=== PATIENT | male | born 1990 | race African-American/Black ===

== ENCOUNTER 2021-09-04 11:38 | Inpatient (IN) | payer OTHER ==
[~2021-09-04] VITALS: Ht 162.6 cm; Wt 72.6 kg
[2021-09-04] MEDS ORDERED: TOPA50TA8 PO (11:59)
[2021-09-04] MEDS ORDERED: HYDR-3363 PO ×2 (11:59)
[2021-09-04] MEDS ORDERED: TRAZ-252 PO (11:59)
[2021-09-04] MEDS ORDERED: RIZA5TAB2 PO (11:59)
--- OUTSIDE RECORDS SUMMARY | 2021-09-04 12:33 | CCD ---
Author Author [facility] Address Unknown Phone Unavailable Support Name Relationship Address Phone [facility] Next Of Kin [address] [place] [address] Unavailable TK HARRY Next Of Kin [address] [place] [address] Re-disclosure Warning The records that you are about to access may contain information from federally-assisted alcohol or drug abuse programs. If such information is present, then the following federally mandated warning applies: This information has been disclosed to you from records protected by federal confidentiality rules (42 CFR part 2). The federal rules prohibit you from making any further disclosure of this information unless further disclosure is expressly permitted by the written consent of the person to whom it pertains or as otherwise permitted by 42 CFR part 2. A general authorization for the release of medical or other information is NOT sufficient for this purpose. The Federal rules restrict any use of the information to criminally investigate or prosecute any alcohol or drug abuse patient.The records that you are about to access may contain highly sensitive health information, the redisclosure of which is protected by Article 27-F of the [facility] Public Health law. If you continue you may have access to information: Regarding HIV / AIDS; Provided by facilities licensed or operated by the [facility] Office of Mental Health; or Provided by the [facility] Office for People With Developmental Disabilities. If such information is present, then the following [facility] mandated warning applies: This information has been disclosed to you from confidential records which are protected by state law. State law prohibits you from making any further disclosure of this information without the specific written consent of the person to whom it pertains, or as otherwise permitted by law. Any unauthorized further disclosure in violation of state law may result in a fine or fpc sentence or both. A general authorization for the release of medical or other information is NOT sufficient authorization for further disc losure. Medications No Information Insurance Providers Payer name Policy type / Coverage type Policy ID Covered democrat ID Covered democrat's relationship to gar Policy Gar Plan Information [facility] [id number] Problems, Conditions, and Diagnoses No Information Surgeries/Procedures No Information Results No Information Social History No Information
[2021-09-04 14:40] LABS: HEMATOCRIT 43.9 % (42.0-52.0); MEAN CORPUSCULAR HEMOGLOBIN 27.8 pg (27.0-33.0); MEAN CORPUSCULAR HGB CONC 31.9 g/dl (32.0-36.5); MEAN CORPUSCULAR VOLUME 87.1 fl (80.0-96.0); PLATELET COUNT, AUTOMATED 271 10^3/uL (150-450); RED BLOOD COUNT 5.04 10^6/uL (4.30-6.10); WHITE BLOOD COUNT 7.4 10^3/uL (4.0-10.0)
[2021-09-04] MEDS ORDERED: LORazepam 2 MG TAB PO STA (14:51)
[2021-09-04] MEDS ORDERED: OLANZapine ORAL DISINTEGRATING TAB 5MG PO ONE (14:55)
[2021-09-04 15:06] LABS: AMPHETAMINES LEVEL URINE NEGATIVE (NEGATIVE); BARBITURATES URINE NEGATIVE (NEGATIVE); BENZODIAZEPINES URINE NEGATIVE (NEGATIVE); CANNABINOIDS URINE NEGATIVE (NEGATIVE); COCAINE METABOLITE URINE NEGATIVE (NEGATIVE); METHADONE URINE NEGATIVE (NEGATIVE); OPIATES URINE NEGATIVE (NEGATIVE); PHENCYCLIDINE URINE NEGATIVE (NEGATIVE)
[2021-09-04 15:19] LABS: ACETAMINOPHEN LEVEL < 2.0 UG/ML (10.0-30.0); ALBUMIN 4.2 GM/DL (3.2-5.2); ALT/SGPT 32 U/L (12-78); BILIRUBIN,DIRECT 0.1 MG/DL (0.0-0.2); BILIRUBIN,TOTAL 0.6 MG/DL (0.2-1.0); BLOOD UREA NITROGEN 14 MG/DL (7-18); CALCIUM LEVEL 9.9 MG/DL (8.5-10.1); CARBON DIOXIDE LEVEL 25 MEQ/L (21-32); CHLORIDE LEVEL 111 MEQ/L (98-107); CREATININE FOR GFR 1.51 MG/DL (0.70-1.30); ETHYL ALCOHOL (ETHANOL) < 0.003 % (0.000-0.010); GLOMERULAR FILTRATION RATE > 60.0 (>60); GLUCOSE, FASTING 99 MG/DL (70-100); POTASSIUM SERUM 4.1 MEQ/L (3.5-5.1); SALICYLATE LEVEL < 1.7 MG/DL (5.0-30.0); SODIUM LEVEL 142 MEQ/L (136-145); THYROID STIMULATING HORMONE 0.297 uIU/ML (0.358-3.740); TOTAL PROTEIN 7.8 GM/DL (6.4-8.2)
--- NOTE | 2021-09-04 17:53 | REPVR ---
PROCEDURE INFORMATION: Exam: CT Head Without Contrast Exam date and time: 09/04/2021 5:30 PM Age: 30 years old Clinical indication: Pain; Headache TECHNIQUE: Imaging protocol: Computed tomography of the head without contrast. Radiation optimization: All CT scans at this facility use at least one of these dose optimization techniques: automated exposure control; mA and/or kV adjustment per patient size (includes targeted exams where dose is matched to clinical indication); or iterative reconstruction. COMPARISON: No relevant prior studies available. FINDINGS: Brain: No intracranial hemorrhage or extra-axial fluid collection. No evidence of mass effect or midline shift. Ivy-white matter differentiation is intact. Cerebral ventricles: No ventriculomegaly. Paranasal sinuses: Visualized sinuses are unremarkable. No fluid levels. Mastoid air cells: Unremarkable. Bones/joints: No acute osseus lesion or fracture. Soft tissues: Unremarkable. IMPRESSION: No acute intracranial pathology. Electronically signed by: Joseph Meyer On 09/04/2021 17:52:51 PM
[2021-09-04] MEDS ORDERED: HOME MED LIST COMPLETE! XX SCH (18:05)
[2021-09-04 19:38] LABS: RSV AMPLIFICATION NEGATIVE (NEGATIVE)
[2021-09-04] MEDS ORDERED: traZODone 50 MG TAB PO PRN (20:15)
[2021-09-04] MEDS ORDERED: ACETAMINOPHEN TAB 650MG DOSE (2X325MG) PO PRN (20:15)
[2021-09-04] MEDS ORDERED: MAALOX 30 ML SUSP *UDC PO PRN (20:15)
[2021-09-04] MEDS ORDERED: MOM 30ML SUSPENSION UDC PO PRN (20:15)
--- OUTSIDE RECORDS SUMMARY | 2021-09-04 20:27 | CCD ---
Author Author [facility] Address Unknown Phone Unavailable Support Name Relationship Address Phone [facility] Next Of Kin [address] [place] [address] Unavailable TK HARRY Next Of Kin [address] [place] [address] Re-disclosure Warning The records that you are [...] is protected by Article 27-F of the [facility] Public Health law. If you continue you may have access to information: Regarding HIV / AIDS; Provided by facilities licensed or operated by the [facility] Office of Mental Health; or Provided by the [facility] Office for People With Developmental Disabilities. If such information is present, then the following [facility] mandated warning applies: This information [...] law may result in a fine or fci sentence or both. A general authorization for the release of medical or other information is NOT sufficient authorization for further disc losure. Medications No Information Insurance Providers Payer name Policy type / Coverage type Policy ID Covered constitution party ID Covered constitution party's relationship to gar Policy Gar Plan Information [facility] [id number] [facility] [id number] Problems, Conditions, and Diagnoses No Information Surgeries/Procedures No Information Results No Information Social History No Information
[2021-09-04 22:24] VITALS: BP 157/90
[2021-09-05] VITALS (7 sets, daily range): BP systolic 72–118; BP diastolic 38–96
[2021-09-05 09:09] LABS: BASO % 0.3 % (0.0-1.0); HEMATOCRIT 44.5 % (42.0-52.0); HEMOGLOBIN 14.2 g/dl (13.5-17.5); LYMPH # 1.1 10^3/uL (1.5-5.0); LYMPH % 16.8 % (24.0-44.0); MEAN CORPUSCULAR HGB CONC 31.9 g/dl (32.0-36.5); MEAN CORPUSCULAR VOLUME 87.6 fl (80.0-96.0); MONO # 0.4 10^3/uL (0.0-0.8); MONO % 6.1 % (2.0-8.0); NEUTROPHILS # 4.9 10^3/uL (1.5-8.5); NEUTROPHILS % 76.5 % (36.0-66.0); PLATELET COUNT, AUTOMATED 264 10^3/uL (150-450); RED BLOOD COUNT 5.08 10^6/uL (4.30-6.10); WHITE BLOOD COUNT 6.4 10^3/uL (4.0-10.0)
--- NOTE | 2021-09-05 09:38 | REP ---
INDICATION: hypotension. COMPARISON: None. TECHNIQUE: Single portable AP view of the chest was performed. FINDINGS: There is no acute infiltrate or pulmonary edema. Lungs are clear. The heart is not significantly enlarged. The mediastinal silhouette is unremarkable. The visualized osseous structures are intact. IMPRESSION: No acute pulmonary disease. <Electronically signed by Dinesh Ivy > 09/05/21 [id number]
[2021-09-05 09:40] LABS: ALBUMIN 4.3 GM/DL (3.2-5.2); ALT/SGPT 29 U/L (12-78); BILIRUBIN,TOTAL 0.8 MG/DL (0.2-1.0); BLOOD UREA NITROGEN 20 MG/DL (7-18); CALCIUM LEVEL 10.1 MG/DL (8.5-10.1); CARBON DIOXIDE LEVEL 22 MEQ/L (21-32); CHLORIDE LEVEL 110 MEQ/L (98-107); CREATININE FOR GFR 2.04 MG/DL (0.70-1.30); GLOMERULAR FILTRATION RATE 50.1 (>60); GLUCOSE, FASTING 93 MG/DL (70-100); MAGNESIUM LEVEL 1.9 MG/DL (1.8-2.4); POTASSIUM SERUM 4.4 MEQ/L (3.5-5.1); SODIUM LEVEL 141 MEQ/L (136-145); TROPONIN I < 0.02 NG/ML (< 0.10)
--- NOTE | 2021-09-05 13:37 | MHHPEPDOC ---
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 Patient was in bed with his eyes closed was very minimal in his conversation disengaged in the interview PER ED REPORT: Pt was brought to [facility] by EMS after [facility] contacted EMS due to pt exhibiting signs of paranoia. Pt reports that he is originally from [facility] and that he moved to the [place] with his first . 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 Pt reports that [place] is his first duty station. Pt reports that he suffers from severe headaches and that he has been diagnosed with intracranial hemorrhage. Pt reports that he stayed in the [facility] for almost 5 days. (Which appears to be a delusion since there is no evidence of this in healthy connections). Pt reports that since that time his headaches have been debilitating. Pt reports that his is getting frustrated with him because; he has been unable to care for their son and only go to work. Pt reports that he suffers from very poor sleep and he has been put on different medications to help however, he feels that these medications are not helping at all. Pt reports that he went to [place] [employer] [facility] today because he and his were arguing about their vehicle that has been at the [facility] for 2 weeks. Pt reports that he called very early this morning because, he has been borrowing someone else's vehicle and he would like help to get the vehicle out of the shop. Pt reports that his got very agitated with him because, he called so early in the morning. Pt states "I am very passive and wanted to avoid an argument so I went to the health center to talk to someone and they sent me here". Pt is very tearful at times and states that he feels worthless and that he will very soon. Pt reports that he doesn't want to by his own hand but, "I wouldn't mind going to sleep and never waking up". Pt reports feeling as though he is one of the worst solders. At times pt is very difficult to follow and states that he often hears his father's voice, pt states "I know that it's okay to soon, it is because I hear my dad's voice". When asked if his dad voice tells pt to hurt himself pt states "no, my dad was a good man". Pt is very fixated on getting a book written in [place] which is pts primary language. Pt seems very hyper focused on it and has asked several times, tw found pt a book however, it was not written in [place]. Pt was satisfied with tw attempt at finding pt sometime to occupy his time. Pt denies HI/Self Inj/VH. Pt report erratic appetite and poor sleep. Psychiatric Review of Systems Depression (2 or more weeks): depressed mood, insomnia/hypersomnia, feelings of excess/guilt, feelings of worthlesness, difficulty concentrating, psychomotor changes, suicidal thoughts Psychosis: auditory hallucination, delusions PTSD: denies Anxiety: situational anxiety, stressor related anxiety Anxiety/ 6 months or more of: restlessness, keyed up, difficulty concentrating Past Psychiatric History Previous Psychiatric Diagnosis: Denies any diagnoses Previous Psychiatric Admissions: This is his first psychiatric admission Suicide Attempts: Denies history of self-harm Psychiatric Follow-up: [facility]. Psychiatric medications: No medications at this time. Past Medical History Medical Problems Acute kidney injury Head Injury: No Seizures: No Hospitalizations: No Surgeries: No Family Medical/Psychiatric HX Medical Problems Denies contributory history although his father is Psychiatric Disorders: No Addiction: No Suicide Attemps/Completions: No Addiction History denies Social History Childhood: Born in [place], his 3 sisters 2 brothers had both parents growing up, father is mother still alive. Abuse/Trauma: Reports the of his father was traumatic for him. Current Living Situation: Currently lives with and 4-month-old child Education: Associates degree. 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 Legal: None Marital: Second marriage has been for a year and has 2 children 1 does not live with him second child is 4 months old lives with himself and his halima calderon Mental Status Examination General Appearance: well groomed, appears stated age, hospital scubs/clothing Build: average Demeanor: withdrawn, guarded Eye Contact: poor Activity: slowed Behavior: cooperative Speech: clear, other (Has an excellent) Mood: depressed, anxious Affect: constricted, flat Thought Process: logical/linear Thought Content (Delusions): none reported, paranoia (Was not paranoid during the interview but it was reported that he was paranoid prior to admission to the unit) Thought Content (Other): guarded Thought Content (Aggressive): none reported Perception (Hallucinations): auditory Perception (Other): none reported Cognition (Impairment of): none reported Cognition(Intelligence Est.): average Oriented: Awake, Alert, Oriented times three Insight: fair Judgment: Fair Psychosis: Denies Diagnoses Unspecified psychotic disorder A-FIB/CHADSVASC A-FIB History Current/History of A-Fib/PAF?: No Current PO Anticoag Therapy: No Assessment Patient was seen this morning, at the time patient was seen with hospitalist. Morning reports that the patient has had very low blood pressure [id number]. Hospitalist was called in labs were ordered. Patient has a negative tox screen. He states that he was feeling suicidal and was seen by [facility] reporting that he wants to in his sleep he states that he has auditory hallucinations of his father's voice and has difficulty reporting any other depressive symptoms patient was quite drowsy in the interview. At th is time according to the hospitalist patient has acute kidney injury and will be admitted to the medical floor at which time psychiatric consult can be ordered to determine whether patient needs continued hospitalization on [facility] Initial Treatment Plan 1. Patient was admitted on a [9.39] status. 2. Complete history was obtained. 3. With patients permission, family will be contacted and database will be expanded. 4. Patients medication regimen will be reviewed and changed accordingly. 5. Patient will be provided with protected environment. 6. Patient will be treated with individual, group, and milieu therapies. 7. Patient will receive supportive psych-education. 8. Discharge planning will commence immediately. 9. Outpatient follow-up treatment will be strongly recommended. 10. The initial treatment plan will focus initially on: * Depression. * Risk for suicide. * Altered thoughts ESTIMATED LENGTH OF STAY: 1-3 DAYS. TIME SPENT COUNSELING AND COORDINATING INITIAL CARE: 60 minutes. Tobacco Cessation Screen Tobacco Cessation Tx Ordered?: No r/t failed trials N/A-No Antipsychotics Vital Signs Vital Signs Date Time Temp Pulse Resp B/P (MAP) Pulse Ox O2 Delivery O2 Flow Rate FiO2 09/05/21 09:48 99.0 87 20 118/96 (103) 100 Room Air Laboratory Data 24H Labs Laboratory Tests 2 09/04/21 14:08: Nucleated Red Blood Cells % (auto) 0.0, Anion Gap 6L, Glomerular Filtration Rate > 60.0, Calcium Level 9.9, Total Bilirubin 0.6, Direct Bilirubin 0.1, Aspartate Amino Transf (AST/SGOT) 14, Alanine Aminotransferase (ALT/SGPT) 32, Alkaline Phosphatase 81, Total Protein 7.8, Albumin 4.2, Albumin/Globulin Ratio 1.2, Thyroid Stimulating Hormone (TSH) 0.297L, Salicylates Level < 1.7L, Urine Opiates Screen NEGATIVE, Urine Methadone Screen NEGATIVE, Acetaminophen Level < 2.0L, Urine Barbiturates Screen NEGATIVE, Urine Phencyclidine Screen NEGATIVE, Urine Amphetamines Screen NEGATIVE, Urine Benzodiazepines Screen NEGATIVE, Urine Cocaine Metabolite Screen NEGATIVE, Urine Cannabinoids Screen NEGATIVE, Ethyl Alcohol Level < 0.003 09/04/21 18:21: Coronavirus (COVID-19)(PCR) NEGATIVE, Influenza Type A (RT-PCR) NEGATIVE, Influenza Type B (RT-PCR) NEGATIVE, Respiratory Syncytial Virus (PCR) NEGATIVE 09/05/21 08:51: Nucleated Red Blood Cells % (auto) 0.0, Anion Gap 9, Glomerular Filtration Rate 50.1L, Calcium Level 10.1, Total Bilirubin 0.8, Aspartate Amino Transf (AST/SGOT) 13, Alanine Aminotransferase (ALT/SGPT) 29, Alkaline Phosphatase 76, Total Protein 8.0, Albumin 4.3, Albumin/Globulin Ratio 1.2, Immature Granulocyte % (Auto) 0.3, Neutrophils (%) (Auto) 76.5H, Lymphocytes (%) (Auto) 16.8L, Monocytes (%) (Auto) 6.1, Eosinophils (%) (Auto) 0.0, Basophils (%) (Auto) 0.3, Neutrophils # (Auto) 4.9, Lymphocytes # (Auto) 1.1L, Monocytes # (Auto) 0.4, Eosinophils # (Auto) 0.0, Basophils # (Auto) 0.0, Lactic Acid Level 2.2*H, Magnesium Level 1.9, Troponin I < 0.02, CO-Hzg-D-Type Natriuretic Peptide 14, Free Thyroxine 1.56H CBC/BMP Laboratory Tests 09/04/21 14:08 09/05/21 08:51 Medications No Active Prescriptions or Reported Meds Allergies Coded Allergies: No Known Allergies (Unverified , 09/04/21) LEE MENENDEZ NP Sep 05, 2021 12:42
--- NOTE | 2021-09-05 13:47 | MHDSPDOC ---
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 Patient was in bed with his eyes closed was very minimal in his conversation disengaged in the interview PER ED REPORT: Pt was brought to [facility] by EMS after [facility] contacted EMS due to pt exhibiting signs of paranoia. Pt reports that he is originally from [facility] and that he moved to the [place] with his first . 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 Pt reports that he suffers from severe headaches and that he has been diagnosed with intracranial hemorrhage. Pt reports that he stayed in the [facility] for almost 5 days. (Which appears to be a delusion since there is no evidence of this in healthy connections). Pt reports that since that time his headaches have been debilitating. Pt reports that his is getting frustrated with him because; he has been unable to care for their son and only go to work. Pt reports that he suffers from very poor sleep and he has been put on different medications to help however, he feels that these medications are not helping at all. Pt reports that he went [facility] [place] [facility] because he and his were arguing about their vehicle that has been at the the medical center for 2 weeks. Pt reports that he called very early this morning because, he has been borrowing someone else's vehicle and he would like help to get the vehicle out of the shop. Pt reports that his got very agitated with him because, he called so early in the morning. Pt states "I am very passive and wanted to avoid an argument so I went to the health center to talk to someone and they sent me here". Pt is very tearful at times and states that he feels worthless and that he will very soon. Pt reports that he doesn't want to by his own hand but, "I wouldn't mind going to sleep and never waking up". Pt reports feeling as though he is one of the worst solders. At times pt is very difficult to follow and states that he often hears his father's voice, pt states "I know that it's okay to soon, it is because I hear my dad's voice". When asked if his dad voice tells pt to hurt himself pt states "no, my dad was a good man". Pt is very fixated on getting a book written in [place] which is pts primary language. Pt seems very hyper focused on it and has asked several times, tw found pt a book however, it was not written in Serbian. Pt was satisfied with tw attempt at finding pt sometime to occupy his time. Pt denies HI/Self Inj/VH. Pt report erratic appetite and poor sleep. REASON FOR ADMISSION VITAL SIGNS: See below. CONSULTANTS INVOLVED: See Medical H + P by Hospitalist TREATMENT AND PROGRESS ON THE UNIT: Patient was admitted to the [facility] on a 9.39 legal status was afforded the following treatment modalities: 1) Individual Therapy 2) Group Therapy 3) Medication Management 4) Milieu Therapy 5) Safe Environment HOSPITAL COURSE: Patient was admitted to [facility] on a 9.39 legal status for paranoia and delusions. Patient had abnormal labs critical lactic acid level, acute kidney injury injury and patient is being transferred to medical floor DISCHARGE ASSESSMENT: In today's interview, patient is alert and oriented, pt.s dress is appropriate. Hygiene and grooming is well-kempt. Patient reported having suicidal ideations, paranoia, auditory hallucinations and depression. 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 Short responses Language skills are intact Thought processes including: Coherent Thought content: Reports depression and anxiety. Reports having suicidal ideation but /homicidal ideation, planning or intent. Abstract reasoning, and computation: fair Description of associations: denies, none observed Description of abnormal or psychotic thoughts: denies, none observed. Judgment: fair Insight: fair Orientation: alert and oriented to person, place, time and situation Recent and remote memory: intact Attention span and concentration: good Language: expansive Fund of knowledge: average Mood: Depressed Mood Affect: Flat Suicide Risk Assessment: 1) Does the patient wish to be ? Yes 2) Since your admission, have you had any actual thought of killing yourself? No 3) Since your admission, have you been thinking about how you might do this? No 4) Since your admission, have you had these thoughts and had some intention of acting on them? No 5) Since your admission, have you started to work out or worked out the details of how to kill yourself? No 5A) Do you intent to carry out this plan? No and NA 6) Have you ever done anything, started anything, or prepared to do anything with any intent to ? No 6A) How long since your admission did you do any of these? NA MEDICATIONS ON DISCHARGE: See Medication Reconciliation PLAN/FOLLOWUP ARRANGEMENTS: Patient is transferred to medical unit. Unit will call for psych consult if needed The amount of time spent in the coordination of care for this patient was approximately 25 minutes. ETOH/Disorder Med Rx ETOH/DRUG DISORDER RX: N/A Vital Signs/I&Os Vital Signs Date Time Temp Pulse Resp B/P (MAP) Pulse Ox O2 Delivery O2 Flow Rate FiO2 09/05/21 09:48 99.0 87 20 118/96 (103) 100 Room Air Laboratory Data Labs 24H Laboratory Tests 2 09/04/21 14:08: Nucleated Red Blood Cells % (auto) 0.0, Anion Gap 6L, Glomerular Filtration Rate > 60.0, Calcium Level 9.9, Total Bilirubin 0.6, Direct Bilirubin 0.1, Aspartate Amino Transf (AST/SGOT) 14, Alanine Aminotransferase (ALT/SGPT) 32, Alkaline Phosphatase 81, Total Protein 7.8, Albumin 4.2, Albumin/Globulin Ratio 1.2, Thyroid Stimulating Hormone (TSH) 0.297L, Salicylates Level < 1.7L, Urine Opiates Screen NEGATIVE, Urine Methadone Screen NEGATIVE, Acetaminophen Level < 2.0L, Urine Barbiturates Screen NEGATIVE, Urine Phencyclidine Screen NEGATIVE, Urine Amphetamines Screen NEGATIVE, Urine Benzodiazepines Screen NEGATIVE, Urine Cocaine Metabolite Screen NEGATIVE, Urine Cannabinoids Screen NEGATIVE, Ethyl Alcohol Level < 0.003 09/04/21 18:21: Coronavirus (COVID-19)(PCR) NEGATIVE, Influenza Type A (RT-PCR) NEGATIVE, Influenza Type B (RT-PCR) NEGATIVE, Respiratory Syncytial Virus (PCR) NEGATIVE 09/05/21 08:51: Nucleated Red Blood Cells % (auto) 0.0, Anion Gap 9, Glomerular Filtration Rate 50.1L, Calcium Level 10.1, Total Bilirubin 0.8, Aspartate Amino Transf (AST/SGOT) 13, Alanine Aminotransferase (ALT/SGPT) 29, Alkaline Phosphatase 76, Total Protein 8.0, Albumin 4.3, Albumin/Globulin Ratio 1.2, Immature Granulocyte % (Auto) 0.3, Neutrophils (%) (Auto) 76.5H, Lymphocytes (%) (Auto) 16.8L, Monocytes (%) (Auto) 6.1, Eosinophils (%) (Auto) 0.0, Basophils (%) (Auto) 0.3, Neutrophils # (Auto) 4.9, Lymphocytes # (Auto) 1.1L, Monocytes # (Auto) 0.4, Eosinophils # (Auto) 0.0, Basophils # (Auto) 0.0, Lactic Acid Level 2.2*H, M agnesium Level 1.9, Troponin I < 0.02, OR-Ejb-R-Type Natriuretic Peptide 14, Free Thyroxine 1.56H CBC/BMP Laboratory Tests 09/04/21 14:08 09/05/21 08:51 Medications No Active Prescriptions or Reported Meds Allergies Coded Allergies: No Known Allergies (Unverified , 09/04/21) LEE MENENDEZ NP Sep 05, 2021 13:47
[2021-09-06] MEDS ORDERED: TRAZ-252 PO (11:38)
[2021-09-06] MEDS ORDERED: MECL-86 PO (11:38)
[2021-09-06] MEDS ORDERED: RAME8TAB2 PO (11:38)
--- NOTE | 2021-09-07 17:23 | ECGEPIP ---
[facility] Test Date: 2021-09-05 Pat Name: SD CASTRO Department: Room: [place] [address] Gender: Male Mothers Helper: KIRAN : 1990 Requested By: ABDULAZIZ MOCTEZUMA Order Number: [id number] Reading MD: Negrito Tim Measurements Intervals [place] Rate: 91 P: 39 SD: 140 QRS: 11 QRSD: 80 T: 14 QT: 348 QTc: 428 Interpretive Statements Normal sinus rhythm with sinus arrhythmia Nonspecific T wave abnormality Electronically Signed on 09-07-2021 17:23:19 EDT by Negrito Tim
== END 2021-09-05 12:40 | disposition other institution (70) | DRG 885 ==
LOC: M ED 11:38 → M ED INP 20:11 → M PSY 21:30
PROVIDERS: ADMIT Psychiatry & Neurology Psychiatry; ATTEND Psychiatry & Neurology Psychiatry
DX: F29 Unspecified psychosis not due to a substance or known physiological condition (principal); N17.9 Acute kidney failure, unspecified; R45.851 Suicidal ideations; Z20.822 Contact with and (suspected) exposure to COVID-19

== ENCOUNTER 2021-09-05 11:03 | Observation (INO) | payer OTHER ==
[~2021-09-05] VITALS: Ht 162.6 cm; Wt 73.3 kg
[~2021-09-05 11:03] MED LIST: HYDR-3363 PO; RIZA5TAB2 PO; TOPA50TA8 PO; TRAZ-252 PO
[2021-09-05] MEDS ORDERED: MOM 30ML SUSPENSION UDC PO PRN (11:25)
[2021-09-05] MEDS ORDERED: MAALOX 30 ML SUSP *UDC PO PRN (11:25)
[2021-09-05] MEDS ORDERED: ACETAMINOPHEN TAB 650MG DOSE (2X325MG) PO PRN (11:25)
--- NOTE | 2021-09-05 11:28 | HPEPDOC ---
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 He was admitted to [facility], and hospitalist was called for medical intake. RN informed MD that patient had vomited shortly prior to breakfast, felt lightheaded and when he lay down, his SBP measured was 70 mmHg, with repeat improvement to 100 mmHg systolic. Patient stated that he had nothing to eat or drink for almost 24 hours and felt thirsty. He denies blurred vision, chest pain, palpitations, but endorses slight headache. Lab work was ordered, indicating Cr 2.04. LA 2.2. Orthostatic BP was measured in [facility], positive. Tox screen negative. Patient admitted to hospitalist service from [facility] due to MARLENE likely 2/2 dehydration. PAST MEDICAL HISTORY: Migraines Intracranial hemorrhage? PAST SURGICAL HISTORY: reports no prior hx SOCIAL HISTORY: Born in [facility] Denies smoking, etoh use, illicit drug use FAMILY HISTORY: reviewed patient, did not provide pertinent hx. Father . ALLERGIES: Please see below. REVIEW OF SYSTEMS: 10 point ROS conducted, relevant findings are noted in HPI. HOME MEDICATIONS: Please see below. PHYSICAL EXAMINATION: VITAL SIGNS: please see below General: NAD, comfortable HEENT: PERRLA, EOMI, sclerae clear Neck: supple, normal ROM, no JVD Respiratory: lungs CTAB, no wheeze, no rales, no crackles CVS: RRR, normal S1, S2, no murmurs Abdo: soft, no masses, no hepatosplenomegaly, BS+, no rebound tenderness Extremities: no edema, pulses 2+ MSK: no joint deformities, normal ROM Neuro: no focal neuro deficits, moving all 4 extremities, CN2-12 intact. Strength 5/5 in all 4 extremities. No nystagmus. Psych: calm, cooperative, AAO x 3 LABORATORY DATA: See below. IMAGING: CT head wo contrast (09/04/21): IMPRESSION: No acute intracranial pathology. CXR (09/05/21): No acute pulmonary disease. MICROBIOLOGY: Please see below. 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 He was admitted to [facility], and hospitalist was called for medical intake. RN informed MD that patient had vomited shortly prior to breakfast, felt lightheaded and when he lay down, his SBP measured was 70 mmHg, with repeat improvement to 100 mmHg systolic. Patient stated that he had nothing to eat or drink for almost 24 hours and felt thirsty. He denies blurred vision, chest pain, palpitations, but endorses slight headache. Lab work was ordered, indicating Cr 2.04. LA 2.2. Orthostatic BP was measured in [facility], positive. Tox screen negative. Patient admitted to hospitalist service from [facility] due to MARLENE likely 2/2 dehydration. . PLAN: #Hypotension: SBP 70 mmHg by manual. Slight improvement to 100 mmHg on repeat/lying down. Positive orthostats. Admit to M/S tele. Given 1L NS bolus. Repeat BP 121/81. C/w IVF. Compression stockings. #MARLENE: likely pre-renal. Patient had no PO intake x 24 hours. Repeat Cr in am. S/p 1L NS bolus. Ordered renal US. #Paranoia/SI: 1:[address] Kim that patient is admitted to acute floor. Likely DC to [facility] on 09/06/21. Home Medications No Active Prescriptions or Reported Meds Allergies Coded Allergies: No Known Allergies (Unverified , 09/04/21) ABDULAZIZ MOCTEZUMA MD Sep 05, 2021 11:28
[2021-09-05] MEDS ORDERED: NS 1,000 ML IV ONE (11:30)
--- OUTSIDE RECORDS SUMMARY | 2021-09-05 13:02 | CCD | Summary of Care ---
Author Author [facility] Organization [facility] Address Unknown Phone Unavailable Care Team Providers Care Supervisor Plastic Sheets Name Role Phone Pcp, No PCP Unavailable Reason for Referral * Diagnostic Radiology (Routine) Referred By Contact Referred To Contact Status Reason Specialty Diagnoses / Procedures Татьяна Romero MD [address] [place] [address] [place] [phone] Email: [email or web address] Open Radiology Diagnoses Cervical radiculopathy P rocedures MR Cervical Spine without Contrast Electronically signed by Татьяна Romero MD at * Procedure/Treatment (Routine) Referred By Contact Referred To Contact Status Reason Specialty Diagnoses / Procedures Татьяна Romero MD [address] [place] [address] [place] [phone] Email: [email or web address] Татьяна Romero MD [address] [place] [phone] Email: [email or web address] Open Specialty Services Infusion Therapy Diagnoses Required Occipital neuralgia of left side Electronically signed by Татьяна Romero MD at Reason for Visit * Reason Comments New Patient Encounter Details Care Team Description Date Type Department Татьяна Romero MD [address] [place] [id number] [phone] Intractable chronic migraine without aur a and with status migrainosus (Primary Dx); Occipital neuralgia of left side; Cervicogenic headache; Cervical radiculopathy 08/01/2021 Office Visit [facility] Neurology a [facility] [address] [facility] [address], [address] [place] [address] Allergies Comments Active Allergy Reactions Severity Noted Date G6PD medication: Unspecified Other Anaphylaxis High 06/24/2021 documented as of this encounter (statuses as of 08/01/2021) Medications End Date Status Medication Sig Dispensed Refills Start Date Active Amitriptyline HCl 25 MG Take 25 mg by 0 Oral Tablet (ELAVIL) mouth nightly Active Nerivio Device 1 Device by 1 each Does not 1 apply route Two times daily as needed 07/31/2022 Active Topiramate 25 MG Oral Take 2 120 tablet 11 07/11 Tablet (Topamax) tablets by 1 mouth Two Times Daily 07/31/2022 Active Rizatriptan Benzoate 10 Take 1 tablet 10 tablet 11 MG Oral Tablet (Maxalt) by mouth as 1 needed for MigraineMay repeat in 2 hours if needed documented as of this encounter (statuses as of 08/01/2021) Active Problems No known active problemsdocumented as of this encounter (statuses as of 08/01/2021) Resolved Problems Problem Noted Date Resolved Date Intracranial hemorrhage 06/24/2021 08/01/2021 documented as of this encounter (statuses as of 08/01/2021) Social History Date Tobacco Use Types Packs/Day Years Used Never Smoker Smokeless Tobacco: Never Used Comments Alcohol Use Standard Drinks/Week Not Currently 4 (1 standard drink = 0.6 o z pure alcohol) Alcohol Habits Answer Date Recorded How often do you have a drink containing alcohol? Monthly or less 06/25/2021 How many drinks containing alcohol do you have on 3 or 4 06/25/2021 a typical day when you are drinking? How often do you have six or more drinks on one Monthly 06/25/2021 occasion? Social Isolation Answer Date Recorded In a typical week, how many times do you talk on Twice a w [place] 06/25/2021 the phone with family, friends, or neig hbors? How often do you get together with friends or Twice a week 06/25/2021 relatives? How often do you attend holiness or amish Never 06/25/2021 services? Do you belong to any clubs or organizations such Patient r efused 06/25/2021 as holiness groups, unions, fraternal or athletic groups, or school groups? How often do you attend meetings of the clubs or Patient r efused 06/25/2021 organizations you belong to? Are you now , , , , 06/25/2021 never or living with a partner? Physical Activity Answer Date Recorded On average, how many days per week do you engage 5 days 06/25/2021 in moderate to strenuous exercise (like walking fast, running, jogging, dancing, swimmi ng, biking, or other activities that cause a light or heavy sweat)? On average, how many minutes do you engage in 90 min 06/25/2021 exercise at this level? Stress Answer Date Recorded Do you feel stress - tense, restless, nervous, or Only a l ittle 06/25/2021 anxious, or unable to sleep at night be cause your mind is troubled all the time - these d ays? Financial Resource Strain Answer Date Recorde d How hard is it for you to pay for the very basics Not very hard 06/25/2021 like food, housing, medical care, and h eating? Intimate Partner Violence Answer Date Recorde d Within the last year, have you been afraid of your No 06/25/2021 partner or ex-partner? Within the last year, have you been humiliated or No 06/25/2021 emotionally abused in other ways by you r partner or ex-partner? Within the last year, have you been kicked, hit, No 06/25/2021 slapped, or otherwise physically hurt b y your partner or ex-partner? Within the last year, have you been raped or No 06/25/2021 forced to have any kind of sexual activ ity by your partner or ex-partner? Food Insecurity Answer Date Recorded Within the past 12 months, you worried that your Never syeda e 06/25/2021 food would run out before you got money to buy more. Within the past 12 months, the food you bought Never true 06/25/2021 just didn't last and you didn't have mo aris to get more. Transportation Needs Answer Date Recorded In the past 12 months, has lack of transportation No 06/25/2021 kept you from medical appointments or f rom getting medications? In the past 12 months, has lack of transportation No 06/25/2021 kept you from meetings, work, or gettin g things needed for daily living? Sex Assigned at Date Recorded Not on file Date Recorded COVID-19 Exposure Response 08/01/2021 7:33 AM EDT In the last month, have you been in contact with No / Unsure someone who was confirmed or suspected to have Coronavirus / COVID-19? documented as of this encounter Last Filed Vital Signs Reading Time Taken Comments Vital Sign 119/78 08/01/2021 7:42 AM EDT Blood Pressure 80 08/01/2021 7:42 AM EDT Pulse - - Temperature - - Respiratory Rate - - Oxygen Saturation - - Inhaled Oxygen Concentration 76.2 kg (168 lb) 08/01/2021 7:42 AM EDT Weight 162.6 cm (5' 4") 08/01/2021 7:42 AM EDT Height 28.84 08/01/2021 7:42 AM EDT Body Mass Index documented in this encounter Patient Instructions * Patient Instructions* Татьяна Romero MD - 08/01/2021 7:40 AM EDT Headache Clinic Summary of Visit: Diagnosis: chronic migraine, occipital neuralgia on the left, rule cervicogenic headache and cervical radiculopathy. Investigations: MRI cervical spine Referrals: None Online information: www.americanheadachesociety.org americanmigrainefoundation.org migrainecanada.org Headache Treatment Outline Please keep a headache diary in written or electronic format (e.g. [place] Migr dell Tracker, www.[place] and migrainebuddy are examples ) General things that will help improve your headaches: Additional information at the end 1. Regular aerobic exercise 2. Well balanced diet, do not skip meals 3. Regular sleep schedule, see sleep hygiene tips 4. Hydration with water 5. Trigger avoidance 6. Stress reduction/management and relaxation (see www.[employer] 7. Paced Breathing (see www.[employer]) Medication(s) to take when you get a headache = acute treatments: Nerivio device Rizatriptan 10mg Early treatment is better than waiting until pain is severe. Acute treatment with rizatriptan taken more than 2-3 days per week will overall worsen your headaches in that your headaches will occur more frequently and will be more severe. This is called medication overuse headache and is a common ca use of headaches becoming more frequent and more severe, this can be treated mos t successfully by decreasing rescue/acute medication use. Acute treatments should not exceed 10 days per month and ideally our preventive medication may help you decrease as needed medication you are using. Medications to take to help reduce headaches: Reduction treatments have to be taken for at least 12-16 weeks to determi ne their full effect. If you tolerate the medication please continue for this le ngth of time. Topiramate up to 50mg twice daily. Medications to stop taking: Amitriptyline Temporary treatments: Left occipital nerve block Follow up in: 6 weeks Additional Information: Headache Medication Common Side Effects: Below are the common side effects for medications used to treat headache disorde rs. This list is not exhaustive and your pharmacist will likely discuss the med ication(s) in detail with you. If you have any questions or concerns about your medications please talk to your pharmacist and/or your primary care provider an d/or the physician who prescribed the medication. If at any point you are elidia rned about symptoms please call your family physician or go to your local emerge ncy room. All medications have the risk of allergic reactions. If you get a ne w rash after starting a new medication see a doctor immediately to determine if it is an allergic reaction. Please Note: 1. Many treatments are used off label. 2. Many medications used to treat migraine are contraindicated in . Pl ease let us know if you become or are planning to become . Abraham ally control should be used while on many medications used to treat migrai ne. Triptans: Amerge (naratriptan), Axert (almotriptan), Frova (frovatriptan), Maxalt (rizatri ptan), Relpax (eletriptan), Imitrex (sumatriptan), Zomig (zolmitriptan), Trexim et (sumatriptan/naproxen) Nausea, vomiting, palpitations, chest tightness, chest pain, dizziness, lighthea dedness, flushing, and worsening headache. There is a very small risk of heart attack and stroke. Anti-Seizure: Topiramate, Zonisamide: fatigue, numbness and tingling, mental fogginess, decrea sed attention, decreased concentration, decreased memory, increased risk of kidn ey stones, increased risk of glaucoma, increased risk of blood becoming acidic, weight loss. Rare mood changes. Nerivio device: Place the device on your upper arm of your non-dominant hand so that the electro gabriel are in contact with your skin and the LED indicator is facing outwards. The device should be located midway between the elbow and the shoulder. Place the de vice directly on the skin and not the shirt. Turn on program and run Nerivio for 45 minutes at the onset of migraine [email or web address] Additional information for General Things (from above): Exercise: From a headache/migraine perspective regular aerobic exercise is beneficial. Da jose antonio is best. I recommend an activity that gets you to a huffing a puffing stat e for 15-20 minutes every day. Diet: No one diet has proven beneficial for all comers with migraines or headaches. I recommend a well balanced diet including all food groups with: fresh fruits and vegetables, lean cuts of meats, and portion control. If you are purposefully e xcluding major food groups from your diet please make sure the rest of your diet is compensating. Sleep: Some tips for good sleep hygiene to help with your headaches: Your bed should be used primarily for sleep o Do not read for extended periods in bed o Do not watch TV in bed o Do not use back lit displays in bed (cell phones, tablets, e-readers, computer s) Do not use back lit displays right before bed. This can make it harder to fall asleep. Establish a soothing pre-sleep routine Do not eat just prior to going to bed Try to go to bed and get up at the same time every day, including weekend s and vacation o It is better to catch up on sleep with short naps than to alter your sleep silverio edule Sleep only long enough to feel rested and then get out of bed o The amount of sleep that each individual requires is different Do not try to force yourself to sleep. If you can't sleep, get out of bed and try again later Don't be a nighttime clock-watcher Have coffee, tea, and other foods that have caffeine only in the morning, or better yet none at all Avoid alcohol in the late afternoon, evening, and bedtime Avoid smoking, especially in the evening Keep your bedroom dark, cool, quiet, and free of reminders of work or oth er things that cause you stress Solve problems you have before you go to bed Exercise several days a week, but not right before bed Relaxation therapy In headache disorders there is some thought that either migraine or the treatmen t of headache depletes the body's production of melatonin. Melatonin is what yo ur body naturally produces to help you go to sleep. There is also some evidence to suggest that taking melatonin may help prevent headaches. If you would like to try taking melatonin you can try taking it before bed. The side effects are sleepiness. Some people find it makes them feel too sleepy in the morning. So me people report it causes vivid dreams or nightmares. Most people have no unwa nted side effects. You can safely take up to 12 mg just before bed. I would re commend starting at a lower dose and increasing the dose based on your reaction to it. Hydration: It is important to stay well hydrated with water. Trigger avoidance: If you notice a particular headache trigger and it is avoidable than avoid it! Stress Reduction/Management and Paced Breathing: Stress is inevitable and cannot be avoided completely. How you deal with and ma nage stress is more important. Here are some examples of applications and resources for paced breathing methods , mindfulness, and biofeedback. You may be able to find others on the internet. All may not be available in your area. Free Web site: www.[employer] Apps: 1. Stop Breathe Think 2. Headspace 3. Smiling Mind 4. [place] 5. Breathing Zone 6. [facility] Meditation Book: Paced Breathing Meditation by Dr Malik Benavidez, Devices: Mindfulness Device: The [facility] [place] documented in this encounter Progress Notes * Татьяна Romero MD - 08/01/2021 7:40 AM EDT Headache Clinic Consultation Thank you for your referral on Peter Hughes for assessment of headaches. Patient's primary care provider: No Pcp It was my pleasure to evaluate Peter Hughes in my capacity as a Headache Medicine Specialist. Peter Hughes is a 30 y.o., right handed male , from: [address] [place] [address]. They were seen in the outpatient Neurology Clinic on 08/01/2021. They presented for today's assessment alone. 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 The headache lasted 3 days. He started having he adaches since June 2021. He did have headaches when he was tired, or if dehydr ated and took tylenol and these went away. These headaches were rare. He does not recall any triggering such as an illness, or trauma. He did not have any minor head trauma, a week beforehand he was doing field exercises and was w ondering if he hit his head without knowing. On June 20 he started to have a headache as he was doing an exercise, he was doing moderate exercise as he could not lift. The headache built up duri ng the course of the exercise. He took Tylenol, and was resting all weekend. On Thursday he could not tolerate the headache, he was seeing stars and blurry, and f elt like his head would explode. He went to the ER then and finally ended up adm itted at [facility] for the basal ganglia issues. His headaches have never gone away completely. Amitriptyline 25 mg makes him indira te groggy although it helped with headache. He uses amitriptyline only on ds and takes 1/2 or 1/4 of it as it makes him quite groggy and he cannot sleep. The headache is mostly on the left side temporal and occipital. Prednisone had a mild effect for a few hours but did not resolve headache. Toradol injection were given as well at hospital but he thinks this helped for a few hours. He was telling me that his left eye is shaking in the eyelid, and he felt his sh oulder was also getting weak. He was seen by case consultant and went to the ED as ketty ta and was told these were to be discussed with neurology. He has a 3 month old baby boy born in April 2021. He also has some more stress at work as his migraines prevent him from doing all the activities. When he does not have a migraine he is dizzy, things are moving either in a circ le or in a boat. 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 He does have shooting pain in the left arm starting in the shoulder when headach e is severe. Headache Description: Headache Days per month: Mild Moderate-Severe 11/07 Headache free days per month: Quality: [] Throbbing [] Pulsating [] Sharp [] Shooting [] Knife-like [] Pressure [] Dull [] Ache [x] Exploding [] Imploding [] Burning []Tingling/numbness Severity: Baseline 05/18 Max: 07/19, Time to Peak: variable Duration untreated: continous Time of day predilection: morning if not sleeping enough, better if he sleeps > 10h, also worse by 3-4pm Associated Features: Headache that is: [x] Moderate to severe [x] Pulsatile [x] Aggravated or causing avoidance of rout ine physical activity (walking/climbing stairs) [] Unilateral alternating Headache accompanied by: [] Nausea [] Vomiting [x] Photophobia [x] Sonophobia [] Osmophobia (*not ICHD b ut some studies note this is predictive of migraine if present) Cranial Autonomic Symptoms: none Aura: none Caffeine intake: no Precipitated by neck movement/positioning: sometimes, he does use a neck pillow History of: Head injury: none Neck injury: none 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 It was gone by May 2020. The patient has the following vascular risk factors: None The patient has the following vascular co morbidities: None Denies history of: asthma, Raynaud's, nephrolithiasis, constipation- intermittit ent Family History of Headaches: none Other Pertinent Details: Systemic or constitutional or infectious symptoms, Secondary risk factors, cance r history, Jaw claudication or other GCA symptoms: none Focal Neurologic Symptoms: as above Thunderclap Headache: no Older age of onset: no Change in Headache History: yes New headache: yes Postural or Positional component to headache: no Headache precipitated by cough, sneeze, bending, lifting, or Valsalva: no History compatible with Papilloedema (worse in AM, double vision, TVO, tinnitus, projectile vomitting): no or Marci partem: N/A Assessment by other Physicians: Neurology Investigations to Date: MRI June 25, 2021 1. Symmetric susceptibility artifacts in the globus pallidus, bilaterally consi stent with metabolic deposits. 2. No acute cerebral or cerebellar infarct. 3. Minimal nonspecific white matter disease. CT/A June 24, 2021 No acute intracranial hemorrhage or large arterial territorial infarction. 2. Major intracranial arteries and arteries of the neck are patent. Last eye exam: 2-3 weeks ago Blood work No results found for: CBCDIF, TSH, ESR, CRP, METABOLICPAN Acute Treatment: Current Reduction Treatment: Amitriptyline but only on weekends Never tried: Patient has tried and failed: Medications Tried ([x] checked have been tried in the past) Anti-seizure: [] Acetazolamide (Diamox) [] Carbamazepine (Tegretol) [] Clonazepam [] Gabapentin (Neurontin) [] Lamotragine (Lamictal) [] Levetiracetam (Keppra) [] Oxcarbazepine (Trileptal) [] Phenobarbital [] Phenytoin (Dilantin) [] Pregabalin (Lyrica) [] Primidone [] Sodium Valproate (Depakote) [] Topiramate (Topamax) [] Zonisamide (Zonegran) Anti-Depressants: SSRI: [] Citalopram (Celexa) [] Escitalopram (Lexapro) [] Fluvoxamine (Luvox) [] Fluoxetine (Prozac) [] Paroxetine (Paxil) [] Sertraline (Zoloft) SNRI: [] Desvenlafaxine (Pristiq/Khedezla) [] Duloxetine (Cymbalta) [] Levomilnacipran (Fetzima) [] Milnacipran (Savella) [] Venlafaxine (Effexor) TCA: [x] Amitriptyline (Elavil) [] Amoxapine [] Clomipramine (Anafranil) [] Desipramine (Norpramin) [] Doxepin (Sinequan) [] Imipramine (Tofranil) [] Maprotiline (Ludiomil) [] Nortriptiline (Pamelor) [] Protriptyline (Vivactil) [] Trimipramine (Surmontil) MAOI: [] Phenelzine (Nardil) [] Selegiline (Emsam) [] Tranylcypromine (Parnate) Atypicals: [] Bupropion (Wellbutrin) [] Mirtazapine (Remeron) [] Nefazodone (Serzone) [] Trazodone [] Vilazodone (Viibryd) [] Vortioxetine (Trintellix) Anti-Hypertensives: HUE Inhibitors: [] Benazepril (Lotensin) [] Captopril [] Enalapril (Vasotec) [] Fosinopril [] Lisinopril (Prinivil) [] Moexipril [] Perindopril (Aceon) [] Quinapril (Accupril) [] Ramipril (Altace) [] Trandolapril (Mavik) Alpha-1 Blockers [] Doxazosin [] Prazosin [] Tetrazosin Angiotensin II Receptor Blockers: [] Azilsartan (Edarbi) [] Candesartan (Atacand) [] Eprosartan [] Irbesartan (Avapro) [] Losartan (Cozaar) [] Olmesartan (Benicar) [] Telmisartan (Misardis) [] Valsartan (Diovan) Beta Blockers [] Acebutolol (Sectral) [] Atenolol (Tenormin) [] Bisoprolol (Zebeta) [] Metoprolol (Lopressor) [] Nadolol (Cogard) [] Nebivolol (Bystolic) [] Propranolol (Inderal) [] Timolol Calcium Channel Blockers: [] Amlodipine (Norvasc) [] Bepridil (Vascor) [] Diltiazem (Cardiazem) [] Felodipine (Plendil) [] Nicardipine (Cardene) [] Nifedipine (Procardia) [] Nisoldipine (Sular) [] Verapamil Diuretics: [] Acetazolamide (Diamox) [] Furosemide (Lasix) [] Hydrochlorothiazide (Microzide) [] Methazolamide [] Spironolactone (Aldactone) Monoclonal Antibodies: [] Aimovig [] Ajovy [] Emgality GEPANTS Prevention: [] rimagepant (Nurtec) [] atogepant () Toxins: [] OnabotulinumtoxinA (Botox) Supplements: [] Butterbur [] Coenzyme Q10 [] Feverfew [x] Magnesium [] Melatonin [] Migrelief (riboflavin, magnesium, feverfew) [] Vitamin B2 (riboflavin) Other: [] Doxycycline [] Lidocaine patch (Lidoderm) [] Blackduck [] Memantine (Namenda) [] Montelukast (Singulair) [] Oxygen Triptans oral: [] Almotriptan (Axert) [] Eletriptan (Relpax) [] Frovatriptan (Frova) [] Naratriptan (Amerge) [] Rizatriptan (Maxalt) [] Sumatriptan (Imitrex) [] Sumatriptan/Naproxen (Treximet) [] Zolmitriptan (Zomig) Triptans nasal: [] Sumatriptan (Onzetra) nasal powder [] Sumatriptan (Imitrex) nasal spray [] Zomig nasal spray Triptans injectable: [] Sumatriptan (Imitrex) solution 3 mg, 4 mg, 6 mg Ergotamines oral: [] Ergotamine/caffeine tab (Cafergot) [] Methergine [] Methylsergide (Sansert) Ergotamines nasal: [] Dihydroergotamine nasal spray (Migranal) Ergotamine Injectable: [] Dihydroergotamine solution for injection (DHE-45) Ergotamine suppository: [] Ergotamine/caffeine suppository (Migergot) GEPANTS Acute: [] rimagepant (Nurtec) [] ubrogepant (Ubrelvy) NSAIDS: [] Aspirin [] Celecoxib (Celebrex) [] Diclofenac potassium [] Flurbiprofen [x] Ibuprofen (Advil) [] Indomethacin [] Ketoprofen [x] Ketorolac (Toradol) [] Meloxicam (Mobic) [] Nabumetone [] Naproxen sodium (Aleve) Anti-Histamines: [] Cyproheptadine (Periactin) [] Diphenhydramine (Benadryl) [] Hydroxyzine (Vistaril/Atarax) Anti-emetics: [] Aprepitant (Emend) [] Granisetron [] Metoclopramide (Reglan) [] Ondansetron (Zofran) [] Meclizine (Bonine) [] Prochlorperazine (compazine) [] Promethazine (Phenergan) [] Chlorpromazine (thorazine) Muscle relaxers: [] Baclofen (lioresal) [] Cyclobenzaprine (flexeril) [] Metaxalone (skelaxin) [] Methocarbamol (robaxin) [] Tizanidine (zanaflex) Steroids: [] Dexamethasone (Decadron) PO, IM [] Methylprednisolone (Medrol), PO, IV [] Prednisone PO [] Triamcinolone (Kenalog) IM Procedures: [] Auriculotemporal blocks [] Lumbar puncture [] Occipital nerve blocks [] Sphenopalatine ganglion blocks [] Supraorbital blocks [] Trigger point injections Neuromodulation: [] Cefaly [] gammaCore [] nVNS/Gammacore [] Spring TMS [] Nerivio Non-pharmacologic Tx [] Acupuncture [] Acupressure [] Biofeedback [] Client Relation Specialist [] Cognitive Behavioral Therapy [] Craniosacral therapy [] Massage therapy [] Physical therapy Benzodiazepines: [] Alprazolam (Xanax) [] Chlordiazepoxide (Librium) [] Clonazepam (Klonopin) [] Diazepam (Valium) [] Lorazepam (Ativan) [] Temazepam (Restoril) Combination/Other Analgesics: [x] Acetaminophen (tylenol) [] Acetaminophen/aspirin/caffeine (Excedrin/Pamprin) [] Acetaminophen/caffeine/pyrilamine maleate (Midol) [] Acetaminophen/dichloralphenazone/isometheptene (Midrin) [] Butalbital/aspirin/caffeine/codeine (Fiorinal with codeine) [] Butalbital/Aspirin/Caffeine (Fiorinal) [] Butalbital/acetaminophen/caffeine (Fioricet) Opioids/Narcotics/Controlled Substances: [] Acetaminophen/Codeine (Tylenol #3) [] Acetaminophen/Hydrocodone (Ong/Vicodin) [] Acetaminophen/Oxycodone (Percocet) [] Butorphanol (Ketamine/Stadol) [] Carisoprodol (Soma) [] Fentanyl [] Hydrocodone [] Hydromorphone (Dilaudid) [] Marijuana [] Morphine (MS Contin) [] Oxycodone [] Tramadol (Ultram) [] Zolpidem (Ambien) The patient's current medications, allergies, past medical history, past surgica l history, family history, and social history were reviewed in the electronic ks dical record and with the patient during the encounter. Information from electronic medical record Current Outpatient Medications on File Prior to Visit Medication Sig Dispense Refill Amitriptyline HCl 25 MG Oral Tablet (ELAVIL) Take 25 mg by mouth nightly No current facility-administered medications on file prior to visit. Allergies Allergen Reactions Other Anaphylaxis G6PD medication: Unspecified Patient Active Problem List Diagnosis Intracranial hemorrhage Past Medical History: 11/09/2018: G6PD deficiency No past surgical history on file. Family History Problem Relation Age of Onset No Known Problems Mother No Known Problems Father No Known Problems Sister No Known Problems Brother No Known Problems Sister No Known Problems Brother No Known Problems Brother Social History Tobacco Use Smoking status: Never Smoker Smokeless tobacco: Never Used Vaping Use Vaping Use: Never used Substance Use Topics Alcohol use: Not Currently Alcohol/week: 4.0 standard drinks Types: 4 Cans of beer per week Drug use: Never VITALS: Vitals: 08/01/21 0742 BP: 119/78 Pulse: 80 Body mass index is 28.84 kg/m. General: On general physical examination, the patient looked well and was in no apparent distress. Dressed appropriately. Affect was congruent and reactive. HEENT: Normocephalic, atraumatic. Palpation over the occipital notches elicited pain L>R. There was normal range of motion of the cervical spine in all directions. Spurl ing maneuver reproduced pain in the left temporal area. Neurological: Mental status, speech, and language were normal in ordinary conversation. Cranial Nerves: Pupils were equal and reactive to light. There was no RAPD. Visual meeks were intact to confrontation. On fundoscopic examination the optic nerves appeared normal. There was no disc edema. Extraocular movements including saccadic eye movements were initially limited to the left, but he told me this was due to pain. On encouragement he could hold l eft gaze and do saccadic eye movements normally. There was no nystagmus. There was no facial sensory loss, he was hyperalgesic on the left V1 side. There was no facial asymmetry or weakness. Uvula was midline, and the soft palate moved symmetrically. Sternocleidomastoid and trapezii were strong bilaterally. Tongue was midline and moved normally. Motor Exam: There was normal tone and bulk in the upper and lower extremities. Pronator drift was absent. Power testing on nerve root screen did not reveal any focal weakness. Reflexes: Deep tendon reflexes were symmetrical and normal in the upper and lower extremit ies. Plantar reflexes were flexor bilaterally. Sensory Exam: Pinprick: normal in the distal extremities. light touch: normal in the distal extremities. A Romberg sign was absent. Coordination: Fine finger movements: Normal Rapid alternating movements: Normal [id number]-plsi: Normal Stml-zy-afwg: Normal Gait: Regular gait: Normal Toe-walking: Normal Heel-walking: Normal Tandem gait: Normal Laboratory and Investigations: as discussed in the History of Presenting Illnes s. SUMMARY AND IMPRESSIONS: This 30 y.o. year old male with a past medical history of G6PD presents for asse ssment of headaches. He was investigated for basal ganglia imaging findings most consitent with calcification by neurology and found to have migraine without au ra and with status migrainosus. He was discharged home on prednisone taper. Diagnosis #chronic migraine With contribution from: #occipital neuralgia on the left side #rule out cervicogenic headache, cervical radiculopathy Referrals None Investigations - C spine MRI Treatment Lifestyle: headache diary, diet, sleep and exercise as outlined in wrap-up Acute Rizatriptan 10mg can repeat at 2h if one dose not sufficient Nerivio device Generally NSAIDs and acetominophen can cause issues in G6PD, especially in lar ge quantities, as can diphenhydramine. We discussed for pain relief we can use device Nerivio for moderate headache, and triptans as rescue medication. Preventive Topiramate up to 50mg twice daily, slow increase Transitional Occipital nerve block on left side Restrictions I would recommend that he continue on the restrictions as he previously was, a s we try to treat his status migrainosus and now new onset of chronic migriane. I would say he can be permitted to wear uniform. No sternous activity or field training for another 8 weeks. Shift duration maximum 8h. No heavy lifting grea ter than 10 lbs. The pathophysiology, natural history, aggravating factors, and my diagnostic/man agement plan were discussed with the patient in great detail. The risks and benefits of this treatment plan were discussed with the patient in great detail. Individual side effect profiles for each medication were discussed in detail. Instructions on how to properly take each medication was discussed in detail. Ketty mclaughlin instructions were provided to the patient. The patient was given an opportunity to ask questions. All questions were answe red and the patient was satisfied with the explanations. It was a pleasure seeing Peter Hughes in consultation and I am pleased to be invo lved in their care. If there are any questions or concerns please do not hesita te to contact me. Sincerely, Татьяна Romero MD Neurologist, Headache Specialist Total time spent on care in the 24h period was 93 minutes. Initial chart and lulu ging review chart on the day of the encounter was 12 minutes, 78 minutes were sp ent in counseling patient on treatment options, and 3 minutes outlining my asses sment, summary, impressions, plan, and coordinating care. Please note that this consultative letter was completed with the assistance of [employer] recognition software. As result unintentional police sergeant prec[employer] errors and/or typographical mistakes are possible. If you notice errors please bring them to my attention. If any area requires explanation or clarification please do not h esitate to contact me. documented in this encounter Plan of Treatment Order Schedule Name Type Priority Associated Diag noses Expected: 08/01/2021, Expires: 2 MR Cervical Spine without Imaging Routine Cerv ical radiculopathy Contrast Order Schedule Name Type Priority Associated Diag noses Ordered: 08/01/2021 Referral to Neurology Outpatient Routine Occipita l neuralgia of Infusion Referral left side Health Maintenance Due Date Last Done Comments MMR Vaccines (1 of - 1992 Standard series) Varicella Vaccines (1 of 1992 2 - 2-dose childhood series) DTaP,Tdap,and Td Vaccines 1998 (1 - Tdap) COVID-19 Vaccine (1) 2003 HIV Screening 2004 Influenza Vaccine 08/09/2021 Pneumococcal Vaccine: 65+ 2056 Years (1 of 1 - PPSV23) HIB Vaccines Aged Out No longer eligible based on patient's age to complete this topic Hepatitis A Vaccines Aged Out No longer eligibl e based on patient's age to complete this topic Hepatitis B Vaccines Aged Out No longer eligibl e based on patient's age to complete this topic IPV Vaccines Aged Out No longer eligible based on patient's age to complete this topic Pneumococcal Vaccine: Aged Out No longer eligib le based on patient's age to Pediatrics (0 to 5 Years) complete this topic and At-Risk Patients (6 to 64 Years) documented as of this encounter Results Not on filedocumented in this encounter Visit Diagnoses Diagnosis Intractable chronic migraine without au ra and with status migrainosus - Primary Chronic migraine without aura, with int ractable migraine, so stated, with status migrainosus Occipital neuralgia of left side Cervicogenic headache Headache Cervical radiculopathy Brachial neuritis or radiculitis nos documented in this encounter
--- OUTSIDE RECORDS SUMMARY | 2021-09-05 13:02 | CCD ---
Continuity of Care Document (CCD) Created on: 07/02/2021 Peter Hughes External Reference #: [id number] : 1990 Sex: Male Author Author Peter GUTIERREZ MD Organization Unknown Address [address] [place] [id number] Phone [phone] Care Team Providers Care [employer] Finisher Name Role Phone Usa Kaur Paez chiara AUTM Unavailable Problems Active Problems Provider Date Inflammatory disorder of breast Ifeanyi Gutierrez MD Onset: 0 04/22/2021 Social History Type Date Description Comments Sex Unknown ETOH Use Rarely consumes alcohol Tobacco Use Start: Unknown Patient has never smoked Recreational Drug Use Denies Drug Use Allergies, Adverse Reactions, Alerts Description No Known Drug Allergies Medications Active Medications SIG Qnty Indications Ordering Provide r Date Magnesium 300mg Capsules 1 tab with a meal orally twice a day Unknown History Medications No Active Medications Unknown - 07/02/2021 No Active Medications Unknown - 04/22/2021 Keflex 500mg Capsules 1 capsule PO Q6H for 10 days 40caps Ifeanyi Gutierrez MD 04/22/2021 - Immunizations Description No Information Available Vital Signs Date Vital Result Comment 07/02/2021 8:07am BP Systolic 110 mmHg BP Diastolic 68 mmHg Heart Rate 65 /min Body Temperature 98.6 F Respiratory Rate 18 /min O2 % BldC Oximetry 98 % Weight 169.00 lb Weight 76.658 kg Height 64 inches 5'4" BMI (Body Mass Index) 29.0 kg/m2 BSA (Body Surface Area) 1.82 m2 04/22/2021 11:14am BP Systolic 117 mmHg BP Diastolic 82 mmHg Heart Rate 77 /min Body Temperature 98.6 F Respiratory Rate 16 /min O2 % BldC Oximetry 98 % Weight 168.00 lb Weight 76.205 kg Height 64 inches 5'4" BMI (Body Mass Index) 28.8 kg/m2 BSA (Body Surface Area) 1.82 m2 Results Description No Information Available Procedures Date Code Description Status 05/07/2021 71947 Office/Outpatient Established Lo w MDM 20-29 Min Completed 04/22/2021 48153 Office/Outpatient New Low MDM 30 -44 Minutes Completed Medical Devices Description No Information Available Encounters Description No Information Available Assessments Date Code Description Provider 05/07/2021 N61.0 Mastitis without abscess Ifeanyi flores MD 04/22/2021 N61.0 Mastitis without abscess Ifeanyi flores MD Plan of Treatment No Information Available Functional Status Description No Information Available Mental Status Description No Information Available Referrals Description No Information Available
--- OUTSIDE RECORDS SUMMARY | 2021-09-05 13:03 | CCD | Summary of Care ---
Author Author [facility] Address Unknown Phone Unavailable Care Team Providers Care Moulder Operator Name Role Phone Pcp, No PCP Unavailable Reason for Visit * Auth/Cert Referred By Contact Referred To Contact Status Reason Specialty Diagnoses / Procedures Diagnoses Intracranial hemorrhage suspected intrcranial bleed Encounter Details Care Team Description Date Type Department Ana María Meyer MD [address] [facility] Room [address] [place] [id number] 06/24/2021 Hospital [facility] SURGERY/TRAUMA [facility] - Encounter [address] 06/26/2021 [place] [address] Allergies Comments Active Allergy Reactions Severity Noted Date G6PD medication: Unspecified Other Anaphylaxis High 06/24/2021 documented as of this encounter (statuses as of 06/26/2021) Medications End Date Status Medication Sig Dispensed Refills Start Date 07/26/2021 Active Magnesium Oxide 400 Take 1 tablet 60 tablet 1 06/09 (241.3 Mg) MG Oral Tablet by mouth Two 1 (MAG-OX) Times Daily 07/02/2021 Active predniSONE 10 MG Oral Take 4 11 tablet 0 06/09 Tablet (DELTASONE) tablets by 1 mouth daily for 1 day, THEN 3 tablets daily for 1 day, THEN 2 tablets daily for 1 day, THEN 1 tablet daily for 1 day, THEN 0.5 tablets daily for 1 day.. 06/26/2021 Discontinued Magnesium Oxide 400 Take 1 tablet 60 tablet 11 06/09 (241.3 Mg) MG Oral Tablet by mouth Two 1 (MAG-OX) Times Daily 06/26/2021 Discontinued predniSONE 20 MG Oral Take 2 60 tablet 0 06/09 Tablet (DELTASONE) tablets by 1 mouth daily for 1 day 06/26/2021 Discontinued predniSONE 10 MG Oral Take 3 90 tablet 0 /2 Tablet (DELTASONE) tablets by 1 mouth daily for 1 day 06/26/2021 Discontinued predniSONE 20 MG Oral Take 1 tablet 30 tablet 0 Tablet (DELTASONE) by mouth 1 daily for 1 day 06/26/2021 Discontinued predniSONE 10 MG Oral Take 1 tablet 30 tablet 0 Tablet (DELTASONE) by mouth 1 daily for 1 day 06/26/2021 Discontinued predniSONE 5 MG Oral Take 1 tablet 30 tablet 0 Tablet (DELTASONE) by mouth 1 daily for 1 day 06/26/2021 Discontinued Magnesium Oxide 400 Take 1 tablet 60 tablet 1 06/09 (241.3 Mg) MG Oral Tablet by mouth Two 1 (MAG-OX) Times Daily 06/26/2021 Discontinued predniSONE 20 MG Oral Take 2 60 tablet 0 06/09 Tablet (DELTASONE) tablets by 1 mouth daily for 1 day 06/26/2021 Discontinued predniSONE 10 MG Oral Take 3 90 tablet 0 06/10 Tablet (DELTASONE) tablets by 1 mouth daily for 1 day 06/26/2021 Discontinued predniSONE 20 MG Oral Take 1 tablet 30 tablet 0 Tablet (DELTASONE) by mouth 1 daily for 1 day 06/26/2021 Discontinued predniSONE 10 MG Oral Take 1 tablet 30 tablet 0 Tablet (DELTASONE) by mouth 1 daily for 1 day 06/26/2021 Discontinued predniSONE 5 MG Oral Take 1 tablet 30 tablet 0 Tablet (DELTASONE) by mouth 1 daily for 1 day 06/26/2021 Discontinued (Stop Taking at Discharge) predniSONE 20 MG Oral Take 2 60 tablet 0 06/09 Tablet (DELTASONE) tablets by 1 mouth daily for 1 day 06/26/2021 Discontinued (Stop Taking at Discharge) predniSONE 10 MG Oral Take 3 90 tablet 0 /2 Tablet (DELTASONE) tablets by 1 mouth daily for 1 day 06/26/2021 Discontinued (Stop Taking at Discharge) predniSONE 20 MG Oral Take 1 tablet 30 tablet 0 Tablet (DELTASONE) by mouth 1 daily for 1 day 06/26/2021 Discontinued (Stop Taking at Discharge) predniSONE 10 MG Oral Take 1 tablet 30 tablet 0 Tablet (DELTASONE) by mouth 1 daily for 1 day 06/26/2021 Discontinued (Stop Taking at Discharge) predniSONE 5 MG Oral Take 1 tablet 30 tablet 0 Tablet (DELTASONE) by mouth 1 daily for 1 day documented as of this encounter (statuses as of 06/26/2021) Active Problems Problem Noted Date Intracranial hemorrhage 06/24/2021 documented as of this encounter (statuses as of 06/26/2021) Social History Date Tobacco Use Types Packs/Day Years Used Never Smoker Smokeless Tobacco: Never Used Comments Alcohol Use Standard Drinks/Week Yes 4 (1 standard drink = 0.6 o [...] do you talk on Twice a w [place] 06/25/2021 the phone with family, friends, or neig hbors? How often do you get together with friends or Twice a week 06/25/2021 relatives? How often do you attend rastafari or voodoo Never 06/25/2021 services? Do you belong to any clubs or organizations such Patient r efused 06/25/2021 as rastafari groups, unions, fraternal or athletic groups, or [...] on file Date Recorded COVID-19 Exposure Response 06/24/2021 4:28 PM EDT In the last month, have you been in contact with No / Unsure someone who was confirmed or suspected to have Coronavirus / COVID-19? documented as of this encounter Last Filed Vital Signs Reading Time Taken Comments Vital Sign 116/69 06/26/2021 11:08 AM EDT Blood Pressure 62 06/26/2021 11:08 AM EDT Pulse 37.3 C (99.1 F) 06/26/2021 11:08 AM EDT Temperature 17 06/26/2021 11:08 AM EDT Respiratory Rate 98% 06/26/2021 11:08 AM EDT Oxygen Saturation - - Inhaled Oxygen Concentration 78.1 kg (172 lb 2.9 oz) 06/26/2021 6:00 AM EDT Weight 162.6 cm (5' 4") 06/24/2021 7:45 PM EDT Height 29.55 06/24/2021 7:45 PM EDT Body Mass Index documented in this encounter Discharge Instructions * Instructions* Yeny Meza NP - 06/26/2021 7:37 AM EDT Discharge Instructions: Light duty for remainder of week Please return to the nearest ER or call 911 with any new/emergent or worsening s ymptoms 3. Avoid Tylenol overuse. Avoid NSAIDs such as Advil, Motrin, Naprosyn given G 6PD deficiency. Follow-up Plan: Follow up with PCP nettie 2 weeks. Please have Sodium and WBC monitored. 2. Follow up with the Neurology clinic (Dr. Tejada) for headache management i n 1 month. The office will notify you with an appointment. Please call the clini c at # with questions/concerns. If you prefer, you may obtain a r eferral to Neurology in the [facility] by your PCP documented in this encounter Progress Notes * Julia Guzman RN - 06/26/2021 5:29 PM EDT Discharge instructions and medications list given to pt, pt verbalized understan ding, no questions at this time, IV site removed. Pt ready for discharge. * Max Enamorado MD - 06/26/2021 7:21 AM EDT Brief Neurosurgery Progress Note Care of patient discussed with attending. Patient neurologically stable. CTA neg ative for vascular malformation or hemorrhage; MRI without significant findings. No neurosurgical intervention warranted, neurosurgery will sign off. F/u PCP. Max Enamorado MD (Tony) Neurosurgery PGY-2 * Char Dove RN - 06/26/2021 12:32 AM EDT Patient arrived to unit at 0000. Patient arrived via wheelchair from 9E with all belongings. Patient able to walk to bed independently, now resting comfortably in bed with all safety precautions maintained, call light within reach. * Jaguar Millan RN - 06/25/2021 10:56 PM EDT NURSING 2256 Report called and verbal report given to the RN taking patient on 5A. Jaguar Millan * Marcela Steel - 06/25/2021 3:56 PM EDT [facility] [address] PATIENT NAME: Peter Hughes, DATE OF : 1990 . Neurocritical Care Progress Note: Date of Encounter: 06/25/2021 Length of stay: 1 Peter Hughes is a 30 y.o. male patient with: Principal Problem: Intracranial hemorrhage Mr. Hughes is critically Ill due to the following: FIELD SPECIALIST failure due to suspected basal ganglia hemorrhage FIELD SPECIALIST failure or compromise Subjective: Last 24 hour events - Patient reports persistent mild headache that is improving from yesterday. Rates the pain as 1-2 out of 10, sharp, in the middle of his he ad. Still reports some mild dizziness but not as bad as yesterday. No nausea, vo miting, visual changes. Current Medications: Reviewed. docusate sodium 100 mg Oral BID Intake/Output last 3 shifts: I/O last 3 completed shifts: In: 2568.2 [P.O.:800; I.V.:1618.2; IV Piggyback:150] Out: 1200 [Urine:1200] General Exam: Temp: [36.5 C (97.7 F)-37.2 C (99 F)] 36.8 C (98.2 F) Pulse: [44-87] 64 Resp: [16-33] 24 BP: (93-130)/(52-102) 109/97 SpO2: [95 %-100 %] 99 % O2 Therapy: Room air General appearance - in no apparent distress Skin - Normal HEENT - Head: Normal, normocephalic, atraumatic. Cardiovascular - deferred Respiratory - deferred Gastrointestinal - Abdomen soft, non-tender Extremities - extremities normal, atraumatic, no cyanosis or edema Neurologic: Mental status - alert and oriented x 3 Language - 0=No aphasia, normal Cranial nerves -Extraocular movements full, normal and symmetrical facial streng th, hearing intact to finger rub, tongue protusion midline. Sensation - Sensation intact to light touch x4 extremities Strength - R Arm = 5/5 R Leg =5 /5 L Arm = 5/5 L Leg = 5/5 Cerebellar - no tremors noted and finger to nose without dysmetria Gait = Deferred Neglect = absent Data Review: CBC: Recent Labs Lab 06/24/21202506/25/21 0433 WBC 4.3 3.2* RBC 4.59* 4.47* HGB 12.9* 12.3* HCT 39.1* 38.5* PLT 210 215 NEUTOPHILPCT 42 -- MONOPCT 8 -- BMP: Recent Labs Lab 06/24/21202506/25/21 0433 06/25/21 0917 NA 138 133* 138 K 3.8 3.6 4.3 CL 105 102 106 BICARBONATE 20* 21* 22 GLUCOSE 79 104 105 BUN 9 10 9 CREATININE 1.07 1.13 1.18 BCR 8 8 8 GFRAA >90 >90 >90 GFRNONAA >90 87 82 Imaging: MRI brain - pending CTA head & neck IMPRESSION: 1. No acute intracranial hemorrhage or large arterial territorial infarction. 2. Major intracranial arteries and arteries of the neck are patent. MEDICAL DECISION MAKING: Neuro: Events last 24 hours - None Neuro problem list - Headache - Improving with magnesium and toradol - Denies photophobia, nausea, vomiting, weakness, visual changes - Small area of hyperdensity visualized on CTA head in L basal ganglia, however not specific for acute intracranial bleed and patient has no focal neurological deficits. - Stable for step-down to 9G Cardio: Events last 24 hours - None Vasoactive drips - None Cardio problem list: none BP within parameter. Continue with hemodynamic monitoring. Pulmo: Events last 24 hours - None Mechanical ventilation: None Sedation: none Sedation protocol used: n/a Weaning today: n/a Pulmo problem list: none Good gas exchange GI: Events last 24 hours - None GI problem list: None Nutrition: Oral diet ID: Temp (24hrs), Av.9 C (98.5 F), Min:36.5 C (97.7 F), Max:37.2 C (99 F) Events last 24 hours - None Cultures: none Active infection: None Antibiotics:none Endo: Events last 24 hours - None Endocrine problem list: none Sugar controlled. Continue with insulin management. Maintain euglycemia Renal: Events last 24 hours - None Renal problem list: none Continue with Input/Output monitoring. Maintain euvolemia. Heme: Events last 24 hours - None Hematology problem list: -History of G6PD deficiency -H&H slightly low, will monitor, no need for transfusion Therapeutic anticoagulations: none Social: Patient updated Prophylaxis: DVT Prophylaxis: SCD GI Prophylaxis: not needed Seizure Prophylaxis: None needed Code Status: Full code Actions: Extubate NA Discontinue arterial line NA Discontinue Central line NA Discontinue najera NA Discontinue antibioticNA Discussed with: ICU Staff , Residents and Attending -Marcela Steel, MS4 Associated attestation - Ana María Meyer MD - 06/26/2021 1:59 AM EDT ATTENDING ADDENDUM: Date of Encounter: 06/26/2021 I personally saw and examined the patient, discussed the case and formulated ass essment and plan with the student doctor. I did not edit the above note, but ag ree with the findings, assessment and plan as outlined above except where stated in the supplemental documentation by myself. Please see my addendum to the H&P from 06/24/2021 for further details. * Lio Mathews RN - 06/25/2021 1:18 PM EDT Case Management Screen & Assessment Patient Name: Peter Hughes Gender: male Date of : 1990 Admission Dx: Intracranial hemorrhage [I62.9] Age: 30 y.o. Admission: 06/24/2021 6:21 PM Attending Provider: Ana María Meyer MD High Risk Criteria - Prior to Admission/Upon Arrival CHEMIST WATER PURIFICATION-Type of Residence: Private Residence CHEMIST WATER PURIFICATION- Home Care Services: No Limited Home Supports/Lives Alone?: No Multi trauma/Critical care/Step down admit?: Yes Head/Spinal cord injury?: Yes Self Pay: No Multiple ED visits?: No Related/Unplanned readmission within 30 days?: No Complex/New medical issues: ICH Relevant comorbidities: G6PD deficiency Screening Outcome Social Work Consult Needed?: No Further Case Management Needs?: No Case Management Needs Chart Review PCP Verified?: [place] Prior to Admission: Functional/Environmental Assessment Bathing: Independent Dressing: Independent Toileting: Independent Medication administration: Independent Transfers: Independent Ambulation: Independent Meal preparation: Independent Number of stairs into home: 0 Number of stairs to bathroom: 0 Number of stairs to bedroom: 0 Potential Barriers/Teaching Needs Physical: PT/ OT/ DESIGN ANALYST Case Management Re-Review Case Management Re-Review Needed?: Yes Case Management Re-Review Date: 06/27/21 Discharge Planning Living Arrangements: Spouse/significant other Support Systems: Spouse/significant other, Children Type of Residence: Private residence [facility] Patient/family informed of need for discharge planning?: Yes Patient expects to be discharged to:: home Actual discharge location : Home-No Needs Does the patient need discharge transport arranged?: Yes Note: Chart reviewed. Met with patient to introduce self and role of CM. michell NICHOLS ving home with S.O. and their baby. He is active duty and independent w ith no home care or DME. Admitted for ICH, headaches, and blurred vision. MRI is pending. Therapy ordered and evals pending. Anticipate home once cleared. Lio Mathews * Yeny Meza NP - 06/25/2021 7:27 AM EDT [facility] [address] PATIENT NAME: Peter Hughes, DATE OF : 1990 . Neurocritical Care Progress Note: Date of Encounter: 06/25/2021 Length of stay: 1 Peter Hughes is a 30 y.o. male patient with: Principal Problem: Intracranial hemorrhage Mr. Hughes is critically Ill due to the following: FIELD SPECIALIST failure due to headache, hyperdensity on CT head. SUMMARY: 30 yo male with headache and dizziness. Hyperdensity on CT head. MRI brain pendi ng. Subjective: Last 24 hour events-C/o mild headache Current Medications: Reviewed. Intake/Output last 3 shifts: I/O last 3 completed shifts: In: 1214.8 [P.O.:400; I.V.:814.8] Out: 700 [Urine:700] General Exam: Temp: [36.5 C (97.7 F)-37.2 C (99 F)] 37.2 C (99 F) Pulse: [44-69] 57 Resp: [16-33] 23 BP: (93-130)/(52-102) 107/62 SpO2: [95 %-100 %] 100 % O2 Therapy: Room air General appearance - in no apparent distress Skin - Normal HEENT - Head: Normal, normocephalic, atraumatic. Cardiovascular - normal sinus rhythm Respiratory - breath sound equal Gastrointestinal - Abdomen soft, non-tender Extremities - extremities normal, atraumatic, no cyanosis or edema Neurologic: Mental status - alert and oriented x 3 Language - 0=No aphasia, normal Cranial nerves -(+) PERRL; EOM's intact; no facial asymmetry Sensation - Intact LT Strength - R Arm = 5/5 R Leg =5/5 L Arm = 5/5 L Leg = 5/5 Cerebellar - intact F-N-F bilaterally Gait =deferred Neglect = Absent Data Review: CBC: Recent Labs Lab 06/24/21202506/25/21 0433 WBC 4.3 3.2* RBC 4.59* 4.47* HGB 12.9* 12.3* HCT 39.1* 38.5* PLT 210 215 NEUTOPHILPCT 42 -- MONOPCT 8 -- BMP: Recent Labs Lab 06/24/21202506/25/21 0433 NA 138 133* K 3.8 3.6 CL 105 102 BICARBONATE 20* 21* GLUCOSE 79 104 BUN 9 10 CREATININE 1.07 1.13 BCR 8 8 GFRAA >90 >90 GFRNONAA >90 87 Imaging: CTA H&N 06/24/21: 1. No acute intracranial hemorrhage or large territory infarction. 2. Major intracranial arteries and arteries of the neck are patent. MEDICAL DECISION MAKING: Neuro: Events last 24 hours - Hyperdensity on MRI Brain Neuro problem list: Right Basal Ganglia Hypersdensity, Etiology Unclear: Neurosurgery following-appreciate input CTA H&N without acute hemorrhage or ischemia MRI Brain pending Continue supportive care. PT/OT at bedside as tolerated. Suspected Migraine: (+) Photophobia and phonophobia Pain described as "aching" and radiating from frontal to occipital region Give Mag sulfate 2 gm now Give Toradol 30mg now Resume IVF for now Cardio: Events last 24 hours -None Cardio problem list: None Vasoactive drips - None Keep SBP<140 BP within parameter. Continue with hemodynamic monitoring Pulmo: Events last 24 hours -None Pulmo problem list-None Good gas exchange. Continue with O2 as needed to keep O2 Sat>92%. GI: Events last 24 hours - Nausea GI problem list: Nausea: Zofran prn Other: Nutrition:PO Monitor for constipation/diarrhea. Bowel regimen ID: Temp (24hrs), Av C (98.6 F), Min:36.5 C (97.7 F), Max:37.2 C (99 F) ID problem list: Events last 24 hours -None Leukopenia, Etiology Unclear: Monitor for now Monitor for s/s infection Endo: Events last 24 hours -None Endocrine problem list-None Sugar controlled. Maintain euglycemia HgbA1C WNL Renal: Events last 24 hours -Hyponatremia Renal problem list: Hyponatremia, Etiology Unclear: Repeat BMP now Continue with Input/Output monitoring. Maintain euvolemia. Heme: Events last 24 hours -None Hematology problem list: G6PD Deficiency, POA: H/H WNL Avoid triggering medications such as ASA, NSAIDS, Sulfa drugs Monitor for s/s infection Other: Therapeutic anticoagulations:None No need for transfusion. Social: Patient updated on his condition. Prophylaxis: DVT Prophylaxis: SCD's GI Prophylaxis: N/A Seizure Prophylaxis: N/A Code Status: Full The patient was seen and examined by William Meza, PhD, [facility]- with Dr. Meyer. The plan was reviewed and formulated with her. Associated attestation - Ana María Meyer MD - 06/26/2021 1:51 AM EDT ATTENDING ADDENDUM: I personally saw and examined the patient, discussed the case and formulated ass essment and plan with the advance practice provider (ASHLEY). I did not edit the ab andressa note, but agree with the findings as outlined above except where stated in t he supplemental documentation by myself. Plan of care formulated under my direct supervision. * Edmond Bangura RN - 06/25/2021 4:14 AM EDT All times approx 2100- pt transported to and from CT in bed on tele. O2, BVM and transport meds p resent for transport. No incident noted. 0200- Per [facility] Neuro checks relaxed to Q2. 0530- notified of K:3.6, Orders for 40meq PO tablet received. * Jaguar Ny MD - 06/25/2021 12:19 AM EDT Images from the original note were not included. [facility] [address] PATIENT NAME: Peter Hughes, DATE OF : 1990 . Subjective Date of Encounter: 06/25/2021 Length of stay: 1 days Interval History: no acute events Current Hospital Problem List: Principal Problem: Intracranial hemorrhage Objective Vitals Temp: [36.5 C (97.7 F)-37.1 C (98.8 F)] 37.1 C (98.8 F) Pulse: [44-61] 49 Resp: [17-33] 23 BP: (93-130)/(54-102) 107/62 SpO2: [96 %-100 %] 96 % O2 Therapy: Room air Intake/Output Last 3 Completed Shifts I/O last 3 completed shifts: In: 214.9 [I.V.:214.9] Out: - Physical Exam General Appearance: NAD Mental status: awake, alert and oriented to person place and time Language: Fluent Cranial Nerves: PERRL, EOMI, FS, TML Strength: Elevates BUE no drift, Wiggles toes BLE Sensation: Sensation grossly intact in all extremities Cerebellar: No dysmetria on FTN Data Review CBC: Recent Labs Lab 06/24/212025 WBC 4.3 RBC 4.59* HGB 12.9* HCT 39.1* PLT 210 NEUTOPHILPCT 42 MONOPCT 8 BMP: Recent Labs Lab 06/24/212025 NA 138 K 3.8 CL 105 BICARBONATE 20* GLUCOSE 79 BUN 9 CREATININE 1.07 BCR 8 GFRAA >90 GFRNONAA >90 COAGS: Recent Labs Lab 06/24/212025 INR 1.24 Assessment/Plan Peter Hughes is a 30 y.o. male patient presenting with headaches, dizziness and b lurred vision, found to have a right basal ganglia hyperdensity on CTH Neuro: Exam stable MRI brain pending SBP < 140 Will continue to follow for imaging Jaguar Ny Neurosurgery Resident, PGY-3 Associated attestation - Kael West MD - 06/25/2021 7:40 PM EDT Neurosurgery Attending Note I saw and examined the patient. I reviewed the available clinical history and cr itical diagnostic studies. I have discussed the case in conjunction with the res ident team and agree with the above assessment and plan with any addendum to the plan below. Kael West 06/25/2021 7:40 PM * Edmond Bangura RN - 06/24/2021 9:34 PM EDT Pt states that he does have noted drug allergies for medications he had taken fo r G6PD deficiency but does not know the names of the medication. When asked abou t reactions to these medications in the past pt describes anaphylaxis and needin g emergent medication to keep airway patent. * Ifeanyi Tobias RN - 06/24/2021 7:16 PM EDT Images from the original note were not included. If wound was present on admission, this documentation was sent to attending prov ider for cosignature. Reviewed with Gerry LOBATO. documented in this encounter H&P Notes * Ric Reyes MD - 06/24/2021 7:20 PM EDT [facility] [address] PATIENT NAME: Peter Hughes, DATE OF : 1990 Subjective Date of Encounter: 06/24/2021 History of Present Illness: Peter Hughes is a 30 y.o. with PMH G6PD who presented to an OSH today due to headaches and dizziness, found to have ICH and transferr ed here for neurocritical care. He reports a headache that started last 06/20/21 and has been persistent. He noticed it worsened on Thursday and Thursday. He was exercising in between work today and after exercise noticed the pain was worse and he had blurry vision and dizziness. He presented to the hospital toda y because of the blurry vision and dizziness. Currently the headache is on the t op of his head and 4/10, with it being a 7/10 at its worst point. He had some na usea today as well but no emesis. He denies urinary habit changes, bowel habit c hanges, weakness, paraesthesias. He took tylenol and ibuprofen for his headache the last few days. He does not take any blood thinners. He endorses occasional a lcohol use, but denies tobacco or recreational drug use. He denies a family hist ory of stroke, intracranial hemorrhage, or aneurysms. Review of Systems Pertinent items are noted in HPI. Active Problems: Patient Active Problem List Diagnosis Date Noted Intracranial hemorrhage 06/24/2021 Past Medical History: Past Medical History: Diagnosis Date G6PD deficiency 11/09/2018 Past Surgical History:History reviewed. No pertinent surgical history. Allergies: No Known Allergies Prior to Admission Medications: No medications prior to admission. Family History:History reviewed. No pertinent family history. Social History: Social History Tobacco Use Smoking status: Never Smoker Smokeless tobacco: Never Used Substance Use Topics Alcohol use: Yes Alcohol/week: 4.0 standard drinks Types: 4 Cans of beer per week Objective Vitals Temp: [36.5 C (97.7 F)] 36.5 C (97.7 F) Pulse: [48] 48 Resp: [24] 24 BP: (119)/(72) 119/72 SpO2: [98 %] 98 % O2 Therapy: Room air Physical Exam General appearance - Alert, in no apparent distress Skin - Warm and intact throughout HEENT - Normocephalic, symmetrical, atraumatic Cardiovascular - Bradycardic Respiratory - Appropriate respiratory effort, chest rise b/l Gastrointestinal - Abdomen soft and nontender to palpation Extremities - Normal, atraumatic, no cyanosis or edema Neurologic: Mental status - Alert & oriented x 3 Language - Intact and fluent Cranial nerves - PERRL bilaterally, EOMI, facial strength equal bilaterally, ton denise midline, good shrug b/l Sensation - Intact to light touch in all extremities Strength - Full strength in all extremities Cerebellar - finger to nose intact without dysmetria Gait = deferred Neglect = absent Pre-Morbid Modified [place] Score: 0 0 - No symptoms 1 - No significant disability. Able to carry out all usual activities, despite s ome symptoms. 2 - Slight disability. Able to look after own affairs without assistance, but un able to carry out all previous activities. 3 - Moderate disability. Requires some help, but able to walk unassisted. 4 - Moderately severe disability. Unable to attend to own bodily needs without a ssistance, and unable to walk unassisted. 5 - Severe disability. Requires constant nursing care and attention, bedridden, incontinent. 6 - . ICH Score: GCS at presentation ICH Volume Intraventricular extension ICH Origin Age [x] 0 (13-15) [] 1 (5-12) [] 2 (3-4) [x] 0 (<30cc) [] 1 (>30cc) [x] 0 (No) t [] 1 (Yes) [x] 0 (Supratentorial) [] 1 (Infratentorial) [x] 0 (< 80 y/0) [] 1 (>/= 80) Total: 0 30-day risk of mortality 0-0% 1-13% 2-26% 3-72% 4-97% 5-100% 6-100% Data Review: CBC: No results for input(s): WBC, RBC, HGB, HCT, PLT, NEUTOPHILPCT, MONOPCT in the l ast 168 hours. Invalid input(s): EOSPCT BMP: No results for input(s): NA, K, CL, BICARBONATE, GLUCOSE, BUN, CREATININE, BCR, LABOSMO, GFRAA, GFRNONAA in the last 168 hours. COAGS: No results for input(s): INR in the last 168 hours. Invalid input(s): PT, PTT Imaging: CT head at outside hospital concerning for right 1cm basal ganglia hyperdensity Assessment/Plan Peter Hughes is a 30 y.o. male patient with PMH G6PD presenting as a transfer fro OSH due to concern for right basal ganglia ICH. MEDICAL DECISION MAKING: Neuro: Neuro problem list CT head OSH concern for 1cm basal ganglia ICH Intact on exam without focal deficits Stat CTA head and neck for stability and assess vascular pathology MRI brain with and without Q1H neuro checks SBP 100-140 Consult neurosurgery, appreciate recs Cardio: Cardio problem list SBP 100-140 PRN hydralazine and labetalol Pulmo: Pulmo problem list Saturating on room air GI: GI problem list NPO pending any interventions Last BM this AM at OSH CMP, Mg, Ph pending Zofran 4mg q8PRN for nausea ID: ID problem list Afebrile No acute infections Endo: Endocrine problem list Maintain euglycemia A1C, TSH, lipid panel pending Renal: Renal problem list Maintain euvolemia, monitor I/Os Started 100ml/hr NS Stat CMP U/A and UDS ordered Trend BMP daily Heme: Hematology problem list G6PD prior to admission Stat CBC, trend daily Code Status: Full code Discussed with attending Dr. Meyer. Associated attestation - Ana María Meyer MD - 06/26/2021 2:13 AM EDT ATTENDING ADDENDUM: Date of Encounter: 06/26/2021 I personally saw and examined the patient, discussed the case and formulated ass essment and plan with resident. I did not edit the above note, but agree with t he findings, assessment and plan as outlined above except where stated in the lea pplemental documentation by myself. Critical Care Services Total Critical Care Time: 1 hour Critical care was necessary to treat or prevent imminent or life-threatening det erioration of the following conditions: FIELD SPECIALIST failure or compromise. Critical care time was time spent personally, by me, exclusive of any separately billable procedures, on the following activities: development of treatment plan with patient or surrogate, evaluation of patient's response to treatment, obtai yen history from patient or surrogate, ordering and performing treatments and i nterventions, and ordering and review of imaging studies. Discussed with: patient, ICU staff, and residents 30-year-old man with history of G6PD deficiency notes he started having severe h eadaches for the past 5 to 7 days. Prior to this he says he has had rare headac hes did not seem as severe and that were easily aborted with rest. His current headache he describes as a pressure-like sensation over his vertex. It can come on during anytime of the day and builds gradually eventually reaching a 7-8 out of 10 in severity. He says the headaches are accompanied with photophobia, karen nophobia. He typically feels better if he is able to lie down and take a nap. Additionally, he has had some blurred vision and a sensation of feeling unsteady he says this may be related to the vision. His headaches typically last a few h ours, but not longer than the whole day. He says they are able to be aborted wi th [id number] Tylenol or by taking a nap. On the day of presentation, he was concerned that he could not complete his morning workout and therefore prese nted to the outside hospital. No family history of headaches. Notably, he has not been able to get very good sleep recently due to his 2-year-old daughter wak ing him frequently. I personally reviewed his imaging; CT showing what appears to be bilateral, righ t >left basal ganglia hyperintensity that is likely physician relations representative of calcification. CTA head and neck showed no underlying vascular abnormality. Headache semiology consistent with migraine. He was given IV magnesium, fluids, Toradol with good resolution today. Plan to obtain MRI brain to further evaluate given his concerns that these headaches are new. Can continue migraine cocktail as needed. Anticipate discharge home tomorrow. Signature: Ana María Meyer documented in this encounter Consult Notes * Camila Dill LMSW - 06/26/2021 3:08 PM EDT Social Work Brief Screen Patient Name: Peter Hughes Pronjohn Date of : 1990 County of Residence: [place] Admitting Dx: Intracranial hemorrhage [I62.9] Admitting Provider: Ana María Meyer MD Referral Type: Inpatient Referral Source: Nurse; Edmond Bangura RN Reason for Referral: Advanced Directives Advanced Directives; HCP Date: June 26, 2021 Emergency Contacts Name: ilya Marti Spouse Address: [address] [place] [address] Home: Work: Primary Caregiver: self Informant(s): Patient Authorized to Consent: self This creative services writer received a consult from Edmond Bangura RN for Health Care Proxy. This creative services writer met with patient at bedside. Patient made his his health Car e Proxy. A copy of the proxy was faxed to Medical Records, a copy placed in sandie ents binder, and two copies were provided to patient. One for himself and one f or his . Interventions Assessed for SW needs. This Station Engineer is unaware of any other needs at this time. Moreover, this So cial Worker will continue to follow as needed. Lastly, please contact Social Wor k should any further issues or needs arise.' Signature: Camila Dill Date: June 26, 2021 * Jaguar Ny MD - 06/24/2021 10:13 PM EDT Associated Order(s): IP CONSULT TO NEUROSURGERY Images from the original note were not included. [facility] [address] PATIENT NAME: Peter Hughes, DATE OF : 1990 . Subjective Date of Encounter: 06/24/2021 Reason for Consultation: management recommendations. Requested By: Neuro ICU History of Present Illness: Peter Hughes is a 30 y/o M with a Hx of G6PD deficien cy who developed headaches with intermittent blurry vision and dizziness that st arted 4 days ago. His symptoms persisted and he went to an OSH where CTH was don e showing a right basal ganglia region hyperdensity. He was transferred to [facility] for further management. Currently patient denies headaches, vision changes, d ifficulty with speech, numbness or weakness in the extremities. No Hx of blood t hinner use Review of Systems Pertinent items are noted in HPI. Active Problems: Patient Active Problem List Diagnosis Date Noted Intracranial hemorrhage 06/24/2021 Past Medical History: Past Medical History: Diagnosis Date G6PD deficiency 11/09/2018 Past Surgical History:History reviewed. No pertinent surgical history. Allergies: No Known Allergies Prior to Admission Medications: No medications prior to admission. Family History:History reviewed. No pertinent family history. Social History: Social History Tobacco Use Smoking status: Never Smoker Smokeless tobacco: Never Used Substance Use Topics Alcohol use: Yes Alcohol/week: 4.0 standard drinks Types: 4 Cans of beer per week Objective Vitals Temp: [36.5 C (97.7 F)] 36.5 C (97.7 F) Pulse: [44-61] 44 Resp: [17-33] 19 BP: (116-130)/(72-102) 124/84 SpO2: [98 %-100 %] 98 % O2 Therapy: Room air Intake/Output Last 3 Completed Shifts No intake/output data recorded. Physical Exam General Appearance: NAD Mental status: awake, alert and oriented to person place and time Language: Fluent Cranial Nerves: PERRL, EOMI, FS, TML Strength: Elevates BUE no drift, Wiggles toes BLE Sensation: Sensation grossly intact in all extremities Cerebellar: No dysmetria on FTN Data Review CBC: Recent Labs Lab 06/24/212025 WBC 4.3 RBC 4.59* HGB 12.9* HCT 39.1* PLT 210 NEUTOPHILPCT 42 MONOPCT 8 BMP: Recent Labs Lab 06/24/212025 NA 138 K 3.8 CL 105 BICARBONATE 20* GLUCOSE 79 BUN 9 CREATININE 1.07 BCR 8 GFRAA >90 GFRNONAA >90 COAGS: Recent Labs Lab 06/24/212025 INR 1.24 Assessment/Plan Peter Hughes is a 30 y.o. male patient presenting with headaches, dizziness and b lurred vision, found to have a right basal ganglia hyperdensity on CTH Neuro: Exam without focal deficits Repeat CTH grossly stable CTA without obvious aneurysm or vascular malformation, final read pending Recommend MRI brain w/wo contrast to further evaluate SBP goal < 140 Goal Plt > 100k, INR < 1.4 Admitted to neurocritical care. Rest of care per primary team. Discussed with chief resident Dr. Crowley and attending Dr. West. Jaguar Ny MD Neurosurgery Resident, PGY-3 Associated attestation - Kael West MD - 06/25/2021 7:40 PM EDT Neurosurgery Attending Note I saw and examined the patient on 06/25. I reviewed the available clinical histor y and critical diagnostic studies. I have discussed the case in conjunction with the resident team and agree with the above assessment and plan with any addendum to the plan below. Kael West 06/25/2021 7:40 PM documented in this encounter Miscellaneous Notes * Assessment & Plan Note - Kelsy Poe, [facility]-DESIGN ANALYST - 06/26/2021 1:46 PM EDT Speech Language Pathology Acute Care - Clinical Swallow Evaluation Admitting Diagnosis: Right basal ganglia ICH History of Present Illness: Per Epic: "Peter Hughes is a 30 y.o. with PMH G6PD who presented to an OSH today due to headaches and dizziness, found to have ICH and transferred here for neurocritical care. He reports a headache that started last 06/20/21 and has been persistent. He noticed it worsened on Thursday and Thursday. He was exercising in between work today and after exercise noticed the pain was worse and he had blurry vision and dizziness. He presented to the hospital today because of the blurry vision and dizziness. Currently the headache is on the top of his head and 4/10, with it being a 7/10 at its worst point. He had some nausea today as well but no emesis. He denies urinary habit changes, bowel habit changes, weakness, paraesthesias. He took tylenol and ibuprofen for his headache the last few days. He does not take any blood thinners. He endorses occasional alcohol use, but denies tobacco or recreational drug use. He denies a family history of stroke, intracranial hemorrhage, or aneurysms." Date of Admission: 06/24/2021 6:21:00 PM Demographics: Age: 30 Gender: Male Pertinent Past Medical History and Radiographics: Significant rehabilitation considerations: Past Medical History: G6PD [id number]/01/2019 ? ?Past Surgical History:History reviewed. No pertinent surgical history. [facility] 06/26 MRI Brain: "1. Symmetric susceptibility artifacts in the globus pallidus, bilaterally consistent with metabolic deposits. 2. No acute cerebral or cerebellar infarct. 3. Minimal nonspecific white matter disease." Pertinent Medications and Allergies: Significant rehabilitation considerations: Refer to EMR Rehabilitation Precautions/Restrictions: SBP 100-140 Full code SUBJECTIVE Patient Report: Pt denied presence of dysphagia Premorbid Swallowing Function/Diet Textures: Premorbid Diet Textures: Regular. Thin Liquids. Current Diet Textures: Regular diet. Thin liquids. 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 Patient lives with Significant other and baby . If needed: no one is available to assist. Pain: Patient has no complaints of pain currently. Pain Medication Today: no. Goals: Patient's functional goals: To go home OBJECTIVE General Observation: Pt received alert and reclined in bed. Other providers present in room No bed alarm noted at start of session. Cognitive Status: Not formally assessed. Alert and oriented across spatial and temporal concepts. No hesitation with following basic commands. Responded appropriately across conversational exchanges Respiratory Support: No respiratory support required. Oral Motor Exam: Labial: WFL Lingual: WFL Soft Palate: WFL Dentition: Present. Swallow Reflex: Observed. Voluntary Cough: Present. Dysarthria: Patient does not exhibit a dysarthria. Consistencies Tested: Thin Liquid. 5 trials presented. Presented via Free Swallows via Straw. No functional deficits noted with this consistency. Solid. 4 trials presented. Presented via Finger food . No functional deficits noted with this consistency. Compensatory Strategies: Not tested. Outcome Measures: Functional Oral Intake Scale score: 7 - Total oral intake with no restrictions. Interventions: None provided today. Education: Educational needs: Diet modifications. Goals of therapy. Plan of care. Role of speech language pathologist. Barriers to Learning: No barriers. Learning Preference: Pt did not specify Mode of education provided: Demonstration. Explanation. Audience: Patient. Education Provided: Diet modifications. Goals of therapy. Plan of care. Role of speech language pathologist. Response: Verbalized understanding. ASSESSMENT Response to Evaluation: The session was tolerated well. Pt presents with grossly WFL oropharyngeal swallow function, suggested by functional and efficient mastication, complete bolus clearance from the oral cavity, no overt s/s of aspiration, and no signs of respiratory distress. Pt denied globus sensation and/or odynophagia. Based on impressions, in conjunction with premorbid tolerance to an unmodified diet, recommend pt safe to maintain regular solid/thin liquid diet. Further DESIGN ANALYST services not indicated as no deficits identified. Re-consult this service if new concern arises. Call burris was in patient's reach at end of session. Strengths: No deficits identified Diet Recommendations: Regular diet. Thin liquids. Swallow Precautions/Recommendations: Upright position. Small bite/sip. Alert. Medication Recommendations: No restrictions. Pain: Patient has no complaints of pain currently. Barriers to Progress/Discharge: Patient's progress may be impaired by the following potential barriers: No potential barriers to progress. The patient's therapy goals are based on limitations/impairments in the following areas: No impairments noted at this time. Short Term Goals: Not applicable. No impairments noted. Recruiting Intern Goals: Not applicable. PLAN Treatment Frequency, Duration and Interventions: The patient has been discharged from Speech/Language Pathology services secondary to: No need for skilled therapy intervention at this time. Intervention Considerations/Suggestions for Future Therapy Sessions: Further DESIGN ANALYST services not indicated Equipment Provided: None issued this visit. Equipment Recommended: None. Recommended Speech Therapy Follow Up: Upon acute care discharge, the following is currently recommended: None at this time. Recommended Consults: None currently. Development of Plan of Care: Participants included: Patient. Nurse. Medical provider. Goal Review Visit Number: 1 Visit Number: Today's visit is number 1 Program: Neuro (Therapist may be reached on Vocera) SESSION: Duration: 12 CHARGES: - ORDER - SPEECH THERAPY CONSULT 1 Units - NEURO VISIT 1 Units - STAT ONLY VISIT 1 Units 94276 - CHARGE-CLINICAL SWALLOW 1 Units Total treatment minutes: 12.00 Minutes Electronically Signed by: Kelsy Poe MA, CCC-DESIGN ANALYST, 06/26/2021 1:59:54 PM * Assessment & Plan Note - Donna Lee, OT - 06/26/2021 1:39 PM EDT Occupational Therapy Acute Care Functional Living Examination Medical Diagnosis: Right Basal Ganglia Hypersdensity Suspected Migraine History of Present Illness: Per Epic, "Peter Hughes is a 30 y.o. with PMH G6PD who presented to an OSH today due to headaches and dizziness, found to have ICH and transferred here for neurocritical care. He reports a headache that started last 06/20/21 and has been persistent. He noticed it worsened on Thursday and Thursday. He was exercising in between work today and after exercise noticed the pain was worse and he had blurry vision and dizziness. He presented to the hospital today because of the blurry vision and dizziness. Currently the headache is on the top of his head and 4/10, with it being a 7/10 at its worst point. He had some nausea today as well but no emesis. He denies urinary habit changes, bowel habit changes, weakness, paraesthesias. He took tylenol and ibuprofen for his headache the last few days. He does not take any blood thinners. He endorses occasional alcohol use, but denies tobacco or recreational drug use. He denies a family history of stroke, intracranial hemorrhage, or aneurysms." Date of Admission: 06/24/2021 6:21:00 PM Demographics: Age: 30 Gender: Male Past Medical History and Radiographics: Significant rehabilitation considerations: Past Medical History: ?G6PD [id number]/01/2019 ? ? Past Surgical History:History reviewed. No pertinent surgical history. Rehabilitation Precautions/Restrictions: full code SUBJECTIVE Premorbid Level of Activities of Daily Living: Independent in all. 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 Patient lives with significant other and 2 month old son. . If needed: Family member is willing to assist. signifcant other is home to assist. Home Environment: No stairs to enter. No stairs to manage inside. Tub shower, flat bed. Grab bars in the bathroom. Equipment Owned: None. Pain: Patient has no complaints of pain currently. Pain Medication Today: no. OBJECTIVE General Observation: Pt received supine in bed, NAD, agreeable to session. No bed alarm noted at start of session. Vital Signs: Stable. UPPER EXTREMITY FUNCTION Hand Dominance: right. Range of Motion: BUE WNL Strength: BUE WFL for functional transfers and ADLs Skin Integrity Screen: visible skin grossly intact Endurance: Normal. Tone/Spasticity: Not assessed. Sensation: Grossly intact. Edema: No edema is present. LOWER EXTREMITY FUNCTION: Pt able to demonstrate adequate range of motion, strength, and endurance for LB self care and functional transfers. Cognitive Screen: Responsiveness: Alert. Orientation: The patient is oriented to person, place and time. Following Commands: The patient is able to follow 3+ step commands Memory: Normal. Communications: communicates wants and needs Executive Function: Problem Solving. WNL Attention: Normal. Cognitive Test Score: Not tested. Vision Screen: No apparent functional visual impairment. glasses: yes Perception: Perception was within normal limits with today's examination. Functional Mobility: Pt able to transfer and perform full body ADLs with modified independence Fine Motor Coordination: Upper extremity fine motor coordination is grossly intact. Gross Motor Coordination: Upper extremity gross motor coordination is intact. Balance: Independent and within functional limits. Activities of Daily Living: Feeding: Modified independent. Observed patient during task. simulated Grooming: Modified independent. Observed patient during task. simulated Bathing - Upper Body: Modified Independent. Observed patient during task. simulated Bathing - Lower Body: Modified independent. Observed patient during task. simulated Upper Body Dressing: Modified Independent. Observed patient during task. simulated Lower Body Dressing: Modified Independent. Observed patient during task. Toileting: Modified Independent. Observed patient during task. simulated Toilet Transfer: Modified Independent. Observed patient during task. simulated Outcome Measure: [facility] "6 Clicks" Daily Activity Inpatient Short Form: Putting on and taking off regular lower body clothing: No assistance (4) Bathing (including washing, rinsing, and drying): No assistance (4) Toileting (including use of toilet, bedpan, or urinal): No assistance (4) Putting on and taking off regular upper body clothing: No assistance (4) Taking care of personal grooming such as brushing teeth: No assistance (4) Eating meals: No assistance (4) Raw Score: Interventions: None provided today. Splinting: No splint issued today. Education: Educational needs: Role of OT. Safety. Treatment plan. Barriers to Learning: No barriers. Learning Preference: Auditory. Demonstration. Mode of education provided: Demonstration. Explanation. Audience: Patient. Education Provided: Role of OT. Safety. Treatment plan. . Response: Applied knowledge. Indicates understanding. ASSESSMENT Low Complexity Evaluation: An occupational profile and medical and therapy history, which includes a brief history including review of medical and/or therapy records relating to the presenting problem. An assessment(s) that identifies 1-3 peformance deficits (i.e., relating to physical, cognitive, or psychosocial skills) that result in activity limitations and/or participation restrictions. Patient presents with no comorbidities that affect occupational performance. Modification of tasks or assistance (i.e., physical or verbal) with assessment(s) is not necessary to enable completion of evaluation component. Clinical decision-making of low complexity which includes an analysis of the occupational profile, analysis of data from problem-focused assessment(s), and consideration of a limited number of treatment options. Response to Evaluation: The session was tolerated well. Call burris was in patient's reach at end of session. Pain: Patient has no complaints of pain currently. Strengths: Independent premorbid function. Motivated to improve function. Goals: Patient's functional goals: to return home The patient's therapy goals are based on limitations/impairments in the following areas: No impairments noted at this time. Short Term Goals: Not applicable. No impairments noted. Penitentiary Goals: Not applicable. PLAN Treatment Frequency, Duration and Interventions: Occupational Therapy services are discontinued at this time secondary to: No need for skilled therapy intervention at this time. Equipment Provided: None issued this visit. Equipment Recommended: None. Recommended Occupational Therapy Follow Up: Upon acute care discharge, the following is currently recommended: None at this time. Recommended Consults: None currently. Development of Plan of Care: Participants included: Color Laboratory Technician Nurse. Patient. PT. DESIGN ANALYST. . Goal Review Visit Number: 1 Visit Number: Today's visit is number 1 Program: General Medicine (Therapist may be reached on Vocera) SESSION: Duration: 11 CHARGES: - ORDER - OCCUPATIONAL THERAPY CONSULT 1 Units - GENERAL MEDICINE VISIT 1 Units - STAT ONLY VISIT 1 Units 58190 - CHARGE - OT EVAL; LOW COMPLEXITY 1 Units - 0 Units - 0 Units - 0 Units - 0 Units Total treatment minutes: 11.00 Minutes Electronically Signed by: MEG Cintron/Deep, 06/26/2021 1:54:44 PM * Assessment & Plan Note - Rona Tavarez, PT - 06/26/2021 1:20 PM EDT Physical Therapy Acute Care Examination Medical Diagnosis: Right Basal Ganglia Hypersdensity Suspected Migraine History of Present Illness: Per Epic, "Peter Hughes is a 30 y.o. with PMH G6PD who presented to an OSH today due to headaches and dizziness, found to have ICH and transferred here for neurocritical care. He reports a headache that started last 06/20/21 and has been persistent. He noticed it worsened on Thursday and Thursday. He was exercising in between work today and after exercise noticed the pain was worse and he had blurry vision and dizziness. He presented to the hospital today because of the blurry vision and dizziness. Currently the headache is on the top of his head and 4/10, with it being a 7/10 at its worst point. He had some nausea today as well but no emesis. He denies urinary habit changes, bowel habit changes, weakness, paraesthesias. He took tylenol and ibuprofen for his headache the last few days. He does not take any blood thinners. He endorses occasional alcohol use, but denies tobacco or recreational drug use. He denies a family history of stroke, intracranial hemorrhage, or aneurysms. 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 ? Past Surgical History:History reviewed. No pertinent surgical history. Rehabilitation Precautions/Restrictions: SBP 100-140 Full code SUBJECTIVE Mental Status: Orientation:The patient is oriented to person, place and time. Command Following:The patient is able to follow 3+ step commands Prior Functional Level: The patient reported the premorbid level of function was Patient ambulates independently. Patient drives. Denies falls. Patient is independent with ADLs. 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 Patient lives with Signficant other and baby . If needed: Family member is willing to assist. Significant other can assist Home Environment: No steps to enter home. Single level home. Regular flat bed. Tub shower with grab bars. Equipment Owned: None. Pain: Patient has no complaints of pain currently. Pain Medication Today: no. OBJECTIVE General Observation: Patient is supine in bed, NAD. lines and tubes intact No bed alarm noted at start of session. Range of Motion:ayaz UE and LE WFL Strength:grossly 5/5 on MMT Skin Integrity Screen: visible skin grossly intact Tone/Spasticity: No relevant impairments. Sensation: Grossly intact. Balance: Independent and within functional limits. Endurance: Independent and within functional limits. Coordination: Upper and lower extremity gross motor coordination grossly intact. Therapeutic/Functional Activities: Bed Mobility: Within functional limits. Transfers: Patient is independent with sit to/from stand transfers Locomotion/Wheelchair: Not assessed. Locomotion/Gait/Ambulation: Patient was independent with gait/ambulation for approximately 200 feet . No assistive devices were required. Stairs: Not applicable for this patient at this time. Vital Signs: Stable. Outcome Measures: [facility] AM-PAC "6 Clicks" Basic Mobility Inpatient Short Form: Turning over in bed: No difficulty (4) Sitting down on and standing up from a chair with arms: No difficulty (4) Moving from lying on back to sitting on the side of the bed: No difficulty (4) Moving to and from a bed to a chair (including a wheelchair): No help (4) Walking in hospital room: No help (4) Climbing 3-5 steps with a railing: No help (4) Raw Score 24 /24. Interventions: None provided today. Education: Educational needs: role of PT, discharge planning, importance of mobility, fall prevention, use of call burris, safety, safe mobility techniques Barriers to Learning: No barriers. Learning Preference: Auditory. Demonstration. Mode of education provided: Demonstration. Explanation. Audience: Patient. Education Provided: role of PT, discharge planning, importance of mobility, fall prevention, use of call burris, safety, safe mobility techniques . Response: Verbalized understanding. Demonstrated skill independently. ASSESSMENT Low Complexity Evaluation: A history with no personal factors and/or comorbidities that impact the plan of care. An examination of body system(s) using standardized tests and measures addressing 1-2 elements from any of the following: body structures and functions, activity limitations, and/or participation restrictions. A clinical presentation with stable and/or uncomplicated characteristics. Clinical decision-making of low complexity using standardized patient assessment instrument and/or measurable assessment of functional outcome. Response to Evaluation: The session was tolerated well. Call burris was in patient's reach at end of session. Pain: Patient has no complaints of pain currently. Other Rehabilitation Considerations: Patient's progress may be impaired by the following potential barriers: No potential barriers to progress. Support Structure: Support structure is good. Strengths: Accessible home environment. Independent function. Goals: Patient's functional goals: discharge home The patient's therapy goals are based on limitations/impairments in the following areas: Baseline level impairments that do not require restorative therapy at this time. Short Term Goals: Not applicable. No impairments noted. Penitentiary Goals: Not applicable. PLAN Treatment Frequency, Duration and Interventions: Physical Therapy services are discontinued at this time secondary to: No need for skilled therapy intervention at this time. Equipment Provided: None issued this visit. Equipment Recommended: None. Recommended Physical Therapy Follow Up: Upon acute care discharge, the following is currently recommended: None at this time. Recommended Consults: None currently. Development of Plan of Care: Participants included: Nurse. Patient. Color Laboratory Technician. Goal Review Visit Number: 1 Visit Number: Today's visit is number 1 Program: General Medicine (Therapist may be reached on Vocera) SESSION: Duration: 19 CHARGES: - ORDER - PHYSICAL THERAPY CONSULT 1 Units - GENERAL MEDICINE VISIT 1 Units - STAT ONLY VISIT 1 Units 11822 - CHARGE - PT EVAL; LOW COMPLEXITY 1 Units - 0 Units - 0 Units - 0 Units - 0 Units Total treatment minutes: 19.00 Minutes Electronically Signed by: Rona Tavarez PT, DPT, 06/26/2021 1:44:51 PM * Interim Summary - Lio Mathews RN - 06/26/2021 8:28 AM EDT Peter Hughes transferred from 9E to 5A. . This note serves as a report to the [facility] case advocate. Peter admitted from OSH with ICH and headaches Prior to admission, Peter lived home with spouse and 2 month old baby. 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 Level of Care is Acute at time of this note Transfer Agreement: Yes Transfer Agreement has not been initiated Trigger Level II Screen? No Current discharge plan includes Anticipate he will DC back home Barriers to discharge include MRI and therapy evals still peding [facility] Discussed how patient will get back home. 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 Made him aware if hospital arranges transport, there will be a fee to th at transport company. Lio Mathews * Plan of Care - Char Dove RN - 06/26/2021 5:04 AM EDT Problem: Hemodynamic Status Goal: Patient will remain hemodynamically stable Description: Patient's vital signs, oxygenation, and labs will be monitored and deviations addressed. Outcome: Progressing Problem: Pain Goal: Pain is controlled to patient's desired goal Outcome: Progressing Problem: Risk for impaired skin integrity Goal: Skin integrity is maintained or improved Outcome: Progressing Problem: Fall Prevention Goal: No fall during Hospitalization Outcome: Progressing Problem: Impaired Physical Mobility Goal: Patient will maintain maximum physical mobility within prescribed activity and weight bearing restrictions Outcome: Progressing Problem: Risk for Infection Goal: The patient will receive immunization screening as indicated Outcome: Progressing Goal: Patient will remain free of infection in operative site Outcome: Progressing Goal: The patient will not develop pneumonia post-operatively Outcome: Progressing Problem: Risk for DVT/PE Goal: Patient will not develop a DVT/PE Outcome: Progressing Problem: Risk for Gastrointestinal Complications Goal: Patient will not develop gastrointestinal complications Description: Nausea/vomiting, constipation, dehydration Outcome: Progressing Problem: Self Care Deficit Goal: Patient will perform Activities of Daily Living at optimal level Outcome: Progressing Problem: Psychosocial Needs Goal: Psychosocial needs will be met during this hospitalization Outcome: Progressing Problem: Discharge Needs Goal: Patient discharge needs are met Description: Collaborate with interdisciplinary team and initiate plans and inte rventions as needed Outcome: Progressing Problem: Neurological Deficit Goal: Neurological status is stable or improving Description: Monitor and assess patient's level of consciousness, motor function , sensory function, and level of assistance needed for ADLs. Monitor and report changes from baseline. Collaborate with interdisciplinary team to initiate plan and implement interventions as ordered. Outcome: Progressing Problem: INJURY, RISK FOR Goal: Patient will not be injured from a fall during hospitalization Outcome: Progressing Problem: Knowledge Deficit Goal: Patient requires education regarding causes of high risk injury from a fal l Outcome: Progressing Goal: Patient's family requires education regarding causes of high risk injury f rom a fall Outcome: Progressing Problem: Sensory Perception is less than 4 (< 4) Goal: Improve Sensory Perception Outcome: Progressing Problem: Moisture is less than 4 (< 4) Goal: Eliminate Moisture Outcome: Progressing Problem: Activity is less than 4 (< 4) Goal: Improve Activity Outcome: Progressing Problem: Mobility is less than 4 (< 4) Goal: Improve Mobility Outcome: Progressing Problem: Nutrition is Less than 3 (< 3) Goal: Improve Nutrition Outcome: Progressing Problem: Friction Shear is less than 3 (< 3) Goal: Eliminate Friction Shear Outcome: Progressing * Plan of Care - Edmond Bangura RN - 06/25/2021 12:19 AM EDT Problem: Hemodynamic Status Goal: Patient will remain hemodynamically stable Description: Patient's vital signs, oxygenation, and labs will be monitored and deviations addressed. Outcome: Progressing Problem: Pain Goal: Pain is controlled to patient's desired goal Outcome: Progressing Problem: Risk for impaired skin integrity Goal: Skin integrity is maintained or improved Outcome: Progressing Problem: Fall Prevention Goal: No fall during Hospitalization Outcome: Progressing Problem: Impaired Physical Mobility Goal: Patient will maintain maximum physical mobility within prescribed activity and weight bearing restrictions Outcome: Progressing Problem: Risk for Infection Goal: The patient will receive immunization screening as indicated Outcome: Progressing Goal: Patient will remain free of infection in operative site Outcome: Progressing Goal: The patient will not develop pneumonia post-operatively Outcome: Progressing Problem: Risk for DVT/PE Goal: Patient will not develop a DVT/PE Outcome: Progressing Problem: Risk for Gastrointestinal Complications Goal: Patient will not develop gastrointestinal complications Description: Nausea/vomiting, constipation, dehydration Outcome: Progressing Problem: Self Care Deficit Goal: Patient will perform Activities of Daily Living at optimal level Outcome: Progressing Problem: Psychosocial Needs Goal: Psychosocial needs will be met during this hospitalization Outcome: Progressing Problem: Discharge Needs Goal: Patient discharge needs are met Description: Collaborate with interdisciplinary team and initiate plans and inte rventions as needed Outcome: Progressing Problem: Neurological Deficit Goal: Neurological status is stable or improving Description: Monitor and assess patient's level of consciousness, motor function , sensory function, and level of assistance needed for ADLs. Monitor and report changes from baseline. Collaborate with interdisciplinary team to initiate plan and implement interventions as ordered. Outcome: Progressing documented in this encounter Plan of Treatment Order Schedule Name Type Priority Associated Diag noses AM Draw for 30 Days starting 06/25/2021 until 07/24/2021, 2 completed CBC Lab Routine AM Draw for 3 Days starting 06/25/2021 u ntil 06/27/2021, 2 completed Basic Metabolic Panel Lab Routine AM Draw for 5 Days starting 06/25/2021 u ntil 06/29/2021, 2 completed Magnesium Level Lab Routine AM Draw for 5 Days starting 06/25/2021 u ntil 06/29/2021, 2 completed Phosphorus Level Lab Routine As Needed for 1 Occurrences starting until 06/30/2021 Potassium Level Lab Timed As Needed for 1 Occurrences starting until 06/30/2021 Magnesium Level Lab Timed As Needed for 1 Occurrences starting until 06/30/2021 Phosphorus Level Lab Timed As Needed for 1 Occurrences starting until 06/30/2021 Calcium, ionized Lab Timed Once for 1 Occurrences starting 06/24/20 until 06/24/2021 Drugs Of Abuse, Urine Lab Routine Health Maintenance Due Date Last Done Comments MMR Vaccines (1 of - 1992 Standard series) Varicella Vaccines ( of 1992 2 - 2-dose childhood series) DTaP,Tdap,and Td Vaccines 1998 (1 - Tdap) HIV Screening 2004 Influenza Vaccine 08/09/2021 Pneumococcal [...] 65 Years) documented as of this encounter Procedures Comments Procedure Name Priority Date/Time Associated Diag nosis BASIC METABOLIC PANEL Routine 06/26/2021 8:40 AM EDT CBC Routine 06/26/2021 3:29 AM EDT PHOSPHORUS LEVEL Routine 06/26/2021 3:29 AM EDT MAGNESIUM LEVEL Routine 06/26/2021 3:29 AM EDT BASIC METABOLIC PANEL Routine 06/26/2021 3:29 AM EDT MR BRAIN WITH AND WITHOUT Routine 06/25/2021 CONTRAST [id number] 4:40 PM EDT URINALYSIS WITH Routine 06/25/2021 MICROSCOPIC 11:40 AM EDT BASIC METABOLIC PANEL Routine 06/25/2021 9:17 AM EDT CBC Routine 06/25/2021 4:33 AM EDT PHOSPHORUS LEVEL Routine 06/25/2021 4:33 AM EDT MAGNESIUM LEVEL Routine 06/25/2021 4:33 AM EDT BASIC METABOLIC PANEL Routine 06/25/2021 4:33 AM EDT EKG 12-LEAD - CMAXX 06/24/2021 REPORT 11:57 PM EDT EKG 12-LEAD - CMAXX 06/24/2021 REPORT 11:57 PM EDT EKG 12-LEAD Routine 06/24/2021 11:[address] ANGIOGRAPHY NECK [id number] STAT 06/24/2021 9:[address] ANGIOGRAPHY HEAD [id number] STAT 06/24/2021 9:25 PM EDT PARTIAL THROMBOPLASTIN STAT 06/24/2021 TIME (PTT) 8:26 PM EDT PROTIME INR STAT 06/24/2021 8:26 PM EDT CBC AND DIFFERENTIAL Routine 06/24/2021 8:26 PM EDT PHOSPHORUS LEVEL STAT 06/24/2021 8:26 PM EDT MAGNESIUM LEVEL STAT 06/24/2021 8:26 PM EDT HEMOGLOBIN A1C Routine 06/24/2021 8:26 PM EDT CALCIUM, IONIZED Routine 06/24/2021 8:26 PM EDT HEPATIC FUNCTION PANEL A STAT 06/24/2021 8:26 PM EDT LIPID PANEL Routine 06/24/2021 8:26 PM EDT BASIC METABOLIC PANEL STAT 06/24/2021 8:26 PM EDT TYPE AND SCREEN STAT 06/24/2021 8:25 PM EDT documented in this encounter Results * Basic Metabolic Panel (06/26/2021 8:40 AM EDT) Bicarbonate 20 (L) 22 - 29 mmol/L [facility] Chloride 102 98 - 107 mmol/L [facility] Creatinine 1.17 0.70 - 1.20 mg/dL [facility] Glucose 149 (H) 70 - 140 mg/dL [facility] Potassium 4.2 3.4 - 5.1 mmol/L [facility] Sodium 133 (L) 136 - 145 mmol/L [facility] Blood Urea 10 6 - 20 mg/dL [facility]ology Anion Gap 11 8 - 15 mmol/L [facility] Osmolality, Adis 278 275.0 - 300.0 Health system mosm/kg [facility] Pathology BUN/Cre Ratio 8 [facility] Calcium 8.7 8.6 - 10.0 mg/dL [facility] GFR Non 83 >60 mL/min/1.73m2 [facility] 2008 Med [facility] Clin CDK-EPI Pathology GFR >90 >60 mL/min/1.73m2 [facility] 2008 [facility] CKD-EPI Pathology Specimen Plasma Performing Organization Address [facility] P martín Number [address] 132 10 Clin Pathology * Phosphorus Level (06/26/2021 3:29 AM EDT) Phosphorus 3.9 2.5 - 4.5 mg/dL [facility] Specimen Plasma Performing Organization Address [facility] P martín Number [address] 132 10 Clin Pathology * Magnesium Level (06/26/2021 3:29 AM EDT) Magnesium 1.9 1.6 - 2.6 mg/dL [facility] Specimen Plasma Performing Organization Address [facility] P martín Number [address] 132 10 Clin Pathology * Basic Metabolic Panel (06/26/2021 3:29 AM EDT) Bicarbonate 20 (L) 22 - 29 mmol/L [facility] Chloride 102 98 - 107 mmol/L [facility] Creatinine 1.09 0.70 - 1.20 mg/dL [facility] Glucose 104 70 - 140 mg/dL [facility] Potassium 4.0 3.4 - 5.1 mmol/L [facility] Sodium 132 (L) 136 - 145 mmol/L [facility] Blood Urea 10 6 - 20 mg/dL Health system Nitrogen [facility] Clin Pathology Anion Gap 10 8 - 15 mmol/L [facility] Osmolality, Adis 274 (L) 275.0 - 300.0 Health system mosm/kg [facility] Pathology BUN/Cre Ratio 9 [facility] Calcium 8.3 (L) 8.6 - 10.0 mg/dL [facility] GFR Non >90 >60 mL/min/1.73m2 [facility] e [place] 2008 Med Univ Clin CDK-EPI Pathology GFR >90 >60 mL/min/1.73m2 [facility] 2008 [facility] Clin CKD-EPI Pathology Specimen Plasma Performing Organization Address City/State/ZIP Code P martín Number [facility] [address] [place], [place] 1321 PATHOLOGY [facility] [address] [place], [place] [address] 10 Clin Pathology * CBC (06/26/2021 3:29 AM EDT) White Blood 3.5 (L) 4.00 - 10.00 10*3/uL [facility] ate Cell [facility] Pathology Red Blood Cell 4.59 (L) 4.60 - 6.10 10*6/uL [facility] te [facility] Clin Pathology Hemoglobin 12.7 (L) 13.5 - 18.0 g/dL [facility] Hematocrit 39.9 (L) 41.0 - 53.0 % [facility] Mean Cell 86.9 80.0 - 96.0 fL Health system Volume [facility] Clin Pathology Mean Cell 27.6 27.0 - 33.0 pg Health system Hemoglobin [facility] Clin Pathology Mean Cell Hgb 31.7 (L) 32 - 36 g/dL [facility] Clin Pathology Red Cell Dist 12.6 11.5 - 14.5 % ДМИТРИЙ [facility] Pathology Platelet Count 212 150 - 400 10*3/uL [facility] Specimen EDTA Whole Blood Performing Organization Address City/State/ZIP Code P martín Number [facility] [address] [place], [place] 1321 PATHOLOGY [facility] [address] [place], [place] [address] 10 Clin Pathology * MR Brain with and without Contrast (06/25/2021 4:40 PM EDT) Specimen Impressions Performed At IMPRESSION: [facility] 1. Symmetric susceptibility artifacts in the globus pallidus, bilaterally consistent with metabolic deposits. 2. No acute cerebral or cerebellar infarc t. 3. Minimal nonspecific white matter disea se. Narrative Performed At [facility] ORDERING CLINICAL INFORMATION: 30-year-old male with a history of G6P D deficiency and headache presenting for follow-up evaluation for suspected intr acerebral hemorrhage. COMPARISON: CTA head and neck dated 06/24/2021. PROCEDURE : Multiple MR sequences in mu ltiple planes without and with administration of IV gadolinium contras t. FINDINGS: No abnormal areas of restricted diffusi on to suggest acute infarction. There are regions of increased suscepti bility artifact on susceptibility weighted imaging in the bilateral basal ganglia, right greater than left, compatible with calcifications. Minimal nonspecific white matter disease. Ventricles and sulci are normal in size and configuration. The basal cisterns are patent. There is no shift of the mi dline structures. No extra-axial fluid collections. The cerebellar tonsils are normally pos itioned. The pituitary gland is normal in size. The visualized paranasal sinuses and ma stoid air cells are well aerated. Procedure Note Interface, Received Via [employer] - 06/26/2021 10:13 AM EDT ORDERING CLINICAL INFORMATION: 30-year-old male with a history of G6PD deficiency and headache presenting for follow-up evaluation for suspected intracerebral hemorrhage. COMPARISON: CTA head and neck dated 06/24/2021. PROCEDURE : Multiple MR sequences in multiple planes without and with administration of IV gadolinium contrast. FINDINGS: No abnormal areas of restricted diffusion to suggest acute infarction. There are regions of increased susceptibility artifact on susceptibility weighted imaging in the bilateral basal ganglia, right greater than left, compatible with calcifications. Minimal nonspecific white matter disease. Ventricles and sulci are normal in size and configuration. The basal cisterns are patent. There is no shift of the midline structures. No extra-axial fluid collections. The cerebellar tonsils are normally positioned. The pituitary gland is normal in size. The visualized paranasal sinuses and mastoid air cells are well aerated. IMPRESSION: 1. Symmetric susceptibility artifacts i n the globus pallidus, bilaterally consistent with metabolic deposits. 2. No acute cerebral or cerebellar infa rct. 3. Minimal nonspecific white matter dis ease. Performing Organization Address City/[facility] P mratín Number [facility] [address] [place] [address] * Urinalysis with microscopic (06/25/2021 11:40 AM EDT) Color Colorless [facility] Clin Pathology Clarity Clear [facility] Specific 1.005 1.003 - 1.030 Health system [place] [facility] Clin Pathology PH Urine 7.0 5.0 - 8.0 [facility] Total Protein Negative Negative mg/dL Health system UA [facility] Clin Pathology Glucose UA Negative Negative mg/dL [facility] Clin Pathology Ketone Urine Negative Negative mg/dL [facility] Bilirubin Negative Negative [facility] Hemoglobin, Negative Negative Health system Urine [facility] Clin Pathology Leukocyte Negative Negative Devika/uL [facility] Clin Pathology Nitrite Negative Negative [facility] Clin Pathology WBC 0 0 - 5 /HPF [facility] Clin Pathology RBC 0 0 - 3 /HPF [facility] Specimen Urine Performing Organization Address [facility] Code P martín Number [facility] [address] [place], [place] [address] 132 10 Clin Pathology * Basic Metabolic Panel (06/25/2021 9:17 AM EDT) Bicarbonate 22 22 - 29 mmol/L [facility] Chloride 106 98 - 107 mmol/L [facility] Creatinine 1.18 0.70 - 1.20 mg/dL [facility] Glucose 105 70 - 140 mg/dL [facility] Potassium 4.3 3.4 - 5.1 mmol/L [facility] Sodium 138 136 - 145 mmol/L [facility] Blood Urea 9 6 - 20 mg/dL Health system Nitrogen [facility] Pathology Anion Gap 10 8 - 15 mmol/L [facility] Osmolality, Adis 285 275.0 - 300.0 Health system mosm/kg [facility] Pathology BUN/Cre Ratio 8 [facility] Calcium 8.6 8.6 - 10.0 mg/dL [facility] GFR Non 82 >60 mL/min/1.73m2 [facility] Med [facility] Clin CDK-EPI Pathology GFR >90 >60 mL/min/1.73m2 [facility] 2008 [facility] Clin CKD-EPI Pathology Specimen Plasma Performing Organization Address City/[facility]/ZIP Code P martín Number [address] 132 10 Clin Pathology * Phosphorus Level (06/25/2021 4:33 AM EDT) Phosphorus 2.9 2.5 - 4.5 mg/dL [facility] Specimen Plasma Performing Organization Address [facility] [facility] P martín Number [address] 132 10 Clin Pathology * Magnesium Level (06/25/2021 4:33 AM EDT) Magnesium 1.7 1.6 - 2.6 mg/dL [facility] Clin Pathology Specimen Plasma Performing Organization Address City/[facility]/ZIP [facility] P martín Number [facility] [address] [place] [address] [address] 132 10 Clin Pathology * Basic Metabolic Panel (06/25/2021 4:33 AM EDT) Bicarbonate 21 (L) 22 - 29 mmol/L [facility] Clin Pathology Chloride 102 98 - 107 mmol/L [facility] Pathology Creatinine 1.13 0.70 - 1.20 mg/dL [facility] Pathology Glucose 104 70 - 140 mg/dL [facility] Pathology Potassium 3.6 3.4 - 5.1 mmol/L [facility] Pathology Sodium 133 (L) 136 - 145 mmol/L [facility] Pathology Blood Urea 10 6 - 20 mg/dL Health system Nitrogen [facility] Clin Pathology Anion Gap 9 8 - 15 mmol/L [facility] Clin Pathology Osmolality, Adis 275 275.0 - 300.0 Health system mosm/kg [facility] Clin Pathology BUN/Cre Ratio 8 [facility] Clin Pathology Calcium 8.6 8.6 - 10.0 mg/dL [facility] Clin Pathology GFR Non 87 >60 mL/min/1.73m2 [facility] e Cambodian 2008 [facility] Clin CDK-EPI Pathology GFR >90 >60 mL/min/1.73m2 [facility] 2008 [facility] CKD-EPI Pathology Specimen Plasma Performing Organization Address [facility] P martín Number [facility] [address] [place], [place] 1321 PATHOLOGY [facility] [address] [place], [place] 132 10 Clin Pathology * CBC (06/25/2021 4:33 AM EDT) White Blood 3.2 (L) 4.00 - 10.00 10*3/uL [facility] ate Cell [facility] Clin Pathology Red Blood Cell 4.47 (L) 4.60 - 6.10 10*6/uL [facility] te [facility] Clin Pathology Hemoglobin 12.3 (L) 13.5 - 18.0 g/dL [facility] Clin Pathology Hematocrit 38.5 (L) 41.0 - 53.0 % [facility] Clin Pathology Mean Cell 86.1 80.0 - 96.0 fL Health system Volume [facility] Clin Pathology Mean Cell 27.4 27.0 - 33.0 pg Health system Hemoglobin [facility] Clin Pathology Mean Cell Hgb 31.9 (L) 32 - 36 g/dL [facility] Clin Pathology Red Cell Dist 12.2 11.5 - 14.5 % Health system Width [facility] Clin Pathology Platelet Count 215 150 - 400 10*3/uL [facility] Clin Pathology Specimen EDTA Whole Blood Performing Organization Address City/[facility] Code P martín Number [facility] [address] [place], [place] 1321 PATHOLOGY [facility] [address] [place], [place] 132 10 Clin Pathology * EKG 12-LEAD - CMAXX REPORT (06/24/2021 11:57 PM EDT) Narrative Performed At This result has an attachment that is n ot available. * EKG 12-LEAD - CMAXX REPORT (06/24/2021 11:57 PM EDT) Narrative Performed At This result has an attachment that is n ot available. * EKG 12 Lead (06/24/2021 11:57 PM EDT) Specimen Narrative Performed At Ventricular Rate: [facility] EKG 49 BPM Atrial Rate: 49 BPM P-R Interval: 162 ms QRS Duration: 80 ms Q-T Interval: 442 ms QTC Calculation(Bazett): 399 ms P [place]: 25 degrees R [place]: 8 degrees T [place]: 10 degrees : SINUS BRADYCARDIA : PREMATURE ATRIAL COMPLEXES : OTHERWISE NORMAL ECG : NO PREVIOUS ECGS AVAILABLE : Confirmed by Dinesh Phelan ([id number]) on 06/25/2021 9:33:52 AM Procedure Note Interface, Received Via [employer] - 06/25/2021 9:34 AM EDT Ventricular Rate: 49 BPM Atrial Rate: 49 BPM P-R Interval: 162 ms QRS Duration: 80 ms Q-T Interval: 442 ms QTC Calculation(Bazett): 399 ms P [place]: 25 degrees R [place]: 8 degrees T [place]: 10 degrees : SINUS BRADYCARDIA : PREMATURE ATRIAL COMPLEXES : OTHERWISE NORMAL ECG : NO PREVIOUS ECGS AVAILABLE : Confirmed by Dinesh Phelan ([id number]) on 06/25/2021 9:33:52 AM Performing Organization Address City/State/ZIP Code P martín Number [facility] EKG * CT Angiography Neck ; Emergent exam: waive labs (06/24/2021 9:25 PM EDT) Specimen Impressions Performed At IMPRESSION: [facility] RADIOLOGY 1. No acute intracranial hemorrhage or large arterial territorial infarction. 2. Major intracranial arteries and chun collette of the neck are patent. The degree of stenosis was assessed uti lizing NASCET Criteria. Narrative Performed At CLINICAL INDICATION: Evaluation for intracerebral hem orrhage. [facility] RADIOLOGY TECHNIQUE: CT angiography of the head a nd neck was performed following intravenous administration of Omnipaque 350. Multiple reconstructed images including MIP images were then acquired using the source data at a separate workstation. Automated dose lowering te chniques and/or adjustment according to patient's size were utilized for this e xam. COMPARISON: None available FINDINGS: NECT: There is no intracranial hemorrhage or acute major arterial territorial infarction. The ventricles are normal i n size and configuration. The basal cisterns and foramen magnum are patent. No mass lesion or mass effect. The ventricles are in midline. There are no depressed calvarial fractu res. The extracranial soft tissue structures are unremarkable. The parana forrest sinuses and mastoid air cells are clear. CTA HEAD: The intracranial segments of the underwriting internship al carotid arteries are patent without flow-limiting stenosis. The basilar, anterior, middle, and post erior cerebral arteries are patent without flow-limiting stenosis. No aneurysm or arteriovenous malformati on is visualized. CTA NECK: A bovine arch is present with the share d origin of the right brachiocephalic and left common carotid arteries. The origi ns of the great vessels and vertebral arteries are patent. There is no occlusion of the common car otid, external carotid, cervical segments of the internal carotid arteries, or th e cervical segments of the vertebral arteries. There is a partial retrophary ngeal course of the right ICA. The vertebral arteries are codominant. Lungs: The visualized lung apices are c lear of focal airspace disease. Thyroid: Within normal limits. Bones: Mild multilevel degenerative gemma nges are identified. Procedure Note Interface, Received Via [employer] - 06/25/2021 8:44 AM EDT CLINICAL INDICATION: Evaluation for intracerebral hemorrhage. TECHNIQUE: CT angiography of the head and neck was performed following intravenous administration of Omnipaque 350. Multiple reconstructed images including MIP images were then acquired using the source data at a separate workstation. Automated dose lowering techniques and/or adjustment according to patient's size were utilized for this exam. COMPARISON: None available FINDINGS: NECT: There is no intracranial hemorrhage or acute major arterial territorial infarction. The ventricles are normal in size and configuration. The basal cisterns and foramen magnum are patent. No mass lesion or mass effect. The ventricles are in midline. There are no depressed calvarial fractures. The extracranial soft tissue structures are unremarkable. The paranasal sinuses and mastoid air cells are clear. CTA HEAD: The intracranial segments of the internal carotid arteries are patent without flow-limiting stenosis. The basilar, anterior, middle, and posterior cerebral arteries are patent without flow-limiting stenosis. No aneurysm or arteriovenous malformation is visualized. CTA NECK: A bovine arch is present with the shared origin of the right brachiocephalic and left common carotid arteries. The origins of the great vessels and vertebral arteries are patent. There is no occlusion of the common carotid, external carotid, cervical segments of the internal carotid arteries, or the cervical segments of the vertebral arteries. There is a partial retropharyngeal course of the right ICA. The vertebral arteries are codominant. Lungs: The visualized lung apices are clear of focal airspace disease. Thyroid: Within normal limits. Bones: Mild multilevel degenerative changes are identified. IMPRESSION: 1. No acute intracranial hemorrhage or l arge arterial territorial infarction. 2. Major intracranial arteries and arter ies of the neck are patent. The degree of stenosis was assessed utilizing NASCET Criteria. Performing Organization Address City/State/ZIP Code P martín Number [facility] RADIOLOGY [address] [place] [address] * CT Angiography Head ; Emergent exam: waive labs (06/24/2021 9:25 PM EDT) Specimen Impressions Performed At IMPRESSION: [facility] RADIOLOGY 1. No acute intracranial hemorrhage or large arterial territorial infarction. 2. Major intracranial arteries and chun collette of the neck are patent. The degree of stenosis was assessed uti lizing NASCET Criteria. Narrative Performed At CLINICAL INDICATION: Evaluation for intracerebral hem orrhage. [facility] RADIOLOGY TECHNIQUE: CT angiography of the head a nd neck was performed following intravenous administration of Omnipaque 350. Multiple reconstructed images including MIP images were then acquired using the source data at a separate workstation. Automated dose lowering te chniques and/or adjustment according to patient's size were utilized for this e xam. COMPARISON: None available FINDINGS: NECT: There is no intracranial hemorrhage or acute major arterial territorial infarction. The ventricles are normal i n size and configuration. The basal cisterns and foramen magnum are patent. No mass lesion or mass effect. The ventricles are in midline. There are no depressed calvarial fractu res. The extracranial soft tissue structures are unremarkable. The parana forrest sinuses and mastoid air cells are clear. CTA HEAD: The intracranial segments of the underwriting internship al carotid arteries are patent without flow-limiting stenosis. The basilar, anterior, middle, and post erior cerebral arteries are patent without flow-limiting stenosis. No aneurysm or arteriovenous malformati on is visualized. CTA NECK: A bovine arch is present with the share d origin of the right brachiocephalic and left common carotid arteries. The origi ns of the great vessels and vertebral arteries are patent. There is no occlusion of the common car otid, external carotid, cervical segments of the internal carotid arteries, or th e cervical segments of the vertebral arteries. There is a partial retrophary ngeal course of the right ICA. The vertebral arteries are codominant. Lungs: The visualized lung apices are c lear of focal airspace disease. Thyroid: Within normal limits. Bones: Mild multilevel degenerative gemma nges are identified. Procedure Note Interface, Received Via [employer] - 06/25/2021 8:44 AM EDT CLINICAL INDICATION: Evaluation for intracerebral hemorrhage. TECHNIQUE: CT angiography of the head and neck was performed following intravenous administration of Omnipaque 350. Multiple reconstructed images including MIP images were then acquired using the source data at a separate workstation. Automated dose lowering techniques and/or adjustment according to patient's size were utilized for this exam. COMPARISON: None available FINDINGS: NECT: There is no intracranial hemorrhage or acute major arterial territorial infarction. The ventricles are normal in size and configuration. The basal cisterns and foramen magnum are patent. No mass lesion or mass effect. The ventricles are in midline. There are no depressed calvarial fractures. The extracranial soft tissue structures are unremarkable. The paranasal sinuses and mastoid air cells are clear. CTA HEAD: The intracranial segments of the internal carotid arteries are patent without flow-limiting stenosis. The basilar, anterior, middle, and posterior cerebral arteries are patent without flow-limiting stenosis. No aneurysm or arteriovenous malformation is visualized. CTA NECK: A bovine arch is present with the shared origin of the right brachiocephalic and left common carotid arteries. The origins of the great vessels and vertebral arteries are patent. There is no occlusion of the common carotid, external carotid, cervical segments of the internal carotid arteries, or the cervical segments of the vertebral arteries. There is a partial retropharyngeal course of the right ICA. The vertebral arteries are codominant. Lungs: The visualized lung apices are clear of focal airspace disease. Thyroid: Within normal limits. Bones: Mild multilevel degenerative changes are identified. IMPRESSION: 1. No acute intracranial hemorrhage or l arge arterial territorial infarction. 2. Major intracranial arteries and arter ies of the neck are patent. The degree of stenosis was assessed utilizing NASCET Criteria. Performing Organization Address City/State/ZIP Code P martín Number [facility] RADIOLOGY [address] [place] [address] * Partial Thromboplastin Time (PTT) (06/24/2021 8:26 PM EDT) PTT 31.6 24.0 - 33.0 s [facility] Clin Pathology Specimen Plasma Performing Organization Address City/[facility]/ZIP Code P martín Number [facility] [address] [place], [place] [address] 132 10 Clin Pathology * Protime-INR (06/24/2021 8:26 PM EDT) PT Patient 15.2 (H) 11.6 - 14.0 s [facility] Clin Pathology Int'l 1.24Comment: Routine intensity [facility] pstate Normalized oral anticoagulation INR is Med Univ Clin Ratio typically 2.0-3.0. Target INR Patholo gy must be clinically individualized. Specimen Plasma Performing Organization Address [facility] P martín Number [facility] [address] [place], [place] [address] 132 10 Clin Pathology * Lipid panel (06/24/2021 8:26 PM EDT) Cholesterol 142 <200 mg/dL [facility] Clin Pathology Triglyceride 44 <150 mg/dL [facility] Pathology HDL Cholesterol 55 >40 mg/dL [facility] Clin Pathology LDL Cholesterol 78 <100 mg/dL [facility] Clin Pathology VLDL 9 (L) 16 - 42 mg/dl [facility] Clin Pathology Non HDL 87 <130 mg/dL [facility] Clin Pathology Specimen Plasma Performing Organization Address City/[facility]/ZIP Code P martín Number [facility] [address] [place], [place] [address] 132 10 Clin Pathology * Hemoglobin A1c (06/24/2021 8:26 PM EDT) Hemoglobin A1C 4.5 4.0 - 6.0 % Health system Comment: [facility] (NOTE) Pathology <5.7% Average risk of diabetes(ADA) 5.7-6.4% Increased risk of diabetes(ADA) >/= 6.5% Diagnostic for diabetes(ADA) Estimated Avg 81 <126 mg/dL Health system Glucose [facility] Clin Pathology Specimen Whole Blood Performing Organization Address [facility] P martín Number [address] 132 10 Clin Pathology * Hepatic Function Panel (06/24/2021 8:26 PM EDT) Albumin 4.1 3.5 - 5.2 g/dL [facility] Clin Pathology Bilirubin, 0.7 <1.2 mg/dL Health system Total [facility] Clin Pathology Bilirubin, <0.2 <0.3 mg/dL Health system Direct [facility] Pathology Alkaline 78 40 - 129 U/L Health system Phosphatase [facility] Clin Pathology AST/SGO 19 <40 U/L [facility] Clin Pathology ALT/SGP 16 <41 U/L [facility] Pathology Total Protein 6.9 6.4 - 8.3 g/dL [facility] Clin Pathology Specimen Plasma Performing Organization Address [facility] P martín Number [address] 132 10 Clin Pathology * Calcium, ionized (06/24/2021 8:26 PM EDT) Calcium 1.17 1.13 - 1.32 mmol/L [facility] Clin Pathology Specimen Whole Blood Performing Organization Address [facility] P martín Number [address], [place] [address] 10 Clin Pathology * Phosphorus Level (06/24/2021 8:26 PM EDT) Phosphorus 3.1 2.5 - 4.5 mg/dL [facility] Clin Pathology Specimen Plasma Performing Organization Address [facility] P martín Number [facility] [address] [place], [place] [address] 132 10 Clin Pathology * Magnesium Level (06/24/2021 8:26 PM EDT) Magnesium 1.6 1.6 - 2.6 mg/dL [facility] Clin Pathology Specimen Plasma Performing Organization Address [facility] P martín Number [facility] [address] [place], [place] [address] 132 10 Clin Pathology * Basic Metabolic Panel (06/24/2021 8:26 PM EDT) Bicarbonate 20 (L) 22 - 29 mmol/L [facility] Pathology Chloride 105 98 - 107 mmol/L [facility] Pathology Creatinine 1.07 0.70 - 1.20 mg/dL [facility] Pathology Glucose 79 70 - 140 mg/dL [facility] Pathology Potassium 3.8 3.4 - 5.1 mmol/L [facility] Pathology Sodium 138 136 - 145 mmol/L [facility] Clin Pathology Blood Urea 9 6 - 20 mg/dL Health system Nitrogen [facility] Clin Pathology Anion Gap 13 8 - 15 mmol/L [facility] Clin Pathology Osmolality, Adis 284 275.0 - 300.0 Health system mosm/kg [facility] Clin Pathology BUN/Cre Ratio 8 [facility] Clin Pathology Calcium 8.9 8.6 - 10.0 mg/dL [facility] Clin Pathology GFR Non >90 >60 mL/min/1.73m2 [facility] [employer] e Cambodian 2008 Med Univ Clin CDK-EPI Pathology GFR >90 >60 mL/min/1.73m2 [facility] 2008 [facility] Clin CKD-EPI Pathology Specimen Plasma Performing Organization Address City/[facility]/ZIP Code P martín Number [facility] [address] [place], [place] 1321 PATHOLOGY [facility] [address] [place], [place] 132 10 Clin Pathology * CBC and Differential (06/24/2021 8:26 PM EDT) White Blood 4.3 4.00 - 10.00 10*3/uL [facility] Clin Pathology Red Blood Cell 4.59 (L) 4.60 - 6.10 10*6/uL [facility] Pathology Hemoglobin 12.9 (L) 13.5 - 18.0 g/dL [facility] Pathology Hematocrit 39.1 (L) 41.0 - 53.0 % [facility] Pathology Mean Cell 85.3 80.0 - 96.0 fL Health system Volume [facility] Clin Pathology Mean Cell 28.2 27.0 - 33.0 pg Health system Hemoglobin [facility] Clin Pathology Mean Cell Hgb 33.0 32 - 36 g/dL Health system Conc [facility] Clin Pathology Red Cell Dist 12.3 11.5 - 14.5 % Health system Width [facility] Clin Pathology Platelet Count 210 150 - 400 10*3/uL [facility] Pathology Differential Automated Diff Health system Type [facility] Clin Pathology Neutrophil 42 % [facility] Clin Pathology Lymphocyte 48 % [facility] Pathology Monocyte 8 % [facility] Pathology Eosinophil 1 % [facility] Pathology Basophil 1 % [facility] Pathology Abs Neutrophil 1.74 (L) 1.80 - 7.00 10*3/uL [facility] Pathology Abs Lymphocyte 1.99 1.20 - 4.00 10*3/uL [facility] Clin Pathology Abs Monocyte 0.35 0.00 - 0.80 10*3/uL [facility] Clin Pathology Abs Eosinophil 0.05 0.00 - 0.50 10*3/uL [facility] Pathology Abs Basophil 0.04 0.00 - 0.20 10*3/uL [facility] Clin Pathology Nucleated Red 0 0 - 0 /100{WBCs} Health system Blood Cells [facility] Clin Pathology Specimen EDTA Whole Blood Performing Organization Address City/State/ZIP Code P martín Number [facility] CL[facility] [address] [place], [place] [address] 132 10 Clin Pathology * Type and Screen (06/24/2021 8:25 PM EDT) ABO/RH(D) B POS [facility] Pathology Gel Antibody NEG Health system Screen [facility] Pathology Site Performed at [facility] Clin Pathology Specimen EDTA Whole Blood Performing Organization Address City/[facility]/ZIP Code P martín Number [facility] [address] [place], [place] [address] 132 10 Clin Pathology documented in this encounter Visit Diagnoses Diagnosis Intracranial hemorrhage - Primary Unspecified intracranial hemorrhage documented in this encounter Administered Medications Action Date Dose Rate Site Medication Order MAR Action 06/26/2021 11:52 AM EDT 650 mg acetaminophen (TYLENOL) tablet 650 mg Given 650 mg, Oral, Every 6 hours PRN, Mild Pain (Pain Scale Score 1-3), Headaches, Fever, Starting on Thu06/25/21 at 1221, For 30 days, Maximum daily dose of acetaminophen is 3,000 mg from all sources in 24 hours. 650 mg Given 06/25/2021 6:38 PM EDT bisacodyl (DULCOLAX) suppository 10 mg 10 mg, Rectal, Every 72 hours PRN, Constipation, Starting on Thu06/25/21 a t 0740, For 30 days, Hold if patient has had BM within the past 2 days. calcium gluconate in NaCl 0.9 % infusio n 2 g/50 mL 2 g, Intravenous, Every 1 hour PRN, fo r ionized calcium < 1.13 mmol/L (4.51 mg/dL), Starting on Thu06/24/21 at 2013 , For 7 days, Ionized Calcium 1 - 1.12 mmol/L (4.01 - 4.5 mg/dL): give 2 g q1h x 1
Ionized Calcium less than 1 mmol/L (less than 4.01 mg/dL): give 2 g q1h x2 06/26/2021 9:04 AM EDT 100 mg docusate sodium (COLACE) capsule 100 mg Given 100 mg, Oral, 2 Times Daily, First dose on Thu06/25/21 at 0900, For 30 days 100 mg Given 06/25/2021 9:12 AM EDT hydrALAZINE (APRESOLINE) injection 10 m g 10 mg, Intravenous, Every 4 hours PRN , Hypertension, Sys >140, Starting on Thu06/24/21 at 2012, For 30 days, Dilute in 25-50 mL normal saline. Administer over 30 minutes. labetalol (TRANDATE) injection 20 mg 20 mg, Intravenous, Every 4 hours PRN , High Blood Pressure, Sys >140, Starting on Thu06/24/21 at 2011, For 30 days, Hold for HR less than 60 bpm. 06/26/2021 9:04 AM EDT 400 mg Magnesium Oxide (MAG-OX) tablet 400 mg Given 400 mg, Oral, 2 Times Daily, First dose on Thu06/26/21 at 0900, For 30 days 06/25/2021 2:00 PM EDT 50 mL/hr magnesium sulfate infusion 2 g/50 mL Rate/Dose (premix) Verify 16 mEq, Intravenous, Every 1 hour PRN, for serum magnesium < 2 mEq/L, Starting on Thu06/24/21 at 2012, For 7 days, Serum Magnesium 1.6 - 1.9: give 16 mEq (2 g) q1h x 2
Serum Magnesium 1.5 and less: give 16 mEq (2 g) q1h x 3 50 mL/hr Restarted - All Meds 06/25/2021 1:25 PM EDT 50 mL/hr Restarted - All Meds 06/25/2021 1:18 PM EDT 06/25/2021 10:00 PM EDT 100 mL/hr NaCl infusion 0.9 % Rate/Dose at 100 mL/hr, Intravenous, Continuous, Verify Starting on Thu06/25/21 at 1000, For 30 days 100 mL/hr Rate/Dose Verify 06/25/2021 9:09 PM EDT 100 mL/hr New Bag 06/25/2021 9:08 PM EDT ondansetron (ZOFRAN) injection 4 mg 4 mg, Intravenous, Every 8 hours PRN, Nausea, Vomiting, Starting on Thu06/24/21 at 2011, For 7 days, Administer if unable to tolerate PO. ondansetron (ZOFRAN) tablet 4 mg 4 mg, Oral, Every 8 hours PRN, Nausea , Vomiting, Starting on Thu06/24/21 at 2011, For 7 days, Administer if able to tolerate PO. potassium chloride 10 mEq in 100 mL IVP B (premix) 10 mEq, Intravenous, Every 1 hour PRN, for serum potassium < 4 mEq/L, Starting on Thu06/24/21 at 2012, For 30 days, Serum Potassium 3.7 - 3.9: give 10 mEq q1h x2 Serum Potassium 3.6 and less: give 10 mEq q1h x 4 potassium chloride 20 mEq in 50 mL IVPB (premix) 20 mEq, Intravenous, Every 1 hour PRN, for serum potassium < 4 mEq/L, Starting on Thu06/24/21 at 2012, For 30 days, * For patients with continuous ECG monitoring * Serum Potassium 3.7 - 3.9 : give 20 mEq q1h x 1 Serum Potassium 3. 6 and less: give 20 mEq q1h x 2 potassium phosphate infusion 12 mmol/10 0 mL (central line) (premix) 12 mmol, Intravenous, at 50 mL/hr, Ever y 2 hours PRN, for serum phosphate < 2.6 mg/dL, Starting on Thu06/24/21 at 2012, For 7 days, * For patients with continuous ECG monitoring * DO NOT USE IF SERUM POTASSIUM > 4 mEq/L Potassium content: 17.6 mEq Serum phosphate 2 - 2.5: give 12 mmol q2h x1 Serum phosphate 1.9 and less: give 12 mmol q2 h x 2 Slower infusion rates (e.g. over 4 hours) are recommended in patients with renal impairment and/or less severe hypophosphatemia. Product contains 17.6 mEq of potassium., For central line use only. potassium phosphate infusion 6 mmol/100 mL (premix) 6 mmol, Intravenous, at 50 mL/hr, Every 2 hours PRN, for serum phosphate < 2.6 mg/dL, Starting on Thu06/24/21 at 2012, For 7 days, Serum phosphate 2 - 2.5: give 6 mmol q2h x2 Serum phosphate 1.9 and less: give 6 mmol q2h x 4 predniSONE (DELTASONE) tablet 10 mg 10 mg, Oral, Daily Standard, First dos e on Thu06/30/21 at 0900, For 1 day, Days 7 & 8 Take with food predniSONE (DELTASONE) tablet 20 mg 20 mg, Oral, Daily Standard, First dos e on Thu06/29/21 at 0900, For 1 day, Days 5 & 6 Take with Food predniSONE (DELTASONE) tablet 30 mg 30 mg, Oral, Daily Standard, First dos e on Thu06/28/21 at 0900, For 1 day, Days 3 & 4 Take with Food predniSONE (DELTASONE) tablet 40 mg 40 mg, Oral, Daily Standard, First dos e on Johnna 06/27/21 at 0900, For 1 day, Days 1 & 2 Take with Food predniSONE (DELTASONE) tablet 5 mg 5 mg, Oral, Daily Standard, First dose on Thu07/01/21 at 0900, For 1 day, Days 9 & 10 Take with food senna tablet 2 tablet 2 tablet, Oral, Nightly PRN, Constipation, Starting on Thu06/25/21 a t 0740, For 30 days sodium phosphate infusion 12 mmol/100 m L (central line) (premix) 12 mmol, Intravenous, at 50 mL/hr, Ever y 2 hours PRN, for serum phosphate < 2.6 mg/dL, Starting on Thu06/24/21 at 2012, For 7 days, * For patients with continuous ECG monitoring * Serum phosphate 2 - 2.5: give 12 mmol q2h x 1 Serum phosphate 1.9 and less: give 12 mmol q2h x 2 Slower infusion rates (e.g . over 4 to 6 hours) are recommended in patients with renal impairment and/or less severe hypophosphatemia., For central line use only. sodium phosphate infusion 6 mmol/100 mL (premix) 6 mmol, Intravenous, at 50 mL/hr, Every 2 hours PRN, for serum phosphate < 2.6 mg/dL, Starting on Thu06/24/21 at 2012, For 7 days, Serum phosphate 2 - 2.5: give 6 mmol q2h x 2 Serum phosphate 1. 9 and less: give 6 mmol q2h x 4 Action Date Dose Rate Site Medication Order MAR Action 06/25/2021 10:31 AM EDT 650 mg acetaminophen (TYLENOL) tablet 650 mg Given 650 mg, Oral, Every 6 hours PRN, Mild Pain (Pain Scale Score 1-3), Starting o n Thu06/25/21 at 0918, For 30 days, Maximum daily dose of acetaminophen is 3,000 mg from all sources in 24 hours. 06/25/2021 4:35 PM EDT 7.5 mLs Left Arm gadobutrol (GADAVIST) contrast injection Given by IV 7.5 mL push 7.5 mL (rounded from 7.76 mL = 0.1 mL/k g 77.6 kg), Intravenous, 1 TIME IMAGING, On Thu06/25/21 at 1630, For 1 dose, Do not mix or administer in the same IV line with other medications. 06/24/2021 9:25 PM EDT 100 mLs iohexol (OMNIPAQUE) 350 MG/ML contrast Given injection 100 mL 100 mL, Given by IV, 1 TIME IMAGING, On Thu06/24/21 at 2115, For 1 dose 06/25/2021 11:26 AM EDT 30 mg ketorolac (TORADOL) 30 MG/ML injection New Bag 30 mg 30 mg, Intravenous, Once, On Thu 1 at 1000, For 1 dose 06/26/2021 9:00 AM EDT 30 mg ketorolac (TORADOL) 30 MG/ML injection New Bag 30 mg 30 mg, Intravenous, Once, On Thu 1 at 0845, For 1 dose 06/26/2021 9:04 AM EDT 1 g 100 mL/hr magnesium sulfate in dextrose 5 % New Bag infusion (premix) 1 g 1 g, Intravenous, Administer over 60 Minutes, Once, On Thu06/26/21 at 0845, For 1 dose 06/25/2021 11:38 AM EDT 50 mL/hr magnesium sulfate infusion 2 g/50 mL Rate/Dose (premix) Verify 2 g, Intravenous, Administer over 60 Minutes, Once, On Thu06/25/21 at 1000, For 1 dose 2 g 50 mL/hr New Bag 06/25/2021 11:34 AM EDT 06/25/2021 8:46 AM EDT 100 mL/hr NaCl infusion 0.9 % Restarted - at 100 mL/hr, Intravenous, Continuous, All Meds Starting on Thu06/24/21 at 2015, For 2 days 100 mL/hr Rate/Dose Verify 06/25/2021 8:00 AM EDT 100 mL/hr Rate/Dose Verify 06/25/2021 7:16 AM EDT 06/25/2021 6:05 AM EDT 40 mEq potassium chloride (K-DUR) dissolvable Given tablet 40 mEq 40 mEq, Oral, Once, On Thu06/25/21 at 0545, For 1 dose, May be dissolved in water for patients with a G-Tube or unable to swallow. If concern for clogging G-Tube, may contact Pharmacy t o switch formulation to a powder packet. 06/26/2021 11:53 AM EDT 50 mg predniSONE (DELTASONE) tablet 50 mg Given 50 mg, Oral, Once, On Thu06/26/21 at 1145, For 1 dose, Take with food. documented in this encounter Active and Recently Administered Medications Times are shown in EDT. 06/25/2021 06/26/2021 Medication Order 06/24/2021 0912 (Given - Provider: Sam Gray)2121 (Not Given - Provider: Jaguar Millan RN - Reason: Patient/family refused) 0904 (Given - Provider: Julia Guzman RN)210 0 (Due) docusate sodium (COLACE) capsule 100 mg 100 mg, Oral, 2 Times Daily, First dose on Thu06/25/21 at 0900, For 30 days 1635 (Given by IV push - Provider: Isis Moreland, RT) gadobutrol (GADAVIST) contrast injectio n 7.5 mL (COMPLETED) 7.5 mL (rounded from 7.76 mL = 0.1 mL/k g 77.6 kg), Intravenous, 1 TIME IMAGING, On Thu06/25/21 at 1630, For 1 dose, Do not mix or administer in the same IV line with other medications. iohexol (OMNIPAQUE) 350 MG/ML contrast 2124 (Given - injection 100 mL (COMPLETED) Provider: Cathy Bowser 100 mL, Given by IV, 1 TIME IMAGING, On Pristera, RT ) 06/24/21 at 2115, For 1 dose 1126 (New Bag - Provider: Ana Jalloh, CHERYLE) ketorolac (TORADOL) 30 MG/ML injection 30 mg (COMPLETED) 30 mg, Intravenous, Once, On Thu 1 at 1000, For 1 dose 0900 (New Bag - Provider: Julia Guzman RN) ketorolac (TORADOL) 30 MG/ML injection 30 mg (COMPLETED) 30 mg, Intravenous, Once, On Thu 1 at 0845, For 1 dose 0904 (Given - Provider: Julia Guzman RN)210 0 (Due) Magnesium Oxide (MAG-OX) tablet 400 mg 400 mg, Oral, 2 Times Daily, First dose on Thu06/26/21 at 0900, For 30 days 09 (New Bag - Provider: Julia Guzman RN) magnesium sulfate in dextrose 5 % infusion (premix) 1 g (COMPLETED) 1 g, Intravenous, Administer over 60 Minutes, Once, On Thu06/26/21 at 0845, For 1 dose 1134 (New Bag - Provider: Ana Jalloh RN)1138 (Rate/Dose Verify - Provider: Ana Jalloh RN)1234 (Stopped - All Meds - Provider: Ana Jalloh RN) magnesium sulfate infusion 2 g/50 mL (premix) (COMPLETED) 2 g, Intravenous, Administer over 60 Minutes, Once, On Thu06/25/21 at 1000, For 1 dose 0605 (Given - Provider: Edmond Bangura RN) potassium chloride (K-DUR) dissolvable tablet 40 mEq (COMPLETED) 40 mEq, Oral, Once, On Thu06/25/21 at 0545, For 1 dose, May be dissolved in water for patients with a G-Tube or unable to swallow. If concern for clogging G-Tube, may contact Pharmacy t o switch formulation to a powder packet. predniSONE (DELTASONE) tablet 10 mg(Linked Group 1) 10 mg, Oral, Daily Standard, First dos e on Thu06/30/21 at 0900, For 1 day, Days 7 & 8 Take with food predniSONE (DELTASONE) tablet 20 mg(Linked Group 1) 20 mg, Oral, Daily Standard, First dos e on Thu06/29/21 at 0900, For 1 day, Days 5 & 6 Take with Food predniSONE (DELTASONE) tablet 30 mg(Linked Group 1) 30 mg, Oral, Daily Standard, First dos e on Thu06/28/21 at 0900, For 1 day, Days 3 & 4 Take with Food predniSONE (DELTASONE) tablet 40 mg(Linked Group 1) 40 mg, Oral, Daily Standard, First dos e on Johnna 06/27/21 at 0900, For 1 day, Days 1 & 2 Take with Food predniSONE (DELTASONE) tablet 5 mg(Linked Group 1) 5 mg, Oral, Daily Standard, First dose on Thu07/01/21 at 0900, For 1 day, Days 9 & 10 Take with food 1153 (Given - Provider: Julia Guzman RN) predniSONE (DELTASONE) tablet 50 mg (COMPLETED) 50 mg, Oral, Once, On Thu06/26/21 at 1145, For 1 dose, Take with food. 06/25/2021 06/26/2021 Medication Order 06/24/2021 0000 (Rate/Dose Verify - Provider: Cain Bangura RN)0100 (Rate/Dose Verify - Provider: Edmond Bangura RN)0200 (Rate/Dose Verify - Provider: Edmond Bangura RN)0300 (Rate/Dose Verify - Provider: Edmond Bangura RN)0400 (Rate/Dose Verify - Provider: Edmond Bangura RN)0500 (Rate/Dose Verify - Provider: Edmond Bangura RN)0651 (Rate/Dose Change - Provider: Edmond Bangura RN)0655 (Rate/Dose Change - Provider: Edmond Bangura RN)0700 (Rate/Dose Verify - Provider: Edmond Bangura RN)0716 (New Bag - Provider: Edmond Bangura RN)0716 (Rate/Dose Verify - Provider: Ana Jalloh RN)0800 (Rate/Dose Verify - Provider: Ana Jalloh RN)0837 (Paused - Provider: Ana Jalloh RN)0846 (Restarted - All Meds - Provider: Ana Jalloh RN)0945 (Paused - Provider: Ana Jalloh, CHERYLE)0947 (Stopped - All Meds - Provider: Ana Jalloh RN) NaCl infusion 0.9 % (CANCELED) 204 (New Bag - at 100 mL/hr, Intravenous, Continuous, Provider: Chr istian Starting on Thu06/24/21 at 2015, For 2 Deep Bangura RN)20 45 days (Rate/Dose Verify - Provider: Edmond Bangura RN)2100 (Rate/Dose Verify - Provider: Edmond Bangura, RN)2104 (Paused - Provider: Edmond Bangura, RN)2113 (Restarted - All Meds - Provider: Edmond Bangura RN)2200 (Rate/Dose Verify - Provider: Edmond Bangura RN)2300 (Rate/Dose Verify - Provider: Edmond Bangura, RN) 1128 (New Bag - Provider: Ana Jalloh RN)1129 (Paused - Provider: Ana Jalloh RN)1130 (Restarted - All Meds - Provider: Ana Jalloh RN)1130 (Paused - Provider: Ana Jalloh, RN)1130 (Restarted - All Meds - Provider: Ana Jalloh RN)1300 (Rate/Dose Verify - Provider: Ana Jalloh RN)1400 (Rate/Dose Verify - Provider: Ana Jalloh RN)1500 (Rate/Dose Verify - Provider: Ana Jalloh RN)1526 (Paused - Provider: Ana Jalloh RN)1716 (Restarted - All Meds - Provider: Ana Jalloh, CHERYLE)1725 (Paused - Provider: Ana Jalloh, RN)1730 (Restarted - All Meds - Provider: Ana Jalloh RN)1800 (Rate/Dose Verify - Provider: Ana Jalloh RN)1900 (Rate/Dose Verify - Provider: Ana Jalloh RN)2000 (Rate/Dose Verify - Provider: Jaguar Millan RN)202 (Rate/Dose Change - Provider: Jaguar Millan RN)202 (Rate/Dose Change - Provider: Jaguar Millan, RN)2100 (Rate/Dose Verify - Provider: Jaguar Millan, RN)210 (New Bag - Provider: Jaguar Millan, CHERYLE)210 (Rate/Dose Verify - Provider: Jaguar Millan, RN)215 (Canceled Entry - Provider: Jaguar Millan, RN)2200 (Rate/Dose Verify - Provider: Jaguar Millan, RN) NaCl infusion 0.9 % at 100 mL/hr, Intravenous, Continuous, Starting on Thu06/25/21 at 1000, For 30 days 06/25/2021 06/26/2021 Medication Order 06/24/2021 1838 (Given - Provider: Sam Aguilar) 1152 (Given - Provider: Julia Guzman RN) acetaminophen (TYLENOL) tablet 650 mg 650 mg, Oral, Every 6 hours PRN, Mild Pain (Pain Scale Score 1-3), Headaches, Fever, Starting on Thu06/25/21 at 1221, For 30 days, Maximum daily dose of acetaminophen is 3,000 mg from all sources in 24 hours. 1031 (Given - Provider: Sam Gray) acetaminophen (TYLENOL) tablet 650 mg (CANCELED) 650 mg, Oral, Every 6 hours PRN, Mild Pain (Pain Scale Score 1-3), Starting o n Thu06/25/21 at 0918, For 30 days, Maximum daily dose of acetaminophen is 3,000 mg from all sources in 24 hours. bisacodyl (DULCOLAX) suppository 10 mg 10 mg, Rectal, Every 72 hours PRN, Constipation, Starting on Thu06/25/21 a t 0740, For 30 days, Hold if patient has had BM within the past 2 days. calcium gluconate in NaCl 0.9 % infusio n 2 g/50 mL 2 g, Intravenous, Every 1 hour PRN, fo r ionized calcium < 1.13 mmol/L (4.51 mg/dL), Starting on Thu06/24/21 at 2012 , For 7 days, Ionized Calcium 1 - 1.12 mmol/L (4.01 - 4.5 mg/dL): give 2 g q1h x 1
Ionized Calcium less than 1 mmol/L (less than 4.01 mg/dL): give 2 g q1h x2 hydrALAZINE (APRESOLINE) injection 10 m g 10 mg, Intravenous, Every 4 hours PRN , Hypertension, Sys >140, Starting on Thu06/24/21 at 2012, For 30 days, Dilute in 25-50 mL normal saline. Administer over 30 minutes. labetalol (TRANDATE) injection 20 mg 20 mg, Intravenous, Every 4 hours PRN , High Blood Pressure, Sys >140, Starting on Thu06/24/21 at 2011, For 30 days, Hold for HR less than 60 bpm. 0609 (New Bag - Provider: Edmond weaver, CHERYLE)0610 (Rate/Dose Verify - Provider: Edmond Bangura, RN)0652 (Paused - Provider: Edmond Bangura RN)0655 (Restarted - All Meds - Provider: Edmond Bangura RN)0700 (Rate/Dose Verify - Provider: Edmond Bangura RN)0712 (Stopped - All Meds - Provider: Ana Jalloh RN)1317 (New Bag - Provider: Ana Jalloh RN)1317 (Paused - Provider: Ana Jalloh RN)1318 (Restarted - All Meds - Provider: Ana Jalloh RN)1324 (Paused - Provider: Ana Jalloh RN)1325 (Restarted - All Meds - Provider: Ana Jalloh RN)1400 (Rate/Dose Verify - Provider: Ana Jalloh RN)1419 (Stopped - All Meds - Provider: Ana Jalloh RN) magnesium sulfate infusion 2 g/50 mL (premix) 16 mEq, Intravenous, Every 1 hour PRN, for serum magnesium < 2 mEq/L, Starting on Thu06/24/21 at 2012, For 7 days, Serum Magnesium 1.6 - 1.9: give 16 mEq (2 g) q1h x 2
Serum Magnesium 1.5 and less: give 16 mEq (2 g) q1h x 3 ondansetron (ZOFRAN) injection 4 mg(Linked Group 2) 4 mg, Intravenous, Every 8 hours PRN, Nausea, Vomiting, Starting on Thu06/24/21 at 2011, For 7 days, Administer if unable to tolerate PO. ondansetron (ZOFRAN) tablet 4 mg(Linked Group 2) 4 mg, Oral, Every 8 hours PRN, Nausea , Vomiting, Starting on Thu06/24/21 at 2011, For 7 days, Administer if able to tolerate PO. potassium chloride 10 mEq in 100 mL IVP B (premix)(Linked Group 3) 10 mEq, Intravenous, Every 1 hour PRN, for serum potassium < 4 mEq/L, Starting on Thu06/24/21 at 2012, For 30 days, Serum Potassium 3.7 - 3.9: give 10 mEq q1h x2 Serum Potassium 3.6 and less: give 10 mEq q1h x 4 potassium chloride 20 mEq in 50 mL IVPB (premix)(Linked Group 3) 20 mEq, Intravenous, Every 1 hour PRN, for serum potassium < 4 mEq/L, Starting on Thu06/24/21 at 2012, For 30 days, * For patients with continuous ECG monitoring * Serum Potassium 3.7 - 3.9 : give 20 mEq q1h x 1 Serum Potassium 3. 6 and less: give 20 mEq q1h x 2 potassium phosphate infusion 12 mmol/10 0 mL (central line) (premix)(Linked Group 4) 12 mmol, Intravenous, at 50 mL/hr, Ever y 2 hours PRN, for serum phosphate < 2.6 mg/dL, Starting on Thu06/24/21 at 2012, For 7 days, * For patients with continuous ECG monitoring * DO NOT USE IF SERUM POTASSIUM > 4 mEq/L Potassium content: 17.6 mEq Serum phosphate 2 - 2.5: give 12 mmol q2h x1 Serum phosphate 1.9 and less: give 12 mmol q2 h x 2 Slower infusion rates (e.g. over 4 hours) are recommended in patients with renal impairment and/or less severe hypophosphatemia. Product contains 17.6 mEq of potassium., For central line use only. potassium phosphate infusion 6 mmol/100 mL (premix)(Linked Group 4) 6 mmol, Intravenous, at 50 mL/hr, Every 2 hours PRN, for serum phosphate < 2.6 mg/dL, Starting on Thu06/24/21 at 2012, For 7 days, Serum phosphate 2 - 2.5: give 6 mmol q2h x2 Serum phosphate 1.9 and less: give 6 mmol q2h x 4 senna tablet 2 tablet 2 tablet, Oral, Nightly PRN, Constipation, Starting on Thu06/25/21 a t 0740, For 30 days sodium phosphate infusion 12 mmol/100 m L (central line) (premix)(Linked Group 5) 12 mmol, Intravenous, at 50 mL/hr, Ever y 2 hours PRN, for serum phosphate < 2.6 mg/dL, Starting on Thu06/24/21 at 2012, For 7 days, * For patients with continuous ECG monitoring * Serum phosphate 2 - 2.5: give 12 mmol q2h x 1 Serum phosphate 1.9 and less: give 12 mmol q2h x 2 Slower infusion rates (e.g . over 4 to 6 hours) are recommended in patients with renal impairment and/or less severe hypophosphatemia., For central line use only. sodium phosphate infusion 6 mmol/100 mL (premix)(Linked Group 5) 6 mmol, Intravenous, at 50 mL/hr, Every 2 hours PRN, for serum phosphate < 2.6 mg/dL, Starting on Thu06/24/21 at 2012, For 7 days, Serum phosphate 2 - 2.5: give 6 mmol q2h x 2 Serum phosphate 1. 9 and less: give 6 mmol q2h x 4 Order Group 1: predniSONE (DELTASONE) tablet 40 mgJump to med 40 mg, Oral, Daily Standard, First dos e on Thu06/27/21 at 0900, For 1 day
Days 1 & 2 Take with Food
Followed by predniSONE (DELTASONE) tablet 30 mgJump to med 30 mg, Oral, Daily Standard, First dos e on Thu06/28/21 at 0900, For 1 day
Days 3 & 4 Take with Food
Followed by predniSONE (DELTASONE) tablet 20 mgJump to med 20 mg, Oral, Daily Standard, First dos e on Thu06/29/21 at 0900, For 1 day
Days 5 & 6 Take with Food
Followed by predniSONE (DELTASONE) tablet 10 mgJump to med 10 mg, Oral, Daily Standard, First dos e on Thu06/30/21 at 0900, For 1 day
Days 7 & 8 Take with food
Followed by predniSONE (DELTASONE) tablet 5 mgJump to med 5 mg, Oral, Daily Standard, First dose on Thu07/01/21 at 0900, For 1 day
Days 9 & 10 Take with food
Group 2: ondansetron (ZOFRAN) injection 4 mgJump to med 4 mg, Intravenous, Every 8 hours PRN, Nausea, Vomiting, Starting on Thu06/24/21 at 2011, For 7 days
Administer if unable to tolerat e PO.
Or ondansetron (ZOFRAN) tablet 4 mgJump to med 4 mg, Oral, Every 8 hours PRN, Nausea , Vomiting, Starting on Thu06/24/21 at 2011, For 7 days
Administer if able to tolerate PO.
Group 3: potassium chloride 20 mEq in 50 mL IVPB (premix)Jump to med 20 mEq, Intravenous, Every 1 hour PRN, for serum potassium < 4 mEq/L, Starting on Thu06/24/21 at 2012, For 30 days
* For patients wit h continuous ECG monitoring * Serum Potassium 3.7 - 3.9: give 20 mEq q1h x 1 Serum Po tassium 3.6 and less: give 20 mEq q1h x 2
Or potassium chloride 10 mEq in 100 mL IVP B (premix)Jump to med 10 mEq, Intravenous, Every 1 hour PRN, for serum potassium < 4 mEq/L, Starting on Thu06/24/21 at 2012, For 30 days
Serum Potassium 3. 7 - 3.9: give 10 mEq q1h x2 Serum Potassium 3.6 and less: give 10 mEq q1h x 4
Group 4: potassium phosphate infusion 12 mmol/10 0 mL (central line) (premix)Jump to med 12 mmol, Intravenous, at 50 mL/hr, Ever y 2 hours PRN, for serum phosphate < 2.6 mg/dL, Starting on Thu06/24/21 at 2012, For 7 days
* Fo r patients with continuous ECG monitoring * DO NOT USE IF SERUM POTASSIUM > 4 mEq/L Pota ssium content: 17.6 mEq Serum phosphate 2 - 2.5: give 12 mmol q2h x1 Serum phosphate 1. 9 and less: give 12 mmol q2h x 2 Slower infusion rates (e.g. over 4 hours) are recommended in patients with renal impairment and/or less severe hypophosphatemia. Product contains 17.6 mEq of potassium.
For central line use only.
Or potassium phosphate infusion 6 mmol/100 mL (premix)Jump to med 6 mmol, Intravenous, at 50 mL/hr, Every 2 hours PRN, for serum phosphate < 2.6 mg/dL, Starting on Thu06/24/21 at 2012, For 7 days
Seru m phosphate 2 - 2.5: give 6 mmol q2h x2 Serum phosphate 1.9 and less: give 6 mmol q2h x 4
Group 5: sodium phosphate infusion 12 mmol/100 m L (central line) (premix)Jump to med 12 mmol, Intravenous, at 50 mL/hr, Ever y 2 hours PRN, for serum phosphate < 2.6 mg/dL, Starting on Thu06/24/21 at 2012, For 7 days
* Fo r patients with continuous ECG monitoring * Serum phosphate 2 - 2.5: give 12 mmol q2h x 1 Serum phosphate 1.9 and less: give 12 mmol q2h x 2 Slower infusion rates (e.g. over 4 to 6 hours) are recommended in patients with renal impairment and/or less severe hypophosp hatemia.
For central line use only.
Or sodium phosphate infusion 6 mmol/100 mL (premix)Jump to med 6 mmol, Intravenous, at 50 mL/hr, Every 2 hours PRN, for serum phosphate < 2.6 mg/dL, Starting on Thu06/24/21 at 2012, For 7 days
Seru m phosphate 2 - 2.5: give 6 mmol q2h x 2 Serum phosphate 1.9 and less: give 6 mmol q2h x 4
documented in this encounter
--- OUTSIDE RECORDS SUMMARY | 2021-09-05 13:03 | CCD ---
Author Author [facility] Address Unknown Phone Unavailable Care Team Providers Care Carton Marker Machine Name Role Phone Osman Meyer MD Unavailable Unavailable Osman Meyer MD Unavailable Unavailable Osman Meyer MD Unavailable Unavailable Osman Meyer MD Unavailable Unavailable Osman Meyer MD Unavailable Unavailable Osman Meyer MD Unavailable Unavailable Osman Meyer MD Unavailable Unavailable Osman Meyer MD Unavailable Unavailable Osman Meyer MD Unavailable Unavailable Osman Meyer MD Unavailable Unavailable Osman Meyer MD Unavailable Unavailable Osman Meyer MD Unavailable Unavailable Medrea, Татьяна Unavailable Medrea, Татьяна Unavailable MEDREA, ТАТЬЯНА Unavailable Unavailable Aba Gutierrez MD Unavailable Unavailable Aba Gutierrez MD Unavailable Unavailable Aba Gutierrez MD Unavailable Unavailable Aba Gutierrez MD Unavailable Unavailable Aba Gutierrez MD Unavailable Unavailable Aba Gutierrez MD Unavailable Unavailable Aba Gutierrez MD Unavailable Unavailable Aba Gutierrez MD Unavailable Unavailable Aba Gutierrez MD Unavailable Unavailable Aba Gutierrez MD Unavailable Unavailable Aba Gutierrez MD Unavailable Unavailable Aba Gutierrez MD Unavailable Unavailable Aba Gutierrez MD Unavailable Unavailable Aba Gutierrez MD Unavailable Unavailable Aba Gutierrez MD Unavailable Unavailable Aba Gutierrez MD Unavailable Unavailable Brenda, Aba Suggs MD Unavailable Unavailable Brenda, Aba Suggs MD Unavailable Unavailable Brenda, Aba Suggs MD Unavailable Unavailable Brenda, Aba Suggs MD Unavailable Unavailable Brenda, Aba Suggs MD Unavailable Unavailable Brenda, Aba Suggs MD Unavailable Unavailable Brenda, Aba Suggs MD Unavailable Unavailable Brenda, Aba Suggs MD Unavailable Unavailable Brenda, Aba Suggs MD Unavailable Unavailable Brenda, Aba Suggs MD Unavailable Unavailable Brenda, Aba Suggs MD Unavailable Unavailable Brenda, Aba Suggs MD Unavailable Unavailable Brenda, Aba Suggs MD Unavailable Unavailable Brenda, Aba Suggs MD Unavailable Unavailable Brenda, Aba Suggs MD Unavailable Unavailable Brenda, Aba Suggs MD Unavailable Unavailable Brenda, Aba Suggs MD Unavailable Unavailable Brenda, Aba Suggs MD Unavailable Unavailable Brenda, Aba Suggs MD Unavailable Unavailable Brenda, Aba Suggs MD Unavailable Unavailable Brenda, Aba Suggs MD Unavailable Unavailable Brenda, Aba Suggs MD Unavailable Unavailable Brenda, Aba Suggs MD Unavailable Unavailable Brenda, Aba Suggs MD Unavailable Unavailable Brenda, Aba Suggs MD Unavailable Unavailable Brenda, Aba Suggs MD Unavailable Unavailable Charley Cummings MD Unavailable Unavailable Charley Cummings MD Unavailable Unavailable Charley Cummings MD Unavailable Unavailable Brenda, Aba Suggs MD Unavailable Unavailable Brenda, Aba Suggs MD Unavailable Unavailable Brenda, Aba Suggs MD Unavailable Unavailable Brenda, Aba Suggs MD Unavailable Unavailable Brenda, Aba Suggs MD Unavailable Unavailable Brenda, Aba Suggs MD Unavailable Unavailable Brenda, Aba Suggs MD Unavailable Unavailable Brenda, Aba Suggs MD Unavailable Unavailable Brenda, Aba Suggs MD Unavailable Unavailable Brenda, Aba Suggs MD Unavailable Unavailable Brenda, Aba Suggs MD Unavailable Unavailable BrendaAba albert MD Unavailable Unavailable BrendaAba albert MD Unavailable Unavailable Brenda, Aba Suggs MD Unavailable Unavailable Brenda, Aba Suggs MD Unavailable Unavailable Brenda, Aba Suggs MD Unavailable Unavailable Brenda, Aba Suggs MD Unavailable Unavailable Brenda, Aba Suggs MD Unavailable Unavailable Brenda, Aba Suggs MD Unavailable Unavailable Brenda, Aba Suggs MD Unavailable Unavailable Brenda, Aba Suggs MD Unavailable Unavailable Brenda, Aba Suggs MD Unavailable Unavailable Brenda, Aba Suggs MD Unavailable Unavailable Brenda, Aba Suggs MD Unavailable Unavailable Brenda, Aba Suggs MD Unavailable Unavailable Brenda, Aba Suggs MD Unavailable Unavailable Brenda, Aba Suggs MD Unavailable Unavailable Brenda, Aba Suggs MD Unavailable Unavailable Brenda, Aba Suggs MD Unavailable Unavailable Brenda, Aba Suggs MD Unavailable Unavailable Brenda, Aba Suggs MD Unavailable Unavailable Brenda, Aba Suggs MD Unavailable Unavailable Brenda, Aba Suggs MD Unavailable Unavailable Brenda, Aba Suggs MD Unavailable Unavailable Brenda, Aba Suggs MD Unavailable Unavailable Brenda, Aba Ifeanyi CLEMONS Unavailable Unavailable Brenda, F Ifeanyi CLEMONS Unavailable Unavailable Brenda, Aba Suggs MD Unavailable Unavailable Brenda, F Ifeanyi CLEMONS Unavailable Unavailable Brenda, F Ifeanyi CLEMONS Unavailable Unavailable Brenda, Aba Ifeanyi CLEMONS Unavailable Unavailable Brenda, Aba Ifeanyi CLEMONS Unavailable Unavailable Re-disclosure Warning The records that you are [...] is protected by Article 27-F of the [facility] Public Health law. If you continue you may have access to information: Regarding HIV / AIDS; Provided by facilities licensed or operated by the [facility] Office of Mental Health; or Provided by the [facility] Office for People With Developmental Disabilities. If such information is present, then the following [facility] mandated warning applies: This information has been [...] law may result in a fine or skilled nursing sentence or both. A general authorization for the release of medical or other information is NOT sufficient authorization for further disc losure. Allergies and Adverse Reactions Type Description Substance Reaction Status Data Source(s ) Propensity to adverse reactions NO KNOWN ALLERGIES NO KNOWN ALLERGIES [facility] [place] OTHER OTHER Anaphylaxis [facility] Encounters Encounter Providers Location Date Indications Data Source(s ) Outpatient Attender: ТАТЬЯНА JERONIMOAAttender: Татьяна Romero 09/26/2021 12:00:[address] [facility] [place] Outpatient Attender: ТАТЬЯНА NASSARREAAttender: Татьяна Medrekira 09/23/2021 12:00:[address] [facility] [place] Outpatient Referrer: ТАТЬЯНА ROMERO 09/19/2021 12:00:[address] [facility] Outpatient Attender: ТАТЬЯНА NASSARREAAttender: Татьяна Medrekira [facility]: Т[facility]на NassarreaAttender: ТАТЬЯНА ROMERO [id number] 08/01/2021 12:00:00 AM EDT - 08/01/2021 09:23:31 AM EDT [facility] Outpatient Attender: Ifeanyi Gutierrez MD 2020 08:03:00 AM EDT - 07/02/2021 08:03:00 AM EDT [facility] Inpatient Attender: Ana María Meyer MDAdm itter: Ana María Meyer MDReferrer: Charley Cummings MD [id number] 06/24/2021 12:00:00 AM EDT - 06/26/2021 06:41:00 PM [facility] Patient discharged. Outpatient Attender: Ifeanyi Gutierrez MD Family Practice 05/07/2021 1 1:30:00 AM EDT [facility] Outpatient Attender: Ifeanyi Gutierrez MD 2020 11:08:00 AM EDT - 05/07/2021 11:08:00 AM EDT [facility] Outpatient Attender: Ifeanyi Gutierrez MD 2020 11:01:00 AM EDT - 04[facility]22[facility] Brand Name Start Date Product Form Dose Route Admi nistrative Instructions Pharmacy Instructions Status Indications Reaction Description Data Source(s) topiramate 25 MG Oral Tablet Topiramate 25 MG Oral Tab let (Topamax) Topiramate 25 MG Oral Tablet (Topamax) 08/01/2021 12:00:00 AM EDT 50 mg Oral active Take 2 tablets by mouth Two Times Daily [facility] Nerivio Device [id number] 08/01/2021 12:00:00 AM EDT 1 {d evice} Does not apply active 1 Device by Does not apply route Two times daily as needed [facility] [place] rizatriptan 10 MG Oral Tablet Rizatriptan Benzoate 10 MG Oral Tablet (Maxalt) Rizatriptan Benzoate 10 MG Oral Tablet (Maxalt) 08/01/2021 12:00:00 AM EDT 10 mg Oral active Take 1 tab let by mouth as needed for MigraineMay repeat in [address] [facility] Prednisone 5 MG Oral Tablet predniSONE 5 MG Oral Table t (DELTASONE) predniSONE 5 MG Oral Tablet (DELTASONE) 07/01/2021 12:00:00 AM EDT 5 mg Oral aborted Take 1 tablet by mouth daily for [address] [facility] Prednisone 5 MG Oral Tablet predniSONE 5 MG Oral Table t (DELTASONE) predniSONE 5 MG Oral Tablet (DELTASONE) 07/01/2021 12:00:00 AM EDT 5 mg Oral aborted Take 1 tablet by mouth daily for [address] [facility] Prednisone 5 MG Oral Tablet predniSONE 5 MG Oral Table t (DELTASONE) predniSONE 5 MG Oral Tablet (DELTASONE) 07/01/2021 12:00:00 AM EDT 5 mg Oral aborted Take 1 tablet by mouth daily for [address] [facility] Prednisone 10 MG Oral Tablet predniSONE 10 MG Oral Tab let (DELTASONE) predniSONE 10 MG Oral Tablet (DELTASONE) 06/30/2021 12:00:00 AM EDT 10 mg Ora l aborted Take 1 tablet by mouth daily fo r [address] [facility] [place] Prednisone 10 MG Oral Tablet predniSONE 10 MG Oral Tab let (DELTASONE) predniSONE 10 MG Oral Tablet (DELTASONE) 06/30/2021 12:00:00 AM EDT 10 mg Ora l aborted Take 1 tablet by mouth daily fo r [address] [facility] [place] Prednisone 10 MG Oral Tablet predniSONE 10 MG Oral Tab let (DELTASONE) predniSONE 10 MG Oral Tablet (DELTASONE) 06/30/2021 12:00:00 AM EDT 10 mg Ora l aborted Take 1 tablet by mouth daily fo r [address] [facility] [place] Prednisone 20 MG Oral Tablet predniSONE 20 MG Oral Tab let (DELTASONE) predniSONE 20 MG Oral Tablet (DELTASONE) 06/29/2021 12:00:00 AM EDT 20 mg Ora l aborted Take 1 tablet by mouth daily fo r [address] [facility] [place] Prednisone 20 MG Oral Tablet predniSONE 20 MG Oral Tab let (DELTASONE) predniSONE 20 MG Oral Tablet (DELTASONE) 06/29/2021 12:00:00 AM EDT 20 mg Ora l aborted Take 1 tablet by mouth daily fo r [address] [facility] [place] Prednisone 20 MG Oral Tablet predniSONE 20 MG Oral Tab let (DELTASONE) predniSONE 20 MG Oral Tablet (DELTASONE) 06/29/2021 12:00:00 AM EDT 20 mg Ora l aborted Take 1 tablet by mouth daily fo r [address] [facility] Prednisone 10 MG Oral Tablet predniSONE 10 MG Oral Tab let (DELTASONE) predniSONE 10 MG Oral Tablet (DELTASONE) 06/28/2021 12:00:00 AM EDT 30 mg Ora l aborted Take 3 tablets by mouth daily f or [address] [facility] [place] Prednisone 10 MG Oral Tablet predniSONE 10 MG Oral Tab let (DELTASONE) predniSONE 10 MG Oral Tablet (DELTASONE) 06/28/2021 12:00:00 AM EDT 30 mg Ora l aborted Take 3 tablets by mouth daily f or [address] [facility] [place] Prednisone 10 MG Oral Tablet predniSONE 10 MG Oral Tab let (DELTASONE) predniSONE 10 MG Oral Tablet (DELTASONE) 06/28/2021 12:00:00 AM EDT 30 mg Ora l aborted Take 3 tablets by mouth daily f or [address] [facility] [place] predniSONE (DELTASONE) tablet 40 mg 06/27/2021 09:00:00 AM EDT 40 mg Oral active [Order 1 Start] Name: predniSONE (DELTASONE) tablet 40 mg Signed Summary: 40 mg, Oral, Daily Standard, First dose on Thu06/27/21 at 0900, For 1 day
Days 1 & 2 Take with Food
[Order 1 End] [Order 2 Start] Name: predniSONE (DELTASONE) tablet 30 mg Signed Summary: 30 mg, Oral, Daily Standard, First dose on Thu06/28/21 at 0900, For 1 day
Days 3 & 4 Take with Food
[Order 2 End] [Order 3 Start] Name: predniSONE (DELTASONE) tablet 20 mg Signed Summary: 20 mg, Oral, Daily Standard, First dose on Thu06/29/21 at 0900, For 1 day
Days 5 & 6 Take with Food
[Order 3 End] [Order 4 Start] Name: predniSONE (DELTASONE) tablet 10 mg Signed Summary: 10 mg, Oral, Daily Standard, First dose on Thu06/30/21 at 0900, For 1 day
Days 7 & 8 Take with food
[Order 4 End] [Order 5 Start] Name: predniSONE (DELTASONE) tablet 5 mg Signed Summary: 5 mg, Oral, Daily Standard, First dose on 07/01/21 at 0900, For 1 day
Days 9 & 10 Take with food
[Order 5 End] [facility] [place] Medication administered onsite Prednisone 10 MG Oral Tablet predniSONE 10 MG Oral Tab let (DELTASONE) predniSONE 10 MG Oral Tablet (DELTASONE) 06/27/2021 12:00:00 AM EDT Oral active Take 4 tablets by mouth daily for 1 day, THEN 3 tablets daily for 1 day, THEN 2 tablets daily for 1 day, THEN 1 tablet daily for 1 day, THEN 0.5 tablets daily for [address] [facility] [place] Prednisone 20 MG Oral Tablet predniSONE 20 MG Oral Tab let (DELTASONE) predniSONE 20 MG Oral Tablet (DELTASONE) 06/27/2021 12:00:00 AM EDT 40 mg Ora l aborted Take 2 tablets by mouth daily f or [address] [facility] [place] Prednisone 20 MG Oral Tablet predniSONE 20 MG Oral Tab let (DELTASONE) predniSONE 20 MG Oral Tablet (DELTASONE) 06/27/2021 12:00:00 AM EDT 40 mg Ora l aborted Take 2 tablets by mouth daily f or [address] [facility] [place] Prednisone 20 MG Oral Tablet predniSONE 20 MG Oral Tab let (DELTASONE) predniSONE 20 MG Oral Tablet (DELTASONE) 06/27/2021 12:00:00 AM EDT 40 mg Ora l aborted Take 2 tablets by mouth daily f or [address] [facility] predniSONE (DELTASONE) tablet 50 mg 06/26/2021 11:45:00 AM EDT 50 mg Oral completed 50 mg, Oral, Onc e, On Thu06/26/21 at 1145, For 1 dose
Take with food.
[facility] [place] Medication administered onsite Magnesium Oxide 400 MG Oral Tablet Magnesium Oxide (MA G-OX) tablet 400 mg Magnesium Oxide (MAG-OX) tablet 400 mg 06/26/2021 09:00:00 AM EDT 4 00 mg Oral active 400 mg, Oral, 2 Times Daily, First dose on Thu06/26/21 at 0900, For [address] [facility] [place] Medication administered onsite 1 ML Ketorolac Tromethamine 30 MG/ML Car tridge ketorolac (TORADOL) 30 MG/ML injection 30 mg ketorolac (TORADOL) 30 MG/ML injection 30 mg 08:45:00 AM EDT 30 mg Intravenous completed 30 mg, Intravenous, Once, On Thu06/26/21 at 0845, For [address] [facility] [place] Medication administered onsite magnesium sulfate in dextrose 5 % infusion (premix) 1 g 0409 -[id number] 06/26/2021 08:45:00 AM EDT 1 g Intravenous completed 1 g, Intravenous, Administer over 60 Minutes, Once, On Thu06/26/21 at 0845, For [address] [facility] [place] Medication administered onsite Magnesium Oxide 400 MG Oral Tablet Magne sium Oxide 400 (241.3 Mg) MG Oral Tablet (MAG-OX) Magnesium Oxide 400 (241.3 Mg) MG Oral Tablet (MAG-OX) 06/26/2021 12:00:00 AM EDT 400 mg Oral active Take 1 tablet by mouth Two Times Daily [facility] [place] Magnesium Oxide 400 MG Oral Tablet Magne sium Oxide 400 (241.3 Mg) MG Oral Tablet (MAG-OX) Magnesium Oxide 400 (241.3 Mg) MG Oral Tablet (MAG-OX) 06/26/2021 12:00:00 AM EDT 400 mg Oral aborted Take 1 tablet by mouth Two Times Daily [facility] [place] Magnesium Oxide 400 MG Oral Tablet Magne sium Oxide 400 (241.3 Mg) MG Oral Tablet (MAG-OX) Magnesium Oxide 400 (241.3 Mg) MG Oral Tablet (MAG-OX) 06/26/2021 12:00:00 AM EDT 400 mg Oral aborted Take 1 tablet by mouth Two Times Daily [facility] [place] gadobutrol (GADAVIST) contrast injection 7.5 mL [id number] 06/25/2021 04:30:00 PM EDT 0.1 mL/kg Intravenous completed 7.5 mL (rounded from 7.76 mL = 0.1 mL/kg 77.6 kg), Intravenous, 1 TIME IMAGING, On Thu06/25/21 at 1630, For 1 dose
Do not mix or administer in the same IV line with other medications.
[facility] [place] Medication administered onsite Acetaminophen 325 MG Oral Tablet acetaminophen (TYLENO L) tablet 650 mg acetaminophen (TYLENOL) tablet 650 mg 06/25/2021 12:21:00 PM EDT 65 0 mg Oral active 650 mg, Oral, E very 6 hours PRN, Mild Pain (Pain Scale Score 1- 3), Headaches, Fever, Starting on Thu06/25/21 at 1221, For 30 days
Maximum daily dose of acetaminophen is 3,000 mg from all sources in [address]
[facility] [place] Medication administered onsite 50 ML Magnesium Sulfate 40 MG/ML Injecti on magnesium sulfate infusion 2 g/50 mL (premix) magnesium sulfate infusion 2 g/50 mL (premix) 06/25/20 10:00:00 AM EDT 2 g Intravenous completed 2 g, Intravenous, Administer over 60 Minutes, Once, On Thu06/25/21 at 1000, For [address] [facility] [place] Medication administered onsite NaCl infusion 0.9 % [id number] 06/25/2021 10:00:00 AM EDT Intravenous active at 100 mL/hr, Intrav enous, Continuous, Starting on Thu06/25/21 at 1000, For [address] [facility] [place] Medication administered onsite 1 ML Ketorolac Tromethamine 30 MG/ML Car tridge ketorolac (TORADOL) 30 MG/ML injection 30 mg ketorolac (TORADOL) 30 MG/ML injection 30 mg 10:00:00 AM EDT 30 mg Intravenous completed 30 mg, Intravenous, Once, On Thu06/25/21 at 1000, For [address] [facility] [place] Medication administered onsite Acetaminophen 325 MG Oral Tablet acetaminophen (TYLENO L) tablet 650 mg acetaminophen (TYLENOL) tablet 650 mg 06/25/2021 09:18:24 AM EDT 65 0 mg Oral aborted 650 mg, Oral, E very 6 hours PRN, Mild Pain (Pain Scale Score 1- 3), Starting on Thu06/25/21 at 0918, For 30 days
Maximum daily dose of acetaminophen is 3,000 mg from all sources in [address]
[facility] [place] Medication administered onsite Docusate Sodium 100 MG Oral Capsule docusate sodium (C OLACE) capsule 100 mg docusate sodium (COLACE) capsule 100 mg 06/25/2021 09:00:00 AM EDT 100 mg Oral active 100 mg, Oral, 2 Times Daily, First dose on Thu06/25/21 at 0900, For [address] [facility] [place] Medication administered onsite sennosides, PENITENTIARY 8.6 MG Oral Tablet senna tablet 2 tablet sen na tablet 2 tablet 06/25/2021 07:40:47 AM EDT 2 {tbl} Oral active 2 tablet, Oral, Nightly PRN, Constipation, Starting on Thu06/25/21 at 0740, For [address] [facility] [place] Medication administered onsite Bisacodyl 10 MG Rectal Suppository bisacodyl (DULCOLAX ) suppository 10 mg bisacodyl (DULCOLAX) suppository 10 mg 06/25/2021 07:40:47 AM EDT 10 mg Rectal active 10 mg, Rectal, Every 72 hours PRN, Constipation, Starting on Thu06/25/21 at 0740, For 30 days
Hold if patient has had BM within the past [address]
[facility] [place] Medication administered onsite potassium chloride (K-DUR) dissolvable tablet 40 mEq [id number] 06/25/2021 05:45:00 AM EDT 40 meq Oral completed 40 mEq, Oral, Once, On Thu06/25/21 at 0545, For 1 dose
May be dissolved in water for patients with a G- Tube or unable to swallow. If concern for clogging G-Tube, may contact Pharmacy to switch formulation to a powder packet.
[facility] [place] Medication administered onsite iohexol (OMNIPAQUE) 350 MG/ML contrast injection 100 mL [id number] 06/24/2021 09:15:00 PM EDT 100 mL Given by IV completed 100 mL, Given by IV, 1 TIME IMAGING, On Thu06/24/21 at 2115, For [address] [facility] [place] Medication administered onsite NaCl infusion 0.9 % [id number] 06/24/2021 08:15:00 PM EDT Intravenous aborted at 100 mL/hr, Intrav enous, Continuous, Starting on Thu06/24/21 at 2014, For [address] [facility] [place] Medication administered onsite 50 ML Magnesium Sulfate 40 MG/ML Injecti on magnesium sulfate infusion 2 g/50 mL (premix) magnesium sulfate infusion 2 g/50 mL (premix) 06/24/20 08:13:27 PM EDT 16 meq Intravenous active 16 m Eq, Intravenous, Every 1 hour PRN, for serum magnesium < 2 mEq/L, Starting on Thu06/24/21 at 2012, For 7 days
Serum Magnesium 1.6 - 1.9: give 16 mEq (2 g) q1h x 2
Serum Magnesium 1.5 and less: give 16 mEq (2 g) q1h x [address]
[facility] [place] Medication administered onsite potassium chloride 20 mEq in 50 mL IVPB (premix) 06/24 08:13:27 PM EDT 20 meq Intravenous active [Order 1 Start] Name: potassium chloride 20 mEq in 50 mL IVPB (premix) Signed Summary: 20 mEq, Intravenous, Every 1 hour PRN, for serum potassium < 4 mEq/L, Starting on Thu06/24/21 at 2012, For 30 d ays
* For patients with continuous ECG monitoring * Serum Potassium 3.7 - 3.9: give 20 mEq q1h x 1 Serum Potassium 3.6 and less: give 20 mEq q1h x 2
[Order 1 End] [Order 2 Start] Name: potassium chloride 10 mEq in 100 mL IVPB (premix) Signed Summary: 10 mEq, Intravenous, Every 1 hour PRN, for serum potassium < 4 mEq/L, Starting on Thu06/24/21 at 2012, For 30 days
Serum Potassium 3.7 - 3.9: give 10 mEq q1h x2 Serum Potassium 3.6 and less: give 10 mEq q1h x 4
[Order 2 End] [facility] [place] Medication administered onsite potassium phosphate infusion 12 mmol/100 mL (central line) ( premix) 06/24/2021 08:13:27 PM EDT 12 mmol Intravenous active [Order 1 Start] Name: potassium phosphate infusion 12 mmol/100 mL (central line) (premix) Signed Summary: 12 mmol, Intravenous, at 50 mL/hr, Every 2 hours PRN, for serum phosphate < 2.6 mg/dL, Starting on Thu06/24/21 at 2012, For 7 days
* For patients with continuous ECG monitoring [...] of potassium.
For central line use only.
[Order 1 End] [Order 2 Start] Name: potassium phosphate infusion 6 mmol/100 mL (premix) Signed Summary: 6 mmol, Intravenous, at 50 mL/hr, Every 2 hours PRN, for serum phosphate < 2.6 mg/dL, Starting on Thu06/24/21 at 2012, For 7 days
Serum phosphate 2 - 2.5: give 6 mmol q2h x2 Serum phosphate 1.9 and less: give 6 mmol q2h x 4
[Order 2 End] [facility] [place] Medication administered onsite sodium phosphate infusion 12 mmol/100 mL (central line) (pre mix) 06/24/2021 08:13:27 PM EDT 12 mmol Intravenous active [Order 1 Start] Name: sodium phosphate infusion 12 mmol/100 mL (central line) (premix) Signed Summary: 12 mmol, Intravenous, at 50 mL/hr, Every 2 hours PRN, for serum phosphate < 2.6 mg/dL, Starting on Thu06/24/21 at 2012, For 7 days
* For patients with continuous ECG monitoring * Serum phosphate 2 - 2.5: give 12 mmol q2h x 1 Serum phosphate 1.9 and less: give 12 mmol q2h x 2 Slower infusion rates (e.g. over 4 to 6 hours) are recommended in patients with renal impairment and/or less severe hypophosphatemia.
For central line use only.
[Order 1 End] [Order 2 Start] Name: sodium phosphate infusion 6 mmol/100 mL (premix) Signed Summary: 6 mmol, Intravenous, at 50 mL/hr, Every 2 hours PRN, for serum phosphate < 2.6 mg/dL, Starting on Thu06/24/21 at 2012, For 7 days
Serum phosphate 2 - 2.5: give 6 mmol q2h x 2 Serum phosphate 1.9 and less: give 6 mmol q2h x 4
[Order 2 End] [facility] [place] Medication administered onsite calcium gluconate in NaCl 0.9 % infusion 2 g/50 mL 06/24/2021 08:13:27 PM EDT 2 g Intravenous active 2 g, Intrave nous, Every 1 hour PRN, for ionized calcium < 1.13 mmol/L (4.51 mg/dL), Starting on Thu06/24/21 at 2012, For 7 days
Ionized Calcium 1 - 1.12 mmol/L (4.01 - 4.5 mg/dL): give 2 g q1h x 1
Ionized Calcium less than 1 mmol/L (less than 4.01 mg/dL): give 2 g q1h x2
[facility] [place] Medication administered onsite Hydralazine Hydrochloride 20 MG/ML Injec table Solution hydrALAZINE (APRESOLINE) injection 10 mg hydrALAZINE (APRESOLINE) injection 10 mg 06/24/2021 08 :13:13 PM EDT 10 mg Intravenous active 10 m g, Intravenous, Every 4 hours PRN, Hypertension, Sys >140, Starting on Thu06/24/21 at 2012, For 30 days
Dilute in 25-50 mL normal saline. Administer over [address]
[facility] [place] Medication administered onsite labetalol (TRANDATE) injection 20 mg [id number] 06/24/2021 08:12: 45 PM EDT 20 mg Intravenous active 20 mg, I ntravenous, Every 4 hours PRN, High Blood Pressure, Sys >140, Starting on Thu06/24/21 at 2011, For 30 days
Hold for HR less than [address]
[facility] [place] Medication administered onsite ondansetron (ZOFRAN) injection 4 mg 06/24/2021 08:12:26 PM EDT 4 mg Intravenous active [Order 1 Star t] Name: ondansetron (ZOFRAN) injection 4 mg Signed Summary: 4 mg, Intravenous, Every 8 hours PRN, Nausea, Vomiting, Starting on Thu06/24/21 at 2011, For 7 days
Administer if unable to tolerate PO.
[Order 1 End] [Order 2 Start] Name: ondansetron (ZOFRAN) tablet 4 mg Signed Summary: 4 mg, Oral, Every 8 hours PRN, Nausea, Vomiting, Starting on Thu06/24/21 at 2011, For 7 days
Administer if able to tolerate PO.
[Order 2 End] [facility] [place] Medication administered onsite No Active Medications 05/07/2021 12:00:00 AM EDT completed [facility] ([facility]) Cephalexin 500 MG Oral Capsule [Keflex] Keflex 04/22/2021 12:00:0 0 AM EDT ORAL completed [facility] ([facility]) No Active Medications 04/22/2021 12:00:00 AM EDT completed [facility] ([facility]) Insurance Providers Payer name Policy type / Coverage type Policy ID Covered constitution party ID Covered constitution party's relationship to wiggins Policy Wiggins Plan Information [facility] [place] [id number] Self [id number] [id number] SP [id number] [facility] [place] [id number] Self [id number] [facility] [place] [id number] 18 [id number] [facility] [id number] SP [id number] [facility] [place] [id number] 18 [id number] Problems, Conditions, and Diagnoses Code Display Name Description Problem Type Effective Dates Data Source(s) N610 Mastitis without abscess Mastitis without abscess Diag nosis 04/22/2021 11:01:00 AM EDT [facility] N61.0 Inflammatory disorder of breast Inflammatory disorder of breast Problem 04/22/2021 12:00:00 AM EDT [facility] ([facility]) Surgeries/Procedures Procedure Description Date Indications Data Source(s) BASIC METABOLIC PANEL CALCIUM TOTAL <td>BASIC METABOLI C PANEL</td><td>Routine</td><td>06/26/2021 8:40 AM EDT</td><td></td><td> </td> 06/26/2021 08:40:00 AM [facility] BLOOD COUNT COMPLETE AUTOMATED <td>CBC</td><td>Routine </td><td>06/26/2021 3:29 AM EDT</td><td></td><td> </td> 06/26/2021 03:29:00 AM [facility] PHOSPHORUS INORGANIC <td>PHOSPHORUS LEVEL</td><td >Routine</td><td>06/26/2021 3:29 AM EDT</td><td></td><td> </td> 06/26/2021 03:29:00 AM [facility] MAGNESIUM <td>MAGNESIUM LEVEL</td><td> Routine</td><td>06/26/2021 3:29 AM EDT</td><td></td><td> </td> 06/26/2021 03:29:00 AM [facility] BASIC METABOLIC PANEL CALCIUM TOTAL <td>BASIC METABOLI C PANEL</td><td>Routine</td><td>06/26/2021 3:29 AM EDT</td><td></td><td> </td> 06/26/2021 03:29:00 AM [facility] MRI BRAIN BRAIN STEM W/O &W/CONTRAST MATERIAL <td>MR B RAIN WITH AND WITHOUT CONTRAST 11849</td><td>Routine</td><td>06/25/2021 4:40 PM EDT</td><td></td><td> </td> 06/25/2021 04:40:00 PM [facility] URNLS DIP STICK/TABLET REAGENT AUTO MICROSCOPY <td>URI NALYSIS WITH MICROSCOPIC</td><td>Routine</td><td>06/25/2021 11:40 AM EDT</td><td></td><td> </td> 06/25/2021 11:40:00 AM [facility] BASIC METABOLIC PANEL CALCIUM TOTAL <td>BASIC METABOLI C PANEL</td><td>Routine</td><td>06/25/2021 9:17 AM EDT</td><td></td><td> </td> 06/25/2021 09:17:00 AM [facility] BLOOD COUNT COMPLETE AUTOMATED <td>CBC</td><td>Routine </td><td>06/25/2021 4:33 AM EDT</td><td></td><td> </td> 06/25/2021 04:33:00 AM [facility] PHOSPHORUS INORGANIC <td>PHOSPHORUS LEVEL</td><td >Routine</td><td>06/25/2021 4:33 AM EDT</td><td></td><td> </td> 06/25/2021 04:33:00 AM [facility] MAGNESIUM <td>MAGNESIUM LEVEL</td><td> Routine</td><td>06/25/2021 4:33 AM EDT</td><td></td><td> </td> 06/25/2021 04:33:00 AM [facility] BASIC METABOLIC PANEL CALCIUM TOTAL <td>BASIC METABOLI C PANEL</td><td>Routine</td><td>06/25/2021 4:33 AM EDT</td><td></td><td> </td> 06/25/2021 04:33:00 AM [facility] EKG 12-LEAD - CMAXX REPORT <td>EKG 12-LEAD - CMAXX REPORT</td><td></td><td>06/24/2021 11:57 PM EDT</td><td></td><td></td> 06/24/2021 11:57:07 PM [facility] EKG 12-LEAD - CMAXX REPORT <td>EKG 12-LEAD - CMAXX REPORT</td><td></td><td>06/24/2021 11:57 PM EDT</td><td></td><td></td> 06/24/2021 11:57:07 PM [facility] EKG 12-LEAD <td>EKG 12-LEAD</td><td>Rout ine</td><td>06/24/2021 11:57 PM EDT</td><td></td><td> </td> 06/24/2021 11:57:07 PM [facility] CT ANGIOGRAPHY NECK W/CONTRAST/NONCONTRAST <td>CT LINO OGRAPHY NECK 13472</td><td>STAT</td><td>06/24/2021 9:25 PM EDT</td><td></td><td> </td> 06/24/2021 09:25:59 PM [facility] CT ANGIOGRAPHY HEAD W/CONTRAST/NONCONTRAST <td>CT LINO OGRAPHY HEAD 76003</td><td>STAT</td><td>06/24/2021 9:25 PM EDT</td><td></td><td> </td> 06/24/2021 09:25:59 PM [facility] THROMBOPLASTIN TIME PARTIAL PLASMA/WHOLE BLOOD <td>PAR TIAL THROMBOPLASTIN TIME (PTT)</td><td>STAT</td><td>06/24/2021 8:26 PM EDT</td><td></td><td> </td> 06/24/2021 08:26:00 PM [facility] PROTHROMBIN TIME <td>PROTIME INR</td><td>STAT </td><td>06/24/2021 8:26 PM EDT</td><td></td><td> </td> 06/24/2021 08:26:00 PM [facility] BLOOD COUNT COMPLETE AUTO&AUTO DIFRNTL WBC COUNT <td>C BC AND DIFFERENTIAL</td><td>Routine</td><td>06/24/2021 8:26 PM EDT</td><td></td><td> </td> 06/24/2021 08:26:00 PM [facility] PHOSPHORUS INORGANIC <td>PHOSPHORUS LEVEL</td><td >STAT</td><td>06/24/2021 8:26 PM EDT</td><td></td><td> </td> 06/24/2021 08:26:00 PM [facility] MAGNESIUM <td>MAGNESIUM LEVEL</td><td> STAT</td><td>06/24/2021 8:26 PM EDT</td><td></td><td> </td> 06/24/2021 08:26:00 PM [facility] HEMOGLOBIN GLYCOSYLATED A1C <td>HEMOGLOBIN A1C</td><td>Routine</td><td>06/24/2021 8:26 PM EDT</td><td></td><td> </td> 06/24/2021 08:26:00 PM [facility] CALCIUM IONIZED <td>CALCIUM, IONIZED</td><td >Routine</td><td>06/24/2021 8:26 PM EDT</td><td></td><td> </td> 06/24/2021 08:26:[address] [facility] [place] HEPATIC FUNCTION PANEL <td>HEPATIC FUNCTION PANEL A</td><td>STAT</td><td>06/24/2021 8:26 PM EDT</td><td></td><td> </td> 06/24/2021 08:26:[address] [facility] [place] LIPID PANEL <td>LIPID PANEL</td><td>Rout ine</td><td>06/24/2021 8:26 PM EDT</td><td></td><td> </td> 06/24/2021 08:26:00 PM [facility] BASIC METABOLIC PANEL CALCIUM TOTAL <td>BASIC METABOLI C PANEL</td><td>STAT</td><td>06/24/2021 8:26 PM EDT</td><td></td><td> </td> 06/24/2021 08:26:00 PM [facility] BLOOD TYPING ABO <td>TYPE AND SCREEN</td><td> STAT</td><td>06/24/2021 8:25 PM EDT</td><td></td><td> </td> 06/24/2021 08:25:00 PM [facility] OFFICE OUTPATIENT VISIT 15 MINUTES 05/07/2021 12:00:00 AM EDT [facility] ([facility]) OFFICE OUTPATIENT NEW 30 MINUTES 04/22/2021 12:00:00 A M [facility] Results ID Date Data Source [id number] 08/01/2021 09:18:25 AM [facility] Hospital Name Value Range Interpretation Code Description Data Daniella rce(s) Supporting Document(s) Progress Note [facility] MMFXUn2uFtPEQaNp38/NDVqyKWKnj3CvGRpsVEq1QMflMZBpQ1CvELP8pW9gPDM1WTjDWdAvAiVkYCVl lbm [file] ZTaP/6581YavMyNXR2VL1i280jH7Ako3nJXn/inside b2b sales/sDyx41c//abSYdND5C+/01vmxx2B7b7Au5kUB7f7 +qi/AnO8BzF/c34loas8rF2S+2Hmh8p461Vqu02sMTdTsgd9Q3lqf1g1qxnuxgIF21q7TDFz/NjKJ88U nXu57Q8E89hZn6VcXAqGB8620gXFVmJN+v7EWi6OCo 2bDIx4/Y/unvyn6Kky+sAQT9yHAs6rUO0oeVrfwg3y8xWs9I1HySMzTNHuW2TQyAyq6QghCKxReH337n IHAF6rMAlmhBCsw8exUn2+hNpHA9U4Bll01+b5GxviY3m9fDCl1knfaScwyWn0Jo4vmF8S7n7cAp32e6 GuappuMdvqdPJ93oQza7PBQ87e5chxu+Ov3MDsAhJC O9cG9z76oV/oSGgwKbKyGylMcAbCmcKYNKTbqKHuCSDnMoKjpsNTiRJgGbBSJAuqCTp0D4JHNcuBD+lB vEJhl05HDIfd/cSelGanFwSJB6gInSBhdG2xNaK+7bqb0p3hE3KFr/pwgUfnFA8qHyFZiUiO4ZmL37q8 tq36Kd03cgo862djNv3S9phsjpt138ai1yV1n7AT5J [file] ICAgICAgICAgICAgICAgICAgICAgICAgICAgICAgIC YkEMEqKTOhIZIrCMChJMGqRKOvMWApJNDyTMCwZUEbRXPrDZXiHMBoHEEvUC3KZUTpMMMeBJKrQHYjMY AgICAgICAgICAgICAgICAgICAgICAgICAgICAgICAgICAgICAgICAgICAgICAgICAgICAgICAgICAgIC FsFFEoJBCvJLFwDOCtQAUxNHCoOZZcVBRiGJ9UNJAt ICAgICAgICAgICAgICAgICAgICAgICAgICAgICAgICAgICAgICAgICAgICAgICAgICAgICAgICAgICAg VWRiAMPmOWHqETEbDBXzXQXiUIZtRBFbCZBiNZJcMXZpEETjIS4YUWLnOTHnFLRlEACnKZPbRRUmIKKk ICAgICAgICAgICAgICAgICAgICAgICAgICAgICAgIC VmLAAwHRFlEUSaTOUdKDVlJYJfWJEoPKEkUTZzQAQiEDRvRCGsCLCeZQZjGBIgRA0BQALgEGQzLDXyRZ AgICAgICAgICAgICAgICAgICAgICAgICAgICAgICAgICAgICAgICAgICAgICAgICAgICAgICAgICAgIC IhVMCgRPVjDZXfEDGePKIsDKPkTFIcRLCxHQEiUG1H ICAgICAgICAgICAgICAgICAgICAgICAgICAgICAgICAgICAgICAgICAgICAgICAgICAgICAgICAgICAg APUcXPPhETTgVEGtXPEdGSRhCSYtSGTjKCUmKBVuSEKiEDMwGVWxKX3KNCBfLPDzWEZfIWPrTWUlNCNj ICAgICAgICAgICAgICAgICAgICAgICAgICAgICAgIC KjRRRtQGWkESMjAJZlIOReQGTwEMZhVUOyPTFuENBgRJYhVDThXJOmJFEvKAGdKISoTZ7DMZShXRAdSX AgICAgICAgICAgICAgICAgICAgICAgICAgICAgICAgICAgICAgICAgICAgICAgICAgICAgICAgICAgIC AgICAgICAgICAgICAgICAgICAgICAgICAgICAgICAg OC1DBHWfKOXyKJZyOOSiLCUbTPTxSKKqKOCsNURfQZZpQEGhJCNvHCRuGSHpBCLxFALcNKJkBYCnRFZt QJPeURRqVZEwZBUsQWTwEHKhBFMeERFpOAQyQEGpQNScMCRwEFJyUZOeFC0RCQIhILQqDNVsYUZoYERy ICAgICAgICAgICAgICAgICAgICAgICAgICAgICAgIC DzUZLvNXHsHNUlQBCrGTPqMAJuUZZfABXsZSCaANZtVMVxLDGgXBUjTAKaCMPlLJTwRGQnIZ0WPA18uL Via3C1KXCzBY2xqok/Cv5HAVomcxUmkLJgZV0HVaYkLD7uow9KLsAeCN0dnp6GGXqUIbDjW9I8sLCsXY NaMMXNSuAxI53fEFyfVi45IHjjAOKoTnFsISo1Wb1R ZgIjU5ovSZExJuP2ESBsObK9MTBkOpD3UQGlQlNfTNIdJSCvGOYlFVTHIUY9FXEuQwAhKhKtUERqPQsv GOPNIVZfCXDoWuHaKuLzEPGnMtUkLDHTSFG0XHKwDiWvCHcnJK0Ln4NryOUfCq6QJa7BJzSzHW3uip8G WIvdUBTjGlsOMfa0MHfeQX0VlRHapPL8SJNfUEMHRj WgG4lel1XmCZvmXFYYRKsgJF0Yu3OgpHKjWBx+Vo5NVD6wa7TqLBj5WRRwDU1udu3VUIpPGnPwO9JldE zfHMAgz1mjLQBjXJ5wqLDkWPQ0QWrbFV6fTR7bYDFqTNhyYCSlONXbIA0aCd2dLHKoWIT4ByCqKILUFO 3VVHDyCGNxnTSyDRShIFMKYQ1KVXdwJZY6MRPemfPu pCUbHTaxDV2IFVVerbFbNNkpZODSFBb+Ze9HWD6ka0MnDRx8QDJiZY6meg5AFLnTAyJjI4Q2iAZsG9Q7 YOnpXm1CXYSaHXYwNKErOAJWXXjfWJ8XIX4mrbM1BN1ZrKEwLYHmNEEwgEEjIKx9H17hkTGoNPbuHD3A ICA+Saba+Nw2VFAXtBIOgZTIzBzNmJRXVQgEcB1RcF7 DEz3PoJ0SdEG92yNinwlHvZBvwVN7WAJ8lQFRgHWLCJK1HgRPsxK0vgzF1WzUsJWCTNeVeF22gbSStWQ LrFAH2VSOkWh6HCCBjV1WzenUgdFlxmeLnVRHaEONZYP4HLLxlpiWfbKWnhErxQB92sMbzUH5ZMr0VPh SnUY8kut1ViOKjVp9TLCA8WJ3TRTFpMKXwJOQcRET7 LXXqUnGtGTdpAFFpCJOkDKN9AQYlFARfHH6ZLuQaRHIdNVK1TXxdQSCrBWEfto9UKXMcJYP3JgO5SDCo HMCcOFGyQVdtIPCxVPPjEVG6ZTRjLUOnOG0JEeUfDPBnLRM5FMIgZDQfQOLjdc6AWWYnPKCyWyY6ZmQe PWVrLGZzRSraASPpVPL9QyBmDTVtRWIdEJ1BGbEqUE DxJRy5OrXbEFAjDSQgow8AYDCoXOAbVQL7GcBsVMMgMTJqMOfiNXAlNEEcAllfIKEfMJPmJW7SCiEkBO ShBEG0JoAqFIOoLBZhvh9TEKNsNVEzOyO0KiGkTLAuRAFqCGzyVNTmKVJ4WiY8JJYzTFItDF3RNsUeTR MqMKA5NFPaSXTfTBBzpg3RUXZaPRMwVjb1DWMcWBOr HVLwFSgwPEAmLUJ4DQz7VXUdNOTqSR6TKpDuYANcGcOlKwVwDLJkMACfoq2OVLBoLIErPDDuRhNxUTUo LCUpRNczAEQcEQOwRGL7QIYvYLKtIR7JViLjLXXbFwPeVdYpQOZoLASchg8JNVVnJHRcTXhiUfUoYBSo IILcXItzEAEkIQD6AIP1QWYiAZEfEM8BPrBmTPZpPq e0YISvRTPtFOLilr0FTUKhHDAvEKN7JZDmRQByKBXcYHycVRXxGKOnMTM0SVNaXUFcHN5WFyVsZXKiCa JbTDLuWWFvBVKfgh5WCJPkZMYdBwHyBGWeNSPpTVJnFMypZADyQZImAkR1NBSuJQUaBB3BMhYbJNOhZm RcAlneRLAnIMKhik9WUPNuEFXmAWM3TLXzTIWlYOYc HMhvDKBfMIL8LRK6IKMdPZNdAQ4QYdAhJFHoJoP6IGDuMQDkEPTpjm2EWQHmJBWvEWvhNERzHONeHFUg SBqaARAiCGB9IQU0HCOeUODqMU5IZlLqCYYvREyzEtYhWWEeQGLahw8LIKVoEJW8AgS3FGHmCUJhVVQf CSulRFKdXCC3ZYtyDMSfELTqSC4OCtOoOJTcFJdqUh EvSVCyFWTrgy5BFTKoCDZ7RFC7JkCtUMMfCZSvBQgqNGJmLFN4OkL5ZJIoVAScID3QVkQaAUXiMBn5OS YbVWKbQKQmia0ZXSChLQV8ADW7TAWeCFNzMPEaGCiaEJVkGIIyIFF5SZOiWPCmYN2OBsXuSCZzPOW3UN xzBRZdHSOolj9FFZDsPYI3NMn0XTXdCVGiZRKyQMzi HBCyXNUrYcU1LZJlOEQqPD2TWkTcBZRpDUC9EIFgLZEwYGCfyl3DUAFaGEI4IuvvGzDlQUFrUAOwTYjk AEOtJGQjXXVpVXGnMWFuGK9DEcGzUFckTEXJMup1QZqrX7v8HPZ8JP2RE6Dei7AcJIwaNQVCSUjlPF5w hpRnMWDxXq6UM8aZAxo8N5V0MlwzL9AvZhbtEGF3NX XcFnLfQLm1M8YyZkQ4Ep5rGNM9XafbU3CqCTTjB6VjFHwtKVZlJJR0PVH8WSWnXnPdMbPbJX2VKb4ELl L2ABG8cLQbKk9CLFBuPLJWFgAgYU6RMOb= ID Date Data Source [id number] 06/27/2021 04:54:42 AM EDT [facility] Name Value Range Interpretation Code Description Data Daniella rce(s) Supporting Document(s) Discharge Summary [facility] WYHBDj0aUnLNZlKi63/RMCjkQAMpt8HrYNodELu5MQraBSXmN7BeGBA8kG1sLRB3MXaSVlLyNxUqUPL3 lbm [file] ICAgICAgICAgICAgICAgICAgICAgICAgICAgICAgIC SyFOZhECLyOSIiIHAcMZPhZL7ZQHEzXYCzJSXgHEVkBZHnPTArRRHpVAMmXBOsIFKnSRBaMYDpAPBuDW AgICAgICAgICAgICAgICAgICAgICAgICAgICAgICAgICAgICAgICAgICAgICAgICAgICAgICAgICAgIA 0KICAgICAgICAgICAgICAgICAgICAgICAgICAgICAg ICAgICAgICAgICAgICAgICAgICAgICAgICAgICAgICAgICAgICAgICAgICAgICAgICAgICAgICAgICAg HBHiNTKoGSDwJX0YCQIcMHBoBNTkGSNdDTIaHDWoUBMhTVRnFTEdJUJmFBGzIAXuDNZdXNZaHTOlVGEr ICAgICAgICAgICAgICAgICAgICAgICAgICAgICAgIC ZmDBJbEBIbRHTtLBUcGJXoRHAbBB3GWTSmPVBzQYFqFFNxQLOzRKVaDTUfAJItLXFsGMUfMYVrQXHwDX AgICAgICAgICAgICAgICAgICAgICAgICAgICAgICAgICAgICAgICAgICAgICAgICAgICAgICAgICAgIC FgCL9WHYNkAGGoZDHzKNFlTKYsJKDhNEIwZBYaFVJu ICAgICAgICAgICAgICAgICAgICAgICAgICAgICAgICAgICAgICAgICAgICAgICAgICAgICAgICAgICAg DWGqBLCfTEBtKZJnHM5XPRPpARZyFNMdGRYhCYMzTDYnJFYzTJAdOXEoJAQqASDlDXNaXKLsMCKxNFAw ICAgICAgICAgICAgICAgICAgICAgICAgICAgICAgIC TtYONpQCWeBLCeXNTtOZYyLTKbWTYlTI3DZJQkUEYlNRVnLYBqCAHpPICpAFHkKFNaYDCaSEZzXGRhOK AgICAgICAgICAgICAgICAgICAgICAgICAgICAgICAgICAgICAgICAgICAgICAgICAgICAgICAgICAgIC IfHVVtOC8ZABCsZYCdMUWbNSCpURJfFOQcCNWkPSXs ICAgICAgICAgICAgICAgICAgICAgICAgICAgICAgICAgICAgICAgICAgICAgICAgICAgICAgICAgICAg EENhNREsEXIkYNUvWPYhAK9DRDWjSHAdYBVyVSBiVSTgELGqRBJnJWLaGVYbDXTmOHTfAFZyQDSlAMEg ICAgICAgICAgICAgICAgICAgICAgICAgICAgICAgIC BpGIErEFCfIROxGOPrLLEeRNSzPXXvJORdWY2WNW00mUSgm6P3WLPkBM0obki/Pl0PZZjjmnTdmVRtVZ 5IZvRjCI2wza4RJrMtGE8tcc3ITCsLLuZsP2J5lWQbTGNaCRBXIiGwJ77qXTrcYh65TSzzLXIhQbEjPZ g0Yn1SIhGoA5moSJHjZuD0UPNjCjF9RSLwOfR3RZRm VpShTJOiBYIrZN4OPBHzH547ffOhWX2DCc8JIkDrYI8gtn2KFrKaPGAzOmaMQmo7CGauTC0GaBKfxSZc WiErJFJWShJaL7rov2VpUqOfWMXWKLoqZE2Ky3YorESnCPd+Vv0MIK5vg0XtDLtmQrHkNI0vgr1QLDpG IuNbU5MklCraMYEkp8MhKACiRUHFvB0uBRN0GMW9PM LgsrxiRW3kIRmqdtG2vAviJaJeEXUrNF0eAS8oBPZeMMOyUsZ1CWRQJD3FGAYzYCCbyNEvQLOcXVZGQG 7LFYyxFGJ8GINfnwPfeSXbLFcyVE2AVUZlkfPqEpUpMAFWFXq+Qu0EKV2so6DjQDaiAkRcVO4rhp9GIQ cPMnMoN0Y6bCGbJ5Y6OKfwMc2EDTFcMAWbPptqBUXY DOpbDG1ISP3wfbJ4XD6EtZEiDEZnXNJhsCXsPUw2F93jiMIcHJuaPW4SKXX+Saba+Rd4YCSZvDQPvWYUb JkUkZPCNPsGsV1ShN0QDn4PvC0IcCY39aGdxdzOtKRjwKJ4PUH5aMQTnCZEAMR7YgGPqzG3vubRiAMKf ZSDVEjEiS80tfYQqLWIlBOFcBKMfJg7KSWBhB0Ppnd OifYtssqRaBMSmIKGEOK7DKHabheCasSPbkUfhLN12nPdaDW7LEk7AYqOgQS2gcj3SjBDxWk9OCVLuFB 5ANLGxLMAjKSJiTII8SODrOaYbDLntUGJdZWMhPER7SMErOLHxLD7JImDkIUFpPnQgXCOnGUTdILLvpb 4NOODkLKYvKyWiBvEyGKImPBHgWWivAXTlXZVlFAS5 QIMyOCFvYD0BQsToIWYnPQQ4KbWyTIPgODUoyr1COQGoXAPyFmkeJJNiFFEpLLMwDCzpPZPoLOJ4AuFa PMCqPJVbWG0WQqUrNMQfYQe7BPvyYUTgJBWktq7UZTEkGSWfPPEfRAPpQRUoZWKqQOeeSREiYKAfRAD2 CLIaYYUlSC8CCwTtAQMwDTI9WqHaTMPcEEUxdx7SIR EtJODfLzMsKBDpEQDpVUYhDWbhOYCvEWKzRUg5KEDoWSWoDZ4FZeUoJTNgULE4ADToUDTrAKPxnm4PIL WxCUCdXud1LFHjBXNbJZHfYHvfJJIjZFS8DTR2RTEwFUAmFK9FXwIpWWPvBTLdFbtzRPZgZSBnva4DXK SnSDGxFONhMmHcUASyDWZdYLqiYPFiXNY2Sts7VLYo DHYsWR8WJgTiOHSsGFO0UcLnFYJsFPIrar9SDKCnCUUeUwK1NrQhAIXoLMRqMBcmAUQfXRV2YGHpVOHo HOXwOB5HEpPnRPDnRmliKhLpUTKeJZXmay0WBUMgJTJfIQZ7GLQyXGDlIDCbMDuwNVJpBTO4CGV8LSVp ZOIeXY1MLpRtCOHrMwh8GDTbUSSvKXMffv6KQYEjGU PdPXt1TDMpQOTzOLUnFGbnRTSmITUuMHl2ZYXdRSIjIG4VHmLqNSBgKrSeDuCpJJCwAWXajc4IHBXzLW LxDCA0VgNeGDBvLDLxSDeoPCDaQMFjLME4SOTuHMBjIJ1EEyFfYDBwNlQzJrEvNXGpHNRfrr9CFHGzKR WyEhH8QESqUACuJAGiTRz1feUpxBXeJQy1QI7ZD6Ee gwRnJaRLKh4Wh095YQDeQKWdWb3CY6dgEy1zZDZeMGAMWt5KQQo5VVPdUxHiVyMcQIQ7WCI1RAzcTvNa EEZ4DffeLOBdYKA+MIgcMLG4NJA6HKR9SQYyBvOwJPXpVTRtWIgyHXS8UCFwDd9bJRZDRh8+DQpzdGFy xTdmMNSSIqKgVeDvSLljPBPOOf3A ID Date Data Source [id number] 06/26/2021 03:17:39 PM EDT [facility] Name Value Range Interpretation Code Description Data Daniella rce(s) Supporting Document(s) Consultation [facility] BTKAJe5aFoYAZnSe64/XTAerVDRpl2AuZCktPDo7NGukDZZhP9CfGFG2kE0sVUN7VXzMGzAcKqLyYNK3 lbm WiVuiWSqKnBYWxVfsZLaXsDYfjKfznkCLlGT4XwCQ0SABkT78cGSDhTZDiF5DxXILzXjU+Kw1XQYAkgM PxAX1YQzuM7F8gb0h1Yo6+YP+UkBGpUOeU9PfDFZ/AEp8c9mFpad3xHCrYpoPMc7jdjtZc5CsLAznTd3 Xas3oud4v1Jtv3FEjIl0uTf0NCDJz/5k68xnXT08b7 r/cmBn87g7Z//4m13QK/6dZ+IF4KOa5byVpqzD4Q/P4NL0/Y9bvTzvZIuKYqSFyIrJmt5HL9hWp4x3A3 Qqmb4P99u7rtr/aPDliQyCBKxOnz5+bm13riqG8jH7W0KpUN5cK0JCCDV+kvCC3w8KxGqcszbbGJj5CQ onbS/haZn8Dn2jE5qweqTvyzjncAm2Cr4Mrp9v0eno 2PFR74KnSsSBIm3WdEA3Eh+iiq1zBA/yAkdr0Z60Frehkgr3tJ8cQ0j/hJHLVYlkw+KhUXoY+8dANRKs +eU4BSvfPauzEsbqUgq6uD13g0CRreMti+fLvhB3deQKjF9eF2kc8dimSMYN25H172YNSWTGsGxH1mHk 52fZ6XP2TLRwl8E3/hFwwm5L7erbVZ0R8hYfjtZpXd RkZ9vv4AHvenXyhGn+weyhgac6E6ANOvK8sDmLyUlMIl8ZjC1TnHWq/BuM391Ok0z8O112yjwYWiCdYU eK+A7MzorejIzjH+7t2jKgsNPBFDpFeh4msCVcQxnYz5VepCiFmifTCKFGXt2Rc7myk5Dk78j66PxcsC MORRO+g8D2s6+jz9UkuphZwCpQiioM8WcA1HdcrYC5QV [file] ICAgICAgICAgICAgICAgICAgICAgICAgICAgICAgICAgICAgICAgICAgICAgICAgICAgICAgICAgICAg ICAgICAgICAgICAgICAgICAgICAgICAgICAgICAgICAgICANCiAgICAgICAgICAgICAgICAgICAgICAg ICAgICAgICAgICAgICAgICAgICAgICAgICAgICAgIC AgICAgICAgICAgICAgICAgICAgICAgICAgICAgICAgICAgICAgICAgICAgICANCiAgICAgICAgICAgIC AgICAgICAgICAgICAgICAgICAgICAgICAgICAgICAgICAgICAgICAgICAgICAgICAgICAgICAgICAgIC AgICAgICAgICAgICAgICAgICAgICAgICAgICANCiAg ICAgICAgICAgICAgICAgICAgICAgICAgICAgICAgICAgICAgICAgICAgICAgICAgICAgICAgICAgICAg ICAgICAgICAgICAgICAgICAgICAgICAgICAgICAgICAgICAgICANCiAgICAgICAgICAgICAgICAgICAg ICAgICAgICAgICAgICAgICAgICAgICAgICAgICAgIC AgICAgICAgICAgICAgICAgICAgICAgICAgICAgICAgICAgICAgICAgICAgICAgICANCiAgICAgICAgIC AgICAgICAgICAgICAgICAgICAgICAgICAgICAgICAgICAgICAgICAgICAgICAgICAgICAgICAgICAgIC AgICAgICAgICAgICAgICAgICAgICAgICAgICAgICAN CiAgICAgICAgICAgICAgICAgICAgICAgICAgICAgICAgICAgICAgICAgICAgICAgICAgICAgICAgICAg ICAgICAgICAgICAgICAgICAgICAgICAgICAgICAgICAgICAgICAgICANCiAgICAgICAgICAgICAgICAg ICAgICAgICAgICAgICAgICAgICAgICAgICAgICAgIC AgICAgICAgICAgICAgICAgICAgICAgICAgICAgICAgICAgICAgICAgICAgICAgICAgICANCiAgICAgIC AgICAgICAgICAgICAgICAgICAgICAgICAgICAgICAgICAgICAgICAgICAgICAgICAgICAgICAgICAgIC AgICAgICAgICAgICAgICAgICAgICAgICAgICAgICAg ICANCiAgICAgICAgICAgICAgICAgICAgICAgICAgICAgICAgICAgICAgICAgICAgICAgICAgICAgICAg ICAgICAgICAgICAgICAgICAgICAgICAgICAgICAgICAgICAgICAgICAgICANCjw/hGVvD9rjtTDnurM2 Y0chFk6SSn4QXY4th7XrFHVlCAygpfNbOrfULuKdHZ InCrgBDit9MFmvDP0XpCRpD4PxH0XuCBplMZ3FNGHpBDOdtUQzTQDzIJDyHwV7YFGiMKbjLH2SpCWrAN myEPPuPCZdNmOrWQQwSZ6ZPXUbC600sxXwDw6THy4XSxPcMJ3uws9QWWDmVHXsLycNMcj1AZzzMC5WfY DgaENdGfIaYUAGRhXgA4lrg5XfQJyaGGDAAYdhGS9X i1MpyHHvKDa+Ue0JIV3hm6IuCVbuJqAdAV7iso9KLCfQJtGaQ2LcaOnyYXYqooV7kCQvBOD0WDbpgUCj KNskZFOPlujzbKLnUPlBT1quEJAcBI8yYK4tBPKmITEgDpS2WFBUAS7XYRKaGLCowNWaUKMwZZMXAJ7L MYerQEM2MSZjxxEesNAbTEmvQR4JGFGrgeRnLMUtLW BSDQo+Lx5WQZ3jj9VwBGuuLCKxOA1vak0AAFkENvFoI7X6vYZgM3B0OPweDp8RRMIwZSWrOCGfXARYRO zaPO1GOL5afuT4SB4QaILsKAOjKOUlbEUdYGq7F01zdZUzIWfaQB7DBLX+Saba+It9GAEWbOTPiLZWfPs JfPXBFNfOgP3CiC8VRy5AkN1AeGD79cWqzzgNzKXid HM9PKP8bGDXqOGRRWA3BqJUrsX2fphYrLmIoIUIWFgIwH29osLSjMDHeVNZ6BYEjHf2IKMOfW1DblxPr hEhoemPuPLRhZRNTZI7CBLzusqXlmUJplRtoRN41bMrfSG8RFg4KBgTcOL9chn3HkECiVi0GWJImED3V PXBwDWCzWDGcTOZ8HAOdKuKoFVhzMFSiTWDnIRC6MC ZnJDVdCS9EKeUjQKDhFBwwGTKkGDWkUMOvqf5BACKjAWGdTMzqMBWlFIUaJALsQUmcNWMmIXYfUKO7RO GuWLKfDG3CLnTnSCQpTXF2GNMtNYXrLRGzov9JCJMoDHEmTeupTrLtNAExDRGoAPrhQJTdEWQ0WcUsYJ SkOSEvRT5IKeSeIWAvNFE0VJOnBMXsLRCgia9TMXMc EMDbDWS7RFZzCDQrTBSvXRjoSMTvONS0CmSeJGLuQZPgYF0WEeVwNBFgWWK2KRFqHYQlZICbqh0NRWSk EMPtStxuOTCkKNGkGWApCXsfPVJyOYH5TNWrCEAoAJQjXW5KScLvOPOcEJvsIFYkCUVwFOGeqx7GWLUu UHDdQrH3XOYqLGXnYDQrPLuhZBQrCVG2EKK7PYHyKP LlKD5PScMfHHQwPUtrLSZgMVXhNNDcan0FEBYsCGNnIDF4WbEeKOChOVPsNNd3fdSmxIApKKa5KL1CZ6 RwwiDmMVkHLy4Cs373YTX3LFNbTx3YN2mbUl6qWQGnINSAQc7BABe5LcujTry7WnmpDBP7KxP1WVK4Sp O1L9OnLHMbA4X6MXZ+USwaE9Y6JUnnY0EcRVviYCS0 XVbzUbbkTwE1YeAlGcj9Ap6qVBVATe7+HPqqbKQtfDivHQSBMih7CDHGGkLoZZ0LONx= ID Date Data Source [id number] 06/26/2021 10:14:01 AM T [facility] MR BRAIN WITH AND WITHOUT CONTRAST [id number] FINAL RESULTInterpreted by:Elissa Siddiqui MDORDERBILL CLINICAL INFORMATION: 30-year-old male with a history of G6PD deficiency and headache presenting for follow-up evaluation for suspected intracerebral hemorrhage.COMPARISON: CTA head and neck dated 06/24/2021. PROCEDURE : Multiple MR sequences in multiple planes without and with administration of IV gadolinium contrast.FINDINGS:No abnormal areas of restricted diffusion to suggest acute infarction.There are regions of increased susceptibility artifact on susceptibility weighted imaging in the bilateral basal ganglia, right greater than left, compatible with calcifications. Minimal nonspecific white matter disease.Ventricles and sulci are normal in size and configuration. The basal cisterns are patent. There is no shift of the midline structures. No extra-axial fluid collections.The cerebellar tonsils are normally positioned. The pituitary gland is normal in size.The visualized paranasal sinuses and mastoid air cells are well aerated. IMPRESSION:1. Symmetric susceptibility artifacts in the globus pallidus, bilaterally consistent with metabolic deposits.2. No acute cerebral or cerebellar infarct.3. Minimal nonspecific white matter disease.This document has been electronically signed by Jesus Alberto Horn MD on 06/26/2021 10:11 AM Name Value Range Interpretation Code Description Data Daniella rce(s) Supporting Document(s) ID Date Data Source [id number] 06/26/2021 09:28:55 AM [facility] Value Range Interpretation Code Description Data Daniella rce(s) Supporting Document(s) Bicarbonate [Moles/volume] in Serum 20 mmol/L 22-[address] [facility] [place] Chloride [Moles/volume] in Serum or Plasma 102 mmol/L 98-107 [facility] [place] Creatinine [Mass/volume] in Serum or Plasma 1.17 mg/dL 0.70-1.20 [facility] [place] Glucose [Mass/volume] in Serum or Plasma 149 mg/dL 70-[address] [facility] [place] Potassium [Moles/volume] in Serum or Plasma 4.2 mmol/L 3.4-5.1 [facility] [place] Sodium [Moles/volume] in Serum or Plasma 133 mmol/L 136-[address] [facility] [place] Urea nitrogen [Mass/volume] in Serum or Plasma 10 mg/dL 6-20 [facility] [place] Anion gap 3 in Serum or Plasma 11 mmol/L 8-15 [facility] [place] Osmolality of Serum or Plasma by calculation 278 mosm/kg 275-300 [facility] [place] Creatinine/Urea nitrogen [Mass Ratio] in Serum or Plasma 8 [facility] [place] Calcium [Mass/volume] in Serum or Plasma 8.7 mg/dL 8.6-10.0 [facility] [place] Glomerular filtration rate/1.73 sq M pre dicted among non-blacks [Volume Rate/Area] in Serum or Plasma by Creatinine-based formula (MDRD) 83 mL/min/1.73m2 >60 [facility] [place] Glomerular filtration rate/1.73 sq M pre dicted among blacks [Volume Rate/Area] in Serum or Plasma by Creatinine-based formula (MDRD) >60 [facility] [place] ID Date Data Source [id number] 06/26/2021 04:40:33 AM [facility] Value Range Interpretation Code Description Data Daniella rce(s) Supporting Document(s) Leukocytes [#/volume] in Blood by Automated count 3.5 10*3/uL 4-[address] [facility] [place] Erythrocytes [#/volume] in Blood by Automated count 4.59 10*6/uL 4.6- 6.[address] [facility] [place] Hemoglobin [Mass/volume] in Blood 12.7 g/dL 13.5-[address] [facility] [place] Hematocrit [Volume Fraction] of Blood by Automated count 39.9 % 4 1-[address] [facility] [place] Erythrocyte mean corpuscular volume [Entitic volume] by Auto mated count 86.9 fL 80-96 [facility] [place] Erythrocyte mean corpuscular hemoglobin [Entitic mass] by Automated count 27.6 pg 27-33 [facility] [place] Erythrocyte mean corpuscular hemoglobin concentration [Mass/volume] by Automated count 31.7 g/dL 32.0-[facility] width [Ratio] by Automated count 12.6 % 11.5-14.5 [facility] [place] Platelets [#/volume] in Blood by Automated count 212 10*3/uL 150-400 [facility] [place] ID Date Data Source [id number] 06/26/2021 04:57:04 AM EDT [facility] Name Value Range Interpretation Code Description Data Daniella rce(s) Supporting Document(s) Bicarbonate [Moles/volume] in Serum 20 mmol/L 22-[address] [facility] [place] Chloride [Moles/volume] in Serum or Plasma 102 mmol/L 98-107 [facility] [place] Creatinine [Mass/volume] in Serum or Plasma 1.09 mg/dL 0.70-1.20 [facility] [place] Glucose [Mass/volume] in Serum or Plasma 104 mg/dL 70-140 [facility] [place] Potassium [Moles/volume] in Serum or Plasma 4.0 mmol/L 3.4-5.1 [facility] [place] Sodium [Moles/volume] in Serum or Plasma 132 mmol/L 136-[address] [facility] [place] Urea nitrogen [Mass/volume] in Serum or Plasma 10 mg/dL 6-20 [facility] [place] Anion gap 3 in Serum or Plasma 10 mmol/L 8-15 [facility] [place] Osmolality of Serum or Plasma by calculation 274 mosm/kg 275-300 [facility] Creatinine/Urea nitrogen [Mass Ratio] in Serum or Plasma 9 [facility] [place] Calcium [Mass/volume] in Serum or Plasma 8.3 mg/dL 8.6-10.0 [facility] Glomerular filtration rate/1.73 sq M pre dicted among non-blacks [Volume Rate/Area] in Serum or Plasma by Creatinine-based formula (MDRD) >[address] [facility] [place] Glomerular filtration rate/1.73 sq M pre dicted among blacks [Volume Rate/Area] in Serum or Plasma by Creatinine-based formula (MDRD) >60 [facility] [place] ID Date Data Source [id number] 06/26/2021 04:57:04 AM [facility] Name Value Range Interpretation Code Description Data Daniella rce(s) Supporting Document(s) Magnesium [Mass/volume] in Serum or Plasma 1.9 mg/dL 1.6-2.6 [facility] [place] ID Date Data Source [id number] 06/26/2021 04:57:04 AM [facility] Name Value Range Interpretation Code Description Data Daniella rce(s) Supporting Document(s) Phosphate [Mass/volume] in Serum or Plasma 3.9 mg/dL 2.5-4.5 [facility] [place] ID Date Data Source [id number] 06/26/2021 02:13:15 AM [facility] Name Value Range Interpretation Code Description Data Daniella rce(s) Supporting Document(s) History and Physical [facility] YCAZZz1fTtKEFwKb92/MPWzvBWMkf6NaTKanYKe8FEouGPGcA3EyRCL0dG8aLNI0NDrQWmXzGbIkZYZ9 lbm McCxhPKuVtMGVbRqeERmLxKUyfXwhpsPZoLE1GpXI2WCEoM75lBLKlLWTyW4OcLTGhRAp+Ms2JQLGlxH IzYY1NMdtJ4B6ky3eUUg8+vQ6JOgyUYcY/+S10KnPAOAPKcO3EyagSs/hcY8Fhl159mcH2a31HLIxjAv FTYlrADKkilHrFk08X2Sef8NJJ8u/hcT3dVs3kKn8D P+TQH1p03k5/SieebfpsoyfDJwILIZtv1kQG/SidlrkAd66I/8kx+Wime5U/mCTDNOxb9MqWe//s7fR2 dN1bbI0lkBd+Pjs+PTF+qgumFy10/tx0/2wbap86xdRiNalmHkn4scpQOO5ouqN/AQcAZHdBv1RtzheD pMNwiXRoO/Wn0beoeN6T9edaKlpkiwiliw8ic1jb3V 6fj+2WDZpJOowcJZ17O84j92OJf/4s4MW+V/BNORpEhAjK9pgFw52RisHreWfoJvaXI2kGW951Y3yA/o thtXFBhFoKNkFy4QkaTiRtaGPT148v7Y6KkZ/jBD0s6a/igulrWfSffECUr3M/2DxIPX8SfbDCeSqfRr raVIIoSZbEO/t9ji2UirVkBcbbns/lH7xTbhvAXlko SJPGWHUP4USJ6yN3d4raxU4q6JitSp4cZopb++Kzsx4hKruRRqS3KkXlpoyYSh4lx56m6Iht2fI2mud1 x4T7830zP7tLCkF0Rl0rCIMyws06cNKbtub8ep5o4eBpP6LZzjYf6oM7SasRkC9Y6Y4CnDjML8cAAd2e 7Ya4Wny8oJ/4fiaFuKgLGxHNJnni7+MZ0TXzkURUie uYivF5CzgfFMjhDExPDpqEECqmWTqMgx0Vev3jLi0dr1YHfGEsoXm+nDd7FB+XSgCAAUvh3NOShJL6jw EO4F73CGpPx0VCM6p8dK8o+J8QcNf16EnzvztJiTmq//+743VY/hXCv0dgnTKWb9BbDtK5pt7KNQqxw4 evTn/y2741xi440sf8PwITe83cGv29Zkx/0HR2jS6s [file] ICAgICAgICAgICAgICAgICAgICAgICAgICAgICAgIC AgICAgICAgICAgICAgICAgICAgICAgICAgICAgICANCiAgICAgICAgICAgICAgICAgICAgICAgICAgIC AgICAgICAgICAgICAgICAgICAgICAgICAgICAgICAgICAgICAgICAgICAgICAgICAgICAgICAgICAgIC AgICAgICAgICAgICANCiAgICAgICAgICAgICAgICAg ICAgICAgICAgICAgICAgICAgICAgICAgICAgICAgICAgICAgICAgICAgICAgICAgICAgICAgICAgICAg ICAgICAgICAgICAgICAgICAgICAgICANCiAgICAgICAgICAgICAgICAgICAgICAgICAgICAgICAgICAg ICAgICAgICAgICAgICAgICAgICAgICAgICAgICAgIC AgICAgICAgICAgICAgICAgICAgICAgICAgICAgICAgICANCiAgICAgICAgICAgICAgICAgICAgICAgIC AgICAgICAgICAgICAgICAgICAgICAgICAgICAgICAgICAgICAgICAgICAgICAgICAgICAgICAgICAgIC AgICAgICAgICAgICAgICANCiAgICAgICAgICAgICAg ICAgICAgICAgICAgICAgICAgICAgICAgICAgICAgICAgICAgICAgICAgICAgICAgICAgICAgICAgICAg ICAgICAgICAgICAgICAgICAgICAgICAgICANCiAgICAgICAgICAgICAgICAgICAgICAgICAgICAgICAg ICAgICAgICAgICAgICAgICAgICAgICAgICAgICAgIC AgICAgICAgICAgICAgICAgICAgICAgICAgICAgICAgICAgICANCiAgICAgICAgICAgICAgICAgICAgIC AgICAgICAgICAgICAgICAgICAgICAgICAgICAgICAgICAgICAgICAgICAgICAgICAgICAgICAgICAgIC AgICAgICAgICAgICAgICAgICANCiAgICAgICAgICAg ICAgICAgICAgICAgICAgICAgICAgICAgICAgICAgICAgICAgICAgICAgICAgICAgICAgICAgICAgICAg ICAgICAgICAgICAgICAgICAgICAgICAgICAgICANCiAgICAgICAgICAgICAgICAgICAgICAgICAgICAg ICAgICAgICAgICAgICAgICAgICAgICAgICAgICAgIC AgICAgICAgICAgICAgICAgICAgICAgICAgICAgICAgICAgICAgICANCjw/uLOzA4uybGEzidB0W1maNx 5WDg2DLM5vw8AlYALrQBhezoKvIihLZmAuLIZoKevUBid8IXnpTO5KkUGiE5MkD4UcNJtiYA4MSMMdCE ZbzTHiFAKiSYFsEyB5GYLjPVmxBJ4GxBSxDTqmZMVk RBAaCbExXFVxJCBjAPZvQDXxZWRSYZVpHXLqTqHlVHpuBX9Jg7IboNV3TJo+Gx4XRB7fs3NzFUgwGnTp HA6lsn4EVDfVEcDyA6LzzhF6YIZ1MIPnYs6JUMFcQIMnvYBpFOCoQVKWDwJhS6LgfA10TGMPJb4+DQpl zeVcLblTUnS5DKUtz5SlMDi9IE9ICYLfWVa6pQNwSI NVAXJ6XIhml7QfHQYDJWJwzCDaYGbefhhbMUUnJHYaII9pHb0jAAXtACN8ZwThSKAFEX0VVJFiXGWphX GfMLQvQZYYRB6CNQmcFFP2YIWtzxKmbPKiTNuuEQ4BUBQwfmHrDaEfNTYRVHt+Bv8TRI9nm9UcMYzyWT JtUM0fhf9WDGpBPhGuV8N9nEViC1Q8EWwuHh6FUQXx HGUfUdQaXWCYRGfzZM0YCN8bfoP3MD3NbUCqRJIvCZHueKEtTSt7O80nbKMhWMkeJI8DHZX+Saba+Pg0K LKGjMUIsILHiTlVwGOTLRfCmI4CsB5AMi6FsC2GcOY06pQtbbgKnIRhyBT8AVA2sZALuHKJUWE9KwCMy zT1rhtEiOaHmXSBFKkZgD33ucSUxQJFmKBPaETWoKs 4LISCkT2VxndMzfLzkymPwUXUpWLENDJ9BJDolyrDaeTVozZhiGO47uRafMI9AHp6FCuYcOT6qfw5JeM ClEe8HTVWcYa2TNHWwUVLgHLMhWYT7FBByOiVtKMaqRWBxHEGwLMO9NUOaKUOfIM3PKfLgHLTtCfV2Tz OfGEFmXMSbiz7CTNClYCNrFKE5OSLhXQIfRZFkGTbp WAXpPBMzYDZ2IQQxEEYfQZ0PDiZjMPJdVIWkXUyeOTZgCFGocf2HOJPiFCEdPTA5CLAiOLXdBUCxHObq JCLqJSJ1DEI4WJPyELLiXB9IBfTyTEThJWz3YTgaWYIuONFgbd2VWDGbHPHmNVv0BkXiKPFxRBFbLWnm PLYpSMPiPOXdMXNrRJKgUD2XLtZoCEGbGNNjPbEhLW JrVHJkmd8CPWDwNLYdWrApCkUnAWKsCEIrKGrpUYBmVCA6HNB9FJIwSOBbRL6LSjKbPVPbQYN7KUMwYR KdVXZjpb5BIQLxRTCuYOGjWyZvEGNuYLGpOVqeKNBxHJL0WWOmYYSzCUZaDB3CFtBhOLHiNMH4IGCfOW OaNNJtcu5MXNNzPJSoBji3TqJoTQLvZUUjJXkeDYVg NBF0NHK4AGAeSVPzUG2HEaNxNYDiUFsvTNApOCYmUDHcmw7ZJBGwBCDlNASpRaZdRDTpYJGrGUzeXAEk GXW6LNh7EQTzIYDrYV7AGdJhMAYsWZn6NYDnNYUsVHSecf6QALSwGADsXGD5SMKdGTAzHGLbMWgoCVWo QSM1OLNjZDAtQLWhXS3QAxJhRSLgJlIrTeYgWJRuSR Hpak1VIRGxJMVdIVN0RZZiCHKzQREsYWtgQVFtVYYpFcp1XWFjWQYdFP7PKiAjLNYiLpUjRLRmGKQmGH Hxbg7MXSGnPKKnEuU7GeCnBAZhOMBqRHzbXMGsTZWfHjp8GBRhLOAnND8HKtLoSNQjUeT5UsKbWHYhDJ Wnbh5KJNJqRZZvVIV4RYZzYHZsTMEtXSzrTIHoNVF5 ShM3WUTpBFUiUO6PFdQsLOUbOuF0KMyjYYJqTCXgvz5EuZQbeYhwxp6TJRmUXo8QaJtwUQP2NHwoKo1t zDNlAQGeCBZMRo8EidIlSVXwTBOXFOvhCSMwMTD0H4FjOhJ6CIRbS4NxZNI6MhD9FmQ5VLQdRRl4IDHx BsF2LLDmLTDyUhOfICIjFQPyQxboETIpBRgsLTWfBd RlZTM+WC0yQOc+Lf6Fh0GtroL7tuPuEOyjSIc9Fc9YLVKAZ9UCDh== ID Date Data Source [id number] 06/25/2021 07:40:15 PM EDT [facility] Name Value Range Interpretation Code Description Data Daniella rce(s) Supporting Document(s) [facility] AVWZZb8eKqQHHiGi32/DPHpkKCXsl0CyPGocIFw0KSzgXWKhT7JjTZP7wM6lRIC7MArJErKkAyWuUJG9 lbm [file] AgICAgICAgICAgICAgICAgICAgICAgICAgICAgICAgICAgICAgICAgICAgICAgICAgICAgICAgICAgIC AgICAgDQogICAgICAgICAgICAgICAgICAgICAgICAg ICAgICAgICAgICAgICAgICAgICAgICAgICAgICAgICAgICAgICAgICAgICAgICAgICAgICAgICAgICAg ICAgICAgICAgICAgICAgDQogICAgICAgICAgICAgICAgICAgICAgICAgICAgICAgICAgICAgICAgICAg ICAgICAgICAgICAgICAgICAgICAgICAgICAgICAgIC AgICAgICAgICAgICAgICAgICAgICAgICAgDQogICAgICAgICAgICAgICAgICAgICAgICAgICAgICAgIC AgICAgICAgICAgICAgICAgICAgICAgICAgICAgICAgICAgICAgICAgICAgICAgICAgICAgICAgICAgIC AgICAgICAgDQogICAgICAgICAgICAgICAgICAgICAg ICAgICAgICAgICAgICAgICAgICAgICAgICAgICAgICAgICAgICAgICAgICAgICAgICAgICAgICAgICAg ICAgICAgICAgICAgICAgICAgDQogICAgICAgICAgICAgICAgICAgICAgICAgICAgICAgICAgICAgICAg ICAgICAgICAgICAgICAgICAgICAgICAgICAgICAgIC AgICAgICAgICAgICAgICAgICAgICAgICAgICAgDQogICAgICAgICAgICAgICAgICAgICAgICAgICAgIC AgICAgICAgICAgICAgICAgICAgICAgICAgICAgICAgICAgICAgICAgICAgICAgICAgICAgICAgICAgIC AgICAgICAgICAgDQogICAgICAgICAgICAgICAgICAg ICAgICAgICAgICAgICAgICAgICAgICAgICAgICAgICAgICAgICAgICAgICAgICAgICAgICAgICAgICAg ICAgICAgICAgICAgICAgICAgICAgDQogICAgICAgICAgICAgICAgICAgICAgICAgICAgICAgICAgICAg ICAgICAgICAgICAgICAgICAgICAgICAgICAgICAgIC AgICAgICAgICAgICAgICAgICAgICAgICAgICAgICAgDQogICAgICAgICAgICAgICAgICAgICAgICAgIC AgICAgICAgICAgICAgICAgICAgICAgICAgICAgICAgICAgICAgICAgICAgICAgICAgICAgICAgICAgIC HzAHBlXVVxOKKkAIBbGWh0H6xcOKYmCEAmYS9gTFj3 Jz8+PVrHZlQxHRT8qbGomN2RNY7lj9UhORyoZFFqv5XeGQg7LV9ZIEEeFQddEC0BSJfqzk6DCYCiCUEp wYCRh2oqSuCkIKZ1XXRrOxtiOA3MPINjZ3cdrvJcCBIbXLVPFMpwENDDGBzrVSTELCTrTRAtEbHtENwj LC9Pn3HmsOR8MIe+Np5CDO2wa5HcEIgpMWIiQP4rai 4GZMmYWsCeL7IdxfZ4ORQkHOBiSr1RQFRiFOQyqVYjTfGrLHEKEiJbA2TfzH00DWCHRy8+DQplbmRvYm hWDwEeRDInz9PqBOz7WG8TUNMvOVy0aBGlJ39km0AczFKsKgdnMnQbmvLmlxOGJGrwvElaugXribdlGM YjKURpMS8qXo7jVRUnRBPxYtMsZVWRLJ7AXTOtQYWg tMWiYZUgPWAWTE6HZLiqGGI5BKCuieHgjEBiWPucDK0ORUYenkUaAuJiRDYMFKc+Yn3FVR1sb8KeDQnr ZpCzCS3shz1GZVgLOvAoU9O0tCNoR2L9GDgpTo1DPIOmKDVwKngcCGTNTFoeYD0ASO8qelI3ZQ7OvCXe UNSrSFDtfLUyINf2A29fmMKtKBkgDG3VKAT+Saba+Pg 3JVHGvSIIhDXOmRgBfVZLCNuTwV2MpP7CCb6SwA2HpNN95bZeusnSyBIjlQX3KEO5lSGTjKWXGFJ5NeK SzuT6axrPkCDDxMLBEByQfU90poJGhURUyHKXjRJTpSc1CYNVwJ0KqtnTsyByhajNzYGWcXJDROO3FAP haemJweEXnePgbCR84cEcrGF2KNo9ARyVfDZ8fdu6H lMOrJv4LKOOeGE2GBLTnEBGcFCPoHKS2ZKBpSmPjBTchKRZcAKVqDAO9GWGwBMDlKB6EDrIdHJCvRln6 LqAsPXQwTXKpnj3RQVKkWBVkQBLnFpRzXWBuZDVtEIzeHWMkFLQrQKB7MYRaQDPeGL1NGkKbIWYlASV6 CLOcZRLqKPJcfq3AQSRwWQTrZayfSDRjWUYcHSJbDW ldOZWbPCO7BOGiHWIzYJOhXW7SQfIsKEXzPSGiJOJfNVVwIQXmun3XDSXzQBRqKLqnAnIcUOKaBUAeWP wxMJAdJLP8GQQ9BHEhLDDaOU1JCvNmLMWgVTm3BgEjAZTwJBDlyh1BVORsMSUePTv5BOXtTNQqIZPcTC ggWERuHMWgNOD0ZGEfHWRwFP3YIkAgGARfUAWmHuAi QLVjSDMyoj9FCHPjSDMkHLNgDLZgYKSfFTSvMAzwFCAeMFFaYjR0KSTaGXTxKI9TIzEjHIHtVOQ2JsVy OIQhZWHrjv2OVWUiRAPjPqK3WVGsPNCpTEFlHLnoNRGxWFUwTfE7EBKlJBAdRP4TOzLnDFUrFKY0GIys WYOvZXDgyl9IVIVcCMJvXOXwJkKeEZEnPPSaTNkwWZ CuZIA0XNL2CLHxZAUiQK4YSfQgXFHvLCMdPuChHBGuEYNbby7UWSPmEWLcIKH4MeJsFEJeLLZkIHrxSF EoKBC0CeRiZXCpRQBxYJ9ZKjLhBEUcSdtwLOUjCTCgFYTvev8ZCVDtNWTzYhT4GVGfRCWbIUVqOPvnMJ QoPBC4ELk3TFPrIMJlVW3OLkAhXXRjZhr5VEDnNXMp DJCztk8FIRSfNTGqLZA3HxQzYECoVQWcAXliJPLsVXM5NSY7JQIzHVKxPP0FHsNcTLViBum0PBEaSRUf JRZpsh9MGIKtNFMtSPr4CiCiLWWuVUHmLIw8vmHkyMLuYVc8HF6WK0XsnhYrVmKXTt1Qx038NMSlGMMi Fr7HP5utSw4uLFYpAXDROl3OTAk3ZfXiYLWwIXk5Wl PrUQJ1GVU7BEMeSkS3FEr9CtDtDzp+KKfcUuP4VRPnWLw4FVT1OVcjSpB6HEQlQRgrPZmcXLA6JA6nSB ANCj4+SKaasNKyqGgzZYCCXlS4XFg7JUwhIHJVGs8U ID Date Data Source [id number] 06/25/2021 12:18:16 PM EDT [facility] Name Value Range Interpretation Code Description Data Daniella rce(s) Supporting Document(s) Color of Urine [facility] Clarity of Urine [facility] Specific gravity of Urine by Refractometry automated 1.005 1.003 -1.030 [facility] [place] pH of Urine by Automated test strip 7.0 5.0-8.0 [facility] [place] Protein [Mass/volume] in Urine by Automated test strip Neg [facility] Glucose [Mass/volume] in Urine by Automated test strip Neg [facility] Ketones [Mass/volume] in Urine by Automated test strip Neg [facility] Bilirubin.total [Presence] in Urine by Automated test strip Negative [facility] [place] Hemoglobin [Presence] in Urine by Automated test strip Neg [facility] Leukocyte esterase [Presence] in Urine by Automated test strip Negative [facility] [place] Nitrite [Presence] in Urine by Automated test strip Negati [facility] Leukocytes [#/area] in Urine sediment by Automated count 0 /HPF 0 -5 [facility] Erythrocytes [#/area] in Urine sediment by Automated count 0 /HPF 0-3 [facility] ID Date Data Source [id number] 06/25/2021 09:33:57 AM EDT [facility] Name Value Range Interpretation Code Description Data Daniella rce(s) Supporting Document(s) EKG [facility] WELIMc1yBmIPZwKrh6QtPxNwVCWpAF7ujsu4V1B6yFUrN6DibPSxc1opA1XxQ9WdAQTiPFTUMF5NiPJs jb2 [file] PcEigJ/D1NI1N4bV/SAÚL/tCSvDLA8iP8oTeviC8WJv3 [file] UOyLYEwJQZqykDqUQ49kEm/[place]/zdM157rk95wXq+YnO/ES/zGcKtQKDrQnjtaKYkQICi8aGpU5t27S4 fxaTCPJQVtE+FkSEiBBRIkpkEBlEjIgRcSJOJIiQAy HSVc0LBPd0DKNh0HGThEJXFYvWYlEbMQiDinRzBWiRxpLkRyicF177sx55ZGl+ojM/9Crb0GhLcEQfBn XSuBQrY51rPa/[place]/oOz/B7yPfxIifnOPpAJnLNDDkQLgHIMeaDKVKQRXbIgyf9wjHWPvnMTGAVLCuMi 1LSEy9ORXc5KPZlOYMWpoIVbwdZJsjrrMhpOtFfEYx P09KoHq3KJLq9EKFmDMOHpoKWc6wPBf7yUYj2PHAbRYFfH3bs2Owu7yPY+FzIfB/nbcHjUuDjm5UIc9P 9oxD9oH4Df8jkVvytzCPjBr6UU/7jhDhOAYTKzo5syPg8IE/skcRmXwP/Jsg3Tu3McOO22rffZ5G63mz IRPEpKvvWOCjRmGEyHmtrXf2dk/s9Hp077ukbqUQZf Qacp3rQSmEZDbuh2plUeKz+i3X2I2iR/sUQ4FvdSQPapGlEruMVO/AOz/bvlI7RmfcTYBOIzbf+GnrXo xXmY9hwMWC+YmvBREhIkQU5+n7oP6OXm/xtSBiRIyIEyEHkxxMcjDJwSQHnZ/2ApUSFEJT4oH+UtBOjA nshqbb5gdvg+C9jWrZrTY2oNT/87n2ebL+2Db8dw0Z //iLeyN/EqaedjnsqAnpFcYvxJemoMO4b00E0bcyVhaoAQ+Eon2G53ygldjnnFTRKganrh9D32toguwu gRyMlnynrz3A73p3xyngtIgBvekxhd2X88r6vckcyLZSPejdmt2Y67o1papftYGMDhtb60biabIVu8O0 llkW7jY36cccy+jk27yhihSrufxzGRrUBbuVd/Y6/u HDh9nyLm//2ZfL96MN56wYK3uRHfeOA2oOghF9yRqGvdQJIg1Yctg1mhZrE6Z/qwmnkoBT2LUjrN7ap7 mPBlplTUNXi/gZ9MC72EJ5K+kacg9pss5Evu2cc6wcvnwaf3/6oPme9d4t/18Y1/7Od69oubUTq+urvc MdGnznjo5cxjf1to0tCrSesj5vwdOmBieXOs0I77eL Wak4hkam8d46fbqHlf/2Qv9DnaDsbuE0+ZB+saúl/y0Z/jt3x/n7g/Z+BlhJzz86ke/j6r2f+qXlrpXvfx v05vn4N/ys7UgvmIsBnbCFgdi0xobbh/CpdGR/RP2vE8J+k05d4G8doyo7n0m8S8o4DnjurmDYheHb1h kqX34+jjm/+o6szal481u2sSn/Dzu9z/ZmG5ln2e78 q6/pe759Q2k+eqVHodF+M4zbpmlxaizhkplqki9Rhtq1NJ1Zzrem1m0kzH4lxLPrh3dGxsiFrZwvDugs s66WdC/6bm5/wrD1RcDIyWsgKO7ME1kBkhsJ4PvkRNuKf+e7hAsWikTODR+Tj3l/f92/J1/+7fl3mzH9 mZ1sA2GN/IC/IJ+Tzy+7F2js/6zBAiium4Zi3DE2qR Ph/7VbS+feyQO+ODdMAimCvyDIjJUoVnS11JpLKDFJKWUHXStMiuQ/Klb+6x1macDyeqOlpFHt0M+ib0 Sleh8Wnol88t+xO02f87fcT6FQwEc5a89rCAHPUtiP/IDXKDHM+ywfaF1gozhJErrZdaZ3uv5AU1/lz6 4x94y995DDRHnGZw0Mvz59S+0180F52oosc68b3yla [file] [id number]== ID Date Data Source [id number] 06/25/2021 10:18:32 AM EDT [facility] Name Value Range Interpretation Code Description Data Daniella rce(s) Supporting Document(s) Bicarbonate [Moles/volume] in Serum 22 mmol/L [facility] [place] Chloride [Moles/volume] in Serum or Plasma 106 mmol/L 98-107 [facility] [place] Creatinine [Mass/volume] in Serum or Plasma 1.18 mg/dL 0.70-1.20 [facility] [place] Glucose [Mass/volume] in Serum or Plasma 105 mg/dL 70-140 [facility] [place] Potassium [Moles/volume] in Serum or Plasma 4.3 mmol/L 3.4-5.1 [facility] [place] Sodium [Moles/volume] in Serum or Plasma 138 mmol/L 136-145 [facility] Urea nitrogen [Mass/volume] in Serum or Plasma 9 mg/dL 6-20 [facility] Anion gap 3 in Serum or Plasma 10 mmol/L 8-15 [facility] [place] Osmolality of Serum or Plasma by calculation 285 mosm/kg 275-300 [facility] [place] Creatinine/Urea nitrogen [Mass Ratio] in Serum or Plasma 8 [facility] [place] Calcium [Mass/volume] in Serum or Plasma 8.6 mg/dL 8.6-10.0 [facility] [place] Glomerular filtration rate/1.73 sq M pre dicted among non-blacks [Volume Rate/Area] in Serum or Plasma by Creatinine-based formula (MDRD) 82 mL/min/1.73m2 >60 [facility] [place] Glomerular filtration rate/1.73 sq M pre dicted among blacks [Volume Rate/Area] in Serum or Plasma by Creatinine-based formula (MDRD) >60 [facility] [place] ID Date Data Source [id number] 06/25/2021 08:44:23 AM EDT [facility] CT ANGIOGRAPHY HEAD [id number] RESULTInt erpreted by:Nohelia Kiran MDCLINICAL INDICATION: Evaluation for intracerebral hemorrhage. TECHNIQUE: CT angiography of the head and neck was performed following intravenous administration of Omnipaque 350. Multiple reconstructed images including MIP images were then acquired using the source data at a separate workstation. Automated dose lowering techniques and/or adjustment according to patient's size were utilized for this exam.COMPARISON: None availableFINDINGS: NECT: There is no intracranial hemorrhage or acute major arterial territorial infarction. The ventricles are normal in size and configuration. The basal cisterns and foramen magnum are patent. No mass lesion or mass effect. The ventricles are in midline.There are no depressed calvarial fractures. The extracranial soft tissue structures are unremarkable. The paranasal sinuses and mastoid air cells are clear.CTA HEAD:The intracranial segments of the internal carotid arteries are patent without flow-limiting stenosis. The basilar, anterior, middle, and posterior cerebral arteries are patent without flow- limiting stenosis. No aneurysm or arteriovenous malformation is visualized.CTA NECK: A bovine arch is present with [...] lung apices are clear of focal airspace disease.Thyroid: Within normal limits.Bones: Mild multilevel degenerative changes are identified.IMPRESSION: 1. No acute intracranial hemorrhage or large arterial territorial infarction.2. Major intracranial arteries and arteries of the neck are patent.The degree of stenosis was assessed utilizing NASCET Criteria.This document has been electronically signed by Nat Pool MD on 06/25/2021 8:42 AM Name Value Range Interpretation Code Description Data Daniella rce(s) Supporting Document(s) ID Date Data Source [id number] 06/25/2021 08:44:23 AM [facility] CT ANGIOGRAPHY NECK [id number] RESULTInt erpreted by:Nohelia Kiran MDCLINICAL INDICATION: Evaluation for intracerebral hemorrhage. TECHNIQUE: CT angiography of the head and neck was performed following intravenous administration of Omnipaque 350. Multiple reconstructed images including MIP images were then acquired using the source data at a separate workstation. Automated dose lowering techniques and/or adjustment according to patient's size were utilized for this exam.COMPARISON: None availableFINDINGS: NECT: There is no intracranial hemorrhage or acute major arterial territorial infarction. The ventricles are normal in size and configuration. The basal cisterns and foramen magnum are patent. No mass lesion or mass effect. The ventricles are in midline.There are no depressed calvarial fractures. The extracranial soft tissue structures are unremarkable. The paranasal sinuses and mastoid air cells are clear.CTA HEAD:The intracranial segments of the internal carotid arteries are patent without flow-limiting stenosis. The basilar, anterior, middle, and posterior cerebral arteries are patent without flow- limiting stenosis. No aneurysm or arteriovenous malformation is visualized.CTA NECK: A bovine arch is present with [...] lung apices are clear of focal airspace disease.Thyroid: Within normal limits.Bones: Mild multilevel degenerative changes are identified.IMPRESSION: 1. No acute intracranial hemorrhage or large arterial territorial infarction.2. Major intracranial arteries and arteries of the neck are patent.The degree of stenosis was assessed utilizing NASCET Criteria.This document has been electronically signed by Nat Pool MD on 06/25/2021 8:42 AM Name Value Range Interpretation Code Description Data Daniella rce(s) Supporting Document(s) ID Date Data Source [id number] 06/25/2021 04:55:15 AM [facility] Name Value Range Interpretation Code Description Data [facility] rce(s) Supporting Document(s) Leukocytes [#/volume] in Blood by Automated count 3.2 10*3/uL 4-[address] [facility] [place] Erythrocytes [#/volume] in Blood by Automated count 4.47 10*6/uL 4.6- 6.[address] [facility] [place] Hemoglobin [Mass/volume] in Blood 12.3 g/dL 13.5-[address] [facility] [place] Hematocrit [Volume Fraction] of Blood by Automated count 38.5 % 4 1-[address] [facility] [place] Erythrocyte mean corpuscular volume [Entitic volume] by Auto mated count 86.1 fL 80-96 [facility] [place] Erythrocyte mean corpuscular hemoglobin [Entitic mass] by Automated count 27.4 pg 27-33 [facility] [place] Erythrocyte mean corpuscular hemoglobin concentration [Mass/volume] by Automated count 31.9 g/dL [facility].0[facility] width [Ratio] by Automated count 12.2 % 11.5-14.5 [facility] [place] Platelets [#/volume] in Blood by Automated count 215 10*3/uL 150-400 [facility] [place] ID Date Data Source [id number] 06/25/2021 05:19:25 AM [facility] Name Value Range Interpretation Code Description Data Daniella rce(s) Supporting Document(s) Bicarbonate [Moles/volume] in Serum 21 mmol/L 22-[address] [facility] [place] Chloride [Moles/volume] in Serum or Plasma 102 mmol/L 98-107 [facility] [place] Creatinine [Mass/volume] in Serum or Plasma 1.13 mg/dL 0.70-1.20 [facility] [place] Glucose [Mass/volume] in Serum or Plasma 104 mg/dL 70-140 [facility] [place] Potassium [Moles/volume] in Serum or Plasma 3.6 mmol/L 3.4-5.1 [facility] [place] Sodium [Moles/volume] in Serum or Plasma 133 mmol/L 136-[address] [facility] [place] Urea nitrogen [Mass/volume] in Serum or Plasma 10 mg/dL 6-20 [facility] [place] Anion gap 3 in Serum or Plasma 9 mmol/L 8-15 [facility] [place] Osmolality of Serum or Plasma by calculation 275 mosm/kg 275-300 [facility] [place] Creatinine/Urea nitrogen [Mass Ratio] in Serum or Plasma 8 [facility] [place] Calcium [Mass/volume] in Serum or Plasma 8.6 mg/dL 8.6-10.0 [facility] [place] Glomerular filtration rate/1.73 sq M pre dicted among non-blacks [Volume Rate/Area] in Serum or Plasma by Creatinine-based formula (MDRD) 87 mL/min/1.73m2 >60 [facility] [place] Glomerular filtration rate/1.73 sq M pre dicted among blacks [Volume Rate/Area] in Serum or Plasma by Creatinine-based formula (MDRD) >60 [facility] [place] ID Date Data Source [id number] 06/25/2021 05:19:25 AM [facility] Value Range Interpretation Code Description Data Daniella rce(s) Supporting Document(s) Magnesium [Mass/volume] in Serum or Plasma 1.7 mg/dL 1.6-2.6 [facility] [place] ID Date Data Source [id number] 06/25/2021 05:19:25 AM [facility] Value Range Interpretation Code Description Data Daniella rce(s) Supporting Document(s) Phosphate [Mass/volume] in Serum or Plasma 2.9 mg/dL 2.5-4.5 [facility] [place] ID Date Data Source [id number] 06/24/2021 09:34:49 PM [facility] Name Value Range Interpretation Code Description Data Daniella rce(s) Supporting Document(s) Hemoglobin A1c/Hemoglobin.total in Blood by HPLC 4.5 % 4.0-6.0 [facility] [place] (NOTE)<5.7% Average risk of diabetes (ADA)5.7-6.4% Increased risk of diabetes(ADA)>/= 6.5% Diagnostic for diabetes(ADA) Glucose mean value [Mass/volume] in Blood Estimated fr om glycated hemoglobin 81 mg/dL <126 [facility] [place] ID Date Data Source [id number] 06/24/2021 08:59:16 PM [facility] Name Value Range Interpretation Code Description Data Daniella rce(s) Supporting Document(s) Leukocytes [#/volume] in Blood by Automated count 4.3 10*3/uL 4-10 [facility] [place] Erythrocytes [#/volume] in Blood by Automated count 4.59 10*6/uL 4.6- 6.[address] [facility] [place] Hemoglobin [Mass/volume] in Blood 12.9 g/dL 13.5-[address] [facility] [place] Hematocrit [Volume Fraction] of Blood by Automated count 39.1 % 4 1-[address] [facility] [place] Erythrocyte mean corpuscular volume [Entitic volume] by Auto mated count 85.3 fL 80-96 [facility] [place] Erythrocyte mean corpuscular hemoglobin [Entitic mass] by Automated count 28.2 pg 27-33 [facility] [place] Erythrocyte mean corpuscular hemoglobin concentration [Mass/volume] by Automated count 33.0 g/dL 32.0-[facility] distribution width [Ratio] by Automated count 12.3 % 11.5-14.5 [facility] [place] Platelets [#/volume] in Blood by Automated count 210 10*3/uL 150-400 [facility] [place] Differential cell count method - Blood [facility] [place] Neutrophils/100 leukocytes in Blood by Automated count 42 % [facility] [place] Lymphocytes/100 leukocytes in Blood by Automated count 48 % [facility] [place] Monocytes/100 leukocytes in Blood by Automated count 8 % [facility] [place] Eosinophils/100 leukocytes in Blood by Automated count 1 % [facility] [place] Basophils/100 leukocytes in Blood by Automated count 1 % [facility] [place] Neutrophils [#/volume] in Blood by Automated count 1.74 10*3/uL 1.8-[address] [facility] [place] Lymphocytes [#/volume] in Blood by Automated count 1.99 10*3/uL 1.2-[address] [facility] [place] Monocytes [#/volume] in Blood by Automated count 0.35 10*3/uL 0-0.8 [facility] [place] Eosinophils [#/volume] in Blood by Automated count 0.05 10*3/uL 0-0.5 [facility] [place] Basophils [#/volume] in Blood by Automated count 0.04 10*3/uL 0-0.2 [facility] [place] Nucleated erythrocytes/100 leukocytes [Ratio] in Blood by Automated count 0 /100{WBCs} 0-0 [facility] [place] ID Date Data Source [id number] 06/24/2021 09:07:26 PM [facility] Value Range Interpretation Code Description Data Daniella rce(s) Supporting Document(s) Prothrombin time (PT) 15.2 s 11.6-14.[address] [facility] [place] INR in Platelet poor plasma by Coagulation assay 1.24 [facility] [place] Routine intensity oral anticoagulation I NR is typically 2.0-3.0. Target INR must be clinically individualized. ID Date Data Source [id number] 06/24/2021 09:07:26 PM [facility] Value Range Interpretation Code Description Data Daniella rce(s) Supporting Document(s) aPTT in Platelet poor plasma by Coagulation assay 31.6 s 24.0-33. 0 [facility] [place] ID Date Data Source [id number] 06/24/2021 09:15:19 PM [facility] Value Range Interpretation Code Description Data Daniella rce(s) Supporting Document(s) Albumin [Mass/volume] in Serum or Plasma by Bromocresol green (BCG) dye binding method 4.1 g/dL 3.5-5.2 [facility] Bilirubin.total [Mass/volume] in Serum or Plasma 0.7 mg/dL <1.2 [facility] [place] Bilirubin.direct [Mass/volume] in Serum or Plasma <0.3 [facility] [place] Alkaline phosphatase [Enzymatic activity/volume] in Serum or Plasma 78 U/L 40-129 [facility] [place] Aspartate aminotransferase [Enzymatic activity/volume] in Serum or Plasma 19 U/L <40 [facility] [place] Alanine aminotransferase [Enzymatic activity/volume] in Seru m or Plasma 16 U/L <41 [facility] [place] Protein [Mass/volume] in Serum or Plasma 6.9 g/dL 6.4-8.3 [facility] [place] ID Date Data Source [id number] 06/24/2021 09:15:19 PM [facility] Name Value Range Interpretation Code Description Data Daniella rce(s) Supporting Document(s) Cholesterol [Mass/volume] in Serum or Plasma 142 mg/dL <200 [facility] [place] Triglyceride [Mass/volume] in Serum or Plasma 44 mg/dL <150 [facility] [place] Cholesterol in HDL [Mass/volume] in Serum or Plasma 55 mg/dL >40 [facility] [place] Cholesterol in LDL [Mass/volume] in Serum or Plasma by calcu lation 78 mg/dL <100 [facility] [place] Cholesterol in VLDL [Mass/volume] in Serum or Plasma by calc ulation 9 mg/dl 16-[address] [facility] [place] Cholesterol non HDL [Mass/volume] in Serum or Plasma 87 mg/dL <130 [facility] [place] ID Date Data Source [id number] 06/24/2021 09:15:19 PM [facility] Value Range Interpretation Code Description Data Daniella rce(s) Supporting Document(s) Magnesium [Mass/volume] in Serum or Plasma 1.6 mg/dL 1.6-2.6 [facility] [place] ID Date Data Source [id number] 06/24/2021 09:15:19 PM [facility] Value Range Interpretation Code Description Data Daniella rce(s) Supporting Document(s) Phosphate [Mass/volume] in Serum or Plasma 3.1 mg/dL 2.5-4.5 [facility] [place] ID Date Data Source [id number] 06/24/2021 09:15:19 PM [facility] Value Range Interpretation Code Description Data Daniella rce(s) Supporting Document(s) Bicarbonate [Moles/volume] in Serum 20 mmol/L 22-[address] [facility] [place] Chloride [Moles/volume] in Serum or Plasma 105 mmol/L 98-107 [facility] [place] Creatinine [Mass/volume] in Serum or Plasma 1.07 mg/dL 0.70-1.20 [facility] [place] Glucose [Mass/volume] in Serum or Plasma 79 mg/dL 70-140 [facility] [place] Potassium [Moles/volume] in Serum or Plasma 3.8 mmol/L 3.4-5.1 [facility] [place] Sodium [Moles/volume] in Serum or Plasma 138 mmol/L 136-145 [facility] [place] Urea nitrogen [Mass/volume] in Serum or Plasma 9 mg/dL 6-20 [facility] [place] Anion gap 3 in Serum or Plasma 13 mmol/L 8-15 [facility] [place] Osmolality of Serum or Plasma by calculation 284 mosm/kg 275-300 [facility] [place] Creatinine/Urea nitrogen [Mass Ratio] in Serum or Plasma 8 [facility] [place] Calcium [Mass/volume] in Serum or Plasma 8.9 mg/dL 8.6-10.0 [facility] [place] Glomerular filtration rate/1.73 sq M pre dicted among non-blacks [Volume Rate/Area] in Serum or Plasma by Creatinine-based formula (MDRD) >[address] [facility] [place] Glomerular filtration rate/1.73 sq M pre dicted among blacks [Volume Rate/Area] in Serum or Plasma by Creatinine-based formula (MDRD) >60 [facility] [place] ID Date Data Source [id number] 06/24/2021 08:55:36 PM EDT [facility] Name Value Range Interpretation Code Description Data Daniella rce(s) Supporting Document(s) Calcium.ionized [Moles/volume] in Arterial blood 1.17 mmol/L 1.13-1.[address] [facility] [place] ID Date Data Source [id number] 06/24/2021 09:21:25 PM EDT [facility] Name Value Range Interpretation Code Description Data Daniella rce(s) Supporting Document(s) ABO and Rh group [Type] in Blood [facility] [place] Blood group antibody screen [Presence] in Serum or Plasma [facility] [place] Blood bank comment [facility] ID Date Data Source [id number] 06/24/2021 03:05:00 PM EDT [facility] Name Value Range Interpretation Code Description Data Daniella rce(s) Supporting Document(s) SARS coronavirus 2 RNA [Presence] in Res piratory specimen by LIT with probe detection NEGATIVE [facility] This lab was ordered by [facility] a nd reported by [facility] [place]. Procedure Social History Code Duration Value Status Description Data Source(s ) Alcohol intake 08/01/2021 12:00:00 AM EDT Ex-drinker (finding) comp leted Ex- drinker (finding) [facility] [place] Tobacco use and exposure 08/01/2021 12:00:00 AM EDT Never used co mpleted Never used [facility] [place] Smoking 08/01/2021 12:00:00 AM EDT Never smoker completed Never s moker [facility] [place] Alcohol intake 06/24/2021 12:00:00 AM EDT Current drinker of al cohol (finding) completed Current drinker of alcohol (finding) [facility] Vital Signs ID Date Data Source [id number] Name Value Range Interpretation Code Description Data Source(s) Systolic blood pressure 110 mm[Hg] 110 mm[Hg] M [facility] ([facility]) Diastolic blood pressure 68 mm[Hg] 68 mm[Hg] [facility] ([facility]) Heart rate 65 /min 65 /min [facility] ([facility]) Body temperature 98.6 [degF] 98.6 [degF] [facility] ([facility]) Respiratory rate 18 /min 18 /min [facility] ( [facility]) Oxygen saturation in Arterial blood by Pulse oximetry 98 % 98 % [facility] ([facility]) Body weight 169.00 [lb_av] 169.00 [lb_av] [facility] T ([facility]) Body weight 76.658 kg 76.658 kg [facility] ([facility]) Body height 64 [in_i] 64 [in_i] [facility] ([facility]) 5'4" Body mass index (BMI) [Ratio] 29.0 kg/m2 29.0 k g/m2 [facility] ([facility]) Body surface area Derived from formula 1.82 m2 1.82 m2 [facility] ([facility]) Body temperature 98.6 [degF] 98.6 [degF] [facility] ([facility]) Oxygen saturation in Arterial blood by Pulse oximetry 98 % 98 % [facility] Body weight 168.00 [lb_av] 168.00 [lb_av] [facility] T ([facility]) Body weight 76.205 kg 76.205 kg [facility] Body height 64 [in_i] 64 [in_i] [facility] ([facility]) 5'4" Body mass index (BMI) [Ratio] 28.8 kg/m2 28.8 k g/m2 [facility] ([facility]) Respiratory rate 16 /min 16 /min [facility] Body surface area Derived from formula 1.82 m2 1.82 m2 [facility] ([facility]) Systolic blood pressure 117 mm[Hg] 117 mm[Hg] M [facility] ([facility]) Diastolic blood pressure 82 mm[Hg] 82 mm[Hg] [facility] ([facility]) Heart rate 77 /min 77 /min [facility] ([facility]) ID Date Data Source [id number] 06/28/2021 09:32:42 AM [facility] Name Value Range Interpretation Code Description Data Source(s) TRANSFER FROM [facility] Patient Treatment Plan of Care Planned Activity Planned Date Details Description Data Source (s) rizatriptan 10 MG Oral Tablet 08/01/2021 12:00:00 AM [facility] topiramate 25 MG Oral Tablet 08/01/2021 12:00:00 AM [facility] Nerivio Device 08/01/2021 12:00:00 AM [facility] Prednisone 5 MG Oral Tablet 07/01/2021 12:00:00 AM [facility] Prednisone 5 MG Oral Tablet 07/01/2021 12:00:00 AM [facility] Prednisone 5 MG Oral Tablet 07/01/2021 12:00:00 AM [facility] Prednisone 10 MG Oral Tablet 06/30/2021 12:00:00 AM [facility] Prednisone 10 MG Oral Tablet 06/30/2021 12:00:00 AM [facility] Prednisone 10 MG Oral Tablet 06/30/2021 12:00:00 AM [facility] Prednisone 20 MG Oral Tablet 06/29/2021 12:00:00 AM [facility] Prednisone 20 MG Oral Tablet 06/29/2021 12:00:00 AM [facility] Prednisone 20 MG Oral Tablet 06/29/2021 12:00:00 AM [facility] Prednisone 10 MG Oral Tablet 06/28/2021 12:00:00 AM [facility] Prednisone 10 MG Oral Tablet 06/28/2021 12:00:00 AM [facility] Prednisone 10 MG Oral Tablet 06/28/2021 12:00:00 AM [facility] predniSONE (DELTASONE) tablet 40 mg 06/27/2021 09:00:00 AM [facility] Prednisone 10 MG Oral Tablet 06/27/2021 12:00:00 AM [facility] Prednisone 20 MG Oral Tablet 06/27/2021 12:00:00 AM [facility] Prednisone 20 MG Oral Tablet 06/27/2021 12:00:00 AM [facility] Prednisone 20 MG Oral Tablet 06/27/2021 12:00:00 AM [facility] Magnesium Oxide 400 MG Oral Tablet 06/26/2021 12:00:00 AM [facility] Magnesium Oxide 400 MG Oral Tablet 06/26/2021 12:00:00 AM [facility] Magnesium Oxide 400 MG Oral Tablet 06/26/2021 12:00:00 AM [facility] sennosides, PENITENTIARY 8.6 MG Oral Tablet 06/25/2021 07:40:47 AM [facility] Bisacodyl 10 MG Rectal Suppository 06/25/2021 07:40:47 AM [facility] potassium chloride 20 mEq in 50 mL IVPB (premix) 06/24/2021 08:13:2 7 PM [facility] sodium phosphate infusion 12 mmol/100 mL (central line ) (premix) 06/24/2021 08:13:27 PM [facility] potassium phosphate infusion 12 mmol/100 mL (central l ine) (premix) 06/24/2021 08:13:27 PM [facility] calcium gluconate in NaCl 0.9 % infusion 2 g/50 mL 06/24/2021 08 :13:27 PM [facility] Hydralazine Hydrochloride 20 MG/ML Injectable Solution 06/24/2021 08:13:13 PM [facility] labetalol (TRANDATE) injection 20 mg 06/24/2021 08:12:45 PM [facility] ondansetron (ZOFRAN) injection 4 mg 06/24/2021 08:12:[address] [facility] [place]
[2021-09-05 13:30] VITALS: BP 121/81
[2021-09-05] MEDS: NS 1,000 ML IV SCH ×2 (15:04→20:53)
--- NOTE | 2021-09-05 16:52 | REP ---
INDICATION: MARLENE. COMPARISON: None. TECHNIQUE: Real-time sonographic evaluation of the kidneys with Doppler FINDINGS: Multiple ultrasonographic images of the right kidney show the right kidney to measure 10.1 x 4.6 x 5.8 cm. The renal cortical echotexture is unremarkable. There are no masses. There is good corticomedullary differentiation. There is no hydronephrosis. There are no perinephric fluid collections. Multiple ultrasonographic images of the left kidney show the left kidney to measure 9.8 x 5.3 x 5.5 cm. The renal cortical echotexture is unremarkable. There are no masses. There is good corticomedullary differentiation. There is no hydronephrosis. There are no perinephric fluid collections. IMPRESSION: Unremarkable renal ultrasonography. <Electronically signed by Severino Vazquez > 09/05/21 1424
[2021-09-05] MEDS ORDERED: HOME MED LIST COMPLETE! XX SCH (18:10)
[2021-09-05] MEDS ORDERED: SUMAtriptan SUCCINATE 25 MG TAB PO ONE (19:45)
[2021-09-05] MEDS ORDERED: traZODone 50 MG TAB PO SCH (21:00)
[2021-09-05 22:00] VITALS: BP 117/67
[2021-09-06] MEDS ORDERED: RAMELTEON 8 MG TAB (ROZEREM) PO PRN (00:45)
[2021-09-06] MEDS: NS 1,000 ML IV SCH ×3 (03:30→17:57)
[2021-09-06 06:00] VITALS: BP 111/55
[2021-09-06 07:05] LABS: BASO % 0.4 % (0.0-1.0); EOS # 0.1 10^3/uL (0.0-0.5); EOS % 1.1 % (0.0-3.0); HEMATOCRIT 34.9 % (42.0-52.0); LYMPH # 1.5 10^3/uL (1.5-5.0); LYMPH % 31.2 % (24.0-44.0); MEAN CORPUSCULAR HEMOGLOBIN 27.9 pg (27.0-33.0); MEAN CORPUSCULAR HGB CONC 32.1 g/dl (32.0-36.5); MEAN CORPUSCULAR VOLUME 86.8 fl (80.0-96.0); MONO # 0.5 10^3/uL (0.0-0.8); MONO % 9.7 % (2.0-8.0); NEUTROPHILS # 2.7 10^3/uL (1.5-8.5); NEUTROPHILS % 57.4 % (36.0-66.0); PLATELET COUNT, AUTOMATED 223 10^3/uL (150-450); RED BLOOD COUNT 4.02 10^6/uL (4.30-6.10); WHITE BLOOD COUNT 4.8 10^3/uL (4.0-10.0)
[2021-09-06 07:09] LABS: HEMOGLOBIN 11.2 g/dl (13.5-17.5)
[2021-09-06 07:39] LABS: ALBUMIN 2.9 GM/DL (3.2-5.2); ALT/SGPT 20 U/L (12-78); BILIRUBIN,TOTAL 0.7 MG/DL (0.2-1.0); BLOOD UREA NITROGEN 15 MG/DL (7-18); CALCIUM LEVEL 8.7 MG/DL (8.5-10.1); CARBON DIOXIDE LEVEL 25 MEQ/L (21-32); CHLORIDE LEVEL 115 MEQ/L (98-107); GLOMERULAR FILTRATION RATE > 60.0 (>60); GLUCOSE, FASTING 107 MG/DL (70-100); MAGNESIUM LEVEL 1.7 MG/DL (1.8-2.4); POTASSIUM SERUM 3.9 MEQ/L (3.5-5.1); SODIUM LEVEL 142 MEQ/L (136-145); TOTAL PROTEIN 5.8 GM/DL (6.4-8.2)
[2021-09-06] MEDS ORDERED: INFLUENZA QUADRIVALENT PF VACCINE 0.5ML SYRINGE IM ONE ×2 (09:00→17:00)
[2021-09-06] MEDS: MECLIZINE 25 MG TABLET PO SCH ×2 (09:34→15:44)
[2021-09-06 10:30] VITALS: BP_SYST 137; BP_SYST 138; BP_SYST 139; BP_DIAS 86; BP_DIAS 90
[2021-09-06] MEDS ORDERED: MECL-86 PO (11:38)
[2021-09-06] MEDS ORDERED: TRAZ-252 PO (11:38)
[2021-09-06] MEDS ORDERED: RAME8TAB2 PO (11:38)
[2021-09-06 14:00] VITALS: BP 136/90
--- NOTE | 2021-09-06 18:49 | MHIPNPDOC ---
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 he was initially admitted for SI and delusions. He is still very depressed and delusonal. VITAL SIGNS: See below. NEW TEST RESULTS: see below CURRENT MEDICATIONS: See below. MENTAL STATUS EXAMINATION: Patient is a 30-year old male, who is alert, laying in bed, wearing a hospital gown, very sad, with poor eye contact. Speech: Is slow, impoverished, needs to be prompted.. Language skills are intact. Thought processes including: linear but not necessarily coherent. Thought content: positive for depressive, nihilistic thoughts, he is delusional, convinced his father talks to him. Abstract reasoning, and computation: not assessed he has severe psychomotor retardation Description of associations: loose Description of abnormal or psychotic thoughts: has auditory hallucinations, was [id number] to internal stimuli, he was staring off, he seemed to be seeing someone or something nobody else could see. Judgment: poor. Insight: poor. Orientation: not oriented at this time, not to date and time. He is psychotic. Recent and remote memory: fair Attention span and concentration: easily distracted, he's responding to internal stimuli Language: no abnormalities observed. Fund of knowledge: not assessed Mood: severely depressed. Affect: congruent with mood DIAGNOSES: 1. Unspecified psychotic disorder. 2. Rule out Schizoaffective disorder. 3. Rule out MDD with psychosis. ASSESSMENT: He is extremely depressed, he is almost catatonic, has psychomotor retardation, he is responding to internal stimuli, he has delayed responses, he hears his grandfather's voice talking to him. He needs to go back to [facility]. MANAGEMENT PLAN: Discharge him to [facility] for continuation of treatment, he is psychotic, extremely depressed and is completely hopeless and helpless, has passive SI. TIME SPENT: 20 minutes. Vital Signs Vital Signs Date Time Temp Pulse Resp B/P (MAP) Pulse Ox O2 Delivery O2 Flow Rate FiO2 09/06/21 10:30 70 138/86 (103) 67 139/90 (106) 86 137/90 (106) 09/06/21 06:00 98.5 16 100 Room Air Laboratory Data 24H Labs Laboratory Tests 2 09/05/21 14:28: Lactic Acid Level 1.9 09/06/21 06:47: Immature Granulocyte % (Auto) 0.2, Neutrophils (%) (Auto) 57.4, Lymphocytes (%) (Auto) 31.2, Monocytes (%) (Auto) 9.7H, Eosinophils (%) (Auto) 1.1, Basophils (%) (Auto) 0.4, Neutrophils # (Auto) 2.7, Lymphocytes # (Auto) 1.5, Monocytes # (Auto) 0.5, Eosinophils # (Auto) 0.1, Basophils # (Auto) 0.0, Nucleated Red Blood Cells % (auto) 0.0, Anion Gap 2L, Glomerular Filtration Rate > 60.0, Calcium Level 8.7, Magnesium Level 1.7L, Total Bilirubin 0.7, Aspartate Amino Transf (AST/SGOT) 11, Alanine Aminotransferase (ALT/SGPT) 20, Alkaline Phosphatase 62, Total Protein 5.8#L, Albumin 2.9#L, Albumin/Globulin Ratio 1.0 CBC/BMP Laboratory Tests 09/06/21 06:47 Current Medications Current Medications Medications (Trade) Dose Ordered Sig/Chikis Route PRN Reason Start Time Stop Time Status Last Admin Dose Admin Acetaminophen (Tylenol Tab) 650 mg Q4H PRN PO MILD PAIN or TEMP > 101 09/05/21 11:25 Al Hydrox/Mg Hydrox/Simethicone (Mylanta) 30 ml DAILY PRN PO DYSPEPSIA 09/05/21 11:25 Home Med (Home Med List Complete!) ASDIRECTED XX 09/05/21 18:10 09/05/21 18:14 DC Magnesium Hydroxide (Milk Of Magnesia) 30 ml DAILY PRN PO CONSTIPATION 09/05/21 11:25 Meclizine HCl (Antivert) 25 mg Q8H PO 09/06/21 06:00 09/06/21 09:34 Ramelteon (Rozerem) 8 mg QHS PRN PO INSOMNIA 09/06/21 00:45 Sodium Chloride 1,000 ml @ 150 mls/hr Q6H40M IV 09/05/21 14:45 09/06/21 11:09 Trazodone HCl (Desyrel) 50 mg QHS PO 09/05/21 21:00 09/06/21 01:10 Allergies Coded Allergies: No Known Allergies (Unverified , 09/04/21) CHEVY GUAMAN MD Sep 06, 2021 14:25
--- NOTE | 2021-09-06 22:20 | DS.PDOC ---
Discharge Summary General Date of Admission Sep 05, 2021 at 13:00 Date of Discharge Sep 06, 2021 Specialist/Consultants Involve Psychiatry, Dr. Swanson Discharge Summary PROCEDURES PERFORMED DURING STAY: None ADMITTING DIAGNOSES: 1. Hypotension 2. MARLENE 3. Paranoia 4. Depression with suicidal ideation DISCHARGE DIAGNOSES: 1. Hypotension 2. MARLENE 3. Paranoia 4. Depression with suicidal ideation COMPLICATIONS/CHIEF COMPLAINT: Orthostatic Hypertension And Dehydration. 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 He was admitted to [facility], and hospitalist was called for medical intake. RN informed MD that patient had vomited shortly prior to breakfast, felt lightheaded and when he lay down, his SBP measured was 70 mmHg, with repeat improvement to 100 mmHg systolic. Patient stated that he had nothing to eat or drink for almost 24 hours and felt thirsty. He denies blurred vision, chest pain, palpitations, but endor ses slight headache. Lab work was ordered, indicating Cr 2.04. LA 2.2. Orthostatic BP was measured in [facility], positive. Tox screen negative. Patient admitted to hospitalist service from [facility] due to MARLENE likely 2/2 dehydration. " HOSPITAL COURSE: During hospitalization, patient was given fluids. Lactic acidosis, resolved. Renal function improved. Patient no longer has orthostatic hypotension. When I spoke with patient, he denied any chest pain or shortness of breath. He denies feeling faint like he's going to pass out. He tells me he has a chronic spinning sensation. I've started meclizine to help with the vertigo. Otherwise, patient appears depressed and slow to respond. He was saying we were keeping his son away, and he wants to see his son. He doesn't know where is son is. I consulted psychiatry, Dr. Swanson, to see the patient. Recommended [facility]. Patient will be transferred to [facility] today. DISCHARGE MEDICATIONS: Please see below. ALLERGIES: Please see below. PHYSICAL EXAMINATION ON DISCHARGE: VITAL SIGNS: Please see below. GENERAL: Comfortable, in no apparent distress HEENT: Head normocephalic, atraumatic NECK: Supple CARDIOVASCULAR EXAMINATION: Regular rate and rhythm RESPIRATORY EXAMINATION: Lungs clear to auscultation bilaterally ABDOMINAL EXAMINATION: Soft, non-tender, normal bowel sounds EXTREMITIES: No pitting edema bilaterally SKIN: Warm and dry NEUROLOGICAL EXAMINATION: CN 3-12 grossly intact PSYCHIATRIC EXAMINATION: Appears depressed, slow to respond LABORATORY DATA: Please see below. IMAGING: Radiologist interpretation CT head without contrast No acute intracranial pathology. CXR No acute pulmonary disease. US kidney Unremarkable renal ultrasonography. PROGNOSIS: Fair ACTIVITY: As tolerated. DIET: As tolerated DISCHARGE PLAN: [facility] DISPOSITION: [facility] DISCHARGE INSTRUCTIONS: 1. Return to [facility] 2. On discharge, follow up with PCP within 1 week DISCHARGE CONDITION: Stable Total time spent on discharge planning, discharge summary, and medication re conciliation: 32 minutes Vital Signs/I&Os Vital Signs Date Time Temp Pulse Resp B/P (MAP) Pulse Ox O2 Delivery O2 Flow Rate FiO2 09/06/21 14:00 98.3 78 17 136/90 (105) 99 Room Air I&O- Last 24 Hours up to 6 AM 09/06/21 05:59 Intake Total 2650 ml Balance 2650 ml Laboratory Data Labs 24H Laboratory Tests 2 09/06/21 06:47: Immature Granulocyte % (Auto) 0.2, Neutrophils (%) (Auto) 57.4, Lymphocytes (%) (Auto) 31.2, Monocytes (%) (Auto) 9.7H, Eosinophils (%) (Auto) 1.1, Basophils (%) (Auto) 0.4, Neutrophils # (Auto) 2.7, Lymphocytes # (Auto) 1.5, Monocytes # (Auto) 0.5, Eosinophils # (Auto) 0.1, Basophils # (Auto) 0.0, Nucleated Red Blood Cells % (auto) 0.0, Anion Gap 2L, Glomerular Filtration Rate > 60.0, Calcium Level 8.7, Magnesium Level 1.7L, Total Bilirubin 0.7, Aspartate Amino Transf (AST/SGOT) 11, Alanine Aminotransferase (ALT/SGPT) 20, Alkaline Phosphatase 62, Total Protein 5.8#L, Albumin 2.9#L, Albumin/Globulin Ratio 1.0 CBC/BMP Laboratory Tests 09/06/21 06:47 Discharge Medications Scheduled Meclizine HCl (Meclizine HCl) 25 Mg Tablet, 25 MG PO Q12H Trazodone HCl (Trazodone HCl) 50 Mg Tablet, 50 MG PO QHS Scheduled PRN Ramelteon (Ramelteon) 8 Mg Tablet, 8 MG PO QHS PRN for INSOMNIA Allergies Coded Allergies: No Known Allergies (Unverified , 09/04/21) DANY SIERRA DO Sep 06, 2021 22:20
--- NOTE | 2021-09-07 17:46 | ECGEPIP ---
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
== END 2021-09-06 19:13 ==
LOC: M MSPAV 13:00
PROVIDERS: ADMIT Family Medicine; ATTEND Internal Medicine
DX: I95.9 Hypotension, unspecified (principal); N17.9 Acute kidney failure, unspecified; F22 Delusional disorders; F32.9 Major depressive disorder, single episode, unspecified; R45.851 Suicidal ideations; G43.909 Migraine, unspecified, not intractable, without status migrainosus; Z79.899 Other long term (current) drug therapy; Z23 Encounter for immunization

== ENCOUNTER 2021-09-06 16:15 | Inpatient (IN) | payer OTHER ==
[~2021-09-06] VITALS: Ht 152.4 cm; Wt 75.7 kg
[~2021-09-06 16:15] MED LIST changes: +MECL-86 PO; +RAME8TAB2 PO
[2021-09-06] MEDS ORDERED: MOM 30ML SUSPENSION UDC PO PRN (16:45)
[2021-09-06] MEDS ORDERED: MAALOX 30 ML SUSP *UDC PO PRN (16:45)
[2021-09-06] MEDS ORDERED: ACETAMINOPHEN TAB 650MG DOSE (2X325MG) PO PRN (16:45)
--- OUTSIDE RECORDS SUMMARY | 2021-09-06 19:27 | CCD ---
Author Author [facility] Organization [facility] Address Unknown Phone Unavailable Care Team Providers Care Cuff Setter Name Role Phone Osman Meyer MD Unavailable [...] is protected by Article 27-F of the [facility] Public Health law. If you continue you may have access to information: Regarding HIV / AIDS; Provided by facilities licensed or operated by the [facility] Office of Mental Health; or Provided by the [facility] Office for People With Developmental Disabilities. If such information is present, then the following [facility] mandated warning applies: This information has [...] law may result in a fine or halfway sentence or both. A general authorization for the release of medical or other information is NOT sufficient authorization for further disc losure. Allergies and Adverse Reactions Type Description Substance Reaction Status Data Source(s ) Propensity to adverse reactions NO KNOWN ALLERGIES NO KNOWN ALLERGIES [facility] OTHER OTHER Anaphylaxis [facility] Encounters Encounter Providers Location Date Indications Data Source(s ) Outpatient Attender: ТАТЬЯНА JERONIMOAAttender: Татьяна Romero 09/26/2021 12:00:[address] [facility] Outpatient Attender: ТАТЬЯНА NASSARREAAttender: Татьяна Medrekira 09/23/2021 12:00:[address] [facility] Outpatient Referrer: ТАТЬЯНА ROMERO 09/19/2021 12:00:00 AM E [facility] Outpatient Attender: ТАТЬЯНА NASSARREAAttender: Татьяна Medrekira 09[facility]12[facility]: Татьяна NassarreaAttender: ТАТЬЯНА ROMERO [id number] 08/01/2021 12:00:00 AM EDT - 08/01/2021 09:23:31 AM EDT [facility] Outpatient Attender: Ifeanyi Gutierrez MD 2020 08:03:00 AM EDT - 07/02/2021 08:03:00 AM EDT [facility] Inpatient Attender: Ana María Meyer MDAdm itter: Ana María Meyer MDReferrer: Charley Cummings MD [id number] 06/24/2021 12:00:00 AM EDT - 06/26/2021 06:41:00 PM [facility] Patient discharged. Outpatient Attender: Ifeanyi Gutierrez MD Family Practice 05/07/2021 1 1:30:00 AM EDT [facility] Outpatient Attender: Ifeanyi Gutierrez MD 2020 11:08:00 AM EDT - 05/07/2021 11:08:00 AM EDT [facility] Outpatient Attender: Ifeanyi Gutierrez MD 2020 11:01:00 AM EDT - [facility]22[facility] Brand Name Start Date Product Form Dose Route Admi nistrative Instructions Pharmacy Instructions Status Indications Reaction Description Data Source(s) topiramate 25 MG Oral Tablet Topiramate 25 MG Oral Tab let (Topamax) Topiramate 25 MG Oral Tablet (Topamax) 08/01/2021 12:00:00 AM EDT 50 mg Oral active Take 2 tablets by mouth Two Times Daily [facility] Nerivio Device [id number] 08/01/2021 12:00:00 AM EDT 1 {d evice} Does not apply active 1 Device by Does not apply route Two times daily as needed [facility] rizatriptan 10 MG Oral Tablet Rizatriptan Benzoate 10 MG Oral Tablet (Maxalt) Rizatriptan Benzoate 10 MG Oral Tablet (Maxalt) 08/01/2021 12:00:00 AM EDT 10 mg Oral active Take 1 tab let by mouth as needed for MigraineMay repeat in 2 hours if needed [facility] Prednisone 5 MG Oral Tablet predniSONE 5 MG Oral Table t (DELTASONE) predniSONE 5 MG Oral Tablet (DELTASONE) 07/01/2021 12:00:00 AM EDT 5 mg Oral aborted Take 1 tablet by mouth daily for 1 day [facility] Prednisone 5 MG Oral Tablet predniSONE 5 MG Oral Table t (DELTASONE) predniSONE 5 MG Oral Tablet (DELTASONE) 07/01/2021 12:00:00 AM EDT 5 mg Oral aborted Take 1 tablet by mouth daily for 1 day [facility] Prednisone 5 MG Oral Tablet predniSONE 5 MG Oral Table t (DELTASONE) predniSONE 5 MG Oral Tablet (DELTASONE) 07/01/2021 12:00:00 AM EDT 5 mg Oral aborted Take 1 tablet by mouth daily for 1 day [facility] Prednisone 10 MG Oral Tablet predniSONE 10 MG Oral Tab let (DELTASONE) predniSONE 10 MG Oral Tablet (DELTASONE) 06/30/2021 12:00:00 AM EDT 10 mg Ora l aborted Take 1 tablet by mouth daily fo r 1 day [facility] Prednisone 10 MG Oral Tablet predniSONE 10 MG Oral Tab let (DELTASONE) predniSONE 10 MG Oral Tablet (DELTASONE) 06/30/2021 12:00:00 AM EDT 10 mg Ora l aborted Take 1 tablet by mouth daily fo r 1 day [facility] Prednisone 10 MG Oral Tablet predniSONE 10 MG Oral Tab let (DELTASONE) predniSONE 10 MG Oral Tablet (DELTASONE) 06/30/2021 12:00:00 AM EDT 10 mg Ora l aborted Take 1 tablet by mouth daily fo r 1 day [facility] Prednisone 20 MG Oral Tablet predniSONE 20 MG Oral Tab let (DELTASONE) predniSONE 20 MG Oral Tablet (DELTASONE) 06/29/2021 12:00:00 AM EDT 20 mg Ora l aborted Take 1 tablet by mouth daily fo r 1 day [facility] Prednisone 20 MG Oral Tablet predniSONE 20 MG Oral Tab let (DELTASONE) predniSONE 20 MG Oral Tablet (DELTASONE) 06/29/2021 12:00:00 AM EDT 20 mg Ora l aborted Take 1 tablet by mouth daily fo r 1 day [facility] Prednisone 20 MG Oral Tablet predniSONE 20 MG Oral Tab let (DELTASONE) predniSONE 20 MG Oral Tablet (DELTASONE) 06/29/2021 12:00:00 AM EDT 20 mg Ora l aborted Take 1 tablet by mouth daily fo r 1 [facility] Prednisone 10 MG Oral Tablet predniSONE 10 MG Oral Tab let (DELTASONE) predniSONE 10 MG Oral Tablet (DELTASONE) 06/28/2021 12:00:00 AM EDT 30 mg Ora l aborted Take 3 tablets by mouth daily f or 1 day [facility] Prednisone 10 MG Oral Tablet predniSONE 10 MG Oral Tab let (DELTASONE) predniSONE 10 MG Oral Tablet (DELTASONE) 06/28/2021 12:00:00 AM EDT 30 mg Ora l aborted Take 3 tablets by mouth daily f or 1 [facility] Prednisone 10 MG Oral Tablet predniSONE 10 MG Oral Tab let (DELTASONE) predniSONE 10 MG Oral Tablet (DELTASONE) 06/28/2021 12:00:00 AM EDT 30 mg Ora l aborted Take 3 tablets by mouth daily f or 1 [facility] predniSONE (DELTASONE) tablet 40 mg 06/27/2021 09:00:00 [...] 10 Take with food
[Order 5 End] [facility] Medication administered onsite Prednisone 10 MG Oral [...] THEN 0.5 tablets daily for 1 day.. [facility] Prednisone 20 MG Oral Tablet predniSONE 20 MG Oral Tab let (DELTASONE) predniSONE 20 MG Oral Tablet (DELTASONE) 06/27/2021 12:00:00 AM EDT 40 mg Ora l aborted Take 2 tablets by mouth daily f or 1 day [facility] Prednisone 20 MG Oral Tablet predniSONE 20 MG Oral Tab let (DELTASONE) predniSONE 20 MG Oral Tablet (DELTASONE) 06/27/2021 12:00:00 AM EDT 40 mg Ora l aborted Take 2 tablets by mouth daily f or 1 day [facility] Prednisone 20 MG Oral Tablet predniSONE 20 MG Oral Tab let (DELTASONE) predniSONE 20 MG Oral Tablet (DELTASONE) 06/27/2021 12:00:00 AM EDT 40 mg Ora l aborted Take 2 tablets by mouth daily f or 1 day [facility] predniSONE (DELTASONE) tablet 50 mg 06/26/2021 11:45:00 AM EDT 50 mg Oral completed 50 mg, Oral, Onc e, On Thu06/26/21 at 1145, For 1 dose
Take with food.
[facility] Medication administered onsite Magnesium Oxide 400 MG Oral Tablet Magnesium Oxide (MA G-OX) tablet 400 mg Magnesium Oxide (MAG-OX) tablet 400 mg 06/26/2021 09:00:00 AM EDT 4 00 mg Oral active 400 mg, Oral, 2 Times Daily, First dose on Thu06/26/21 at 0900, For 30 days [facility] Medication administered onsite 1 ML Ketorolac Tromethamine 30 MG/ML Car tridge ketorolac (TORADOL) 30 MG/ML injection 30 mg ketorolac (TORADOL) 30 MG/ML injection 30 mg 08:45:00 AM EDT 30 mg Intravenous completed 30 mg, Intravenous, Once, On Thu06/26/21 at 0845, For 1 dose [facility] Medication administered onsite magnesium sulfate in dextrose 5 % infusion (premix) 1 g 0409 -[id number] 06/26/2021 08:45:00 AM EDT 1 g Intravenous completed 1 g, Intravenous, Administer over 60 Minutes, Once, On Thu06/26/21 at 0845, For 1 dose [facility] Medication administered onsite Magnesium Oxide 400 MG Oral Tablet Magne sium Oxide 400 (241.3 Mg) MG Oral Tablet (MAG-OX) Magnesium Oxide 400 (241.3 Mg) MG Oral Tablet (MAG-OX) 06/26/2021 12:00:00 AM EDT 400 mg Oral active Take 1 tablet by mouth Two Times Daily [facility] Magnesium Oxide 400 MG Oral Tablet Magne sium Oxide 400 (241.3 Mg) MG Oral Tablet (MAG-OX) Magnesium Oxide 400 (241.3 Mg) MG Oral Tablet (MAG-OX) 06/26/2021 12:00:00 AM EDT 400 mg Oral aborted Take 1 tablet by mouth Two Times Daily [facility] Magnesium Oxide 400 MG Oral Tablet Magne sium Oxide 400 (241.3 Mg) MG Oral Tablet (MAG-OX) Magnesium Oxide 400 (241.3 Mg) MG Oral Tablet (MAG-OX) 06/26/2021 12:00:00 AM EDT 400 mg Oral aborted Take 1 tablet by mouth Two Times Daily [facility] gadobutrol (GADAVIST) contrast injection 7.5 mL [id number] 06/25/2021 04:30:00 PM EDT 0.1 mL/kg Intravenous completed 7.5 mL (rounded from 7.76 mL = 0.1 mL/kg 77.6 kg), Intravenous, 1 TIME IMAGING, On Thu06/25/21 at 1630, For 1 dose
Do not mix or administer in the same IV line with other medications.
[facility] Medication administered onsite Acetaminophen 325 MG Oral [...] mg from all sources in 24 hours.
[facility] Medication administered onsite 50 ML Magnesium Sulfate 40 MG/ML Injecti on magnesium sulfate infusion 2 g/50 mL (premix) magnesium sulfate infusion 2 g/50 mL (premix) 06/25/20 10:00:00 AM EDT 2 g Intravenous completed 2 g, Intravenous, Administer over 60 Minutes, Once, On Thu06/25/21 at 1000, For 1 dose [facility] Medication administered onsite NaCl infusion 0.9 % [id number] 06/25/2021 10:00:00 AM EDT Intravenous active at 100 mL/hr, Intrav enous, Continuous, Starting on Thu06/25/21 at 1000, For 30 days [facility] Medication administered onsite 1 ML Ketorolac Tromethamine 30 MG/ML Car tridge ketorolac (TORADOL) 30 MG/ML injection 30 mg ketorolac (TORADOL) 30 MG/ML injection 30 mg 10:00:00 AM EDT 30 mg Intravenous completed 30 mg, Intravenous, Once, On Thu06/25/21 at 1000, For 1 dose [facility] Medication administered onsite Acetaminophen 325 MG Oral [...] mg from all sources in 24 hours.
[facility] Medication administered onsite Docusate Sodium 100 MG Oral Capsule docusate sodium (C OLACE) capsule 100 mg docusate sodium (COLACE) capsule 100 mg 06/25/2021 09:00:00 AM EDT 100 mg Oral active 100 mg, Oral, 2 Times Daily, First dose on Thu06/25/21 at 0900, For 30 days [facility] Medication administered onsite sennosides, FPC 8.6 MG Oral Tablet senna tablet 2 tablet sen na tablet 2 tablet 06/25/2021 07:40:47 AM EDT 2 {tbl} Oral active 2 tablet, Oral, Nightly PRN, Constipation, Starting on Thu06/25/21 at 0740, For 30 days [facility] Medication administered onsite Bisacodyl 10 MG Rectal Suppository bisacodyl (DULCOLAX ) suppository 10 mg bisacodyl (DULCOLAX) suppository 10 mg 06/25/2021 07:40:47 AM EDT 10 mg Rectal active 10 mg, Rectal, Every 72 hours PRN, Constipation, Starting on Thu06/25/21 at 0740, For 30 days
Hold if patient has had BM within the past 2 days.
[facility] Medication administered onsite potassium chloride (K-DUR) dissolvable tablet 40 mEq 32777-9 99-01 06/25/2021 05:45:00 AM EDT 40 meq Oral completed 40 mEq, Oral, Once, On Thu06/25/21 at 0545, For 1 dose
May be dissolved in water for patients with a G- Tube or unable to swallow. If concern for clogging G-Tube, may contact Pharmacy to switch formulation to a powder packet.
[facility] Medication administered onsite iohexol (OMNIPAQUE) 350 MG/ML contrast injection 100 mL [id number] 06/24/2021 09:15:00 PM EDT 100 mL Given by IV completed 100 mL, Given by IV, 1 TIME IMAGING, On Thu06/24/21 at 2115, For 1 dose [facility] Medication administered onsite NaCl infusion 0.9 % [id number] 06/24/2021 08:15:00 PM EDT Intravenous aborted at 100 mL/hr, Intrav enous, Continuous, Starting on Thu06/24/21 at 2014, For 2 days [facility] Medication administered onsite 50 ML Magnesium Sulfate [...] 16 mEq (2 g) q1h x 3
[facility] Medication administered onsite potassium chloride 20 mEq [...] mEq q1h x 4
[Order 2 End] [facility] Medication administered onsite potassium phosphate infusion 12 [...] mmol q2h x 4
[Order 2 End] [facility] Medication administered onsite sodium phosphate infusion 12 [...] mmol q2h x 4
[Order 2 End] [facility] Medication administered onsite calcium gluconate in NaCl [...] 4.01 mg/dL): give 2 g q1h x2
[facility] Medication administered onsite Hydralazine Hydrochloride 20 MG/ML Injec table Solution hydrALAZINE (APRESOLINE) injection 10 mg hydrALAZINE (APRESOLINE) injection 10 mg 06/24/2021 08 :13:13 PM EDT 10 mg Intravenous active 10 m g, Intravenous, Every 4 hours PRN, Hypertension, Sys >140, Starting on Thu06/24/21 at 2012, For 30 days
Dilute in 25-50 mL normal saline. Administer over 30 minutes.
[facility] Medication administered onsite labetalol (TRANDATE) injection 20 mg [id number] 06/24/2021 08:12: 45 PM EDT 20 mg Intravenous active 20 mg, I ntravenous, Every 4 hours PRN, High Blood Pressure, Sys >140, Starting on Thu06/24/21 at 2011, For 30 days
Hold for HR less than 60 bpm.
[facility] Medication administered onsite ondansetron (ZOFRAN) injection 4 [...] able to tolerate PO.
[Order 2 End] [facility] Medication administered onsite No Active Medications 05/07/2021 12:00:00 AM EDT completed [facility] ([facility]) Cephalexin 500 MG Oral Capsule [Keflex] Keflex 04/22/2021 12:00:0 0 AM EDT ORAL completed [facility] ([facility]) No Active Medications 04/22/2021 12:00:00 AM EDT completed [facility] ([facility]) Insurance Providers Payer name Policy type / Coverage type Policy ID Covered libertarian ID Covered libertarian's relationship to wiggins Policy Wiggins Plan Information [facility] [place] [id number] Self [id number] [facility] [employer]IVE DUT[place] [id number] SP [id number] [facility] U [id number] Self [id number] [facility] [place] [id number] 18 [id number] [facility] [employer] [id number] SP [id number] [facility] [place] [id number] 18 [id number] Problems, Conditions, and Diagnoses Code Display Name Description Problem Type Effective Dates Data Source(s) N610 Mastitis without abscess Mastitis without abscess Diag nosis 04/22/2021 11:01:00 AM EDT [facility] N61.0 Inflammatory disorder of breast Inflammatory disorder of breast Problem 04/22/2021 12:00:00 AM EDT [facility] ([facility]) Surgeries/Procedures Procedure Description Date Indications Data Source(s) BASIC METABOLIC PANEL CALCIUM TOTAL <td>BASIC METABOLI C PANEL</td><td>Routine</td><td>06/26/2021 8:40 AM EDT</td><td></td><td> </td> 06/26/2021 08:40:00 AM [facility] BLOOD COUNT COMPLETE AUTOMATED <td>CBC</td><td>Routine </td><td>06/26/2021 3:29 AM EDT</td><td></td><td> </td> 06/26/2021 03:29:00 AM [facility] PHOSPHORUS INORGANIC <td>PHOSPHORUS LEVEL</td><td >Routine</td><td>06/26/2021 3:29 AM EDT</td><td></td><td> </td> 06/26/2021 03:29:00 AM [facility] MAGNESIUM <td>MAGNESIUM LEVEL</td><td> Routine</td><td>06/26/2021 3:29 AM EDT</td><td></td><td> </td> 06/26/2021 03:29:00 AM [facility] BASIC METABOLIC PANEL CALCIUM TOTAL <td>BASIC METABOLI C PANEL</td><td>Routine</td><td>06/26/2021 3:29 AM EDT</td><td></td><td> </td> 06/26/2021 03:29:00 AM [facility] MRI BRAIN BRAIN STEM W/O &W/CONTRAST MATERIAL <td>MR B RAIN WITH AND WITHOUT CONTRAST [id number]</td><td>Routine</td><td>06/25/2021 4:40 PM EDT</td><td></td><td> </td> 06/25/2021 04:40:00 PM [facility] URNLS DIP STICK/TABLET REAGENT AUTO MICROSCOPY <td>URI NALYSIS WITH MICROSCOPIC</td><td>Routine</td><td>06/25/2021 11:40 AM EDT</td><td></td><td> </td> 06/25/2021 11:40:00 AM [facility] BASIC METABOLIC PANEL CALCIUM TOTAL <td>BASIC METABOLI C PANEL</td><td>Routine</td><td>06/25/2021 9:17 AM EDT</td><td></td><td> </td> 06/25/2021 09:17:00 AM [facility] BLOOD COUNT COMPLETE AUTOMATED <td>CBC</td><td>Routine </td><td>06/25/2021 4:33 AM EDT</td><td></td><td> </td> 06/25/2021 04:33:00 AM [facility] PHOSPHORUS INORGANIC <td>PHOSPHORUS LEVEL</td><td >Routine</td><td>06/25/2021 4:33 AM EDT</td><td></td><td> </td> 06/25/2021 04:33:00 AM [facility] MAGNESIUM <td>MAGNESIUM LEVEL</td><td> Routine</td><td>06/25/2021 4:33 AM EDT</td><td></td><td> </td> 06/25/2021 04:33:00 AM [facility] BASIC METABOLIC PANEL CALCIUM TOTAL <td>BASIC METABOLI C PANEL</td><td>Routine</td><td>06/25/2021 4:33 AM EDT</td><td></td><td> </td> 06/25/2021 04:33:00 AM [facility] EKG 12-LEAD - CMAXX REPORT <td>EKG 12-LEAD - CMAXX REPORT</td><td></td><td>06/24/2021 11:57 PM EDT</td><td></td><td></td> 06/24/2021 11:57:07 PM [facility] EKG 12-LEAD - CMAXX REPORT <td>EKG 12-LEAD - CMAXX REPORT</td><td></td><td>06/24/2021 11:57 PM EDT</td><td></td><td></td> 06/24/2021 11:57:07 PM [facility] EKG 12-LEAD <td>EKG 12-LEAD</td><td>Rout ine</td><td>06/24/2021 11:57 PM EDT</td><td></td><td> </td> 06/24/2021 11:57:07 [address] [facility] CT ANGIOGRAPHY NECK W/CONTRAST/NONCONTRAST <td>CT LINO OGRAPHY NECK [id number]</td><td>STAT</td><td>06/24/2021 9:25 PM EDT</td><td></td><td> </td> 06/24/2021 09:25:[address] [facility] [address] ANGIOGRAPHY HEAD W/CONTRAST/NONCONTRAST <td>CT LINO OGRAPHY HEAD [id number]</td><td>STAT</td><td>06/24/2021 9:25 PM EDT</td><td></td><td> </td> 06/24/2021 09:25:59 PM [facility] THROMBOPLASTIN TIME PARTIAL PLASMA/WHOLE BLOOD <td>PAR TIAL THROMBOPLASTIN TIME (PTT)</td><td>STAT</td><td>06/24/2021 8:26 PM EDT</td><td></td><td> </td> 06/24/2021 08:26:00 PM [facility] PROTHROMBIN TIME <td>PROTIME INR</td><td>STAT </td><td>06/24/2021 8:26 PM EDT</td><td></td><td> </td> 06/24/2021 08:26:00 PM [facility] BLOOD COUNT COMPLETE AUTO&AUTO DIFRNTL WBC COUNT <td>C BC AND DIFFERENTIAL</td><td>Routine</td><td>06/24/2021 8:26 PM EDT</td><td></td><td> </td> 06/24/2021 08:26:00 PM [facility] PHOSPHORUS INORGANIC <td>PHOSPHORUS LEVEL</td><td >STAT</td><td>06/24/2021 8:26 PM EDT</td><td></td><td> </td> 06/24/2021 08:26:00 PM [facility] MAGNESIUM <td>MAGNESIUM LEVEL</td><td> STAT</td><td>06/24/2021 8:26 PM EDT</td><td></td><td> </td> 06/24/2021 08:26:00 PM [facility] HEMOGLOBIN GLYCOSYLATED A1C <td>HEMOGLOBIN A1C</td><td>Routine</td><td>06/24/2021 8:26 PM EDT</td><td></td><td> </td> 06/24/2021 08:26:00 PM [facility] CALCIUM IONIZED <td>CALCIUM, IONIZED</td><td >Routine</td><td>06/24/2021 8:26 PM EDT</td><td></td><td> </td> 06/24/2021 08:26:00 PM EDT [facility] HEPATIC FUNCTION PANEL <td>HEPATIC FUNCTION PANEL A</td><td>STAT</td><td>06/24/2021 8:26 PM EDT</td><td></td><td> </td> 06/24/2021 08:26:00 PM EDT [facility] LIPID PANEL <td>LIPID PANEL</td><td>Rout ine</td><td>06/24/2021 8:26 PM EDT</td><td></td><td> </td> 06/24/2021 08:26:00 PM [facility] BASIC METABOLIC PANEL CALCIUM TOTAL <td>BASIC METABOLI C PANEL</td><td>STAT</td><td>06/24/2021 8:26 PM EDT</td><td></td><td> </td> 06/24/2021 08:26:00 PM [facility] BLOOD TYPING ABO <td>TYPE AND SCREEN</td><td> STAT</td><td>06/24/2021 8:25 PM EDT</td><td></td><td> </td> 06/24/2021 08:25:00 PM [facility] OFFICE OUTPATIENT VISIT 15 MINUTES 05/07/2021 12:00:00 AM EDT [facility] ([facility]) OFFICE OUTPATIENT NEW 30 MINUTES 04/22/2021 12:00:00 A M EDT [facility] ([facility] Results ID Date Data Source [id number] 08/01/2021 09:18:25 AM [facility] Hospital Name Value Range Interpretation Code Description Data Daniella rce(s) Supporting Document(s) Progress Note [facility] FRHPFl5pNmDTDhWp04/IYRtiTTFex1JmQTfeQJb9ZQapWFGgF0NhCJW6mM5mSEM8DMnEIhLwQiOvCIOg lbm [file] ICAgICAgICAgICAgICAgICAgICAgICAgICAgICAgIC MvYSSxZITbJAVkLBFgMRXxZVVxWUSrILVpEGVpIKNuFWDdDYQlCFOkCTLoDP4OHZTeBHSmLUHzWZUjOG AgICAgICAgICAgICAgICAgICAgICAgICAgICAgICAgICAgICAgICAgICAgICAgICAgICAgICAgICAgIC TiIQEbQKEgULVgJXDbZIDtEPKuTBSiTNEeXF1ITKEd ICAgICAgICAgICAgICAgICAgICAgICAgICAgICAgICAgICAgICAgICAgICAgICAgICAgICAgICAgICAg CVIfCXInLVNcRTJxJIXbMZItOWCiESYlWQRoTDLcALWbWVFrEV7ZBDCsBGVpSXJpDDAjEUShDZFgNSRq ICAgICAgICAgICAgICAgICAgICAgICAgICAgICAgIC XrOCSgMQOkMUKuHJOvILOzDXHxOZCxPMYuHTYyRENeTSUjZEDcQQYqWYFiRHGkQW3KPPKaLNPeOHZxUQ AgICAgICAgICAgICAgICAgICAgICAgICAgICAgICAgICAgICAgICAgICAgICAgICAgICAgICAgICAgIC VvSLCdJJSlSOKiMBZaZAJjVSCiDJWkVSTtQCSwSB6K ICAgICAgICAgICAgICAgICAgICAgICAgICAgICAgICAgICAgICAgICAgICAgICAgICAgICAgICAgICAg AIRtUFIfLBWeACBzPJZyFXHfDMOwIMMeUVBcGPKsZDZuKIPuJBHqOY6OOCTrNCYaZYAiDDDeVKWwGUIk ICAgICAgICAgICAgICAgICAgICAgICAgICAgICAgIC YeRTLdVOZnLMLjKNAmMWKxODPgQFMiIINtGQLeIQNdSUPvUFMmFLVtZJZcZVTaZTIhOP2DMFUbUZOxCC AgICAgICAgICAgICAgICAgICAgICAgICAgICAgICAgICAgICAgICAgICAgICAgICAgICAgICAgICAgIC AgICAgICAgICAgICAgICAgICAgICAgICAgICAgICAg IX2BZZBtQFYiUMQvXAHaGJIzOFVuOEKsOSXqAVGdNCZeZHOlCYIiYQSvUXZfKKGvLYJeTGMmMWMgBEXs XSKzCRUnZQMoEVPwTOKpUMQqACHvTGSoAYOkXZCjREDtQFKgMKOvASVpSS5HCMZqVBOzJBNyEMNjQWWw ICAgICAgICAgICAgICAgICAgICAgICAgICAgICAgIC ZpTIXfODCfDXWkGRZmAZFsTULyHBOgVJHmEZCvUOOkAWIbJANgYCKcDOShKYSnREIwOWGmEA0WMU92fG Smk7P8VADzDS1lvuy/Iq1DVTsrerKmtZAgMK4FHfAoHS5dss3FInEnAM3kzb6IVArAAlGcN8U3tOUkOQ XpXADVVeIwQ40wDXnpKb21JZyqUSPvZbRvVCc9Va0Z MwDcT5xfIXLqCiG4ILDcRxW8KXJvVfN6ZHLgOwUbXAOcQUExVQTwPMWKZON9TYHgOtElLkYsXDLuOLgg XSZYBSIdETPoHwGeWmNtSIYaOeWmFORIIMW2GELzKaEyEBxmOX9Wq1XaaFZrEf9LAf0ZQqXqNY9ink2O UTknUPJxGkzNJej3YWmwGE3QkZNgdLR4HUQwAMLDTb MjU5qmm5FbNAyvXQIREQavLA6Po8LveZCjDGi+Un0BEC2zq0XpPTm9HZHhIE4yix2DUWbOFeKeK2YufW tgTFJmv1hyMUToXB6ucXRdGTU1PXasWH7zDY1dIDRkFGgiRZKvGACnZP1xMa9iQLBpSQP5OjRjFEYLWV 4PWNCqHDUuiNXtQMFpKQIIQA7SZStzCRB2SCEhdeBd gXBtQOdmOR8RKWHprdXyKMolLZYGYAb+Rd9HKB9lr6BgMLz5TJXnDO8lwc1HNFtFFiWsG6U3mHHtI4T9 YMdaPo9JOVKsJYEjFBZuZLKMFNeyMJ0FAZ5kndK9SJ6XwEHdFBQvZJGkvDAlXEs5H61fwEEzTXtjRJ9D ICA+Saba+Hy7TFJVlTBJtVSAkMkUsSEICCnVtM9KoW5 WRo6VrM3HpPE93dGcyusDpIUdhFM4AUR5hVTYcMFEFPI9JmBRpgG8rlsX8HnMiSLOTMoLeI85agFBnLS IcSNE8IKFmKz4LEJLgH8YgphTthHikouYlNRIaPHIODU0STVnwenYtbQXwnYxnLY65hSboTC4QEw5UBh IaKU6vfy1RvLRlBn2UPKQ6WJ5RVQHtHXNhWNXcWTR4 BGBvPiUeBSplOBPgJAXnZFT8JDBiDEZnPS2AQhUzKCKqFNY7AAmsOYTnUOQrpv5ZAIWiGKZ5YuC5VHHf FHShBFSbWCyaFASmAOEvABV0SGJvXBWwSL3CMnFzUKMfOHJ0CSZxCPCeQINqks8GAPZzMISrNjE5HuVi YWXgNJVhINarVQBtXPK3JqBhAAXjGKEbRH1QGcGgMN BgEEn0WgMpWMCuQMGinz2QOBYcXOYkFKM7TxTiCCJfHVAnRLjiNIHsMDDaEdbtYXVnXVIjOB5GGwBuRH BwBZO1GzKpOAGiJALnzj9AJLTmCNWoJwM2KhPlMOWwNASiWKojZLIaXDP7WiR4JGQqSTFyFF3ZBzXeIC LaOGS1GVTmUYHbVPLlaj0OQJYsPHHcRsx9GDOjXRJq HDUyWNezAVInKHX5CBs5HKUgAKMlWM9AOqSmMXUyUtNnYaUbGBKoSEUbwx0CBPWbUISfORMpAjRdARCj XVIiWAsmDYIrHSCmGCZ8TUKkJPYtMW4ARcCbHDJzXaUbNxVrCHBtKJVwhs9EGASyFDRiNLygYkYwTHWe OESsCVmjXFRbOWE7BYA7SYNeSVPvEG3ONuKfHKBlYx h0EULkGFVvYTWroc6UMSHnPQOmIFM2CGJzJTCpMMDxQYiuCHLoPXKmVBH5DAIzSIKqDX4KZqQeIHSfIs NiAKIkBSUwPKOuhv9LMONjLZQvAiTeNAEuKNOpAXDoEUdzNHQgINVyUzH5DKRkZHWrUU5IXyVrJYCwQa MaTvdmILFaBFYxwv5YVVRvHTYbSEC7WWLnCJWeLSBd HHypORGqDUT2VWY0ZWFrOQHaIK5MXtHdXCImLyW8ATQuHGEeITSxza7XNLSbLZEsPJmsLTQeXFHsJXYw VZgiZVPqRAJ9ALQ4FUSdSYMkER0XUwKhOTMiDEhcTrIsSDQzPOOfoj9ICUQzBTL3PkY6KHNlKOQyPUFi ZKerWYQdTLO9LKsaQAIzNJXaKC7RIvBiJHLxKYyuTc RhYFNfRBXtsv0SKQMoAHO2DPB3GfZfJOJgXAZvMUygMIAtVYJ4VvJ5KJQuAMJiRP2JQrDjTIEaYVv0EM EqBPUwVZNjah0ESXBxULP0JKL0HYDcRDKkBYWxOMpqYEFsZEEeGIO6XAXhQCKdGF2AVcVuINWiQYM0NX faRCApFZLwuj5ELJRrNOO0GRa3HMSsDFXaNWHsNPnj KHLaDKTgUoU2FTVcKGZtJB2DPsFiJLBsMFD9VCWbILGmHSTxdc2WSHMoIVT7DwnkAmMqTDNxVFUxEWcv SSWrLJFjHQVaHULeALMeIH0FGdUiAYqaWHNHFzc2GWjmX2b0LLX4XY3LF1Vlf5KjWNwtDRCAJGnuTX6m ueUmXZMrLi0PP0iKVdh1R0T5IkynN7ZkLalcXUF2RX LvIpFwUOy7T5DbCiG4Xl5uOPX8RxnyW8FjHHByB0QzQNgyRWAvTAG5PSF0WMGyDcMvLyPlYW4FUz3JOx C1YJH6xRCvNd8NJSBuCNWSOgLmNH3RXOc= ID Date Data Source [id number] 06/27/2021 04:54:42 AM EDT [facility] Name Value Range Interpretation Code Description Data Daniella rce(s) Supporting Document(s) Discharge Summary [facility] AXLCRk6eJeRLGePl23/TNStzCIZat0VdUVjlCXq7POtaHDEtT8BvMDW1sE2hNRJ4ZTgWPmThAdRuCWG6 lbm [file] ICAgICAgICAgICAgICAgICAgICAgICAgICAgICAgIC UwBUTyPQYrOKFiVSLsYAIyWJ5BZTGoZWGwDGVeQVUgAWUjTXBdAEVyXQAzXEQoJRHkVAPrHBQpZWHaZZ AgICAgICAgICAgICAgICAgICAgICAgICAgICAgICAgICAgICAgICAgICAgICAgICAgICAgICAgICAgIA 0KICAgICAgICAgICAgICAgICAgICAgICAgICAgICAg ICAgICAgICAgICAgICAgICAgICAgICAgICAgICAgICAgICAgICAgICAgICAgICAgICAgICAgICAgICAg OHQyEDAwQFSeQI5YIDCcSMVhWJWoRGUwXSHnPQGoDCZuSWRbAFOzDJKqTZDsSGMgQMGtMARhFYMyEQRg ICAgICAgICAgICAgICAgICAgICAgICAgICAgICAgIC JaSVOsAFPmPWOnJBRrZLNtIPUtCN9HREDcUXWrDYEvBWEkABRuIQGaEZQpESSkEHClRCGuTHLoOMKeIW AgICAgICAgICAgICAgICAgICAgICAgICAgICAgICAgICAgICAgICAgICAgICAgICAgICAgICAgICAgIC DrKE5LSEGbPYSuHSHiAEWjUSZaFMTpVBDfDREuEKLr ICAgICAgICAgICAgICAgICAgICAgICAgICAgICAgICAgICAgICAgICAgICAgICAgICAgICAgICAgICAg SYIgUPWcQFGoYIAhSM5AGNKtDHEqRJErRJSgMSYrPVAlMFToJLMwKRQzPLJcHTHfFQGrSOBbFLXfVBOw ICAgICAgICAgICAgICAgICAgICAgICAgICAgICAgIC HtNWLkAQDrHLBvYKPoBYOpQPGoZYMfXP0ZSNEzFTAmWVTsDMBlPILnELMhMMNgYZQgSCDpQSVxRRCgBW AgICAgICAgICAgICAgICAgICAgICAgICAgICAgICAgICAgICAgICAgICAgICAgICAgICAgICAgICAgIC SsPWWwVH5VRASwHKXeURZzUDOcNKHnTIHeZLMaUTJy ICAgICAgICAgICAgICAgICAgICAgICAgICAgICAgICAgICAgICAgICAgICAgICAgICAgICAgICAgICAg PGHnOLYjTWHmYHEyRSKbFM2TJWCfTAWzWLLlPLKbDDEyPOJuYFHnXWLfXURbYLYyFYRnEWOsUWRjVFTo ICAgICAgICAgICAgICAgICAgICAgICAgICAgICAgIC IiUYHvDNGlCRJwBWZrQHPcJADoTBYoKJWxOO7JWK38gBNjd4V9LZVgUZ9uewk/Wk2UATupifJngRQvBY 4WIlKwDG4uen8ARjKrWC8qkb0CRBxJEuGrX7Y8cYGfMANyXIDQWwPyC84uEUdnVm54MGzuTTJoYgPlCB g6Qo8OXlRzM4wiXKAwWaN1VMXbTfP8YHOiCxM2YPAa DhZvPNTgSRAkEN6JMXZzH616kwLgPR5QXx1IJxApOM5gew5GBaSlCONsYusWMmx1EThzUL9WcSFtcSTg SfOsONODUnWlY8pwc2OxPiTiESKITXzcJL9Ku8HjvPJkSHn+Bu1FSH4py2TrMNqqWnExSX7oyd6DFUmZ NnZnN1UzzNfaHEKpq4LsUEBqXNCYrL8oCLV0NER1HL DdjpweSG4hOVgmigK2wAxyNuMrODWpFA8wUK2sDQVhCCCrBfE7TKJLKO7IZBRhDPDqeTKvDBBdISAIFW 7BFUgoOXY1RFVgpaIrlJFhWZeeCG1SDBJrppFiGlZbUSKNBQg+Mp4WRS5pf8CvUHntGhDeVK0fvg8AJF cDOeWqM9I7wUMjQ4H0GObdDh8STFPtXAEnYpjgQHHF YPqaYJ3DCK1ertR1RF1NfCTsPLPxTVEfdHSmCEb1M81bxGEdQRaiVB6UJSE+Saba+Mq4PKKBgMAAwQMDt YbMzJNHSJbEfU7FkB5KXh2FzK3QvLM68rJngbsLfLEwqFG6DOY7tLCUpCGZVIE9XaKZrsO3nkcVnUHDu QQVKYiFbZ99sqQXtOYMfJOXbIASsGr3EDJMfG0Fooc YngQmjatEkLXBnNLEFRL6NZPppvvGjyKHbjYxtLG16oQhqCX0LJb0MTeVaON1car3XjXZrJc3MDHCgLR 1PCRUmXJJjZYOuBZF8ZXBaZdVkOZrmXWFwDWRfFZM3HGUtUPEkKX6HFsDuTEGeGxEtRVYyRNKpKXIpia 6YPFCgOMIjHtTzTpJbXVMpADMtWHldPASmBNBgKMU2 HWUqZOApJT6EQnQfVGNmSWD8RlMfHXGjSGIcjo4NLCGcISUoSobvMXUlHTQhFRQlFNelPCQfMYC3BqAy UBMzQUDeUX6QFxRqMKIzGXz8FFxaNDGqFDRvta0CWPDqQZRdEPMjJVSvTZXkLXKnDEvjEBVwZFDhDOV0 KNQpMCSiLO5NEzMgANAfZSK7IzXqQUVzSUWpet0EZN ZcOKYlRrTaOENhBHQoAQRtJTwrEJSnJABjWEj6SFBgEPBdMW9SRcOtEGRkSYN4NTNmUHRsMHUbtr4XHO JbCAJzWyp0EUPmZPPkKDPwSZsiPBYyOMU8FFJ4ADOnNSJwJA1XEpCqAXKoGGSiXsljRKLwECUngo1HLK FiUBHaQQTnGfHcXJIoTGJmTErlMXQsRIW6Nga8AXZn QXIuWO8BLoPeLUViXAY6HkGhWLJzWZCirz3VDQNvBXWiIwD0SpVnNNHvSXKhBNgyADFvBXW7XQNaXQWu KXOxUP1GPzJoYUAlOsnrXnVfKZZtKRHxuq8LAVReHJWjQJV5AEZsBXBfSPKmWIodDNRrTAE8QJC4YHNo PCKgBA7TZeKdERExHag8JPUdZJJiMPAckk5IQMOwKT IlLGm4ITMlZUBlXICbLHblVBDpGBUnAAb4LTUcDOQnQU1FNkZbWAZpUvLeRjUjQQZsQCGqws7MWSFpDF NtTFZ9ApDkFBOcYRDpYLxkMXAvXXPdVBW1KTRbQXUtLF1QKnYvIJPjDyRbQgNyLXSsASOeql3IFFWpNM FjJtL2MPOsNFHwQTZkARe2nsMjgYQaGKj3OH5YR4Bm ilUwQfDEWz8Oo729PMNbUHQcGm1XI2ywKe4oHOQlSQUTDn0KKOf9JIPeQaOvUkLgTXK4DIX0MBtlTuWm IHC4YdvlNCYsRJC+JUdxVJB9JPQ1TIU4DPSgRgKqEFPcYTWfGYmqDZN7BMTiBl1pSPTVIl0+DQpzdGFy uLbcSNXHYiEkGeRlTYgcICVZGf6W ID Date Data Source [id number] 06/26/2021 03:17:39 PM EDT [facility] Name Value Range Interpretation Code Description Data Daniella rce(s) Supporting Document(s) Consultation [facility] QBELFz4rMbPEJtDa20/HULyqRPPkh4ByNHvwTHf4NJupCTTdC7CmVHA6hG8wHGE0EQvZFnWtCoEsUXY6 lbm FkCjcDZaMaPGMlQbbGVzSqAUraOxuedHRhGU6YvYM9GFJfZ82mRWKfLQSoF6OjOTSgRoD+Ld6VANSdpV LdCA0SNnrB2W2cl7i4Ts3+YP+GyDTgXNrZ6HhQIP/JHl3d1wKdqm2bBAnXtrCOn1iiovZm6QqZYryKu1 Tfy0ueb1d0Riz4EPiLx5cSi6AYPOy/6h45kgOC27v7 r/juEe84s0M//4m13QK/6dZ+RR9NSf2xwLkjqK2W/P4NL0/T7grJfjUGwVDtVJqBqBdl8QV3zZa9h3U5 Nwxl9R57u0rxt/aPDliQyCBKxOnz5+ch42dkcZ4rW0V0LpBA2lB7WHMFI+srHA6k9LuFegrmwaHHd7JP onbS/gtMw4Gl0jW7kocwSxstjptAa0Ui4Zlq5o7ufk 3JWV30WfEkYWCp8EkYP3Si+fdp5rZF/zGnql4U57Ruiuixv5hT5dR3x/hJHLVYlkw+KhUXoY+8dANRKs +yP5SZhqLzbyExcrLzv9hS54a3DPqcDkw+qNlpN4ojHMtC0eE1id6agvIKLU38A419DORXZLsRuK7hJc 34lX8VR5FWAdk3G1/tWrdw9O7gbbWP4T6pLkuuAhKz EuZ5st1YRhsiQwqWa+hwjejoq0R1AOCoP7bOcBcVnPXb3CdK2BdNKc/KiF443Xh0c3N961qlgDGyNlAP eK+B4GhdxvrSwhJ+4h1kVjpWOKOQwDbj1klZSaXoeXt8OgyWqNanpDKRYFKi0Qj6ovd6Wm75s04OpdvT MORRO+g8D2s6+he0PfvpuVxPdVthnE9AzC4GuagMA8MZ [file] ICAgICAgICAgICAgICAgICAgICAgICAgICAgICAgICAgICAgICAgICAgICAgICAgICAgICAgICAgICAg ICAgICAgICAgICAgICAgICAgICAgICAgICAgICAgICAgICANCiAgICAgICAgICAgICAgICAgICAgICAg ICAgICAgICAgICAgICAgICAgICAgICAgICAgICAgIC AgICAgICAgICAgICAgICAgICAgICAgICAgICAgICAgICAgICAgICAgICAgICANCiAgICAgICAgICAgIC AgICAgICAgICAgICAgICAgICAgICAgICAgICAgICAgICAgICAgICAgICAgICAgICAgICAgICAgICAgIC AgICAgICAgICAgICAgICAgICAgICAgICAgICANCiAg ICAgICAgICAgICAgICAgICAgICAgICAgICAgICAgICAgICAgICAgICAgICAgICAgICAgICAgICAgICAg ICAgICAgICAgICAgICAgICAgICAgICAgICAgICAgICAgICAgICANCiAgICAgICAgICAgICAgICAgICAg ICAgICAgICAgICAgICAgICAgICAgICAgICAgICAgIC AgICAgICAgICAgICAgICAgICAgICAgICAgICAgICAgICAgICAgICAgICAgICAgICANCiAgICAgICAgIC AgICAgICAgICAgICAgICAgICAgICAgICAgICAgICAgICAgICAgICAgICAgICAgICAgICAgICAgICAgIC AgICAgICAgICAgICAgICAgICAgICAgICAgICAgICAN CiAgICAgICAgICAgICAgICAgICAgICAgICAgICAgICAgICAgICAgICAgICAgICAgICAgICAgICAgICAg ICAgICAgICAgICAgICAgICAgICAgICAgICAgICAgICAgICAgICAgICANCiAgICAgICAgICAgICAgICAg ICAgICAgICAgICAgICAgICAgICAgICAgICAgICAgIC AgICAgICAgICAgICAgICAgICAgICAgICAgICAgICAgICAgICAgICAgICAgICAgICAgICANCiAgICAgIC AgICAgICAgICAgICAgICAgICAgICAgICAgICAgICAgICAgICAgICAgICAgICAgICAgICAgICAgICAgIC AgICAgICAgICAgICAgICAgICAgICAgICAgICAgICAg ICANCiAgICAgICAgICAgICAgICAgICAgICAgICAgICAgICAgICAgICAgICAgICAgICAgICAgICAgICAg ICAgICAgICAgICAgICAgICAgICAgICAgICAgICAgICAgICAgICAgICAgICANCjw/eBDqT8eovQPdxuH7 A4jzOg1CBm0CWO6in1SlAORnURlnkfXeWofTHcEhDQ RrRefXBbw6SPprKS3QkXUmK7MuK5KjIZfdFO8TOAZpVYGsoPAiGJIrGFFsImS3MAIiQQarTE3TjTBuSQ azSEZjDGKgTaGaRHExWO0LUOJeI443bdAeMu2DPs0XWhPfHH6tbn5JEYYiGXVsEfhLGaq0ZGskJX3MuL IfeQCsUeXdBMGWAqKvD3ssj6KpHGusBHGGFIguYQ8V t3KalJFmKKq+Mv1ZED7sx6TdFTheLbCzET6ptn1JNWeFBhOeN1LwzWqvTXVwhlU1gWMsBRL2XEbovFMt DRrcNNPHoirkjNXmYOzDD1pxCZHsSJ0fEC6bPPPsMGXzLzD2DTWJKJ6XQKLoGUAukQIwSWWvEGRYKJ2R UVppIDH4BKZgcqHhsOYrIWssBT8LPPXkehRcLUCmRI BSDQo+Za6IYM1rh3VxIQixRHGlZH5mqd9TPUsMWcDjQ8K1hVNcY7T8AGpzQm7CENElUKDxTIFxVFSPRF hkWC8EXT7kwwS2IW8TiPJdZBGzSSQccLTfYHd5T00taNGzURwmKU0VRZO+Saba+Pj1AJRVeWPCkPMMpGo SnCIQVOpAxV4LhP8FSo7PeK6EnPJ39xEzeetVvRNah HT6MPJ0nBUAdWAVAAZ3YpEBdpF3drtNlLgVpXRTKHxJtE36xlBDzDLFsOBL2AJGfIr7TASHpP8TsfrMv jEvmyyIrYFKgUYSPAV2ZNJcfekZndPCloWjcWK05eNszBV8EBm1ILpNsYV5ohl6BuBRyJm9ZGVMkYW5N AVPkPDWfMGRfAOD0JQMhApOcOWuzDJJkKRCkKYC3WV GbXLVlHA3ODjPiGSShGPjyKZKzDJJhQUAlov6SWFLzERWdNDfgVGNsOCRdWZUjFBibNEHmDSJeACA5BU YeNNXnSJ5KQgVqOMLcRVJ5ASEuCQEyXLJkur1DOXTwJLGrStdjJgQmOKPsTYTlEDufMEMiZRR6QeSnIY PxOOVgGY6TUtDkMEJbJJV0WOPjTOVcYOWgfe2SXLUh QTIyYYT5LIDiYTWfIRYcQAlaHBOiHFT4DeWqXKZoEIUtJQ7SJkPzAJApYPY6VJYjEFUkABNrvc1FMCIh YHJoFjfiEDIbCRLvKUYfKOdvSFVrXVW1LIEbDOPuIVIvJX9EZmRwAEErOLcnKHTnOOKlCMHyvq7DRUMb CQOeAtD1AWOmVCDqERPjOBynXFKcPQZ5ISP0IZRfSY VxJE1ONfSjGUFyBHxnAHVvKLYhHCZjbi2KDUHaFMEmLUD3NqBhQUZiRQWaCLo2sfUmbQWfSQa1XY3CN8 OkwcZnAMyEIp3Qx592OIU5QPKyZt4BL1deXx0bTDHrZXYOEu5OZDh2ZlhhEjp3AzzuMIT1XzZ3WLV5Xz W0K9BtEUKvM4H4YBO+JBrxE2K3SRnbZ0VwLTzjWII1 RHciSqhwAgZ4PxKkZik6Ba6aUCCXHx5+YMcioENdlFrpIBLHObn8HEECTsKmTF1VLFr= ID Date Data Source [id number] 06/26/2021 10:14:01 AM T [facility] MR BRAIN WITH AND WITHOUT CONTRAST [id number] FINAL RESULTInterpreted by:Elissa Siddiqui MDORDERBILL CLINICAL INFORMATION: [...] rce(s) Supporting Document(s) ID Date Data Source [id number] 06/26/2021 09:28:55 AM [facility] Value Range Interpretation Code Description Data Danilela rce(s) Supporting Document(s) Bicarbonate [Moles/volume] in Serum 20 mmol/L 22-29 L [facility] Chloride [Moles/volume] in Serum or Plasma 102 mmol/L 98-107 [facility] Creatinine [Mass/volume] in Serum or Plasma 1.17 mg/dL 0.70-1.20 [facility] Glucose [Mass/volume] in Serum or Plasma 149 mg/dL 70-140 H [facility] Potassium [Moles/volume] in Serum or Plasma 4.2 mmol/L 3.4-5.1 [facility] Sodium [Moles/volume] in Serum or Plasma 133 mmol/L 136-145 L [facility] Urea nitrogen [Mass/volume] in Serum or Plasma 10 mg/dL 6-20 [facility] Anion gap 3 in Serum or Plasma 11 mmol/L 8-15 [facility] Osmolality of Serum or Plasma by calculation 278 mosm/kg 275-300 [facility] Creatinine/Urea nitrogen [Mass Ratio] in Serum or Plasma 8 [facility] Calcium [Mass/volume] in Serum or Plasma 8.7 mg/dL 8.6-10.0 [facility] Glomerular filtration rate/1.73 sq M pre dicted among non-blacks [Volume Rate/Area] in Serum or Plasma by Creatinine-based formula (MDRD) 83 mL/min/1.73m2 >60 [facility] Glomerular filtration rate/1.73 sq M pre dicted among blacks [Volume Rate/Area] in Serum or Plasma by Creatinine-based formula (MDRD) >60 [facility] ID Date Data Source [id number] 06/26/2021 04:40:33 AM [facility] Value Range Interpretation Code Description Data Daniella rce(s) Supporting Document(s) Leukocytes [#/volume] in Blood by Automated count 3.5 10*3/uL 4-10 L [facility] Erythrocytes [#/volume] in Blood by Automated count 4.59 10*6/uL 4.6- 6.1 L [facility] Hemoglobin [Mass/volume] in Blood 12.7 g/dL 13.5-18 L [facility] Hematocrit [Volume Fraction] of Blood by Automated count 39.9 % 4 1-53 L [facility] Erythrocyte mean corpuscular volume [Entitic volume] by Auto mated count 86.9 fL 80-96 [facility] Erythrocyte mean corpuscular hemoglobin [Entitic mass] by Automated count 27.6 pg 27-33 [facility] Erythrocyte mean corpuscular hemoglobin concentration [Mass/volume] by Automated count 31.7 g/dL 32.0-[facility] [facility] distribution width [Ratio] by Automated count 12.6 % 11.5-14.5 [facility] Platelets [#/volume] in Blood by Automated count 212 10*3/uL 150-400 [facility] ID Date Data Source [id number] 06/26/2021 04:57:04 AM EDT [facility] Name Value Range Interpretation Code Description Data Daniella rce(s) Supporting Document(s) Bicarbonate [Moles/volume] in Serum 20 mmol/L 22-29 L [facility] Chloride [Moles/volume] in Serum or Plasma 102 mmol/L 98-107 [facility] Creatinine [Mass/volume] in Serum or Plasma 1.09 mg/dL 0.70-1.20 [facility] Glucose [Mass/volume] in Serum or Plasma 104 mg/dL 70-140 [facility] Potassium [Moles/volume] in Serum or Plasma 4.0 mmol/L 3.4-5.1 [facility] Sodium [Moles/volume] in Serum or Plasma 132 mmol/L 136-145 L [facility] Urea nitrogen [Mass/volume] in Serum or Plasma 10 mg/dL 6-20 [facility] Anion gap 3 in Serum or Plasma 10 mmol/L 8-15 [facility] Osmolality of Serum or Plasma by calculation 274 mosm/kg 275-300 [facility] Creatinine/Urea nitrogen [Mass Ratio] in Serum or Plasma 9 [facility] Calcium [Mass/volume] in Serum or Plasma 8.3 mg/dL 8.6-10.0 [facility] Glomerular filtration rate/1.73 sq M pre dicted among non-blacks [Volume Rate/Area] in Serum or Plasma by Creatinine-based formula (MDRD) >6 0 [facility] Glomerular filtration rate/1.73 sq M pre dicted among blacks [Volume Rate/Area] in Serum or Plasma by Creatinine-based formula (MDRD) >60 [facility] ID Date Data Source [id number] 06/26/2021 04:57:04 AM [facility] Name Value Range Interpretation Code Description Data Daniella rce(s) Supporting Document(s) Magnesium [Mass/volume] in Serum or Plasma 1.9 mg/dL 1.6-2.6 [facility] ID Date Data Source [id number] 06/26/2021 04:57:04 AM [facility] Name Value Range Interpretation Code Description Data Daniella rce(s) Supporting Document(s) Phosphate [Mass/volume] in Serum or Plasma 3.9 mg/dL 2.5-4.5 [facility] ID Date Data Source [id number] 06/26/2021 02:13:15 AM [facility] Name Value Range Interpretation Code Description Data Daniella rce(s) Supporting Document(s) History and Physical [facility] HBJCYi6wQaHNPcFo69/JIYxiFTCvr6WyUXnnEWm5WNzqOCXbX8SyVKA8cP4xUEB2SPvJKgXiTfRvUXU3 lbm YjMprFObMiUPDjIrbEYiXqNXkbAdtgqKRpCZ5KaGI1GAGhR31bMNHeVKClI2VvKUSgAOv+Lm2XLBRvpV MbBE1JXihK8Z8cq0lCVk1+gV8WWayVVmR/+D53DyTNYIJXbV9NhprDj/ucX4Sge156ysV9n72HXJhiEb BJIfzZADbouFzEo82Z3Zoo0MCG2l/bqY6uMb9jKl3N P+HWH9k31w9/RoxrvapvfqzOUnVUYFwn8cYY/WcijysYd54R/8kx+Wime5U/hMZZIVfo0TuGb//s7fR2 zD7osK6joZp+Pjs+PTF+hchyVr82/tx0/7rscd24bgKbDjseAua6zayDLZ1vszZ/WLnPPVkPz2PkrkcF pMNwiXRoO/Sf1fyzaP7J7qrdMcdmvtqtja1fd0hq0B 6fj+4RTTqMRhehTU39W69c03NJx/4s4MW+V/CMNXdLqXvR8nsOj48QtpVwcRyfDctTV4wOD071A8jJ/o kfoIAFzDlQOmCn6KueItEliJXQ990i0U8ObU/cFU1f3o/idlhzDqVfhUUJy6P/4YoFGQ6QzcCCdCbhUl raVIIoSZbEO/k2cv0DtgRiMnjjkk/vG4vMcyqSMksi ETYGSGES8OXD2iC3o6bykF2n7LqtFk1eZuhk++Svna7rUvlKIcD6XcUkpwlACe0fc26y7Gvx7cQ4ytp6 o3P8272iH0uMZtW8Tn5zIZVvka51kMAhiig5oh2m3yIoU8GYrsUf4fP3HnbCnI0T9Z5OkZkZD3hGJg7m 6Oj5Lic7fS/3cwfToJgWIiONJnhk3+VS0OCtdXKBhw tAcmN3IahnXYetVYlVZvvNYExeGZwLxz3Cht7oDf6bc7BIqIEriDh+nDd7FB+RXfIRZSun9GMPsPL2jo AN9V06ALdCb5RZY3w6tH5m+F2WbFd23FavvevYoUdm//+743VY/mQMy0rbfFAYl2TvHoA7cs8JYGgar9 evTn/l7037yk972tw5HxWLh28aQr12Rld/6MO3pY9s [file] ICAgICAgICAgICAgICAgICAgICAgICAgICAgICAgIC AgICAgICAgICAgICAgICAgICAgICAgICAgICAgICANCiAgICAgICAgICAgICAgICAgICAgICAgICAgIC AgICAgICAgICAgICAgICAgICAgICAgICAgICAgICAgICAgICAgICAgICAgICAgICAgICAgICAgICAgIC AgICAgICAgICAgICANCiAgICAgICAgICAgICAgICAg ICAgICAgICAgICAgICAgICAgICAgICAgICAgICAgICAgICAgICAgICAgICAgICAgICAgICAgICAgICAg ICAgICAgICAgICAgICAgICAgICAgICANCiAgICAgICAgICAgICAgICAgICAgICAgICAgICAgICAgICAg ICAgICAgICAgICAgICAgICAgICAgICAgICAgICAgIC AgICAgICAgICAgICAgICAgICAgICAgICAgICAgICAgICANCiAgICAgICAgICAgICAgICAgICAgICAgIC AgICAgICAgICAgICAgICAgICAgICAgICAgICAgICAgICAgICAgICAgICAgICAgICAgICAgICAgICAgIC AgICAgICAgICAgICAgICANCiAgICAgICAgICAgICAg ICAgICAgICAgICAgICAgICAgICAgICAgICAgICAgICAgICAgICAgICAgICAgICAgICAgICAgICAgICAg ICAgICAgICAgICAgICAgICAgICAgICAgICANCiAgICAgICAgICAgICAgICAgICAgICAgICAgICAgICAg ICAgICAgICAgICAgICAgICAgICAgICAgICAgICAgIC AgICAgICAgICAgICAgICAgICAgICAgICAgICAgICAgICAgICANCiAgICAgICAgICAgICAgICAgICAgIC AgICAgICAgICAgICAgICAgICAgICAgICAgICAgICAgICAgICAgICAgICAgICAgICAgICAgICAgICAgIC AgICAgICAgICAgICAgICAgICANCiAgICAgICAgICAg ICAgICAgICAgICAgICAgICAgICAgICAgICAgICAgICAgICAgICAgICAgICAgICAgICAgICAgICAgICAg ICAgICAgICAgICAgICAgICAgICAgICAgICAgICANCiAgICAgICAgICAgICAgICAgICAgICAgICAgICAg ICAgICAgICAgICAgICAgICAgICAgICAgICAgICAgIC AgICAgICAgICAgICAgICAgICAgICAgICAgICAgICAgICAgICAgICANCjw/mDNoJ6hbmFLufsQ0K8lnGf 7HUl3EGL8ao9XiPYHuWGeaowXiYbvCTbOtRHGvVlkFYnm7DMnyLP8GnFIhS0OyZ4YuIWgfMF2SKJNwPX BpoIOfIKTqXCFlKxF3IIZjGRyoZM0PvSPlYPqsCJTm ADDoLmDpYEXdNQUqWGAiOAIzJCXFLQDhFYIdJnHkRYbzPQ8Lc5GgkDP3EYh+Eg5WOE0zz8GwSEjuXhTs QA0ior3TUQeKUjByS6QpouQ3JQC7GDQaTi0GWHQuQBQgeDTrLDBnAFXKZjUhR5MbeY96MAIJCc3+DQpl gnJsAbtNSeI7ELSvl9PnWHs6KU6NDCYnCUy1rFTfBI NWOYW8NQxrh8MhTQUQDBWaxEOjUKopfucbAFCbDESuHP5bZi5rYZWeHEE7CuPkUEZXRR4FPDUuLPIwaO PwMFEaZBKTIS7RFCkyPMO2IPHgvsUnnGWkDHddHX0BBSTzswPjIiFyVBHOJPh+Si1VWI5sb1RtHFzdYH SvZN0xfz2IVRcRDeZmX1F3fSXtP7V1HSqpMm4VULQs CJAsOrXaOWFJUHmxRQ5HBU9mdlR9GJ5EbVIiNJBlGMUpqAJvFGs7Z60erLVfSFqqII0DTMK+Saba+Pg0K BXAsMRIxDNRuJgJfVTAFDgMpE1DaX3NFz4NuD0GhKF53aYnaehKeFXasFB7BIS2eXAEsOIZRVJ3NhYOs dW4fvsCfDqPfXKJSBkYyC20ybEReBZCuYARuDJZiBk 4JTOVuK2FjxoHdwUlxrgGmYVDdDWAPDX6RNLlynxXocUUlwHukCG98kEqnZO6YQl5ORmGxSI9rzf5VoJ BqAc2WNTGyQc3ZSCZuYZJkFBCgHSH9QARyHaEpSCnoWIEeWHEvDDI3MLBqKBBgKK6ABoYsHBEqPxB1Wx SrXXRrMXElhi9FBYNoBHMxHOF6FELyFXAvOHXiQCzp XYFmMZOoHJD2MAEjRMCfWB3NAgJqQCUtWZFzVLmpKFWhQYJxbn3PBMXoDVRtWMB4ONUvXFFySOMwRKnz YAWuPAR2QJB2IHKbXOHtUR2QLvMcTPQrZDl0JScoTGZyGQXhaf7CGLKbGOMqYTt4BeEoKOBsXPPlKYkl LVSjVHIaUORdOKAoNELtFX9IRjUjEUDiYVVrXxBeBD RhTGMjax0XBCOlIDRgFrXiXuAoRYGnZFSzBThsAAOyMCR2USE7SGGwLKMvFQ6TUtFoXNOvYHY1WDElHI GfTPIlje3MTGThDEKrFHJqFvLyKHTeSNNxWAkpHYEkCYI6BGEzRHMmQJJhTV9SVwXmKIEkJPM5TVAaKN NxQJAunm4CPNSmFTJpBdf2NyGhMQPkNFUjQWgoGALv RJJ8HFL3STOjRVQvQY9GFtKkQKYpONgvJCJzHOThKKVkcs8XILDlCTUsLMClSnXgOKDfCHMlPXcuRXNu WAW2UFx3FYZcZNUiMY2JAhUbEPNhJUl8YJVhGUWwBCBrmz6WSULsEUGuTSO2ORUmOBZyBIYxHBivSDTt FPY3SNFiIEAcZJRaHW1JSfAjXZLaYqGjUgZvEZRuUH Viso2WDNEsLGCyNMJ5QITwBLNiLALyMTeuLNWzVZKuCvg6DOInJJLrJJ0KHgAuVUDzOlMnVAOyLDPrJW Qrrs7YXJXeFYRvPyY6JnPmIZZuACYsDFeuATRsTIYlGlh4NAAbJPBuAW6OCuBiGWAoLmS8PrExALFsIL Lnaq7EKZHyOTFfWAJ0LHVaJUPnKCLuEHwrREHhZDQ5 UbM4HKHsJEVfYD6ODqPhGPEpNpE5BOgbOPWyDGLsnn9PeZUkrIlkzs0JBVlPZr9BfQpaYCK7WZsrOo9z fLYnYWTaLKBQIe8TcaZjYTWfCECKPOfuQDRpKLI7O9BpViM0EJFdC9FmFEJ3CxQ8LoN9OVNhMRl9NUTm YnY6YBYgZUWtMfNgSLTrLTYoImsaYFCpIIaxAJIlXc RlZTM+KH4rIGf+Di9Mi4SsbhT2duXlCBncIGt8Sp2QYKFBT8DWKl== ID Date Data Source [id number] 06/25/2021 07:40:15 PM EDT [facility] Name Value Range Interpretation Code Description Data Daniella rce(s) Supporting Document(s) [facility] UFIMYg6oVmZDAkOf93/KRMngCTQpt9ZsWZtcXBi4QVmfTHOtS2FiTEM2lB5aDDR9JOvXKgCpMxHaVBC4 lbm [file] AgICAgICAgICAgICAgICAgICAgICAgICAgICAgICAgICAgICAgICAgICAgICAgICAgICAgICAgICAgIC AgICAgDQogICAgICAgICAgICAgICAgICAgICAgICAg ICAgICAgICAgICAgICAgICAgICAgICAgICAgICAgICAgICAgICAgICAgICAgICAgICAgICAgICAgICAg ICAgICAgICAgICAgICAgDQogICAgICAgICAgICAgICAgICAgICAgICAgICAgICAgICAgICAgICAgICAg ICAgICAgICAgICAgICAgICAgICAgICAgICAgICAgIC AgICAgICAgICAgICAgICAgICAgICAgICAgDQogICAgICAgICAgICAgICAgICAgICAgICAgICAgICAgIC AgICAgICAgICAgICAgICAgICAgICAgICAgICAgICAgICAgICAgICAgICAgICAgICAgICAgICAgICAgIC AgICAgICAgDQogICAgICAgICAgICAgICAgICAgICAg ICAgICAgICAgICAgICAgICAgICAgICAgICAgICAgICAgICAgICAgICAgICAgICAgICAgICAgICAgICAg ICAgICAgICAgICAgICAgICAgDQogICAgICAgICAgICAgICAgICAgICAgICAgICAgICAgICAgICAgICAg ICAgICAgICAgICAgICAgICAgICAgICAgICAgICAgIC AgICAgICAgICAgICAgICAgICAgICAgICAgICAgDQogICAgICAgICAgICAgICAgICAgICAgICAgICAgIC AgICAgICAgICAgICAgICAgICAgICAgICAgICAgICAgICAgICAgICAgICAgICAgICAgICAgICAgICAgIC AgICAgICAgICAgDQogICAgICAgICAgICAgICAgICAg ICAgICAgICAgICAgICAgICAgICAgICAgICAgICAgICAgICAgICAgICAgICAgICAgICAgICAgICAgICAg ICAgICAgICAgICAgICAgICAgICAgDQogICAgICAgICAgICAgICAgICAgICAgICAgICAgICAgICAgICAg ICAgICAgICAgICAgICAgICAgICAgICAgICAgICAgIC AgICAgICAgICAgICAgICAgICAgICAgICAgICAgICAgDQogICAgICAgICAgICAgICAgICAgICAgICAgIC AgICAgICAgICAgICAgICAgICAgICAgICAgICAgICAgICAgICAgICAgICAgICAgICAgICAgICAgICAgIC XrBBMpTJTmLCAlSSCwEYm0I6emSAYrSRJzPB0vAMd7 Jz8+FLkQGjWjEJB8itGiqX6NGH7mh4AbFChgXSDpa4ToPIx2IO1NEGBhSMrmFT7WXGphtb4ULDWeFOKk tQESe8ouGoQhFQB3AFVxNaboFJ7PXDRiS8fxxmGrCAUlGDVEQGldPBVVWZsjDROWPIFjVZJvDzJjHNrd YU0Ic1KouTY4CWx+Lk3DJE7qd9JxTKbuDKCgNH9gij 4YTMtCYgIhV1DdzaG6MGFlBZAsJp3BTCXkPGJohMOzWuLlTTUDIpRkL9GonN40SZNDZl6+DQplbmRvYm fZSnOiKMItm8NcYJp7KF0JYDWgJLn8uJTkS45hf4SnnQHnPiawOySzbrCfsqXANJqemMukbeTxhjpqCO KlODKeLW6cEg1tHFHrSELyNmNoFUBNBU6EXVQtGSZn bPAuGVAuIYWATJ5WVChmXRY0DLSuquJqoFUuFCltIT3IYIQcvdEfVfXzYTNVSJj+Ti0XGQ3sv3XlPFqz NdKoTE9ggx2AXCfHGpZeT4I5rDQjV1E7BBpqJs5NVGKuECFjGwdfJPRBRMlnGC3UBV0hnqI8TU2HjVSr YDRhIHCvsXPpMXq2T04rtKPdTAgjXD9DTVK+Saba+Pg 4FWMJbIEXrSFLgXkJuCEFHVvRtI8ByR9NTb0WfV7JbBY51iGmxdiMrUEfbGL1XXB8kGMCwBCHMDG4RaE PksA8ubzEvCVZgGGXVItGyB04ybJIiROAuIXRgMLPoBg1DKBMbR7RoheEuxEgyqqVqVSHhAJIRVD1JFX bgmiTqtUGtsEpvRW76uWtmRG6RKg9VJyYgAK1ugy3B sJUnWp0JJRSvNJ4WSQLqSTLiYZZoAEG2RMGtTqDbTJwlYRYcMXVyHLB8TAKbNHRrVQ5CUjSzWYKkOgj3 ThHrPPYpFDAlxl2XDDRuGUJaJNSuLrJnXILvZLBaSAddJDQtUWHbCQQ8RGCnZLRbMU2ZExKjMDDlECP7 HWMsNHEyQALdtn2KLYVkVBDcRjveWMKoKLBfGJVnXD fbDWKdVSM3CFHnCJHkBXPtPM5FRcSvZAQvJQHtXYNiWCJxQCXrra4MKYXzOIWqCAdlAyJkBIIrIADhPW yiAMEeOGJ1RJM2OTHdRSOeQQ7JYnUsMUTvBRn3NyVyFJJnYUKxsf9HREScMXUbFVc2YJCcIUQbAAGdGG iwWEEiOBMyEFV6QTJcPYFvNF9PPgOhELFlVFZwZqUe FNSgKMUixy5EAWUgRNDyIEPvUXFhWTJwAZMxQUjlITZhYSTsBbT7DJKbDHOdNE8XQyWjQBDsYEY4CyIw CMFwKKUwrf4KITDdSDSuJxF3KXRbJXGzBECzSLsgSDNzIWZgDwF2ETAkJIZcSC4JRoTyMLKlWPJ9EHmu QSUfOOJzpg2DCBXgVRZsMTQbIuYiKGHbZVGcKByoBV FbFTW4HMF6MLTaZWRiEB1AExZuIQHmIXUqRcFaGEOdHZXsff4KULNpGMHwLEI7OxWtCXVcOKZvYZxqMQ VyRFD0HhKaCKGaNPQjRC9AEgTfWOFiEosdKRFxWDHjOBJaqg3KYKFrKNRcPlW6IYUrKQWgYZRpZZquFP NhWEW1EOq3HNXjEAQbJR4DVtRlBECdZzx3FCFaGMOa YYOnzo2BINXbIFQsIAA7RnEwBSDjAREaADqlRPGiLST4TAQ6PFVlBSSsNS5CRkFyPHScCep3GBYzMJSo NFTnuv8ORDMyLXNpONi0PwVxSLEeGXFdRAl7gfUliRSqGEt9EU7FK8XufzWnMfNACr7Zw373BNOfSNIw Te8LQ6xzJj7tUAOoOWNRTf0NKLe9NyNoQCNlTNk4Ao XaQGL2MKW6ENFlQiX7VLu5NySmNnz+AJfjKwO9BUAfFFv5TNL2GMyeQkX5UGNlBJwyFFcnJSG7NP2dXM ANCj4+JDetaEVpbQobXPNPYqO3VCh8TZerLSCSBt1F ID Date Data Source [id number] 06/25/2021 12:18:16 PM EDT [facility] Name Value Range Interpretation Code Description Data Daniella rce(s) Supporting Document(s) Color of Urine [facility] Clarity of Urine [facility] Specific gravity of Urine by Refractometry automated 1.005 1.003 -1.030 [facility] pH of Urine by Automated test strip 7.0 5.0-8.0 [facility] Protein [Mass/volume] in Urine by Automated test strip Neg [facility] Glucose [Mass/volume] in Urine by Automated test strip Neg [facility] Ketones [Mass/volume] in Urine by Automated test strip Neg [facility] Bilirubin.total [Presence] in Urine by Automated test strip Negative [facility] Hemoglobin [Presence] in Urine by Automated test strip Neg [facility] Leukocyte esterase [Presence] in Urine by Automated test strip Negative [facility] Nitrite [Presence] in Urine by Automated test strip Negati [facility] Leukocytes [#/area] in Urine sediment by Automated count 0 /HPF 0 -5 [facility] Erythrocytes [#/area] in Urine sediment by Automated count 0 /HPF 0-3 [facility] ID Date Data Source [id number] 06/25/2021 09:33:57 AM EDT [facility] Name Value Range Interpretation Code Description Data Daniella rce(s) Supporting Document(s) EKG [facility] EAYTLz0uGxYOWpYnw1DnVzWiOBYzLD7kocm5H2S5qVPjT4ZitTSry0ukH9CoC7FjVKUnOCVXNX1VbCEz jb2 [file] PcEigJ/U9JE8X8cW/SAÚL/iUHzHTH4lT8tJpdbB1DGx5 [file] HSoHFOvHIEuagCiPW94cRk/[place]/twQ275gt01jXa+YnO/ES/mLeZvQBTcFuyreKAqYGKf1nLdH2t70M1 fxaTCPJQVtE+FkSEiBBRIkpkEBlEjIgRcSJOJIiQAy DUNa4FGYi6WQGe6TXMfFSIGHxSMqUzMXzAbkUfFNgDhjVyOdqgD349qe38TFw+ojM/0Fki7BmSiWFeDy XLoXKdV64lPj/[place]/oOz/X5hUjaUcxxZApIAfALXPyQViZQCpsTTFCXFIzXnol3gsMSAhhPSPJKIUxRb 0WTJp3EXUk1BQSwQNETmrIJwczYCstlwIdiBwCgZPr L81KfHg0VCPm6FURhBTFIohECs0rQBt8lONj9TLDvJHHbM8gf6Kfc5yTV+FzIfB/rdeUaPbQym0ZMa7B 4weF4wA5Jq0wiNubdyYInCu9WC/7ckCoNJBTMsn2vgDr9LV/skcRmXwP/Lym0Al4MkQU36suqT6C38hj XHPHtQniEUCyYoPXbShmxUb9sw/n4Gr203hdlrHVNo Aght8nVSiGMWver3shAbBx+w1D3N4mV/yAE6CefJBZxhLnVysJGP/AOz/hkjH3DxqlBRACHmfd+GnrXo mIvY1xhMFL+YmvBREhIkQU5+w8eY2WYm/xtSBiRIyIEyEHkxxMcjDJwSQHnZ/7NjQMJNNP0wE+UtBOjA pdmjkx0vlck+G3vHlLvYS0aFV/26j4jvD+8Vd1pr2J //iLeyN/FyyjitmkoXvoYeIqxKrmfWI9s69T6decVrxuLQ+Oyr7U16bcjknjoXCSLokxsy2M22bktrry kMcKtartla9H27s3ovzbwOyShmukjm5Y22o3cbvshOAREsulei4H88u2wtxcoSOOVclu07oauiQDe5V2 ckyX0rH71mxxa+dp09irajKojkdwFFsKQrdOz/Y6/u SOi5hmXi//5SxA57IV32vBV6lSEulGP6sBtqI5bEoUliCQFl3Oril5vrDgE0Z/xrzergSN4BIauH8av1 mPBlplTUNXi/nI8HR28CP3R+fhea2nmm2Bdy6kf7kglctyj5/6hVbu5y9h/18Y1/1Oy72juxNIj+urvc JqTmkyhg2qeyu6oc2fHuXsow7stkFzJjqEBc9R40vT Rer7dhzt4e10itaEry/1Kx9QgaUdkmD4+ZB+saúl/y0Z/jt3x/n7g/Z+EcyLkl35dm/j6r2f+qXlrpXvfx g24fn0G/sr0YarpRoFxoYQloe4itkyo/CpdGR/XN4fY3X+x11u5J5tzey6a5w7C5f4TbwceyCTckXn4p kqX34+jjm/+z5uprz923e9uAj/Dzu9z/NzB9cy1i19 q6/lq290I4l+eqVHodF+O3nezykcussoljaljv7Gigr5MT9Awtrg6u3zbT4xnJSyl2qEbhsXlIemYhlk s66WdC/6bm5/ngD1TiFQyPstAV3OO8oYuitJ2WncJZfGc+j8wByZpdNHRO+Tj3l/f92/J1/+6pr7inO6 lJ1oM0TQ/IC/IJ+Tzy+7F2js/2tDBgrfu4Qy8SF4iM Ph/7VbS+feyQO+VZxFZdtXhkFAmUUyBdC26QuKZNBWNVYZJNlSpaI/Klb+3z0ygcNfqrSphRMs7H+ib0 Vngz4Frod83u+aA79s58qrX7SGxUf6j06wJAZXHliI/IDXKDHM+qfwiU0sgmuJSsmMwjA7ay5XU3/lz6 0u88w725QKAJjQQi6Utp31U+8191R04flos67z1wsz [file] [id number]== ID Date Data Source [id number] 06/25/2021 10:18:32 AM EDT [facility] Name Value Range Interpretation Code Description Data Daniella rce(s) Supporting Document(s) Bicarbonate [Moles/volume] in Serum 22 mmol/L [facility] Chloride [Moles/volume] in Serum or Plasma 106 mmol/L 98-107 [facility] Creatinine [Mass/volume] in Serum or Plasma 1.18 mg/dL 0.70-1.20 [facility] Glucose [Mass/volume] in Serum or Plasma 105 mg/dL 70-140 [facility] Potassium [Moles/volume] in Serum or Plasma 4.3 mmol/L 3.4-5.1 [facility] Sodium [Moles/volume] in Serum or Plasma 138 mmol/L 136-145 [facility] Urea nitrogen [Mass/volume] in Serum or Plasma 9 mg/dL 6-20 [facility] Anion gap 3 in Serum or Plasma 10 mmol/L 8-15 [facility] Osmolality of Serum or Plasma by calculation 285 mosm/kg 275-300 [facility] Creatinine/Urea nitrogen [Mass Ratio] in Serum or Plasma 8 [facility] Calcium [Mass/volume] in Serum or Plasma 8.6 mg/dL 8.6-10.0 [facility] Glomerular filtration rate/1.73 sq M pre dicted among non-blacks [Volume Rate/Area] in Serum or Plasma by Creatinine-based formula (MDRD) 82 mL/min/1.73m2 >60 [facility] Glomerular filtration rate/1.73 sq M pre dicted among blacks [Volume Rate/Area] in Serum or Plasma by Creatinine-based formula (MDRD) >60 [facility] ID Date Data Source [id number] 06/25/2021 08:44:23 AM EDT [facility] CT ANGIOGRAPHY HEAD [id number] RESULTInt erpreted by:Nohelia Kiran MDCLINICAL INDICATION: Evaluation [...] rce(s) Supporting Document(s) ID Date Data Source [id number] 06/25/2021 08:44:23 AM [facility] CT ANGIOGRAPHY NECK [id number] RESULTInt erpreted by:Nohelia Kiran MDCLINICAL INDICATION: Evaluation [...] rce(s) Supporting Document(s) ID Date Data Source [id number] 06/25/2021 04:55:15 AM [facility] Name Value Range Interpretation Code Description Data [facility] rce(s) Supporting Document(s) Leukocytes [#/volume] in Blood by Automated count 3.2 10*3/uL 4-10 L [facility] Erythrocytes [#/volume] in Blood by Automated count 4.47 10*6/uL 4.6- 6.1 L [facility] Hemoglobin [Mass/volume] in Blood 12.3 g/dL 13.5-18 L [facility] Hematocrit [Volume Fraction] of Blood by Automated count 38.5 % 4 1-53 L [facility] Erythrocyte mean corpuscular volume [Entitic volume] by Auto mated count 86.1 fL 80-96 [facility] Erythrocyte mean corpuscular hemoglobin [Entitic mass] by Automated count 27.4 pg 27-33 [facility] Erythrocyte mean corpuscular hemoglobin concentration [Mass/volume] by Automated count 31.9 g/dL 32.0-36.[address] [facility] distribution width [Ratio] by Automated count 12.2 % 11.5-14.5 [facility] Platelets [#/volume] in Blood by Automated count 215 10*3/uL 150-400 [facility] ID Date Data Source [id number] 06/25/2021 05:19:25 AM [facility] Name Value Range Interpretation Code Description Data Daniella rce(s) Supporting Document(s) Bicarbonate [Moles/volume] in Serum 21 mmol/L 22-29 L [facility] Chloride [Moles/volume] in Serum or Plasma 102 mmol/L 98-107 [facility] Creatinine [Mass/volume] in Serum or Plasma 1.13 mg/dL 0.70-1.20 [facility] Glucose [Mass/volume] in Serum or Plasma 104 mg/dL 70-140 [facility] Potassium [Moles/volume] in Serum or Plasma 3.6 mmol/L 3.4-5.1 [facility] Sodium [Moles/volume] in Serum or Plasma 133 mmol/L 136-145 L [facility] Urea nitrogen [Mass/volume] in Serum or Plasma 10 mg/dL 6-20 [facility] Anion gap 3 in Serum or Plasma 9 mmol/L 8-15 [facility] Osmolality of Serum or Plasma by calculation 275 mosm/kg 275-300 [facility] Creatinine/Urea nitrogen [Mass Ratio] in Serum or Plasma 8 [facility] Calcium [Mass/volume] in Serum or Plasma 8.6 mg/dL 8.6-10.0 [facility] Glomerular filtration rate/1.73 sq M pre dicted among non-blacks [Volume Rate/Area] in Serum or Plasma by Creatinine-based formula (MDRD) 87 mL/min/1.73m2 >60 [facility] Glomerular filtration rate/1.73 sq M pre dicted among blacks [Volume Rate/Area] in Serum or Plasma by Creatinine-based formula (MDRD) >60 [facility] ID Date Data Source [id number] 06/25/2021 05:19:25 AM [facility] Value Range Interpretation Code Description Data Daniella rce(s) Supporting Document(s) Magnesium [Mass/volume] in Serum or Plasma 1.7 mg/dL 1.6-2.6 [facility] ID Date Data Source [id number] 06/25/2021 05:19:25 AM [facility] Value Range Interpretation Code Description Data Daniella rce(s) Supporting Document(s) Phosphate [Mass/volume] in Serum or Plasma 2.9 mg/dL 2.5-4.5 [facility] ID Date Data Source [id number] 06/24/2021 09:34:49 PM [facility] Name Value Range Interpretation Code Description Data Daniella rce(s) Supporting Document(s) Hemoglobin A1c/Hemoglobin.total in Blood by HPLC 4.5 % 4.0-6.0 [facility] (NOTE)<5.7% Average risk of diabetes (ADA)5.7-6.4% Increased risk of diabetes(ADA)>/= 6.5% Diagnostic for diabetes(ADA) Glucose mean value [Mass/volume] in Blood Estimated fr om glycated hemoglobin 81 mg/dL <126 [facility] ID Date Data Source [id number] 06/24/2021 08:59:16 PM [facility] Name Value Range Interpretation Code Description Data Daniella rce(s) Supporting Document(s) Leukocytes [#/volume] in Blood by Automated count 4.3 10*3/uL 4-10 [facility] Erythrocytes [#/volume] in Blood by Automated count 4.59 10*6/uL 4.6- 6.1 L [facility] Hemoglobin [Mass/volume] in Blood 12.9 g/dL 13.5-18 L [facility] Hematocrit [Volume Fraction] of Blood by Automated count 39.1 % 4 1-53 L [facility] Erythrocyte mean corpuscular volume [Entitic volume] by Auto mated count 85.3 fL 80-96 [facility] Erythrocyte mean corpuscular hemoglobin [Entitic mass] by Automated count 28.2 pg 27-33 [facility] Erythrocyte mean corpuscular hemoglobin concentration [Mass/volume] by Automated count 33.0 g/dL 32.0-36.0 [facility] E[facility] distribution width [Ratio] by Automated count 12.3 % 11.5-14.5 [facility] Platelets [#/volume] in Blood by Automated count 210 10*3/uL 150-400 [facility] Differential cell count method - Blood [facility] Neutrophils/100 leukocytes in Blood by Automated count 42 % [facility] Lymphocytes/100 leukocytes in Blood by Automated count 48 % [facility] Monocytes/100 leukocytes in Blood by Automated count 8 % [facility] Eosinophils/100 leukocytes in Blood by Automated count 1 % [facility] Basophils/100 leukocytes in Blood by Automated count 1 % [facility] Neutrophils [#/volume] in Blood by Automated count 1.74 10*3/uL 1.8-7 .0 L [facility] Lymphocytes [#/volume] in Blood by Automated count 1.99 10*3/uL 1.2-4 .0 [facility] Monocytes [#/volume] in Blood by Automated count 0.35 10*3/uL 0-0.8 [facility] Eosinophils [#/volume] in Blood by Automated count 0.05 10*3/uL 0-0.5 [facility] Basophils [#/volume] in Blood by Automated count 0.04 10*3/uL 0-0.2 [facility] Nucleated erythrocytes/100 leukocytes [Ratio] in Blood by Automated count 0 /100{WBCs} 0-0 [facility] ID Date Data Source [id number] 06/24/2021 09:07:26 PM [facility] Value Range Interpretation Code Description Data Daniella rce(s) Supporting Document(s) Prothrombin time (PT) 15.2 s 11.6-14.0 H [facility] INR in Platelet poor plasma by Coagulation assay 1.24 [facility] Routine intensity oral anticoagulation I NR is typically 2.0-3.0. Target INR must be clinically individualized. ID Date Data Source [id number] 06/24/2021 09:07:26 PM [facility] Value Range Interpretation Code Description Data Daniella rce(s) Supporting Document(s) aPTT in Platelet poor plasma by Coagulation assay 31.6 s 24.0-33. 0 [facility] ID Date Data Source [id number] 06/24/2021 09:15:19 PM [facility] Value Range Interpretation Code Description Data Daniella rce(s) Supporting Document(s) Albumin [Mass/volume] in Serum or Plasma by Bromocresol green (BCG) dye binding method 4.1 g/dL 3.5-5.2 [facility] Bilirubin.total [Mass/volume] in Serum or Plasma 0.7 mg/dL <1.2 [facility] Bilirubin.direct [Mass/volume] in Serum or Plasma <0.3 [facility] Alkaline phosphatase [Enzymatic activity/volume] in Serum or Plasma 78 U/L 40-129 [facility] Aspartate aminotransferase [Enzymatic activity/volume] in Serum or Plasma 19 U/L <40 [facility] Alanine aminotransferase [Enzymatic activity/volume] in Seru m or Plasma 16 U/L <41 [facility] Protein [Mass/volume] in Serum or Plasma 6.9 g/dL 6.4-8.3 [facility] ID Date Data Source [id number] 06/24/2021 09:15:19 PM [facility] Name Value Range Interpretation Code Description Data Daniella rce(s) Supporting Document(s) Cholesterol [Mass/volume] in Serum or Plasma 142 mg/dL <200 [facility] Triglyceride [Mass/volume] in Serum or Plasma 44 mg/dL <150 [facility] Cholesterol in HDL [Mass/volume] in Serum or Plasma 55 mg/dL >40 [facility] Cholesterol in LDL [Mass/volume] in Serum or Plasma by calcu lation 78 mg/dL <100 [facility] Cholesterol in VLDL [Mass/volume] in Serum or Plasma by calc ulation 9 mg/dl 16-42 L [facility] Cholesterol non HDL [Mass/volume] in Serum or Plasma 87 mg/dL <130 [facility] ID Date Data Source [id number] 06/24/2021 09:15:19 PM [facility] Value Range Interpretation Code Description Data Daniella rce(s) Supporting Document(s) Magnesium [Mass/volume] in Serum or Plasma 1.6 mg/dL 1.6-2.6 [facility] ID Date Data Source [id number] 06/24/2021 09:15:19 PM [facility] Value Range Interpretation Code Description Data Daniella rce(s) Supporting Document(s) Phosphate [Mass/volume] in Serum or Plasma 3.1 mg/dL 2.5-4.5 [facility] ID Date Data Source [id number] 06/24/2021 09:15:19 PM [facility] Value Range Interpretation Code Description Data Daniella rce(s) Supporting Document(s) Bicarbonate [Moles/volume] in Serum 20 mmol/L 22-29 L [facility] Chloride [Moles/volume] in Serum or Plasma 105 mmol/L 98-107 [facility] Creatinine [Mass/volume] in Serum or Plasma 1.07 mg/dL 0.70-1.20 [facility] Glucose [Mass/volume] in Serum or Plasma 79 mg/dL 70-140 [facility] Potassium [Moles/volume] in Serum or Plasma 3.8 mmol/L 3.4-5.1 [facility] Sodium [Moles/volume] in Serum or Plasma 138 mmol/L 136-145 [facility] Urea nitrogen [Mass/volume] in Serum or Plasma 9 mg/dL 6-20 [facility] Anion gap 3 in Serum or Plasma 13 mmol/L 8-15 [facility] Osmolality of Serum or Plasma by calculation 284 mosm/kg 275-300 [facility] Creatinine/Urea nitrogen [Mass Ratio] in Serum or Plasma 8 [facility] Calcium [Mass/volume] in Serum or Plasma 8.9 mg/dL 8.6-10.0 [facility] Glomerular filtration rate/1.73 sq M pre dicted among non-blacks [Volume Rate/Area] in Serum or Plasma by Creatinine-based formula (MDRD) >6 0 [facility] Glomerular filtration rate/1.73 sq M pre dicted among blacks [Volume Rate/Area] in Serum or Plasma by Creatinine-based formula (MDRD) >60 [facility] ID Date Data Source [id number] 06/24/2021 08:55:36 PM EDT [facility] Name Value Range Interpretation Code Description Data Daniella rce(s) Supporting Document(s) Calcium.ionized [Moles/volume] in Arterial blood 1.17 mmol/L 1.13-1.3 2 [facility] ID Date Data Source [id number] 06/24/2021 09:21:25 PM EDT [facility] Name Value Range Interpretation Code Description Data Daniella rce(s) Supporting Document(s) ABO and Rh group [Type] in Blood [facility] Blood group antibody screen [Presence] in Serum or Plasma [facility] Blood bank comment [facility] ID Date Data Source [id number] 06/24/2021 03:05:00 PM EDT [facility] Name Value Range Interpretation Code Description Data Daniella rce(s) Supporting Document(s) SARS coronavirus 2 RNA [Presence] in Res piratory specimen by LIT with probe detection [facility] This lab was ordered by [facility] a nd reported by [facility]. Procedure Social History Code Duration Value Status Description Data Source(s ) Alcohol intake 08/01/2021 12:00:00 AM EDT Ex-drinker (finding) comp leted Ex- drinker (finding) [facility] Tobacco use and exposure 08/01/2021 12:00:00 AM EDT Never used co mpleted Never used [facility] Smoking 08/01/2021 12:00:00 AM EDT Never smoker completed Never s moker [facility] Alcohol intake 06/24/2021 12:00:00 AM EDT Current drinker of al cohol (finding) completed Current drinker of alcohol (finding) [facility] Vital Signs ID Date Data Source [id number] Name Value Range Interpretation Code Description Data Source(s) Systolic blood pressure 110 mm[Hg] 110 mm[Hg] M EDENT ([facility]) Diastolic blood pressure 68 mm[Hg] 68 mm[Hg] [facility] ([facility]) Heart rate 65 /min 65 /min [facility] ([facility]) Body temperature 98.6 [degF] 98.6 [degF] [facility] ([facility]) Respiratory rate 18 /min 18 /min [facility] ( [facility]) Oxygen saturation in Arterial blood by Pulse oximetry 98 % 98 % [facility] ([facility]) Body weight 169.00 [lb_av] 169.00 [lb_av] MEDEN T ([facility]) Body weight 76.658 kg 76.658 kg [facility] ([facility]) Body height 64 [in_i] 64 [in_i] [facility] ([facility]) 5'4" Body mass index (BMI) [Ratio] 29.0 kg/m2 29.0 k g/m2 [facility] ([facility]) Body surface area Derived from formula 1.82 m2 1.82 m2 [facility] ([facility]) Respiratory rate 16 /min 16 /min [facility] ( [facility]) Oxygen saturation in Arterial blood by Pulse oximetry 98 % 98 % [facility] ([facility]) Body weight 168.00 [lb_av] 168.00 [lb_av] [facility] T ([facility]) Body weight 76.205 kg 76.205 kg [facility] ([facility]) Body temperature 98.6 [degF] 98.6 [degF] [facility] ([facility]) Body height 64 [in_i] 64 [in_i] [facility] ([facility]) 5'4" Body surface area Derived from formula 1.82 m2 1.82 m2 [facility] ([facility]) Systolic blood pressure 117 mm[Hg] 117 mm[Hg] M [facility] ([facility]) Diastolic blood pressure 82 mm[Hg] 82 mm[Hg] [facility] ([facility]) Body mass index (BMI) [Ratio] 28.8 kg/m2 28.8 k g/m2 [facility] ([facility]) Heart rate 77 /min 77 /min [facility] ([facility]) ID Date Data Source [id number] 06/28/2021 09:32:42 AM [facility] Name Value Range Interpretation Code Description Data Source(s) TRANSFER FROM [facility] Patient Treatment Plan of Care Planned Activity Planned Date Details Description Data Source (s) rizatriptan 10 MG Oral Tablet 08/01/2021 12:00:00 AM [facility] topiramate 25 MG Oral Tablet 08/01/2021 12:00:00 AM [facility] Nerivio Device 08/01/2021 12:00:00 AM [facility] Prednisone 5 MG Oral Tablet 07/01/2021 12:00:00 AM [facility] Prednisone 5 MG Oral Tablet 07/01/2021 12:00:00 AM [facility] Prednisone 5 MG Oral Tablet 07/01/2021 12:00:00 AM [facility] Prednisone 10 MG Oral Tablet 06/30/2021 12:00:00 AM [facility] Prednisone 10 MG Oral Tablet 06/30/2021 12:00:00 AM [facility] Prednisone 10 MG Oral Tablet 06/30/2021 12:00:00 AM [facility] Prednisone 20 MG Oral Tablet 06/29/2021 12:00:00 AM [facility] Prednisone 20 MG Oral Tablet 06/29/2021 12:00:00 AM [facility] Prednisone 20 MG Oral Tablet 06/29/2021 12:00:00 AM [facility] Prednisone 10 MG Oral Tablet 06/28/2021 12:00:00 AM [facility] Prednisone 10 MG Oral Tablet 06/28/2021 12:00:00 AM [facility] Prednisone 10 MG Oral Tablet 06/28/2021 12:00:00 AM [facility] predniSONE (DELTASONE) tablet 40 mg 06/27/2021 09:00:00 AM [facility] Prednisone 10 MG Oral Tablet 06/27/2021 12:00:00 AM [facility] Prednisone 20 MG Oral Tablet 06/27/2021 12:00:00 AM [facility] Prednisone 20 MG Oral Tablet 06/27/2021 12:00:00 AM [facility] Prednisone 20 MG Oral Tablet 06/27/2021 12:00:00 AM [facility] Magnesium Oxide 400 MG Oral Tablet 06/26/2021 12:00:00 AM [facility] Magnesium Oxide 400 MG Oral Tablet 06/26/2021 12:00:00 AM [facility] Magnesium Oxide 400 MG Oral Tablet 06/26/2021 12:00:00 AM [facility] sennosides, FPC 8.6 MG Oral Tablet 06/25/2021 07:40:47 AM [facility] Bisacodyl 10 MG Rectal Suppository 06/25/2021 07:40:47 AM [facility] potassium chloride 20 mEq in 50 mL IVPB (premix) 06/24/2021 08:13:2 7 PM [facility] sodium phosphate infusion 12 mmol/100 mL (central line ) (premix) 06/24/2021 08:13:27 PM [facility] potassium phosphate infusion 12 mmol/100 mL (central l ine) (premix) 06/24/2021 08:13:27 PM [facility] calcium gluconate in NaCl 0.9 % infusion 2 g/50 mL 06/24/2021 08 :13:27 PM [facility] Hydralazine Hydrochloride 20 MG/ML Injectable Solution 06/24/2021 08:13:13 PM [facility] labetalol (TRANDATE) injection 20 mg 06/24/2021 08:12:45 PM [facility] ondansetron (ZOFRAN) injection 4 mg 06/24/2021 08:12:26 PM EDT [facility]
[2021-09-06] MEDS: traZODone 50 MG TAB PO PRN (20:27)
[2021-09-06] MEDS: OLANZapine 5 MG TAB PO SCH (20:27)
[2021-09-06] MEDS: LORazepam 1 MG TAB PO SCH (20:27)
[2021-09-07 06:57] VITALS: BP 99/55
[2021-09-07] MEDS: OLANZapine 5 MG TAB PO SCH ×2 (08:30→21:41)
[2021-09-07] MEDS: LORazepam 1 MG TAB PO SCH ×2 (08:30→21:41)
[2021-09-07] MEDS: ESCITALOPRAM OXALATE 10 MG TAB (LEXAPRO) PO SCH (08:31)
[2021-09-07 16:26] VITALS: BP 119/57
--- NOTE | 2021-09-07 17:36 | MHHPEPDOC ---
General Date Of Admission: Sep 06, 2021 Legal Status: 9.39 Chief Complaint Severe depression History of Present Illness HISTORY OF THE PRESENT ILLNESS: Patient is a 30 -year-old , male, who, says he initially came to [facility] ( ED) because he had SI, he says those thoughts started recently. He ays he was wishing one day going to go to sleep and not wake up. He has been feeling depressed for a long period of time. He has nicki feeling very sad since his father , around 2013, and he was still in [facility]. he fels misunderstood, he feels people come against him and this happens at work and at [facility]. Psychiatric Review of Systems Depression (2 or more weeks): depressed mood, anhedonia, insomnia/hypersomnia, feelings of excess/guilt, feelings of worthlesness, decreased energy, difficulty concentrating, appetite changes, psychomotor changes, suicidal thoughts Tiffany (4 or more days of): denies Psychosis: auditory hallucination (his father's voice), paranoia, other (nightmares) PTSD: history of trauma, nightmares and flashbacks, intrusive memories (He says he saw some horrible pictures online about people that were masacred, he was being blackmailed, he was threatened and these scammers told him that would happen to him and his his family), avoidance of triggers Anxiety: gen/non-specific anxiety (he feels more relaxed today), situational anxiety, stressor related anxiety, panic attacks Anxiety/ 6 months or more of: restlessness, keyed up, easily fatigued, difficulty concentrating, irritability, muscle tension (he says his neck is always tight and he has to get an MRI to r/o other problems in his cervical spine) Past Psychiatric History Previous Psychiatric Diagnosis: Denies Previous Psychiatric Admissions: Denies Suicide Attempts: Denies Psychiatric Follow-up: Denies Psychiatric medications: Denies. Past Medical History Medical Problems He had a mass on his left chest, he was told he culd get an injection but they told him his skin would get stroke program coordinator around that area. 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 Grew up with both parents and siblings. Got along with them Abuse/Trauma:Yes, had a difficult childhood, he recently was threatened that he was going to get killed ( and hs family too) if he didn't give the EDMdesigner money Current Living Situation: Lives in [place], with his and his child Education: Finished HS, he finishd his Associate ( College) Employment: [employer] Social Support: He says he used to talk to his , but she has become distant from him lately Legal: Denies Marital: , he has 2 children. One of them is in [facility], the youngest one lives with him and his Mental Status Examination General Appearance: well groomed, appears stated age, hospital scubs/clothing Build: average Demeanor: withdrawn, preoccupied Eye Contact: avoidant Activity: slowed, anxious Behavior: cooperative, withdrawn Speech: clear, spontaneous, slow, low in volume Mood: depressed, anxious Affect: constricted, flat, congruent Thought Process: logical/linear Thought Content (Delusions): none reported Thought Content (Other): none reported Thought Content (Aggressive): none reported Perception (Hallucinations): auditory Perception (Other): none reported Cognition (Impairment of): none reported Cognition(Intelligence Est.): average Oriented: Awake, Alert, Oriented times three Insight: fair Judgment: Fair Psychosis: Psychotic Perceptions Diagnoses 1. Major Depressive Disorder, severe with psychosis 2. MAGALY A-FIB/CHADSVASC A-FIB History Current/History of A-Fib/PAF?: No Current PO Anticoag Therapy: No Age/Risk Factor Scoring CHADSVASC: CHADSVASC Response (Comments) Value Age Risk Factor Age < 65 years old 0 Gender Risk Factor Male 0 Hx of CHF No 0 Hx of HTN No 0 Hx of Stroke/TIA/or VTE No 0 Hx of Diabetes No 0 Hx of Vascular Disease No 0 Total 0 Treatment Treatment ordered: NONE Reason Anticoagulant not given: Not indicated/[id number] Assessment he is very depressed, feels unloved by his , feels very sad because he misses his family in [facility], he misses his father who bout 6 years ago and h says he is always with him, he hears his voice. At times he sems to be responding to internal stimuli. He has a problem with alcohol Initial Treatment Plan 1. Patient was admitted on a [9.39] status. 2. Complete history was obtained. 3. With patients permission, family will be contacted and database will be expanded. 4. Patients medication regimen will be reviewed and changed accordingly. 5. Patient will be provided with protected environment. 6. Patient will be treated with individual, group, and milieu therapies. 7. Patient will receive supportive psych-education. 8. Discharge planning will commence immediately. 9. Outpatient follow-up treatment will be strongly recommended. 10. The initial treatment plan will focus initially on: * Depression. * Risk for suicide. * altered perceptions * alcohol abuse ESTIMATED LENGTH OF STAY: 5-7 DAYS. TIME SPENT COUNSELING AND COORDINATING INITIAL CARE: 60 minutes. Tobacco Cessation Screen If Patient is a Smoker No Ordered/Pending Vital Signs Vital Signs Date Time Temp Pulse Resp B/P (MAP) Pulse Ox O2 Delivery O2 Flow Rate FiO2 09/07/21 16:26 98.4 63 16 119/57 (77) 100 Room Air Medications Scheduled Meclizine HCl (Meclizine HCl) 25 Mg Tablet, 25 MG PO Q12H Trazodone HCl (Trazodone HCl) 50 Mg Tablet, 50 MG PO QHS Scheduled PRN Ramelteon (Ramelteon) 8 Mg Tablet, 8 MG PO QHS PRN for INSOMNIA Allergies Coded Allergies: No Known Allergies (Unverified , 09/04/21) CHEVY GUAMAN MD Sep 07, 2021 17:14
--- NOTE | 2021-09-07 18:29 | IPNPDOC ---
Subjective Date Seen The patient was seen on 09/07/21. Subjective Chief Complaint/HPI Mr. Hughes is a 30 year old male in the [facility] for depression and suicidal ideation. Patient was initially admitted to [facility] on 09/05/2021, but then was sent to the medical side for hypotension and MARLENE secondary to hypovolemia. Pat ient was given fluids, and he did well. He say psychiatry on 09/06/2021, and returned back to [facility] on 09/06/2021. Patient was seen again this afternoon. He denied any fever, changes in vision, chest pain, dyspnea, abdominal pain, dysuria, rashes, bruises, or neuropathy. He still had anxiety and depression. Otherwise, no other complaints. Objective Physical Examination General Exam: Positive: Alert, Cooperative Eye Exam: Positive: EOMI; Negative: Sclera icteric ENT Exam: Positive: Atraumatic Neck Exam: Positive: Supple Chest Exam: Positive: Clear to auscultation; Negative: Rales, Rhonchi, Wheezing Heart Exam: Positive: Rate Normal, Regular Rhythm Abdomen Exam: Positive: Normal bowel sounds, Soft; Negative: Tenderness Extremity Exam: Negative: Edema Neuro Exam: Positive: Normal Speech, Cranial Nerves 3-12 NL Psych Exam: Positive: Other (Depressed) Assessment /Plan Plan/VTE VTE Prophylaxis Ordered?: No (ambulatory in [facility]) Plan 1. Depression with suicidal ideation -Being managed in the [facility] Thank you for consulting us. We will sign off at this time. If there is any questions or concerns, please do not hesitate to reconsult us. VS, I&O, 24H, Fishbone Vital Signs/I&O Vital Signs Date Time Temp Pulse Resp B/P (MAP) Pulse Ox O2 Delivery O2 Flow Rate FiO2 09/07/21 16:26 98.4 63 16 119/57 (77) 100 Room Air DANY SIERRA DO Sep 07, 2021 18:29
[2021-09-07] MEDS: traZODone 50 MG TAB PO PRN (21:41)
[2021-09-08 07:10] VITALS: BP 113/59
[2021-09-08] MEDS: OLANZapine 5 MG TAB PO SCH ×2 (08:44→21:28)
[2021-09-08] MEDS: LORazepam 1 MG TAB PO SCH ×2 (08:44→21:28)
[2021-09-08] MEDS: ESCITALOPRAM OXALATE 10 MG TAB (LEXAPRO) PO SCH (08:44)
--- NOTE | 2021-09-08 12:01 | MHIPNPDOC ---
[facility] Progress Note Progress Note DATE OF SERVICE: 09/08/21 HISTORY: He says he slept well last night, he didn't wake up. Anxiety is a 4/10,his heart is not racing. Depression is a 2-3/10. He says he is very anxious in social situations, when meeting new people, he says that it has been getting worse, however, since yesterday and today, he has felt calm. VITAL SIGNS: See below. NEW TEST RESULTS: See below CURRENT MEDICATIONS: See below. MENTAL STATUS EXAMINATION: General Appearance: well groomed, appears stated age, hospital scubs/clothing Build: average Demeanor: cooperative, calm Eye Contact: avoidant Activity: normal, calm Behavior: cooperative Speech: clear, spontaneous, slow, low in volume Mood: sad, anxious Affect: constricted, flat, congruent Thought Process: logical/linear Thought Content (Delusions): none reported Thought Content (Other): none reported Thought Content (Aggressive): none reported Perception (Hallucinations): auditory Perception (Other): none reported Cognition (Impairment of): none reported Cognition(Intelligence Est.): average Oriented: Awake, Alert, Oriented times three Insight: fair Judgment: Fair Psychosis: Psychotic Perceptions Diagnoses 1. Major Depressive Disorder, severe with psychosis 2. MAGALY ASSESSMENT: He is a little bit more calm, but he is still withdrawn, his mood and affect are depressed, constricted flat. I still think he is depressed but he has improved. I prescribed Ativan when he came back to the Unit because he was almost catatonic when I saw him at the Medical floor. He has a problem with alcohol and I think he has a complicated bereavement. He is responding well to medications, but he should seek help for alcohol problems and starting tomorrow, will taper down his dose of Ativan MANAGEMENT PLAN: Will continue with current treat plan TIME SPENT: 20 minutes. Vital Signs Vital Signs Date Time Temp Pulse Resp B/P (MAP) Pulse Ox O2 Delivery O2 Flow Rate FiO2 09/08/21 07:10 99.5 68 18 113/59 (77) 99 09/07/21 16:26 Room Air Current Medications Current Medications Medications (Trade) Dose Ordered Sig/Chikis Route PRN Reason Start Time Stop Time Status Last Admin Dose Admin Acetaminophen (Tylenol Tab) 650 mg Q6HP PRN PO HEADACHE or MILD DISCOMFORT 09/06/21 16:45 Al Hydrox/Mg Hydrox/Simethicone (Mylanta) 30 ml Q4HP PRN PO HEARTBURN/INDIGESTION 09/06/21 16:45 Escitalopram Oxalate (Lexapro) 20 mg DAILY PO 09/07/21 09:00 09/08/21 08:44 Lorazepam (Ativan) 1 mg BID PO 09/06/21 21:00 09/08/21 08:44 Magnesium Hydroxide (Milk Of Magnesia) 30 ml DAILYPRN PRN PO CONSTIPATION 09/06/21 16:45 Olanzapine (ZyPREXA) 5 mg BID PO 09/06/21 21:00 09/08/21 08:44 Trazodone HCl (Desyrel) 50 mg QHSP PRN PO INSOMNIA 09/06/21 16:45 09/07/21 21:41 Allergies Coded Allergies: No Known Allergies (Unverified , 09/04/21) CHEVY GUAMAN MD Sep 08, 2021 12:01
[2021-09-08 16:23] VITALS: BP 132/62
[2021-09-08] MEDS: traZODone 50 MG TAB PO PRN (21:28)
[2021-09-09 06:56] VITALS: BP 129/63
[2021-09-09] MEDS: LORazepam 1 MG TAB PO SCH ×2 (09:44→22:31)
[2021-09-09] MEDS: OLANZapine 5 MG TAB PO SCH ×2 (09:45→22:31)
[2021-09-09] MEDS: ESCITALOPRAM OXALATE 10 MG TAB (LEXAPRO) PO SCH (09:45)
[2021-09-09] MEDS ORDERED: TRAZ-252 PO (10:33)
[2021-09-09] MEDS ORDERED: MECL-86 PO (10:33)
[2021-09-09] MEDS ORDERED: LEXA1TAB2 PO (10:33)
--- NOTE | 2021-09-09 11:18 | MHIPNPDOC ---
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 He says he was wishing one day going to go to sleep and not wake up. He has been feeling depressed for a long period of time. He has nicki feeling very sad since his father , around 2013, and he was still in [place]. he feels misunderstood, he feels people come against him and this happens at work and at home. 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 Patient was in bed with his eyes closed was very minimal in his conversation disengaged in the interview PER ED REPORT: Pt was brought to [facility] by EMS after Behavior Health contacted EMS due to pt exhibiting signs of paranoia. Pt reports that he is originally from [place] and that he moved to the [place] with his first . Pt reports that he his first in 2019 when he joined the [employer] and then was inspired to enlist in the [employer]. 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 Pt reports that [place] is his first duty station. Pt reports that he suffers from severe headaches and that he has been diagnosed with intracranial hemorrhage. Pt reports that he stayed in the [facility] for almost 5 days. (Which appears to be a delusion since there is no evidence of this in healthy connections). Pt reports that since that time his headaches have been debilitating. Pt reports that his is getting frustrated with him because; he has been unable to care for their son and only go to work. Pt reports that he suffers from very poor sleep and he has been put on different medications to help however, he feels that these medications are not helping at all. Pt reports that he went to [facility] today because he and his were arguing about their vehicle that has been at the [facility] for 2 weeks. Pt reports that he called very early this morning because, he has been borrowing someone else's vehicle and he would like help to get the vehicle out of the shop. Pt reports that his got very agitated with him because, he called so early in the morning. Pt states "I am very passive and wanted to avoid an argument so I went to the [facility] to talk to someone and they sent me here". Pt is very tearful at times and states that he feels worthless and that he will very soon. Pt reports that he doesn't want to by his own hand but, "I wouldn't mind going to sleep and never waking up". Pt reports feeling as though he is one of the worst solders. At times pt is very difficult to follow and states that he often hears his father's voice, pt states "I know that it's okay to soon, it is because I hear my dad's voice". When asked if his dad voice tells pt to hurt himself pt states "no, my dad was a good man". Pt is very fixated on getting a book written in Cymro which is pts primary language. Pt seems very hyper focused on it and has asked several times, tw found pt a book however, it was not written in Cymro. Pt was satisfied with tw attempt at finding pt sometime to occupy his time. Pt denies HI/Self Inj/VH. Pt report erratic appetite and poor sleep. 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 He was admitted to [facility], and hospitalist was called for medical intake. RN informed MD that patient had vomited shortly prior to breakfast, felt lightheaded and when he lay down, his SBP measured was 70 mmHg, with repeat improvement to 100 mmHg systolic. Patient stated that he had nothing to eat or drink for almost 24 hours and felt thirsty. He denies blurred vision, chest pain, palpitations, but endorses slight headache. Lab work was ordered, indicating Cr 2.04. LA 2.2. Orthostatic BP was measured in [facility], positive. Tox screen negative. Patient admitted to hospitalist service from [facility] due to MARLENE likely 2/2 dehydration.] VITAL SIGNS: See below. NEW TEST RESULTS: None CURRENT MEDICATIONS: See below. 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 Speech: Is fluid, conversant, normal rate, tone and volume Language skills are intact Thought processes including: linear and goal oriented Thought content: denies depression and anxiety. Denies suicidal/homicidal ideation, planning or intent. Abstract reasoning, and computation: fair Description of associations: denies, none observed Description of abnormal or psychotic thoughts: denies, none observed. Judgment: fair Insight: fair Orientation: alert and oriented to person, place, time and situation Recent and remote memory: intact Attention span and concentration: good Language: expansive Fund of knowledge: average Mood: Euthymic Mood Affect: reactive Diagnoses 1. Major Depressive Disorder, severe with psychosis 2. MAGALY ASSESSMENT: In today's interview patient denies depression and anxiety. He appears more alert and oriented. States that he and his for having good conversations and she is requesting that he come home and help her with the baby. Patient denies any suicidal thoughts at this time. Denies auditory hallucinations x5 days. He states that he feels that he is stable and at his baseline. Discussed that his kidney injury may have been causing some delirium and and/or insomnia causing psychotic features to his major depressive disorder. States that he would like to be discharged. Discharging patient tomorrow. MANAGEMENT PLAN: Continue all medications and supportive therapies. Patient appears stable can be discharged tomorrow -discharge orders have been entered for tomorrow. TIME SPENT: 25 minutes. Vital Signs Vital Signs Date Time Temp Pulse Resp B/P (MAP) Pulse Ox O2 Delivery O2 Flow Rate FiO2 09/09/21 06:56 98.5 61 20 129/63 (85) 96 Room Air Current Medications Current Medications Medications (Trade) Dose Ordered Sig/Chikis Route PRN Reason Start Time Stop Time Status Last Admin Dose Admin Acetaminophen (Tylenol Tab) 650 mg Q6HP PRN PO HEADACHE or MILD DISCOMFORT 09/06/21 16:45 Al Hydrox/Mg Hydrox/Simethicone (Mylanta) 30 ml Q4HP PRN PO HEARTBURN/INDIGESTION 09/06/21 16:45 Escitalopram Oxalate (Lexapro) 20 mg DAILY PO 09/07/21 09:00 09/09/21 09:45 Lorazepam (Ativan) 1 mg BID PO 09/06/21 21:00 09/09/21 09:44 Magnesium Hydroxide (Milk Of Magnesia) 30 ml DAILYPRN PRN PO CONSTIPATION 09/06/21 16:45 Olanzapine (ZyPREXA) 5 mg BID PO 09/06/21 21:00 09/09/21 09:45 Trazodone HCl (Desyrel) 50 mg QHSP PRN PO INSOMNIA 09/06/21 16:45 09/08/21 21:28 Allergies Coded Allergies: No Known Allergies (Unverified , 09/04/21) LEE MENENDEZ NP Sep 09, 2021 11:18
--- NOTE | 2021-09-09 12:28 | REP ---
INDICATION: Right hand pain - knocked it into a wall per nurse overnight. COMPARISON: None. TECHNIQUE: AP and lateral FINDINGS: Distal radius and ulna were unremarkable. Carpal bones and metacarpals show no evidence of an acute fracture or focal lesion. MCP and IP joints intact. Some swelling about the PIP joint of the 3rd digit is noted. No abnormal soft tissue calcifications or avulsions are evident. IMPRESSION: 1. Some minor soft tissue swelling about the PIP joint 3rd digit without visible or displaced fracture, avulsion or subluxation. No other significant or acute finding. <Electronically signed by Stewart Diaz > 09/09/21 [id number]
[2021-09-09] MEDS ORDERED: RIZATRIPTAN BENZOATE 10 MG TAB PO PRN (14:45)
[2021-09-09] MEDS ORDERED: PILL CUTTER 1 EACH XX PRN (14:50)
[2021-09-09 15:59] VITALS: BP 136/60
[2021-09-09] MEDS: TOPIRAMATE (TopAMAX) 25 MG TAB PO SCH (22:31)
[2021-09-10] MEDS: traZODone 50 MG TAB PO PRN (00:49)
[2021-09-10 07:14] VITALS: BP 96/50
[2021-09-10] MEDS ORDERED: TOPI50TA9 PO (08:25)
[2021-09-10] MEDS ORDERED: OLAN1TAB16 PO (08:25)
[2021-09-10] MEDS ORDERED: MAXA10TA14 PO (08:25)
[2021-09-10] MEDS: OLANZapine 5 MG TAB PO SCH (08:30)
[2021-09-10] MEDS: TOPIRAMATE (TopAMAX) 25 MG TAB PO SCH (08:31)
[2021-09-10] MEDS: ESCITALOPRAM OXALATE 10 MG TAB (LEXAPRO) PO SCH (08:31)
[2021-09-10] MEDS: LORazepam 1 MG TAB PO SCH (08:32)
--- NOTE | 2021-09-10 11:03 | MHDSPDOC ---
[facility] Discharge Summary Discharge Summary DATE OF ADMISSION: Sep 06, 2021 at 19:17 DATE OF DISCHARGE: August 10, 2021 at 1057 DISCHARGE DIAGNOSES: 1. Major Depressive Disorder, severe with psychosis 2. 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 He says he was wishing one day going to go to sleep and not wake up. He has been feeling depressed for a long period of time. He has nicki feeling very sad since his father , around 2013, and he was still in [place]. he feels misunderstood, he feels people come against him and this happens at work and at home. 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 Patient was in bed with his eyes closed was very minimal in his conversation disengaged in the interview PER ED REPORT: Pt was brought to [facility] by EMS after Behavior Health contacted EMS due to pt exhibiting signs of paranoia. Pt reports that he is originally from [place] and that he moved to the [place] with his first . Pt reports that he his first in 2019 when he joined the [employer] and then was inspired to enlist in the [employer]. 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 Pt reports that [place] is his first duty station. Pt reports that he suffers from severe headaches and that he has been diagnosed with intracranial hemorrhage. Pt reports that he stayed in the [facility] for almost 5 days. (Which appears to be a delusion since there is no evidence of this in healthy connections). Pt reports that since that time his headaches have been debilitating. Pt reports that his is getting frustrated with him because; he has been unable to care for their son and only go to work. Pt reports that he suffers from very poor sleep and he has been put on different medications to help however, he feels that these medications are not helping at all. Pt reports that he went to [facility] today because he and his were arguing about their vehicle that has been at the mechanics for 2 weeks. Pt reports that he called very early this morning because, he has been borrowing someone else's vehicle and he would like help to get the vehicle out of the shop. Pt reports that his got very agitated with him because, he called so early in the morning. Pt states "I am very passive and wanted to avoid an argument so [facility] someone and they sent me here". Pt is very tearful at times and states that he feels worthless and that he will very soon. Pt reports that he doesn't want to by his own hand but, "I wouldn't mind going to sleep and never waking up". Pt reports feeling as though he is one of the worst solders. At times pt is very difficult to follow and states that he often hears his father's voice, pt states "I know that it's okay to soon, it is because I hear my dad's voice". When asked if his dad voice tells pt to hurt himself pt states "no, my dad was a good man". Pt is very fixated on getting a book written in German which is pts primary language. Pt seems very hyper focused on it and has asked several times, tw found pt a book however, it was not written in German. Pt was satisfied with tw attempt at finding pt sometime to occupy his time. Pt denies HI/Self Inj/VH. Pt report erratic appetite and poor sleep. 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 He was admitted to [facility], and hospitalist was called for medical intake. RN informed MD that patient had vomited shortly prior to breakfast, felt lightheaded and when he lay down, his SBP measured was 70 mmHg, with repeat improvement to 100 mmHg systolic. Patient stated that he had nothing to eat or drink for almost 24 hours and felt thirsty. He denies blurred vision, chest pain, palpitations, but endo rses slight headache. Lab work was ordered, indicating Cr 2.04. LA 2.2. Orthostatic BP was measured in [facility], positive. Tox screen negative. Patient admitted to hospitalist service from [facility] due to MARLENE likely 2/2 dehydration.] VITAL SIGNS: See below. CONSULTANTS INVOLVED: See Medical H + P by Hospitalist TREATMENT AND PROGRESS ON THE UNIT: Patient was admitted to the [facility] on a 39 legal status was afforded the following treatment modalities: 1) Individual Therapy 2) Group Therapy 3) Medication Management 4) Milieu Therapy 5) Safe Environment HOSPITAL COURSE: Patient was admitted to [facility] on a 39 legal status. Pt found medications beneficial and tolerated them well. Mood, anxiety, and intrusive thoughts improved with treatment. Pt attended groups daily during stay. Pts symptoms improved with treatment. On day of discharge pt. denied depression, anxiety, insomnia, SI/HI, hallucinations, delusions. Pt was discharged home with follow-up with [facility]. Pt felt safe for discharge. DISCHARGE ASSESSMENT: In today's interview, patient is alert and oriented, pt.s dress is appropriate. Hygiene and grooming is well-kempt. Smiles on approach and is pleasant and engaged in the interview. Denies depression and anxiety. Denies suicidal and homicidal ideation, planning or intent. Denies and is not observed with kelsea, psychotic symptoms of delusions, bizarre thinking, obsessions, paranoia, ruminations illogical thoughts, flight of ideas or having poor insight and judgement. Reinforced with patient need to abstain from alcohol and drugs. At discharge patient has normal mentation, declines further hospitalization on a voluntary status and meets criteria for discharge today. Discussed indications of medications, potential benefits and risks, alternatives (including no treatment) and questions were encouraged and answered. Patient encouraged to return to hospital if symptoms worsen or change and encouraged to call unit if he/she/they needs to speak to provider for questions regarding medications or care. Patient had reported that he had improved in that much of his delusional, auditory hallucinations, paranoia may have stemmed from being on duty for 24 hours several times in the month. He states that because of his migraines he has a smoking profile which allows him to only work 8 hours a day. And this was not being adhered to. He reports that much of his anxiety came from the fact that his mother was unable to come from [place] to help support his with the new baby. He states that during this hospitalization he feels like a a weight has been lifted from his shoulders. 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 He says he was wishing one day going to go to sleep and not wake up. He has been feeling depressed for a long period of time. Speech: Is fluid, conversant, normal rate, tone and volume Language skills are intact Thought processes including: linear and goal oriented Thought content: Reports decreased depression and anxiety. Denies suicidal/homicidal ideation, planning or intent. Abstract reasoning, and computation: fair Description of associations: denies, none observed Description of abnormal or psychotic thoughts: denies, none observed. Judgment: Good Insight: Good Orientation: alert and oriented to person, place, time and situation Recent and remote memory: intact Attention span and concentration: good Language: expansive Fund of knowledge: average Mood: "Better "mood Affect: Bright Suicide Risk Assessment: 1) Does the patient wish to be ? No 2) Since your admission, have you had any actual thought of killing yourself? No 3) Since your admission, have you been thinking about how you might do this? No 4) Since your admission, have you had these thoughts and had some intention of acting on them? No 5) Since your admission, have you started to work out or worked out the details of how to kill yourself? No 5A) Do you intent to carry out this plan? No and NA 6) Have you ever done anything, started anything, or prepared to do anything with any intent to ? No 6A) How long since your admission did you do any of these? NA MEDICATIONS ON DISCHARGE: See Medication Reconciliation PLAN/FOLLOWUP ARRANGEMENTS: Patient to be discharged home which he did come in and is following up with [facility]_ The amount of time spent in the coordination of care for this patient was approximately 25 minutes. ETOH/Disorder Med Rx ETOH/DRUG DISORDER RX: N/A Vital Signs/I&Os Vital Signs Date Time Temp Pulse Resp B/P (MAP) Pulse Ox O2 Delivery O2 Flow Rate FiO2 09/10/21 07:14 98.1 59 16 96/50 (65) 98 Room Air Medications Scheduled Escitalopram Oxalate (Lexapro) 20 Mg Tablet, 20 MG PO DAILY for Depression, #7 Meclizine HCl (Meclizine HCl) 25 Mg Tablet, 25 MG PO Q12H for Vertigo for 1 Days, #14 Olanzapine (Olanzapine) 5 Mg Tablet, 5 MG PO BID for Anger, #14 Trazodone HCl (Trazodone HCl) 50 Mg Tablet, 50 MG PO QHS for Insomnia for 1 Days, #7 Scheduled PRN Rizatriptan Benzoate (Maxalt) 10 Mg Tablet, 5 MG PO DAILY PRN for MIGRAINE, #7 Topiramate (Topiramate) 50 Mg Tablet, 50 MG PO BID PRN for PAIN LEVEL 4-7, #14 Allergies Coded Allergies: No Known Allergies (Unverified , 09/04/21) LEE MENENDEZ NP Sep 10, 2021 11:03
[2021-09-10] MEDS ORDERED: RIZATRIPTAN BENZOATE 10 MG TAB PO ONE (13:00)
== END 2021-09-10 12:35 | disposition home or self-care (01) | DRG 885 ==
LOC: M PSY 19:17
PROVIDERS: ADMIT Psychiatry & Neurology Psychiatry; ATTEND Psychiatry & Neurology Psychiatry
DX: F32.3 Major depressive disorder, single episode, severe with psychotic features (principal); R45.851 Suicidal ideations; F41.1 Generalized anxiety disorder; Z79.899 Other long term (current) drug therapy; Z20.822 Contact with and (suspected) exposure to COVID-19; S60.221A Contusion of right hand, initial encounter; W22.8XXA Striking against or struck by other objects, initial encounter; Y92.239 Unspecified place in hospital as the place of occurrence of the external cause